=== PATIENT | male | born 1970 | race Caucasian/White ===

== ENCOUNTER 2016-06-22 20:38 | Emergency (ER) | payer MEDICAID ==
[2016-06-22] MEDS ORDERED: Ondansetron 4 MG/2 ML SDV IVPUSH ONE (22:04)
[2016-06-22] MEDS ORDERED: HYDROmorphone 2 MG/ML SDV IVPUSH ONE (22:04)
[2016-06-22] MEDS ORDERED: Sodium Chloride 0.9% 1,000 ML IV ONE (22:05)
[2016-06-23 00:28] VITALS: BP 160/99
[2016-06-23] MEDS ORDERED: Acetaminophen/HYDROcodone 325-5 MG Tab PO ONE (00:35)
--- NOTE | 2016-06-25 14:57 | ER ---
DATE SEEN: 06/22/2016 TIME SEEN: The patient was seen at 2110 hours on 06/22/2016. CHIEF COMPLAINT: Low back pain. HISTORY OF PRESENT ILLNESS: The patient complains of right flank pain. Past medical history is significant for renal stones. At 0900 hours, he had the onset of 8/10 right lower flank pain, low back discomfort, now it is greater than 10/10. No associated trauma. He has had a past medical history of renal stones. The patient denies unusual lifting, turning, twisting, or trauma. No nausea, vomiting, diarrhea, constipation, blood in the stool, black tarry stool, or change in bowels. No frequency, urgency, or dysuria. No hematuria. Negative for history of alcohol. He felt warmer than usual. He has had 2 episodes of kidney stones that passed 3 years ago. He had 96 ounces of water today (1-1/2 quarts). He drinks eight 12-ounce bottles of water a day. The patient denies fevers, but has had slight diaphoresis. Between 1300 hours and 1400 hours, the back pain relented, then it became recurrent at 1730 hours. PAST MEDICAL HISTORY: Significant for chronic intermittent low back pain; 5 midline abdominal hernia surgeries, 1 inferior, 4 upper hernia repairs with mesh placement, the last mesh that was replaced has worked well, he has not had any complications. Dr. Vega performed this very skillfully. ALLERGIES: Toradol and penicillins. OTHER DIAGNOSES: Obesity, low back pain, hernia repair as noted above, hypertension, chronic pain, arthritis, chronic right knee pain, anxiety. SOCIAL HISTORY: Alcohol negative. 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 PHYSICAL EXAMINATION: GENERAL: This overweight patient was examined. The patient has mild discomfort. He is reluctant to move and walk around because of right flank discomfort. Most of this is really from the posterior axillary line to the right anterior axillary line. VITAL SIGNS: Blood pressure 156/100, heart rate 97, respirations 18, oxygen saturation 98% on room air, and temperature 36.6 degrees centigrade. ABDOMEN: He has mild guarding. Mild CVA percussion tenderness. Further examination of the abdomen is nontender. No guarding or rebound. Bowel sounds normal. No voluntary guarding in the abdomen. EXTREMITIES: Deep tendon reflexes bilateral hypoactive in lower extremities. No decreased muscle strength in lower extremities. No asymmetry or muscle bulk. Extremities without abnormality. Straight leg raise is negative to 80 degrees on the right and 90 for the left. LUNGS: Clear to auscultation without rales, rhonchi, or wheezes. MUSCULOSKELETAL: No spinous process tenderness in cervical or thoracic spine. Mild lumbar discomfort, but most of his pain is isolated to the flank. HEENT: PERRLA intact. Pharynx without abnormality. NECK: No cervical adenopathy. No cervical or thoracic muscle tenderness or spinous process tenderness. Mild paraspinal muscle discomfort, more on the right with CVA percussion. LABORATORY FINDINGS: No evidence for abnormality demonstrated on CT. Complete metabolic panel was normal except for mild hyperglycemia of 179. Alkaline phosphatase low at 55. Sodium 137, potassium 3.8, bicarb 27, chloride 105. Urine: Protein 30, greater than 250 glucose, moderate occult blood, rare bacteria, positive tricyclics in the urine (possibility it could be secondary to use of ibuprofen). CURRENT MEDICATIONS: 1. Losartan. 2. Lisinopril. 3. Ibuprofen. 4. Amlodipine. 5. Metoprolol succinate. DIAGNOSTIC STUDIES: CAT scan as noted above. No evidence for renal stones. No evidence for bowel abnormality. Urinalysis suggests glycosuria, etiology indeterminate, may be reactive to hyperglycemia, which fits his glucose of 179, early diabetes. Moderate occult blood. Rare bacteria. It is possible he may have passed a renal stone, but at present it is not evident. No evidence for renal stone presently. The patient was advised for his back pain to use Flexeril for muscle spasm and given 8 tablets of Vicodin 1 q.4-6 hours p.r.n. pain, otherwise Tylenol 1000 mg and ibuprofen 600 mg q.6 hours together. Follow up with doctor in a week, earlier if worse. I have told the patient I felt his back pain is probably related to degenerative back pain, but I also noted that potentially he could have passed a renal stone with microhematuria evident, without a stone present. Other diagnosis: Obesity. /[id number] LS/MODL The patient, Mr. Pool Wyman, was seen at 2150 hours. /[id number] NASREEN/PADDY DORADO
--- NOTE | 2016-07-07 14:36 | ER ---
ADDENDUM TO EMERGENCY ROOM REPORT DIAGNOSES: Low back pain and hyperglycemia. MTDD
== END 2016-06-23 00:40 | disposition home or self-care (01) ==
LOC: FB.ED 20:38
DX: E66.9 Obesity, unspecified (principal); M54.5 Low back pain; Z87.442 Personal history of urinary calculi; Z87.19 Personal history of other diseases of the digestive system; I10 Essential (primary) hypertension; G89.29 Other chronic pain; M19.90 Unspecified osteoarthritis, unspecified site; M25.561 Pain in right knee; F41.9 Anxiety disorder, unspecified; Z79.899 Other long term (current) drug therapy; K76.0 Fatty (change of) liver, not elsewhere classified
CPT/HCPCS: 36415; 74176; 80053; 80305; 81001; 96361; 96374; 96375; 99284; A9270; J1170; J2405; J7040; 74177

== ENCOUNTER 2016-06-28 23:31 | Emergency (ER) | payer MEDICAID ==
[2016-06-29] MEDS ORDERED: Acetaminophen 500 MG Tab PO ONE (01:04)
[2016-06-29] MEDS ORDERED: Acetaminophen/HYDROcodone 325-5 MG Tab PO ONE (01:35)
[2016-06-29 06:41] VITALS: BP 175/110
--- NOTE | 2016-06-29 11:16 | CR ---
INDICATION: Chest pain. CHEST: PA and lateral views of the chest 06/28/2016 were compared with 2015 and 01/31/2013, revealing the heart to be normal in size and shape. The aorta is only very minimally tortuous. Overlying EKG leads are noted. A definite active infiltrate or effusion was not identified. The AP diameter is prominent and there is slight flattening of diaphragm leaves , raising question of obstructive airway disease, possibly COPD. Slightly heavy markings are again noted in the mid to lower lung lopez, especially at the lower lung lopez, most likely fibrotic in nature, appearing similar to previous examinations. IMPRESSION: No acute process. Fairly stable appearance of the chest, allowing for changes in technique. MTDD
--- NOTE | 2016-06-29 15:17 | ER ---
DATE SEEN: 06/28/2016 HISTORY OF PRESENT ILLNESS: Mr. Pool Wyman is a 46-year-old male who comes in at 2337 hours with complaints of chest pain that is sternal and radiates to his left upper chest and interscapular region of the left shoulder, left arm, and left jaw. Tried nitroglycerin at home, did not make any difference. He has associated diaphoresis. The patient is morbidly obese, a 375-pound male with a BMI of 45.5, hypertension, status post bone spur involvement with numbness, sacral degenerative spine changes. Had nonspecific chest pain noted 10/12/2015. Has obstructive sleep apnea secondary to extensive morbid obesity. Anaphylaxis to penicillin and Toradol. Status post herniorrhaphy repair x5, anterior abdomen. On 06/22/2016, had the right flank pain. He has renal stone history. Known anxiety and a mild headache this evening 10/10 because of his nitroglycerin use. Initially on arrival, his blood pressure was elevated at 215/150, dropped after lying on the gurney 164/100. Heart rate 112 to 118. MEDICATIONS: 1. Amlodipine 5 mg daily. 2. Metoprolol succinate long-acting 25 mg daily. 3. Losartan/hydrochlorothiazide 100/25. 4. Lisinopril 10 mg. 5. Ibuprofen 800 mg. 6. Cyclobenzaprine 10 mg. 7. Hydrocodone 5/325 p.r.n. Recently had a prescription of approximately 10 tablets. REVIEW OF SYSTEMS: Negative except as noted above. The patient denies lightheadedness, near syncope, palpitations, abdominal pain, nausea, vomiting, diarrhea, difficulty passing urine, frequency, urgency, or dysuria, muscle aches or joint aches, except he has arthritis in his knees. He has listed in his chart fibromyalgia, chronic neck pain, chronic back pain with previous back surgery, chronic knee pain. PHYSICAL EXAMINATION: VITAL SIGNS: Blood pressure 164/121 on arrival. This slowly went down. Blood pressure went down to 150/101. He actually refused to take his blood pressure before he left the ED. HEENT: PERRLA intact. Pharynx without abnormality. No thyromegaly or masses. NECK: No bruits in the neck. LUNGS: Clear to auscultation without rales, rhonchi, or wheezes. HEART: S1, S2. No murmur. ABDOMEN: Soft. No abdominal discomfort. Massive increased abdominal girth. The incisional hernia scars noted (he has had 6 midline hernia surgeries, 1 upper and 5 below the umbilicus). He has no tenderness. GENITALIA: Negative. EXTREMITIES: Lower extremities without edema. No dysesthesia or hypoesthesia. LABORATORY FINDINGS: White count 9300, PMNs normal at 64, lymphs 28, monos 6, platelets 185,000, hemoglobin 14.1. D-dimer normal at 144. Troponin normal, less than 0.01. Glucose elevation at 240 with remainder of automated chemistry is normal. Sodium 135, potassium 3.4, chloride 104, CO2 of 25, BUN 16, creatinine 0.1, and protein and albumin normal. Liver enzymes normal. Calcium normal. EMERGENCY DEPARTMENT COURSE: The patient's pain and discomfort did not relent. There was concern about potential possible narcotic-seeking, but after review of the record, it is apparent that he has not been seeking narcotics, although at last ED visit on 05/21/2016, he received Norflex and on 05/24/2016 had tramadol 12 tablets. On 11/27/2016, he had Jud 12 tablets. The latter does not constitute for drug-seeking behavior. Much of the medications prescribed was for low back discomfort. The patient needs to follow up with his doctor. He needs a stress test. No suggestion of myocardial ischemia or unstable angina, but there is a concern because he is high risk with massive obesity and marked blood pressure. He is high risk for myocardial ischemia or myocardial event with a BMI of 54. DIAGNOSES: 1. Chest pain, etiology indeterminate, rule out angina. 2. Rule out coronary artery disease. 3. Massive obesity. 4. Morbid obesity, with a BMI of 54.2. 5. Status post multiple midline hernias secondary to surgical incision hernia. 6. No history of incarceration of hernias, as previous documented residuals. Small ventricular hernia right and superior to the current herniorrhaphy. 7. Smoking history. 8. Depression. 9. Fibromyalgia. 10.Previous Hodgkin lymphoma resection. 11."A bad leg and shoulder." 12.Hypertension. 13.Previous back surgery. 14.Anxiety. /[id number] NASREEN/MODL
== END 2016-06-29 01:37 | disposition home or self-care (01) ==
LOC: FB.ED 23:31
DX: R07.9 Chest pain, unspecified (principal); E66.9 Obesity, unspecified; F32.9 Major depressive disorder, single episode, unspecified; M79.7 Fibromyalgia; I10 Essential (primary) hypertension; F41.9 Anxiety disorder, unspecified; Z87.891 Personal history of nicotine dependence
CPT/HCPCS: 36415; 71020; 80053; 84484; 85025; 85379; 93005; 99285; A9270

== ENCOUNTER 2016-09-10 19:52 | Emergency (ER) | payer MEDICAID ==
--- NOTE | 2016-09-10 20:06 | EDM.PDOC ---
ED HPI GENERAL MEDICAL PROBLEM - General Stated Complaint: ABDOMINAL PAIN Time Seen by Provider: 09/10/16 19:52 Source of Information: Reports: Patient, Family History Limitations: Reports: Physical Impairment - History of Present Illness INITIAL COMMENTS - FREE TEXT/NARRATIVE: 46 years old w m came to the ed with his SO due to epigastric pain for several weeks, especially after eating fruit, sugary and spicy food. Pt was seen in the clinic for same today. Pt denies other acute medical issues. Onset: Unknown/Unsure Onset Date: 07/24/16 Onset Time: 08:00 Duration: Chronic, Colic, Intermittent Location: Reports: Abdomen Quality: Reports: Burning, Dull Severity: Moderate Right Upper Abdomen Pain Score (Numeric/FACES): 10 - Related Data Allergies Allergy/AdvReac Type Severity Reaction Status Date / Time ketorolac tromethamine Allergy Unknown Anaphylactic Verified 09/10/16 20:06 [From Toradol] Shock Penicillins Allergy Hives Verified 09/10/16 20:06 Home Meds: Home Meds Lisinopril 10 mg PO DAILY 04/11/13 [History] Metoprolol Succinate [Toprol XL] 25 mg PO DAILY 04/11/13 [History] Ibuprofen 800 mg PO Q6HR PRN #60 tablet 05/13/14 [Rx] Losartan/Hydrochlorothiazide [Losartan-HCTZ 100-25 MG] 1 tab PO DAILY 06/11/15 [ History] amLODIPine [Norvasc] 5 mg PO DAILY 06/11/15 [History] Gabapentin [Neurontin] 300 mg PO TID 09/10/16 [History] Omeprazole 20 mg PO DAILY #20 cap.cr 09/10/16 [Rx] metFORMIN [Glucophage] 500 mg PO DAILY #10 tablet 09/10/16 [Rx] Past Medical History - Past Health History Medical/Surgical History: Denies Medical/Surgical History Cardiovascular History: Reports: Aneurysm, Hypertension Gastrointestinal History: Reports: None, Other (See Below) Other Gastrointestinal History: hernia surg x 5 Genitourinary History: Reports: Renal Calculus Musculoskeletal History: Reports: Arthritis, Back Pain, Chronic, Fibromyalgia, Neck Pain, Chronic, Osteoarthritis Other Musculoskeletal History: chronic R knee pain Psychiatric History: Reports: Anxiety, Depression, Panic Attack Endocrine/Metabolic History: Reports: Obesity/BMI 30+ - Infectious Disease History Infectious Disease History: Reports: Measles - Past Surgical History GI Surgical History: Reports: Hernia Repair/Other Neurological Surgical History: Reports: Other (See Below) Social & Family History - Family History Family Medical History: Noncontributory - Tobacco Use Smoking Status *Q: Former Smoker Years of Tobacco use: 25 Packs/Tins Daily: 0.5 Used Tobacco, but Quit: Yes Month Tobacco Last Used: unknown - Caffeine Use Caffeine Use: Reports: Soda - Alcohol Use Days Per Week of Alcohol Use: 0 Number of Drinks Per Day: 0 Total Drinks Per Week: 0 - Recreational Drug Use Recreational Drug Use: No - Living Situation & Occupation Living situation: Reports: Occupation: Employed ED ROS GENERAL - Review of Systems Review Of Systems: See Below Constitutional: Reports: No Symptoms, Weight Gain HEENT: Reports: No Symptoms Respiratory: Reports: No Symptoms Cardiovascular: Reports: No Symptoms Endocrine: Reports: No Symptoms GI/Abdominal: Reports: Abdominal Pain (epigastric) : Reports: No Symptoms Musculoskeletal: Reports: No Symptoms Skin: Reports: No Symptoms Neurological: Reports: No Symptoms Psychiatric: Reports: No Symptoms Hematologic/Lymphatic: Reports: No Symptoms Immunologic: Reports: No Symptoms ED EXAM, GI/ABD - Physical Exam Exam: See Below Exam Limited By: Physical Impairment General Appearance: Alert, WD/WN, Mild Distress, Obese (morbid) Eyes: Bilateral: Normal Appearance Ears: Normal External Exam Nose: Normal Inspection Throat/Mouth: Normal Inspection, Normal Lips Head: Atraumatic, Normocephalic Neck: Normal Inspection, Supple, Non-Tender, Full Range of Motion Respiratory/Chest: No Respiratory Distress, Lungs Clear, Normal Breath Sounds Cardiovascular: Normal Peripheral Pulses, Regular Rate, Rhythm, No Edema GI/Abdominal: Normal Bowel Sounds, Tenderness (epigastric ) (Male) Exam: Deferred Rectal (Males) Exam: Deferred Back Exam: Normal Inspection, Full Range of Motion Extremities: Normal Inspection, Normal Range of Motion Neurological: Alert, Oriented, CN II-XII Intact, Normal Cognition, Normal Gait Psychiatric: Normal Affect, Normal Mood Skin Exam: Warm, Dry, Intact, Normal Color Lymphatic: No Adenopathy Course - Vital Signs Text/Narrative:: 46 years old w m came to the ed with his SO due to epigastric pain for several weeks, especially after eating fruit, sugary and spicy food. Pt was seen in the clinic for same today. Pt denies other acute medical issues. Pt H/O Nonhodgkin disease PE: Morbid obese with epigastric pain Labs: Blood sugar was 487, Na 130 AST/ALT were elevated Imaging: US abd limited : Neg kar GBD Impression: Abdominal pain, epigastric, DM with hyperglycemia Tx: Gi cocktail, Zofran, Protronix, Insulin, Vicodin and dilaudid Reexam: Improved Plan: D/C with instruction Last Recorded V/S: Last Vital Signs Temp 36.8 C 09/10/16 20:09 Pulse 106 H 09/10/16 22:19 Resp 20 09/10/16 22:19 BP 167/114 H 09/10/16 22:19 Pulse Ox 97 09/10/16 22:19 - Orders/Labs/Meds Orders: Active Orders 24 hr Category Date Time Status Blood Glucose Check, Bedside [] ONETIME Care 09/10/16 22:13 Active Abdomen Ltd [US] Stat Exams 09/10/16 20:58 Ordered Labs: Laboratory Tests 09/10/16 09/10/16 09/10/16 Range/Units 20:30 20:30 20:30 WBC 8.6 (4.5-12.0) X10-3/uL RBC 5.34 (4.30-5.75) x10(6)uL Hgb 15.0 (11.5-15.5) g/dL Hct 45.4 (30.0-51.3) % MCV 85.0 (80-96) fL MCH 28.1 (27.7-33.6) pg MCHC 33.0 (32.2-35.4) g/dL RDW 12.8 (11.5-15.5) % Plt Count 169 (125-369) X10(3)uL MPV 9.1 (7.4-10.4) fL Neut % (Auto) 70.4 (46-82) % Lymph % (Auto) 23.4 (13-37) % [place] % (Auto) 4.4 (4-12) % Eos % (Auto) 2 (1.0-5.0) % Baso % (Auto) 0 (0-2) % Neut # (Auto) 6.1 (1.6-8.3) # Lymph # (Auto) 2.0 (0.6-5.0) # [place]iken # (Auto) 0.4 (0.0-1.3) # Eos # (Auto) 0.1 (0.0-0.8) # Baso # (Auto) 0.0 (0.0-0.2) # PT 9.3 (8.7-11.1) INR 0.92 (0.89-1.13) Sodium 130 L (135-145) mmol/L Potassium 3.9 (3.5-5.3) mmol/L Chloride 97 L D (100-110) mmol/L Carbon Dioxide 23 (23-29) mmol/L BUN 17 (5-20) mg/dL Creatinine 1.0 (0.6-1.3) mg/dL Est Cr Clr Drug Dosing 93.28 mL/min Estimated GFR (MDRD) > 60 (>60) BUN/Creatinine Ratio 17.0 (9-20) Glucose 485 H* D (80-116) mg/dL POC Glucose (80-116) mg/dL Hemoglobin A1c (4.0-6.0) % Calcium 8.7 (8.6-10.2) mg/dL Total Bilirubin 0.3 (0.1-1.3) mg/dL Direct Bilirubin < 0.1 L (0.1-0.2) mg/dL AST 30 H D (5-27) IU/L ALT 49 H D (14-26) IU/L Alkaline Phosphatase 83 (56-112) IU/L Total Protein 7.6 (6.0-8.0) g/dL Albumin 3.8 (3.5-5.2) g/dL Amylase 41 (28-100) U/L Urine Color (YELLOW) Urine Appearance (CLEAR) Urine pH (5.0-6.5) Ur Specific [place] (1.010-1.025) Urine Protein (NEGATIVE) mg/dL Urine Glucose (UA) (NEGATIVE) mg/dL Urine Ketones (NEGATIVE) mg/dL Urine Occult Blood (NEGATIVE) Urine Nitrite (NEGATIVE) Urine Bilirubin (NEGATIVE) Urine Urobilinogen (NEGATIVE) mg/dL Ur Leukocyte Esterase (NEGATIVE) Urine RBC (0) Urine WBC (0) Ur Squamous Epith Cells (NS,R,O) 09/10/16 09/10/16 09/10/16 Range/Units 20:34 20:45 22:09 WBC (4.5-12.0) X10-3/uL RBC (4.30-5.75) x10(6)uL Hgb (11.5-15.5) g/dL Hct (30.0-51.3) % MCV (80-96) fL MCH (27.7-33.6) pg MCHC (32.2-35.4) g/dL RDW (11.5-15.5) % Plt Count (125-369) X10(3)uL MPV (7.4-10.4) fL Neut % (Auto) (46-82) % Lymph % (Auto) (13-37) % [place] % (Auto) (4-12) % Eos % (Auto) (1.0-5.0) % Baso % (Auto) (0-2) % Neut # (Auto) (1.6-8.3) # Lymph # (Auto) (0.6-5.0) # Aiken # (Auto) (0.0-1.3) # Eos # (Auto) (0.0-0.8) # Baso # (Auto) (0.0-0.2) # PT (8.7-11.1) INR (0.89-1.13) Sodium (135-145) mmol/L Potassium (3.5-5.3) mmol/L Chloride (100-110) mmol/L Carbon Dioxide (23-29) mmol/L BUN (5-20) mg/dL Creatinine (0.6-1.3) mg/dL Est Cr Clr Drug Dosing mL/min Estimated GFR (MDRD) (>60) BUN/Creatinine Ratio (9-20) Glucose (80-116) mg/dL POC Glucose 337 H (80-116) mg/dL Hemoglobin A1c 10.6 H (4.0-6.0) % Calcium (8.6-10.2) mg/dL Total Bilirubin (0.1-1.3) mg/dL Direct Bilirubin (0.1-0.2) mg/dL AST (5-27) IU/L ALT (14-26) IU/L Alkaline Phosphatase (56-112) IU/L Total Protein (6.0-8.0) g/dL Albumin (3.5-5.2) g/dL Amylase (28-100) U/L Urine Color Yellow (YELLOW) Urine Appearance Clear (CLEAR) Urine pH 5.0 (5.0-6.5) Ur Specific [place] 1.015 (1.010-1.025) Urine Protein Negative (NEGATIVE) mg/dL Urine Glucose (UA) >1000 H (NEGATIVE) mg/dL Urine Ketones Negative (NEGATIVE) mg/dL Urine Occult Blood Negative (NEGATIVE) Urine Nitrite Negative (NEGATIVE) Urine Bilirubin Negative (NEGATIVE) Urine Urobilinogen Normal (NEGATIVE) mg/dL Ur Leukocyte Esterase Negative (NEGATIVE) Urine RBC 0-5 (0) Urine WBC 0-5 (0) Ur Squamous Epith Cells Rare (NS,R,O) Meds: Medications Discontinued Medications Generic Name Dose Route Start Last Admin Trade Name Freq PRN Reason Stop Dose Admin Hydrocodone Bitart/Acetaminophen 1 tab 09/10/16 21:44 09/10/16 21:52 [place] 325-5 Mg PO 09/10/16 21:45 1 tab ONETIME ONE Administration Al Hydroxide/Mg Hydroxide 15 0 ml 09/10/16 20:13 09/10/16 20:30 ml/ Lidocaine HCl 15 ml PO 09/10/16 20:14 30 ml ONETIME ONE Administration Hydromorphone HCl 1 mg 09/10/16 22:14 Dilaudid IVPUSH 09/10/16 22:15 ONETIME STA Insulin Human Regular 7 unit 09/10/16 20:56 09/10/16 21:10 Humulin R SUBCUT 09/10/16 20:57 7 units ONETIME STA Administration Protocol Ondansetron HCl 8 mg 09/10/16 20:13 09/10/16 20:30 Zofran Odt PO 09/10/16 20:14 8 mg ONETIME ONE Administration Pantoprazole Sodium 40 mg 09/10/16 20:38 09/10/16 20:49 Protonix Iv IVPUSH 09/10/16 20:39 40 mg ONETIME ONE Administration Departure - Departure Time of Disposition: 22:15 Disposition: Home, Self-Care 01 Condition: good Clinical Impression: Epigastric cramping, Morbid obesity, Hyponatremia, Elevated liver enzymes Diabetes mellitus Qualifiers: Diabetes mellitus type: type 2 Diabetes mellitus complication status: with hyperglycemia - Discharge Information Prescriptions: Omeprazole 20 mg PO DAILY #20 cap.cr metFORMIN [Glucophage] 500 mg PO DAILY #10 tablet Referrals: PCP,None [Primary Care Provider] - Additional Instructions: Please take omeprazole and Metformin as recommended, please f/u with your PMD for possible upper endoscopy, Please come back if symptoms get worse acutely, Please check your blood sugar daily. - My Orders Last 24 Hours: My Active Orders 09/10/16 20:58 CallVU [US] Stat 09/10/16 22:13 Blood Glucose Check, Bedside [RC] ONETIME - Assessment/Plan Last 24 Hours: My Active Orders 09/10/16 20:58 CallVU [US] Stat 09/10/16 22:13 Blood Glucose Check, Bedside [RC] ONETIME
[2016-09-10] MEDS ORDERED: Ondansetron 8 MG Tab.DIS PO ONE (20:13)
[2016-09-10] MEDS ORDERED: Alum Hydroxide/Mag Hydroxide 15 ML, Lidocaine 2% 15 ML PO ONE ×2 (20:13)
[2016-09-10] MEDS ORDERED: Pantoprazole 40 MG Vial IVPUSH ONE (20:38)
[2016-09-10] MEDS ORDERED: Insulin Regular, Human 100 Units/ML 3 ML Vial SUBCUT STA (20:56)
[2016-09-10] MEDS ORDERED: Acetaminophen/HYDROcodone 325-5 MG Tab PO ONE (21:44)
[2016-09-10] MEDS ORDERED: HYDROmorphone 2 MG/ML SDV IVPUSH STA (22:14)
[2016-09-10 22:20] VITALS: BP 167/114
--- NOTE | 2016-09-11 10:54 | US ---
INDICATION: Upper abdominal pain. RIGHT UPPER QUADRANT/GALLBLADDER ULTRASOUND: Multiple ultrasonic images were obtained of the abdomen 09/10/2016, and compared with CT of 06/22/2016. The IVC was not adequately visualized due to gas and patient body habitus. The liver is markedly echogenic, compatible with fatty infiltration. The gallbladder was relatively small in size, measuring 5.8 x 1.6 x 1.8 cm, with no definite calculi or wall thickening identified. There was a negative ultrasonic Mccall sign and no wall thickening or pericholecystic fluid identified. The common bile duct was normal in caliber at approximately 4 mm. The right kidney appeared grossly normal and was not ideally visualized, measuring 12.1 x 5.5 x 5.9 cm. The pancreas was not adequately visualized due to intestinal gas. IMPRESSION: 1. Somewhat limited visualization due to gas and body habitus. Aorta, IVC, and pancreas not adequately visualized. 2. Fatty infiltration of the liver. MTDD
== END 2016-09-10 22:50 | disposition home or self-care (01) ==
LOC: FB.ED 19:52
DX: R10.13 Epigastric pain (principal); E66.2 Morbid (severe) obesity with alveolar hypoventilation; E87.1 Hypo-osmolality and hyponatremia; E11.649 Type 2 diabetes mellitus with hypoglycemia without coma; I10 Essential (primary) hypertension; M19.90 Unspecified osteoarthritis, unspecified site; F41.9 Anxiety disorder, unspecified; F32.9 Major depressive disorder, single episode, unspecified; E66.9 Obesity, unspecified; Z87.891 Personal history of nicotine dependence; Z98.890 Other specified postprocedural states; Z88.5 Allergy status to narcotic agent; Z88.0 Allergy status to penicillin; Z79.899 Other long term (current) drug therapy; Z79.84 Long term (current) use of oral hypoglycemic drugs
CPT/HCPCS: 36415; 76705; 80048; 80076; 81001; 82150; 82962; 83036; 85025; 85610; 96372; 96374; 96375; 99284; A9270; C9113; J1170; J1815

== ENCOUNTER 2016-11-12 16:55 | Emergency (ER) | payer MEDICAID ==
[2016-11-12] MEDS ORDERED: Acetaminophen/HYDROcodone 325-5 MG Tab PO ONE (17:33)
--- NOTE | 2016-11-12 17:43 | EDM.PDOC ---
ED HPI GENERAL MEDICAL PROBLEM - General Chief Complaint: Back Pain or Injury Stated Complaint: BACK INJURY Time Seen by Provider: 11/12/16 17:30 Source of Information: Reports: Patient, Old Records, RN History Limitations: Reports: No Limitations - History of Present Illness INITIAL COMMENTS - FREE TEXT/NARRATIVE: Morbidly obese 46 yo male with a pHx of chronic low back pain presents with an increase of this pain since about 4 pm today when he was getting out of the shower. Did not fall. No bowel or bladder dysfunction. Has an appt with his primary in [place] and a pain specialist both on Wednesday. Will need a note for work. Here with his . Took nothing for pain before coming to the ER. 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: Reports: Other (see below) (none) - Related Data Allergies Allergy/AdvReac Type Severity Reaction Status Date / Time ketorolac tromethamine Allergy Unknown Anaphylactic Verified 09/10/16 20:06 [From Toradol] Shock Penicillins Allergy Hives Verified 09/10/16 20:06 Home Meds: Home Meds Lisinopril 10 mg PO DAILY 04/11/13 [History] Metoprolol Succinate [Toprol XL] 25 mg PO DAILY 04/11/13 [History] Ibuprofen 800 mg PO Q6HR PRN #60 tablet 05/13/14 [Rx] Losartan/Hydrochlorothiazide [Losartan-HCTZ 100-25 MG] 1 tab PO DAILY 06/11/15 [ History] amLODIPine [Norvasc] 5 mg PO DAILY 06/11/15 [History] Gabapentin [Neurontin] 300 mg PO TID 09/10/16 [History] Omeprazole 20 mg PO DAILY #20 cap.cr 09/10/16 [Rx] metFORMIN [Glucophage] 500 mg PO DAILY #10 tablet 09/10/16 [Rx] Acetaminophen/HYDROcodone [Bolt 325-5 MG] 1 - 2 tab PO Q6H PRN #24 tab [Rx] Past Medical History - Past Health History Medical/Surgical History: Denies Medical/Surgical History Cardiovascular History: Reports: Aneurysm, Hypertension Gastrointestinal History: Reports: None, Other (See Below) Other Gastrointestinal History: hernia surg x 5 Genitourinary History: Reports: Renal Calculus Musculoskeletal History: Reports: Arthritis, Back Pain, Chronic, Fibromyalgia, Neck Pain, Chronic, Osteoarthritis Other Musculoskeletal History: chronic R knee pain Psychiatric History: Reports: Anxiety, Depression, Panic Attack Endocrine/Metabolic History: Reports: Obesity/BMI 30+ - Infectious Disease History Infectious Disease History: Reports: Measles - Past Surgical History GI Surgical History: Reports: Hernia Repair/Other Neurological Surgical History: Reports: Other (See Below) Social & Family History - Family History Family Medical History: Noncontributory - Tobacco Use Smoking Status *Q: Former Smoker Years of Tobacco use: 25 Packs/Tins Daily: 0.5 Used Tobacco, but Quit: Yes Month Tobacco Last Used: unknown - Caffeine Use Caffeine Use: Reports: Soda - Alcohol Use Days Per Week of Alcohol Use: 0 Number of Drinks Per Day: 0 Total Drinks Per Week: 0 - Recreational Drug Use Recreational Drug Use: No - Living Situation & Occupation Living situation: Reports: Occupation: Employed ED ROS GENERAL - Review of Systems Review Of Systems: See Below Constitutional: Reports: No Symptoms HEENT: Reports: No Symptoms Respiratory: Reports: No Symptoms Cardiovascular: Reports: No Symptoms GI/Abdominal: Reports: No Symptoms : Reports: No Symptoms Musculoskeletal: Reports: Back Pain Skin: Reports: No Symptoms Neurological: Reports: No Symptoms ED EXAM,LOWER BACK PAIN/INJURY - Physical Exam Exam: See Below Exam Limited By: No Limitations General Appearance: Alert, WD/WN, No Apparent Distress, Obese Respiratory/Chest: No Respiratory Distress, No Accessory Muscle Use Cardiovascular: Regular Rate, Rhythm GI/Abdominal: Other (morbidly obese) Back Exam: Vertebral Tenderness (lumbar vertebra tender without spasm). No: CVA Tenderness (R), CVA Tenderness (L) Extremities: Normal Inspection, No Pedal Edema, Limited Range of Motion. No: Pedal Edema Neurological: Alert, Normal Mood/Affect, CN II-XII Intact, No Motor/Sensory Deficits, Oriented x 3 Psychiatric: Normal Affect, Normal Mood Skin Exam: Warm, Dry, Intact, Normal Color, No Rash Lymphatic: No Adenopathy Course - Vital Signs Text/Narrative:: Bolt 2 po - Orders/Labs/Meds Meds: Medications Discontinued Medications Generic Name Dose Route Start Last Admin Trade Name Vaibhavq PRN Reason Stop Dose Admin Hydrocodone Bitart/Acetaminophen 2 tab 11/12/16 17:33 Bolt 325-5 Mg PO 11/12/16 17:34 ONETIME ONE Departure - Departure Time of Disposition: 18:00 Disposition: Home, Self-Care 01 Condition: Good Clinical Impression: Acute exacerbation of chronic low back pain - Discharge Information Prescriptions: Acetaminophen/HYDROcodone [Bolt 325-5 MG] 1 - 2 tab PO Q6H PRN #24 tab PRN Reason: Pain Referrals: PCP,Not In Area [Primary Care Provider] - Forms: ED Return to Work/School Form Care Plan Goals: Avoid lifting, bending, or twisting. Take ibuprofen 600 mg every 6 hrs with food. Add Bolt or acetaminophen for added pain relief if needed. Keep your appt for Wednesday as scheduled.
[2016-11-12 19:15] VITALS: BP 153/97
== END 2016-11-12 18:00 | disposition home or self-care (01) ==
LOC: FB.ED 16:55
DX: G89.29 Other chronic pain (principal); M54.5 Low back pain; I10 Essential (primary) hypertension; F41.9 Anxiety disorder, unspecified; F32.9 Major depressive disorder, single episode, unspecified; E66.9 Obesity, unspecified; Z98.890 Other specified postprocedural states; Z87.891 Personal history of nicotine dependence; Z88.5 Allergy status to narcotic agent; Z88.0 Allergy status to penicillin; Z79.84 Long term (current) use of oral hypoglycemic drugs
CPT/HCPCS: 99282; A9270

== ENCOUNTER 2017-01-15 18:07 | Emergency (ER) | payer MEDICAID ==
[2017-01-15] MEDS ORDERED: Azithromycin 250 MG Tab PO ONE (19:18)
[2017-01-15] MEDS ORDERED: Acetaminophen/HYDROcodone 325-5 MG Tab PO ONE (19:18)
[2017-01-15 19:24] VITALS: BP 131/64
--- NOTE | 2017-01-19 16:32 | ER ---
DATE SEEN: 01/15/2017 TIME SEEN: The patient was seen at 1900 hours. HISTORY OF PRESENT ILLNESS: Mr. Wyman is a 46-year-old man who comes in. He feels terrible. Two weeks ago, he started coughing. He has a sore throat. Slight fever. Abdominal discomfort. He has abdominal discomfort when coughing so hard. "My whole body aches." He denies having influenza. He has mild headache. 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 Denies smoking. No alcohol. On review of the chart, it is very apparent that he has been here multiple times for back pain. He has had 7 visits this year and 11 visits last year for such things as abdominal pain, back pain, chest pain, or previous back injury. PAST MEDICAL HISTORY: Diabetes, hypertension, morbid obesity, hyponatremia, chronic low back pain, hernia repair. The patient notes he has been coughing for the last 2 weeks. He has had yellow productive sputum. He has total body aches. ALLERGIES: Toradol and penicillins. CURRENT MEDICATIONS: Amlodipine, omeprazole, metoprolol, ibuprofen, gabapentin, metformin, losartan. DIAGNOSES: Hypertension, gastroesophageal reflux disease, chronic pain, diabetes, hyperlipidemia, obesity. REVIEW OF SYSTEMS: The patient denies headache, but has head pressure from his sinuses. Mild sore throat. Chronic and persistent intermittent paroxysms of coughing. Chest wall discomfort negative, but the left lower anterior upper abdominal discomfort which he relates to coughing. Denies any arm pain, jaw pain, neck pain. He has chronic back pain but that is unchanged. : Denies frequency, urgency, dysuria, difficulty passing urine. MUSCULOSKELETAL: Negative except for the low back pain. NEUROLOGIC: Negative. No history of seizures or headaches or head trauma. PHYSICAL EXAMINATION: VITAL SIGNS: Blood pressure 138/95, heart rate 114, respirations 20, oxygen saturation 98% on room air, temperature is 37.4 degrees Centigrade. Later his blood pressure and heart rate came down to 81 and blood pressure is 131/64. No changes in other vital signs. GENERAL: Very morbidly obese man in mild distress. He is somewhat flushed, has a stocking cap on. TMs negative. Pharynx without erythema. NECK: No thyromegaly or masses in the neck. No cervical adenopathy. LUNGS: There are coarse breath sounds to the lungs. Occasional scattered rale posteriorly. No chest wall discomfort. Posteriorly, no spinous process tenderness. No anterior chest wall discomfort. HEART: S1, S2. No murmur. Left anterior proximal flank discomfort. ABDOMEN: Otherwise soft. Increased abdominal girth. No organomegaly. No splenomegaly. No hepatomegaly. No guarding or rebound. GENITALIA: Negative. LOWER EXTREMITIES: Without abnormality. No pedal edema. ASSESSMENT: 1. Bronchitis. 2. Possible mild pneumonitis, doubt the latter. 3. Pharyngitis. 4. Mild sinusitis. He has pressure in his sinuses which causes pain with palpation. He has also history of dental discomfort from the sinuses in the maxillary region. PLAN: Treat his sinusitis. He is allergic to penicillin. Use Z-Leno. He has also treatment for bronchitis, pneumonitis, and pharyngitis. He did not want to have any tests done as he wanted to decrease the expense of this for this visit. Follow up with doctor in a week and also he has something to suppress the cough, 8 tablets of Vicodin should he have breakthrough pain and discomfort for flank pain and also for coughing. This will slow down his coughing. He was pleased. /[id number] NASREEN/PADDY DORADO
== END 2017-01-15 19:21 | disposition home or self-care (01) ==
LOC: FB.ED 18:07
DX: J02.9 Acute pharyngitis, unspecified (principal); J40 Bronchitis, not specified as acute or chronic; J32.9 Chronic sinusitis, unspecified; I10 Essential (primary) hypertension; E11.9 Type 2 diabetes mellitus without complications; K21.9 Gastro-esophageal reflux disease without esophagitis; E78.5 Hyperlipidemia, unspecified; E66.9 Obesity, unspecified; Z79.84 Long term (current) use of oral hypoglycemic drugs; Z88.0 Allergy status to penicillin; Z88.6 Allergy status to analgesic agent
CPT/HCPCS: 87804; 99283; A9270

== ENCOUNTER 2017-04-16 15:19 | Emergency (ER) | payer SELFPAY ==
--- NOTE | 2017-04-16 15:55 | EDM.PDOC ---
ED HPI GENERAL MEDICAL PROBLEM - General Chief Complaint: General Stated Complaint: FELL-GROIN PAIN Time Seen by Provider: 04/16/17 15:30 Source of Information: Reports: Patient History Limitations: Reports: No Limitations - History of Present Illness INITIAL COMMENTS - FREE TEXT/NARRATIVE: Pool slipped on a step and did a split stretch of both legs, injuring the R groin earlier this week. There is residual pain and stiffness with climbing, walking, lifting and crawling. He has tried NSAIDs and Tylenol without benefit. He has an appt. to see PT on April 28. right groin Pain Score (Numeric/FACES): 10 - Related Data Allergies Allergy/AdvReac Type Severity Reaction Status Date / Time ketorolac tromethamine Allergy Unknown Anaphylactic Verified 04/16/17 15:43 [From Toradol] Shock Penicillins Allergy Hives Verified 04/16/17 15:43 Home Meds: Home Meds Lisinopril 10 mg PO DAILY 04/11/13 [History] Metoprolol Succinate [Toprol XL] 25 mg PO DAILY 04/11/13 [History] Ibuprofen 800 mg PO Q6HR PRN #60 tablet 05/13/14 [Rx] Losartan/Hydrochlorothiazide [Losartan-HCTZ 100-25 MG] 1 tab PO DAILY 06/11/15 [ History] amLODIPine [Norvasc] 5 mg PO DAILY 06/11/15 [History] Gabapentin [Neurontin] 300 mg PO TID 09/10/16 [History] Omeprazole 20 mg PO DAILY #20 cap.cr 09/10/16 [Rx] metFORMIN [Glucophage] 500 mg PO DAILY #10 tablet 09/10/16 [Rx] Cyclobenzaprine [Flexeril] 10 mg PO TID PRN #15 tab 04/16/17 [Rx] Past Medical History - Past Health History Medical/Surgical History: Denies Medical/Surgical History Cardiovascular History: Reports: Aneurysm, Hypertension Gastrointestinal History: Reports: Other (See Below) Other Gastrointestinal History: hernia surg x 5 Genitourinary History: Reports: Renal Calculus Musculoskeletal History: Reports: Arthritis, Back Pain, Chronic, Fibromyalgia, Neck Pain, Chronic, Osteoarthritis Other Musculoskeletal History: chronic R knee pain Psychiatric History: Reports: Anxiety, Depression, Panic Attack Endocrine/Metabolic History: Reports: Diabetes, Type II, Obesity/BMI 30+ - Infectious Disease History Infectious Disease History: Reports: Chicken Pox - Past Surgical History GI Surgical History: Reports: Hernia Repair/Other Neurological Surgical History: Reports: Other (See Below) Social & Family History - Family History Family Medical History: Noncontributory - Tobacco Use Smoking Status *Q: Former Smoker Years of Tobacco use: 25 Packs/Tins Daily: 0.5 Used Tobacco, but Quit: Yes Month Tobacco Last Used: january Second Hand Smoke Exposure: No - Caffeine Use Caffeine Use: Reports: Coffee - Alcohol Use Days Per Week of Alcohol Use: 0 Number of Drinks Per Day: 0 Total Drinks Per Week: 0 - Recreational Drug Use Recreational Drug Use: No - Living Situation & Occupation Living situation: Reports: Occupation: Employed ED ROS GENERAL - Review of Systems Review Of Systems: ROS reveals no pertinent complaints other than HPI. ED EXAM, GENERAL - Physical Exam Exam: See Below Exam Limited By: No Limitations General Appearance: Alert, WD/WN, Mild Distress Head: Atraumatic, Normocephalic Neck: Normal Inspection, Full Range of Motion Respiratory/Chest: Lungs Clear, Chest Non-Tender Cardiovascular: Regular Rate, Rhythm GI/Abdominal: Normal Bowel Sounds, Soft, Non-Tender, No Organomegaly, No Distention, No Mass (Male) Exam: No Hernia Rectal (Males) Exam: Deferred Back Exam: Normal Inspection Extremities: Normal Inspection, Leg Pain (R groin pain), Limited Range of Motion (R groin, with tenderness of adductor dominic mm, proximal quadriceps; ) Neurological: Alert, Oriented, CN II-XII Intact, Normal Reflexes Psychiatric: Normal Affect, Normal Mood Skin Exam: Warm, Dry Lymphatic: No Adenopathy Course - Vital Signs Text/Narrative:: Pool remained stable at the [facility] ED. No meds were administered. A request for Dilaudid was denied. Last Recorded V/S: Last Vital Signs Temp 37.1 C 04/16/17 15:20 Pulse 108 H 04/16/17 15:20 Resp 20 04/16/17 15:20 BP 143/104 H 04/16/17 15:20 Pulse Ox 98 04/16/17 15:20 Departure - Departure Time of Disposition: 15:55 Disposition: Home, Self-Care 01 Condition: Fair Clinical Impression: Groin injury Qualifiers: Encounter type: initial encounter Qualified Code(s): S39.91XA - Unspecified injury of abdomen, initial encounter - Discharge Information Prescriptions: Cyclobenzaprine [Flexeril] 10 mg PO TID PRN #15 tab PRN Reason: Breakthrough Pain Referrals: PCP,Not In Area [Primary Care Provider] - - Problem List & Annotations (1) Groin injury SNOMED Code(s): 09682866 Code(s): S39.91XA - UNSPECIFIED INJURY OF ABDOMEN, INITIAL ENCOUNTER Status : Acute Qualifiers: Encounter type: initial encounter Qualified Code(s): S39.91XA - Unspecified injury of abdomen, initial encounter - Problem List Review Problem List Initiated/Reviewed/Updated: Yes - Assessment/Plan Plan: I dispensed Flexeril 10 mg tabs tid prn for spasm, consider NSAIDs and Tylenol, and keep appt for PT.
[2017-04-16 16:15] VITALS: BP 157/100
== END 2017-04-16 16:09 | disposition home or self-care (01) ==
LOC: FB.ED 15:19
DX: S39.91XA Unspecified injury of abdomen, initial encounter (principal); I10 Essential (primary) hypertension; E11.9 Type 2 diabetes mellitus without complications; Z79.84 Long term (current) use of oral hypoglycemic drugs; Z88.0 Allergy status to penicillin; Z88.6 Allergy status to analgesic agent; Z79.899 Other long term (current) drug therapy; Z87.891 Personal history of nicotine dependence; W01.0XXA Fall on same level from slipping, tripping and stumbling without subsequent striking against object, initial encounter
CPT/HCPCS: 99283

== ENCOUNTER 2017-08-04 16:59 | Emergency (ER) | payer MEDICAID, OTHER ==
[2017-08-04] MEDS ORDERED: Sodium Chloride 0.9% 1,000 ML IV ONE (19:04)
[2017-08-04] MEDS ORDERED: HYDROmorphone 2 MG/ML SDV IVPUSH ONE (19:05)
[2017-08-04] MEDS ORDERED: Ondansetron 4 MG/2 ML SDV IVPUSH ONE (19:05)
[2017-08-04] MEDS ORDERED: Iopamidol 755 MG/ML 150 ML Bottle IV ONE (19:28)
[2017-08-04] MEDS ORDERED: Diatrizoate Meglumine/Diatrizoate Sodium 37% 30 ML Bottle PO SCH (19:30)
[2017-08-04 22:32] VITALS: BP 155/94
--- NOTE | 2017-08-05 16:26 | ER ---
DATE SEEN: 08/04/2017 TIME SEEN: The patient was seen at 1840 hours. HISTORY OF PRESENT ILLNESS: This 47-year-old man comes in with a history of having had 5 different mesh implants,four did not work, consequently it was removed, last one worked quite well, and he is very greatful for Dr. Silvia santos an persistence. One month ago, he awoke with onset of cramping abdominal discomfort. He has had pain on and off since then. Today, it is greater than 10/10 pain and onset at 0910 hours this morning. The patient was seen at 1840 hours in the ED. He has had "five hernia surgeries". No associated nausea, vomiting, diarrhea, constipation, fever, or change in bowel movements. He notes the pain is sharp and sometimes moderately sharp and sometimes dull. It is variable. No history of lifting heavy things or falling or straining or pushing excessive weight. He has not eaten all day. He cannot eat anything because of abdominal discomfort. He has an extensive problem list, 28 problems and this reflects the subjective nature of his character. With so many problem on his problem list, in addition to his obesity and diabetes, I surmise that he has a low pain threshold. ALLERGIES: Toradol and penicillins. MEDICATIONS: 1. Flexeril. 2. Metformin. 3. Amlodipine. 4. Omeprazole. 5. Metoprolol. 6. Losartan/hydrochlorothiazide. 7. Lisinopril. 8. Ibuprofen. 9. Gabapentin. REVIEW OF SYSTEMS: Otherwise negative except as noted above. The patient is obese. PHYSICAL EXAMINATION: VITAL SIGNS: Blood pressure 168/105, heart rate 88, respirations 18, oxygen saturation 98%. Temperature 36.8 degrees centigrade. GENERAL: Overweight, obese man in moderate distress. HEENT: PERRLA intact. Pharynx without abnormality. Pupils are round and equal. Do respond appropriately. Not pinpoint, nor dilated. Pharynx negative. LUNGS: Clear without rales or rhonchi. HEART: S1, S2. No murmur. ABDOMEN: Firm. He has a midline almost vertical with a curvilinear 6-shaped incisional scar (the shape of this is the number "6" ). Below this he has mild discomfort that is transverse approximately 6 cm below the umbilicus. There is mild induration noted, but no evidence for mass. Groin without abnormality. Genitalia negative. EXTREMITIES: Lower extremities without edema. Deep tendon reflexes not performed. CT scan performed did not reveal any abnormalities. No hernia demonstrated. LABORATORY STUDIES: Nonspecific with a slightly elevated hemoglobin of 15.9, otherwise white count is 9400, PMNs 59, lymphocytes 34, monos 5, and complete metabolic panel is negative. Glucose 281. Otherwise, albumin is low at 3.2. Urinalysis; few bacteria, many squames, moderate squames and greater than 1000 glucose, the latter reflects his diabetes also. Urine drug screen performed, which was negative for any street drugs. ASSESSMENT: The patient's abdominal wall pain is intermittently variable and of multifaceted etiology: perhaps secondary to the shearing stress of obesity "s tugging of the mesh on the abdominal wall nerves and perhaps the mesh has enveloped some of the nerve endings resulting in the pains. Whatever the case, because he has such a large problem list, I wonder if his symptoms are part of of global symptom complex of having a very low pain threshold. And he the tends to lean on using Dilaudid at the least sign of abdominal pain and uses Dilaudid more than he should. However, I am not certain about this and would defer to the surgeons viewpoint. For now, follow up with a doctor in a week if not improved otherwise earlier. I have discouraged him from coming in to the ED and depending on getting Dilaudid shots in the ED every time he has abdominal pain. Follow up with Dr. Vega. /[id number] NASREEN/PADDY DORADO
== END 2017-08-04 22:30 | disposition home or self-care (01) ==
LOC: FB.ED 16:59
DX: R10.9 Unspecified abdominal pain (principal); E11.9 Type 2 diabetes mellitus without complications; E66.9 Obesity, unspecified; Z88.5 Allergy status to narcotic agent; Z88.8 Allergy status to other drugs, medicaments and biological substances
CPT/HCPCS: 36415; 74177; 80053; 80305; 81001; 83605; 85025; 96361; 96374; 96375; 99284; J1170; J2405; J7040; Q9963; Q9967; 99283; J7030

== ENCOUNTER 2017-10-30 16:08 | Emergency (ER) | payer SELFPAY ==
--- NOTE | 2017-10-30 16:17 | EDM.PDOC ---
ED HPI GENERAL MEDICAL PROBLEM - General Stated Complaint: KIDNEY PAIN Time Seen by Provider: 10/30/17 16:08 Source of Information: Reports: Patient, Family History Limitations: Reports: Physical Impairment - History of Present Illness INITIAL COMMENTS - FREE TEXT/NARRATIVE: 47 y.o.w.m with h/o metabolic syndrome, morbid obese, non compliant with meds, came to the ed with gis SO due sudden onset of pain at his left flank radiating to his left groin. No trauma, no N/V/D. Pt has chronic low back pain, has NIDDM but can not afford the meds. Pt is a poor historian, well known in this ed due to his frequent visits. No N/V/D or any other constitutional symptoms. BP 160/ 100 Pulse 78 RR 16 Pulse ox 100% temp 36.8 Onset Date: 10/28/17 Onset Time: 05:00 Duration: Day(s):, Getting Worse, Intermittent Location: Reports: Back Quality: Reports: Ache, Burning, Dull, Pressure, Same as Previous Episode, Stabbing, Throbbing Severity: Moderate Improves with: Reports: Rest Worsens with: Reports: Movement Context: Reports: Other (morbid obese) Associated Symptoms: Reports: No Other Symptoms left flank to left lower abdomen Pain Score (Numeric/FACES): 10 - Related Data Allergies Allergy/AdvReac Type Severity Reaction Status Date / Time ketorolac tromethamine Allergy Unknown Anaphylactic Verified 10/30/17 17:53 [From Toradol] Shock Penicillins Allergy Hives Verified 10/30/17 17:53 Home Meds: Home Meds metFORMIN [Glucophage] 500 mg PO BIDMEALS #10 tab 10/30/17 [Rx] Past Medical History - Past Health History Medical/Surgical History: Denies Medical/Surgical History Cardiovascular History: Reports: Aneurysm, Hypertension Gastrointestinal History: Reports: Other (See Below) Other Gastrointestinal History: hernia surg x 5 Genitourinary History: Reports: Renal Calculus Musculoskeletal History: Reports: Arthritis, Back Pain, Chronic, Fibromyalgia, Neck Pain, Chronic, Osteoarthritis Other Musculoskeletal History: chronic R knee pain Psychiatric History: Reports: Anxiety, Depression, Panic Attack Endocrine/Metabolic History: Reports: Diabetes, Type II, Obesity/BMI 30+ - Infectious Disease History Infectious Disease History: Reports: Chicken Pox - Past Surgical History GI Surgical History: Reports: Hernia Repair/Other Neurological Surgical History: Reports: Other (See Below) Social & Family History - Family History Family Medical History: Noncontributory - Caffeine Use Caffeine Use: Reports: Soda - Living Situation & Occupation Living situation: Reports: Occupation: Employed ED ROS GENERAL - Review of Systems Review Of Systems: See Below Constitutional: Reports: No Symptoms HEENT: Reports: No Symptoms Respiratory: Reports: No Symptoms Cardiovascular: Reports: No Symptoms Endocrine: Reports: No Symptoms GI/Abdominal: Reports: No Symptoms : Reports: Flank Pain Musculoskeletal: Reports: No Symptoms Skin: Reports: No Symptoms Neurological: Reports: No Symptoms Psychiatric: Reports: No Symptoms Hematologic/Lymphatic: Reports: No Symptoms Immunologic: Reports: No Symptoms ED EXAM, RENAL/ - Physical Exam Exam: See Below Exam Limited By: Physical Impairment General Appearance: Alert, Obese (morbid obese) Eye Exam: Bilateral Eye: Normal Inspection Ears: Normal External Exam Nose: Normal Inspection Throat/Mouth: Normal Inspection, Normal Lips, Normal Voice, No Airway Compromise Head: Atraumatic, Normocephalic Neck: Normal Inspection, Supple, Non-Tender Respiratory/Chest: No Respiratory Distress, Lungs Clear, Normal Breath Sounds, No Accessory Muscle Use, Chest Non-Tender Cardiovascular: Normal Peripheral Pulses, Regular Rate, Rhythm, No Edema GI/Abdominal: Normal Bowel Sounds, Soft, Non-Tender, No Abnormal Bruit, No Mass (Male) Exam: Deferred Rectal (Males) Exam: Deferred Back Exam: Normal Inspection, Full Range of Motion, CVA Tenderness (L) Extremities: Normal Inspection, Normal Range of Motion, Non-Tender, No Pedal Edema Neurological: Alert, Oriented, CN II-XII Intact, Normal Cognition Psychiatric: Normal Affect, Normal Mood Skin Exam: Warm, Dry, Intact, Normal Color Lymphatic: No Adenopathy Course - Vital Signs Text/Narrative:: 47 y.o.w.m with h/o metabolic syndrome, morbid obese, non compliant with meds, came to the ed with gis SO due sudden onset of pain at his left flank radiating to his left groin. No trauma, no N/V/D. Pt has chronic low back pain, has NIDDM but can not afford the meds. Pt is a poor historian, well known in this ed due to his frequent visits. No N/V/D or any other constitutional symptoms. BP 160/ 100 Pulse 78 RR 16 Pulse ox 100% temp 36.8 PE: Morbid obese WM c/o left flank pain Labs: CBC nl HGB was 16.8 however. BMP was nl, Glc was 318 howeve. U GLC was > 1000 Imaging: Abd/pevis CT: NAD Impression: Metabolic syndrom. IDDM with Hyperglycemia, Morbid obesity, Chronic low back pain with exacerbation, noncompliant Tx: Dilaudid, initially, ice Reexam: Mild improvement. Plan: D/C with instructions. Last Recorded V/S: Last Vital Signs Temp 36.4 C 10/30/17 19:20 Pulse 99 10/30/17 19:20 Resp 17 10/30/17 19:20 BP 162/110 H 10/30/17 19:20 Pulse Ox 98 10/30/17 19:20 - Orders/Labs/Meds Orders: Active Orders 24 hr Category Date Time Status Abdomen Pelvis wo Cont [CT] Stat Exams 10/30/17 16:15 Taken UA W/MICROSCOPIC [URIN] Stat Lab 10/30/17 16:23 Ordered Labs: Laboratory Tests 10/30/17 10/30/17 10/30/17 Range/Units 16:23 16:25 16:25 WBC 9.4 (4.5-12.0) X10-3/uL RBC 5.53 (4.30-5.75) x10(6)uL Hgb 16.2 H (11.5-15.5) g/dL Hct 47.3 (30.0-51.3) % MCV 85.5 (80-96) fL MCH 29.3 (27.7-33.6) pg MCHC 34.3 (32.2-35.4) g/dL RDW 12.5 (11.5-15.5) % Plt Count 206 (125-369) X10(3)uL MPV 8.9 (7.4-10.4) fL Neut % (Auto) 68.0 (46-82) % Lymph % (Auto) 26.4 (13-37) % [place] % (Auto) 4.5 (4-12) % Eos % (Auto) 1 (1.0-5.0) % Baso % (Auto) 0 (0-2) % Neut # (Auto) 6.4 (1.6-8.3) # Lymph # (Auto) 2.5 (0.6-5.0) # [place] # (Auto) 0.4 (0.0-1.3) # Eos # (Auto) 0.1 (0.0-0.8) # Baso # (Auto) 0.0 (0.0-0.2) # Sodium 135 (135-145) mmol/L Potassium 3.9 (3.5-5.3) mmol/L Chloride 98 L (100-110) mmol/L Carbon Dioxide 26 (21-32) mmol/L BUN 12 (7-18) mg/dL Creatinine 1.2 (0.70-1.30) mg/dL Est Cr Clr Drug Dosing TNP Estimated GFR (MDRD) > 60 (>60) BUN/Creatinine Ratio 10.0 (9-20) Glucose 440 H* D (80-116) mg/dL POC Glucose (80-116) mg/dL Calcium 8.4 L (8.6-10.2) mg/dL Urine Color Yellow (YELLOW) Urine Appearance Clear (CLEAR) Urine pH 5.0 (5.0-6.5) Ur Specific [place] 1.015 (1.010-1.025) Urine Protein 30 H (NEGATIVE) mg/dL Urine Glucose (UA) >1000 H (NEGATIVE) mg/dL Urine Ketones Negative (NEGATIVE) mg/dL Urine Occult Blood Negative (NEGATIVE) Urine Nitrite Negative (NEGATIVE) Urine Bilirubin Negative (NEGATIVE) Urine Urobilinogen Normal (NEGATIVE) mg/dL Ur Leukocyte Esterase Negative (NEGATIVE) Urine RBC 0-5 (0) Urine WBC 0-5 (0) Ur Squamous Epith Cells Few H (NS,R,O) Urine Bacteria Few H (NS) 10/30/17 Range/Units 18:42 WBC (4.5-12.0) X10-3/uL RBC (4.30-5.75) x10(6)uL Hgb (11.5-15.5) g/dL Hct (30.0-51.3) % MCV (80-96) fL MCH (27.7-33.6) pg MCHC (32.2-35.4) g/dL RDW (11.5-15.5) % Plt Count (125-369) X10(3)uL MPV (7.4-10.4) fL Neut % (Auto) (46-82) % Lymph % (Auto) (13-37) % [place] % (Auto) (4-12) % Eos % (Auto) (1.0-5.0) % Baso % (Auto) (0-2) % Neut # (Auto) (1.6-8.3) # Lymph # (Auto) (0.6-5.0) # [place] # (Auto) (0.0-1.3) # Eos # (Auto) (0.0-0.8) # Baso # (Auto) (0.0-0.2) # Sodium (135-145) mmol/L Potassium (3.5-5.3) mmol/L Chloride (100-110) mmol/L Carbon Dioxide (21-32) mmol/L BUN (7-18) mg/dL Creatinine (0.70-1.30) mg/dL Est Cr Clr Drug Dosing Estimated GFR (MDRD) (>60) BUN/Creatinine Ratio (9-20) Glucose (80-116) mg/dL POC Glucose 318 H (80-116) mg/dL Calcium (8.6-10.2) mg/dL Urine Color (YELLOW) Urine Appearance (CLEAR) Urine pH (5.0-6.5) Ur Specific [place] (1.010-1.025) Urine Protein (NEGATIVE) mg/dL Urine Glucose (UA) (NEGATIVE) mg/dL Urine Ketones (NEGATIVE) mg/dL Urine Occult Blood (NEGATIVE) Urine Nitrite (NEGATIVE) Urine Bilirubin (NEGATIVE) Urine Urobilinogen (NEGATIVE) mg/dL Ur Leukocyte Esterase (NEGATIVE) Urine RBC (0) Urine WBC (0) Ur Squamous Epith Cells (NS,R,O) Urine Bacteria (NS) Meds: Medications Discontinued Medications Generic Name Dose Route Start Last Admin Trade Name Freq PRN Reason Stop Dose Admin Hydromorphone HCl 1 mg 10/30/17 17:04 10/30/17 17:38 Dilaudid IM 10/30/17 17:05 1 mg ONETIME ONE Administration Insulin Human Regular 10 unit 10/30/17 17:51 10/30/17 18:06 Humulin R SUBCUT 10/30/17 17:52 10 unit ONETIME STA Administration Departure - Departure Time of Disposition: 18:54 Disposition: Home, Self-Care 01 Condition: Good Clinical Impression: Low back pain, Hyperglycemia due to type 2 diabetes mellitus, Noncompliance - Discharge Information Prescriptions: metFORMIN [Glucophage] 500 mg PO BIDMEALS #10 tab Instructions: Hyperglycemia, [id number], Metformin tablets Referrals: PCP,None [Primary Care Provider] - Forms: ED Department Discharge Additional Instructions: Please f/u with your PMD/UC, take metformin as recommended. Please come back if your symptoms get worse acutely - My Orders Last 24 Hours: My Active Orders 10/30/17 16:15 Abdomen Pelvis wo Cont [CT] Stat 10/30/17 16:23 UA W/MICROSCOPIC [URIN] Stat - Assessment/Plan Last 24 Hours: My Active Orders 10/30/17 16:15 Abdomen Pelvis wo Cont [CT] Stat 10/30/17 16:23 UA W/MICROSCOPIC [URIN] Stat
[2017-10-30] MEDS ORDERED: HYDROmorphone 2 MG/ML SDV IM ONE (17:04)
[2017-10-30] MEDS ORDERED: Insulin Regular, Human 100 Units/ML 3 ML Vial SUBCUT STA (17:51)
[2017-10-30] MEDS ORDERED: Acetaminophen/HYDROcodone 325-5 MG Tab PO ONE (18:01)
[2017-10-30 19:33] VITALS: BP 162/110
== END 2017-10-30 19:23 | disposition home or self-care (01) ==
LOC: FB.ED 16:08
DX: M54.5 Low back pain (principal); G89.29 Other chronic pain; E66.01 Morbid (severe) obesity due to excess calories; E11.65 Type 2 diabetes mellitus with hyperglycemia; I10 Essential (primary) hypertension; E88.81 Metabolic syndrome and other insulin resistance; Z88.8 Allergy status to other drugs, medicaments and biological substances; Z88.0 Allergy status to penicillin; Z91.19 Patient's noncompliance with other medical treatment and regimen
CPT/HCPCS: 36415; 74176; 80048; 81001; 82962; 85025; 96372; 99284; J1170; J1815; A9270-GY

== ENCOUNTER 2017-12-04 23:31 | Emergency (ER) | payer SELFPAY ==
[2017-12-05] MEDS ORDERED: diphenhydrAMINE 50 MG/ML SDV IM STA (00:30)
[2017-12-05 00:32] VITALS: BP 169/88
[2017-12-05] MEDS ORDERED: traMADol 50 MG Tab PO ONE (00:33)
--- NOTE | 2017-12-05 00:36 | EDM.PDOC ---
ED HPI GENERAL MEDICAL PROBLEM - General Chief Complaint: Genitourinary Problem Stated Complaint: KIDNEY PAIN Time Seen by Provider: 12/05/17 00:01 Source of Information: Reports: Patient History Limitations: Reports: No Limitations - History of Present Illness INITIAL COMMENTS - FREE TEXT/NARRATIVE: 47 y.o.w.m with a h/o K stones. NIDDM, chronic low back pain, frequent visits to the ED, came to the ed stating he has "kidney stones on "both sides". No blood in the urine, his pain it at his lower back, bilat. He is sitting comfortable at the edge of the beds. I said as well, he can not sleep and a "strong" medication to make him sleepy. No N/V/D no dizziness. He has an appointment with his kidney specialist this Wednesday. His accu check was [phone] today here in the ed. His daughter is on the way to pick him up. BP 169/88 RR 22 Temp 36.8 Pulse ox 98 % on RA. Pulse 104 Onset Date: 12/04/17 Onset Time: 17:00 Duration: Hour(s):, Intermittent Location: Reports: Back Quality: Reports: Ache, Burning, Dull, Pressure Severity: Mild Improves with: Reports: Rest Worsens with: Reports: Movement Context: Reports: Other (H/O [place] stones) Associated Symptoms: Reports: No Other Symptoms - Related Data Allergies Allergy/AdvReac Type Severity Reaction Status Date / Time ketorolac tromethamine Allergy Severe Anaphylactic Verified 12/05/17 05:28 [From Toradol] Shock Penicillins Allergy Hives Verified 12/05/17 05:27 Home Meds: Home Meds metFORMIN [Glucophage] 500 mg PO BIDMEALS #10 tab 10/30/17 [Rx] .Bp Pills 1 tab PO DAILY 12/05/17 [History] Aspirin [Adult Aspirin] 81 mg PO DAILY 12/05/17 [History] Past Medical History - Past Health History Medical/Surgical History: Denies Medical/Surgical History Cardiovascular History: Reports: Aneurysm, Hypertension Gastrointestinal History: Reports: Other (See Below) Other Gastrointestinal History: hernia surg x 5 Genitourinary History: Reports: Renal Calculus Musculoskeletal History: Reports: Arthritis, Back Pain, Chronic, Fibromyalgia, Neck Pain, Chronic, Osteoarthritis Other Musculoskeletal History: chronic R knee pain Psychiatric History: Reports: Anxiety, Depression, Panic Attack Endocrine/Metabolic History: Reports: Diabetes, Type II, Obesity/BMI 30+ - Infectious Disease History Infectious Disease History: Reports: Chicken Pox - Past Surgical History GI Surgical History: Reports: Hernia Repair/Other Neurological Surgical History: Reports: Other (See Below) Social & Family History - Family History Family Medical History: Noncontributory - Caffeine Use Caffeine Use: Reports: Soda - Living Situation & Occupation Living situation: Reports: Occupation: Employed ED ROS GENERAL - Review of Systems Review Of Systems: See Below Constitutional: Reports: No Symptoms HEENT: Reports: No Symptoms Respiratory: Reports: No Symptoms Cardiovascular: Reports: No Symptoms Endocrine: Reports: No Symptoms GI/Abdominal: Reports: No Symptoms : Reports: No Symptoms Musculoskeletal: Reports: Back Pain Skin: Reports: No Symptoms Neurological: Reports: No Symptoms Psychiatric: Reports: No Symptoms Hematologic/Lymphatic: Reports: No Symptoms Immunologic: Reports: No Symptoms ED EXAM, RENAL/ - Physical Exam Exam: See Below Exam Limited By: No Limitations General Appearance: Alert, WD/WN, Mild Distress Eye Exam: Bilateral Eye: Normal Inspection Ears: Normal External Exam, Normal Canal Nose: Normal Inspection, Normal Mucosa, No Blood Throat/Mouth: Normal Inspection, Normal Lips, Normal Oropharynx, Normal Voice, No Airway Compromise Head: Atraumatic, Normocephalic Neck: Normal Inspection, Supple, Non-Tender, Full Range of Motion Respiratory/Chest: No Respiratory Distress, Lungs Clear, Normal Breath Sounds, No Accessory Muscle Use, Chest Non-Tender Cardiovascular: Normal Peripheral Pulses, Regular Rate, Rhythm, No Edema, No Gallop, No JVD, No Murmur, No Rub GI/Abdominal: Normal Bowel Sounds, Soft, Non-Tender, No Organomegaly, No Distention, No Abnormal Bruit, No Mass, Pelvis Stable (Male) Exam: Deferred Rectal (Males) Exam: Deferred Back Exam: Normal Inspection, Full Range of Motion Extremities: Normal Inspection, Normal Range of Motion, Non-Tender, No Pedal Edema Neurological: Alert, Oriented, CN II-XII Intact, Normal Cognition, Normal Gait, No Motor/Sensory Deficits Psychiatric: Normal Affect, Normal Mood Skin Exam: Warm, Dry, Intact, Normal Color, No Rash Lymphatic: No Adenopathy Course - Vital Signs Text/Narrative:: 47 y.o.w.m with a h/o K stones. NIDDM, chronic low back pain, frequent visits to the ED, came to the ed stating he has "kidney stones on "both sides". No blood in the urine, his pain it at his lower back, bilat. He is sitting comfortable at the edge of the beds. I said as well, he can not sleep and a "strong" medication to make him sleepy. No N/V/D no dizziness. He has an appointment with his kidney specialist this Wednesday. His accu check was [phone] today here in the ed. His daughter is on the way to pick him up. BP 169/88 RR 22 Temp 36.8 Pulse ox 98 % on RA. Pulse 104 PE: Morbid obese 47 y.o.w.m with back pain Imaging: Pt refused imaging studies UA: Glc > 100 Protein 30 Accu check: [phone] Impression: Low back pain, unable to sleep, NIDDM with hyperglycemia Tx: Ultram, Benadryl and Insulin Reexam: Improved Plan: D/C to home Last Recorded V/S: Last Vital Signs Temp 36.8 C 12/05/17 00:00 Pulse 104 H 12/05/17 00:00 Resp 22 H 12/05/17 00:00 BP 169/88 H 12/05/17 00:00 Pulse Ox 98 12/05/17 00:00 - Orders/Labs/Meds Orders: Active Orders 24 hr Category Date Time Status Blood Glucose Check, Bedside [RC] ONETIME Care 12/05/17 00:18 Active UA W/MICROSCOPIC [URIN] Stat Lab 12/04/17 23:45 Ordered Labs: Laboratory Tests 12/04/17 12/05/17 Range/Units 23:45 00:18 POC Glucose 359 H (80-116) mg/dL Urine Color Yellow (YELLOW) Urine Appearance Clear (CLEAR) Urine pH 6.0 (5.0-6.5) Ur Specific [place] 1.015 (1.010-1.025) Urine Protein 30 H (NEGATIVE) mg/dL Urine Glucose (UA) >1000 H (NEGATIVE) mg/dL Urine Ketones Negative (NEGATIVE) mg/dL Urine Occult Blood Negative (NEGATIVE) Urine Nitrite Negative (NEGATIVE) Urine Bilirubin Negative (NEGATIVE) Urine Urobilinogen Normal (NEGATIVE) mg/dL Ur Leukocyte Esterase Negative (NEGATIVE) Urine RBC 0-5 (0) Urine WBC 0-5 (0) Ur Squamous Epith Cells Occasional (NS,R,O) Urine Bacteria Few H (NS) Meds: Medications Discontinued Medications Generic Name Dose Route Start Last Admin Trade Name Leni PRN Reason Stop Dose Admin Diphenhydramine HCl 25 mg 12/05/17 00:30 12/05/17 00:40 Benadryl IM 12/05/17 00:31 25 mg ONETIME STA Administration Insulin Human Regular 5 unit 12/05/17 00:38 12/05/17 00:45 Humulin R SUBCUT 12/05/17 00:39 5 units BIDAC STA Administration Tramadol HCl 50 mg 12/05/17 00:33 12/05/17 00:41 Ultram PO 12/05/17 00:34 50 mg ONETIME ONE Administration Departure - Departure Time of Disposition: 00:37 Disposition: Home, Self-Care 01 Condition: Good Clinical Impression: Low back pain, NIDDY (non-insulin dependent diabetes mellitus in young), Hyperglycemia - Discharge Information *PRESCRIPTION DRUG MONITORING PROGRAM REVIEWED*: Yes *COPY OF PRESCRIPTION DRUG MONITORING REPORT IN PATIENT HERSON: Yes Referrals: PCP,None [Primary Care Provider] - Forms: ED Department Discharge Additional Instructions: Please f/u with your Doctor this Wednesday, please come back if your symptoms get worse acutely - My Orders Last 24 Hours: My Active Orders 12/04/17 23:45 UA W/MICROSCOPIC [URIN] Stat 12/05/17 00:18 Blood Glucose Check, Bedside [RC] ONETIME - Assessment/Plan Last 24 Hours: My Active Orders 12/04/17 23:45 UA W/MICROSCOPIC [URIN] Stat 12/05/17 00:18 Blood Glucose Check, Bedside [RC] ONETIME
[2017-12-05] MEDS ORDERED: Insulin Regular, Human 100 Units/ML 3 ML Vial SUBCUT STA (00:38)
== END 2017-12-05 00:50 | disposition home or self-care (01) ==
LOC: FB.ED 23:31
DX: M54.5 Low back pain (principal); E11.65 Type 2 diabetes mellitus with hyperglycemia; I10 Essential (primary) hypertension; Z88.0 Allergy status to penicillin; Z88.5 Allergy status to narcotic agent; Z79.82 Long term (current) use of aspirin
CPT/HCPCS: 81001; 82962; 96372; 99283; A9270; J1200; J1815

== ENCOUNTER 2017-12-20 19:23 | Emergency (ER) | payer SELFPAY ==
[2017-12-20] MEDS ORDERED: HYDROmorphone 2 MG/ML SDV IM ONE (19:50)
--- NOTE | 2017-12-20 19:54 | EDM.PDOC ---
ED HPI GENERAL MEDICAL PROBLEM - General Stated Complaint: BIG LUMP ON STOMACH Time Seen by Provider: 12/20/17 19:50 Source of Information: Reports: Patient History Limitations: Reports: No Limitations - History of Present Illness INITIAL COMMENTS - FREE TEXT/NARRATIVE: Pool is a 47-year-old male with pain in the abdomen area. 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 He has not taken anytiing his pain. Pool has a history of abdominal hernia with repar,at least 5 times. Also has morbid obesity and type 2 diabetes ,which is well- controlled. He has come to the ED multiple times, usually for pain medication. - Related Data Allergies Allergy/AdvReac Type Severity Reaction Status Date / Time Penicillins Allergy Hives Verified 12/20/17 19:41 Home Meds: Home Meds metFORMIN [Glucophage] 500 mg PO BIDMEALS #10 tab 10/30/17 [Rx] .Bp Pills 1 tab PO DAILY 12/05/17 [History] Aspirin [Adult Aspirin] 81 mg PO DAILY 12/05/17 [History] Past Medical History - Past Health History Medical/Surgical History: Denies Medical/Surgical History Cardiovascular History: Reports: Aneurysm, Hypertension Gastrointestinal History: Reports: Other (See Below) Other Gastrointestinal History: hernia surg x 5 Genitourinary History: Reports: Renal Calculus Musculoskeletal History: Reports: Arthritis, Back Pain, Chronic, Fibromyalgia, Neck Pain, Chronic, Osteoarthritis Other Musculoskeletal History: chronic R knee pain Psychiatric History: Reports: Anxiety, Depression, Panic Attack Endocrine/Metabolic History: Reports: Diabetes, Type II, Obesity/BMI 30+ - Infectious Disease History Infectious Disease History: Reports: Chicken Pox - Past Surgical History GI Surgical History: Reports: Hernia Repair/Other Neurological Surgical History: Reports: Other (See Below) Social & Family History - Family History Family Medical History: Noncontributory - Caffeine Use Caffeine Use: Reports: Soda - Living Situation & Occupation Living situation: Reports: Occupation: Employed ED ROS GENERAL - Review of Systems Review Of Systems: ROS reveals no pertinent complaints other than HPI. ED EXAM, GI/ABD - Physical Exam Exam: See Below Exam Limited By: No Limitations General Appearance: Alert Eyes: Bilateral: Normal Appearance, EOMI GI/Abdominal Exam: No Organomegaly, No Distention, Distended, Other (easily reducible epigastric hernia) Course - Vital Signs Last Recorded V/S: Last Vital Signs Temp 98.1 F 12/20/17 19:25 Pulse 104 H 12/20/17 19:25 Resp 17 12/20/17 19:25 BP 154/109 H 12/20/17 19:25 Pulse Ox 99 12/20/17 19:25 - Orders/Labs/Meds Orders: Active Orders 24 hr Category Date Time Status HYDROmorphone [Dilaudid] Med 12/20/17 19:50 Once 2 mg IM ONETIME ONE Medication Orders Hydromorphone HCl (Dilaudid) 2 mg IM ONETIME ONE Stop: 12/20/17 19:51 Meds: Medications Generic Name Dose Route Start Last Admin Trade Name Leni PRN Reason Stop Dose Admin Hydromorphone HCl 2 mg 12/20/17 19:50 Dilaudid IM 12/20/17 19:51 ONETIME ONE Departure - Departure Time of Disposition: 19:53 Disposition: Home, Self-Care 01 Clinical Impression: Morbid obesity - Discharge Information Referrals: PCP,Not In Area [Primary Care Provider] - - Problem List & Annotations (1) Abdominal wall pain SNOMED Code(s): 653867826 Code(s): R10.9 - UNSPECIFIED ABDOMINAL PAIN Status: Acute Annotation/ Comment:: Findings consistent with ventral abominal wall pain, possible ventral hernia developing. (2) Morbid obesity SNOMED Code(s): 559994969 Code(s): E66.01 - MORBID (SEVERE) OBESITY DUE TO EXCESS CALORIES Status: Acute - Problem List Review Problem List Initiated/Reviewed/Updated: Yes - My Orders Last 24 Hours: My Active Orders 12/20/17 19:50 HYDROmorphone [Dilaudid] 2 mg IM ONETIME ONE - Assessment/Plan Last 24 Hours: My Active Orders 12/20/17 19:50 HYDROmorphone [Dilaudid] 2 mg IM ONETIME ONE Plan: Dilaudid 2 mg IM,see Dr Vega this week
[2017-12-20] MEDS ORDERED: diphenhydrAMINE 50 MG/ML SDV IM ONE (20:09)
[2017-12-20 20:31] VITALS: BP 162/108
== END 2017-12-20 20:18 | disposition home or self-care (01) ==
LOC: FB.ED 19:23
DX: E66.01 Morbid (severe) obesity due to excess calories (principal); Z68.41 Body mass index [BMI] 40.0-44.9, adult; I10 Essential (primary) hypertension; E11.9 Type 2 diabetes mellitus without complications; Z79.82 Long term (current) use of aspirin; Z88.0 Allergy status to penicillin; Z79.84 Long term (current) use of oral hypoglycemic drugs
CPT/HCPCS: 96372; 99283; J1170; J1200

== ENCOUNTER 2017-12-22 07:27 | Emergency (ER) | payer BC, MEDICAID ==
[2017-12-22] MEDS: Insulin Regular, Human 100 Units/ML 3 ML Vial SUBCUT STA (08:49)
--- NOTE | 2017-12-22 08:58 | EDM.PDOC ---
ED HPI GENERAL MEDICAL PROBLEM - General Chief Complaint: Abdominal Pain Stated Complaint: HERNIA ISSUE Time Seen by Provider: 12/22/17 07:27 Source of Information: Reports: Patient, Family History Limitations: Reports: No Limitations - History of Present Illness INITIAL COMMENTS - FREE TEXT/NARRATIVE: 47 y.o.w.m with a h/o metabolic syndrome, came to the with abd. pain. Pt was seen in this ED yesterday for same, when he received 2 mg of Dilaudid wit Benadryl, which helped him to sleep. Pt had abd. wall hernia repair in the past. Pt noticed a "lump" coming out of his "abd. wall, no blood in stool. No trauma. No N/V/D or any other acute medical issues. Pt has an appointment with the surgeon tomorrow. BP 147/104 RR 18 Temp 36.7 pulse ox 99% on RA pulse 105 Onset Date: 12/21/17 Onset Time: 08:00 Duration: Day(s):, Getting Worse, Intermittent Location: Reports: Abdomen Quality: Reports: Ache, Pressure, Stabbing, Throbbing Severity: Moderate Improves with: Reports: Rest Worsens with: Reports: Movement Context: Reports: Other (H/O vetral abd. 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 (see below) (Pt received Dilaudid yesterday) - Related Data Allergies Allergy/AdvReac Type Severity Reaction Status Date / Time ketorolac [From Toradol] Allergy Hives Verified 12/22/17 08:34 Penicillins Allergy Hives Verified 12/20/17 19:41 Home Meds: Home Meds Furosemide [Lasix] 40 mg PO DAILY 12/22/17 [History] Lisinopril [Prinivil] 10 mg PO DAILY 12/22/17 [History] Metaxalone 800 mg PO DAILY 12/22/17 [History] Metoprolol Tartrate [Lopressor] 25 mg PO DAILY 12/22/17 [History] metFORMIN [Glucophage] 500 mg PO DAILY 12/22/17 [History] traMADol [Ultram] 50 mg PO BID PRN #4 tablet 12/22/17 [Rx] Past Medical History - Past Health History Medical/Surgical History: Denies Medical/Surgical History HEENT History: Reports: None Cardiovascular History: Reports: Aneurysm, Hypertension Respiratory History: Reports: None Gastrointestinal History: Reports: Other (See Below) Other Gastrointestinal History: hernia surg x 5 Genitourinary History: Reports: Renal Calculus Musculoskeletal History: Reports: Arthritis, Back Pain, Chronic, Fibromyalgia, Neck Pain, Chronic, Osteoarthritis Other Musculoskeletal History: chronic R knee pain Neurological History: Reports: None, Other (See Below) Other Neuro History: Insomnia Psychiatric History: Reports: Anxiety, Depression, Panic Attack Endocrine/Metabolic History: Reports: Diabetes, Type II, Obesity/BMI 30+ Hematologic History: Reports: Anticoagulation Therapy Immunologic History: Reports: None Oncologic (Cancer) History: Reports: None Dermatologic History: Reports: None - Infectious Disease History Infectious Disease History: Reports: Chicken Pox - Past Surgical History Head Surgeries/Procedures: Reports: None HEENT Surgical History: Reports: Other (See Below) Other HEENT Surgeries/Procedures: Lump removed from throat approx 2013 Cardiovascular Surgical History: Reports: None GI Surgical History: Reports: Hernia Repair/Other Social & Family History - Family History Family Medical History: Noncontributory - Tobacco Use Smoking Status *Q: Never Smoker - Caffeine Use Caffeine Use: Reports: Soda, Tea - Recreational Drug Use Recreational Drug Use: No - Living Situation & Occupation Living situation: Reports: Occupation: Employed ED ROS GENERAL - Review of Systems Review Of Systems: See Below Constitutional: Reports: No Symptoms HEENT: Reports: No Symptoms Respiratory: Reports: No Symptoms Cardiovascular: Reports: No Symptoms Endocrine: Reports: No Symptoms GI/Abdominal: Reports: Abdominal Pain : Reports: No Symptoms Musculoskeletal: Reports: No Symptoms Skin: Reports: No Symptoms Neurological: Reports: No Symptoms Psychiatric: Reports: No Symptoms Hematologic/Lymphatic: Reports: No Symptoms Immunologic: Reports: No Symptoms ED EXAM, GI/ABD - Physical Exam Exam: See Below Exam Limited By: No Limitations General Appearance: Alert, WD/WN, Mild Distress, Obese (morbid) Eyes: Bilateral: Normal Appearance Ears: Normal External Exam Nose: Normal Inspection, Normal Mucosa, No Blood Throat/Mouth: Normal Inspection, Normal Lips, Normal Gums, Normal Oropharynx, Normal Voice, No Airway Compromise Head: Atraumatic, Normocephalic Neck: Normal Inspection, Supple, Non-Tender, Full Range of Motion Respiratory/Chest: No Respiratory Distress, Lungs Clear, Normal Breath Sounds, No Accessory Muscle Use, Chest Non-Tender Cardiovascular: Normal Peripheral Pulses, Regular Rate, Rhythm, No Edema, No Gallop, No JVD, No Murmur, No Rub GI/Abdominal Exam: Normal Bowel Sounds, No Distention, No Abnormal Bruit, No Mass, Pelvis Stable, Tender (periumbilical) (Male) Exam: Hernia (ventral abd. wall hernia, minor) Rectal (Males) Exam: Deferred Back Exam: Normal Inspection, Full Range of Motion Extremities: Normal Inspection, Normal Range of Motion, Non-Tender, No Pedal Edema, Normal Capillary Refill Neurological: Alert, Oriented, CN II-XII Intact, Normal Cognition, Normal Gait, Normal Reflexes, No Motor/Sensory Deficits Psychiatric: Normal Affect, Normal Mood Skin Exam: Warm, Dry, Intact, Normal Color, No Rash Lymphatic: No Adenopathy Course - Vital Signs Text/Narrative:: 47 y.o.w.m with a h/o metabolic syndrome, came to the with abd. pain. Pt was seen in this ED yesterday for same, when he received 2 mg of Dilaudid wit Benadryl, which helped him to sleep. Pt had abd. wall hernia repair in the past. Pt noticed a "lump" coming out of his "abd. wall, no blood in stool. No trauma. No N/V/D or any other acute medical issues. Pt has an appointment with the surgeon tomorrow. BP 147/104 RR 18 Temp 36.7 pulse ox 99% on RA pulse 105 PE: Morbid obese WM with metabolic syndrome Labs: CBC BMp nl, however BS is 484 UA: glucosuria Impression: Abd. pain, poor compliance, H/O ventral hernia, NIDDM with hyperglycemia Tx: Reg Insulin, Mertformin, Dilaudid, Benadryl Reexam: improved, Accu check was 424 on D/C, pain subsided Plan: D/C with instructions: Please increase your Metformin dose to 500mg twice daily, please check your blood sugar two time a day. Please f/u with your PMD in next 3 days. Please come back if your symptoms get worse acutely. Last Recorded V/S: Last Vital Signs Temp 36.7 C 12/22/17 10:15 Pulse 102 H 12/22/17 10:15 Resp 18 12/22/17 10:15 BP 168/119 H 12/22/17 10:15 Pulse Ox 97 12/22/17 10:15 - Orders/Labs/Meds Orders: Active Orders 24 hr Category Date Time Status Blood Glucose Check, Bedside [RC] ONETIME Care 12/22/17 09:20 Active UA W/MICROSCOPIC [URIN] Stat Lab 12/22/17 09:00 Ordered Labs: Laboratory Tests 12/22/17 12/22/17 12/22/17 Range/Units 08:10 08:10 09:00 WBC 7.2 (4.5-12.0) X10-3/uL RBC 5.68 (4.30-5.75) x10(6)uL Hgb 16.8 H (11.5-15.5) g/dL Hct 49.9 (30.0-51.3) % MCV 87.7 (80-96) fL MCH 29.5 (27.7-33.6) pg MCHC 33.6 (32.2-35.4) g/dL RDW 12.7 (11.5-15.5) % Plt Count 180 (125-369) X10(3)uL MPV 9.2 (7.4-10.4) fL Neut % (Auto) 71.4 (46-82) % Lymph % (Auto) 22.8 (13-37) % [place] % (Auto) 4.3 (4-12) % Eos % (Auto) 1 (1.0-5.0) % Baso % (Auto) 0 (0-2) % Neut # (Auto) 5.1 (1.6-8.3) # Lymph # (Auto) 1.7 (0.6-5.0) # [place] # (Auto) 0.3 (0.0-1.3) # Eos # (Auto) 0.1 (0.0-0.8) # Baso # (Auto) 0.0 (0.0-0.2) # Sodium 133 L (135-145) mmol/L Potassium 4.2 (3.5-5.3) mmol/L Chloride 97 L (100-110) mmol/L Carbon Dioxide 28 (21-32) mmol/L BUN 13 (7-18) mg/dL Creatinine 1.1 (0.70-1.30) mg/dL Est Cr Clr Drug Dosing TNP Estimated GFR (MDRD) > 60 (>60) BUN/Creatinine Ratio 11.8 (9-20) Glucose 482 H* (80-116) mg/dL POC Glucose (80-116) mg/dL Calcium 9.0 (8.6-10.2) mg/dL Total Bilirubin 0.2 (0.1-1.3) mg/dL Direct Bilirubin 0.07 L (0.10-0.20) mg/dL AST 11 D (5-25) IU/L ALT 39 H D (12-36) U/L Alkaline Phosphatase 96 (56-112) IU/L Total Protein 8.0 (6.0-8.0) g/dL Albumin 3.2 L (3.5-5.2) g/dL Amylase 22 L (25-115) U/L Urine Color Yellow (YELLOW) Urine Appearance Clear (CLEAR) Urine pH 5.0 (5.0-6.5) Ur Specific [place] 1.015 (1.010-1.025) Urine Protein 30 H (NEGATIVE) mg/dL Urine Glucose (UA) >1000 H (NEGATIVE) mg/dL Urine Ketones Negative (NEGATIVE) mg/dL Urine Occult Blood Negative (NEGATIVE) Urine Nitrite Negative (NEGATIVE) Urine Bilirubin Negative (NEGATIVE) Urine Urobilinogen Normal (NEGATIVE) mg/dL Ur Leukocyte Esterase Negative (NEGATIVE) Urine RBC 0-5 (0) Urine WBC 0-5 (0) Ur Squamous Epith Cells Occasional (NS,R,O) Urine Bacteria Rare H (NS) 12/22/17 Range/Units 09:31 WBC (4.5-12.0) X10-3/uL RBC (4.30-5.75) x10(6)uL Hgb (11.5-15.5) g/dL Hct (30.0-51.3) % MCV (80-96) fL MCH (27.7-33.6) pg MCHC (32.2-35.4) g/dL RDW (11.5-15.5) % Plt Count (125-369) X10(3)uL MPV (7.4-10.4) fL Neut % (Auto) (46-82) % Lymph % (Auto) (13-37) % [place] % (Auto) (4-12) % Eos % (Auto) (1.0-5.0) % Baso % (Auto) (0-2) % Neut # (Auto) (1.6-8.3) # Lymph # (Auto) (0.6-5.0) # [place] # (Auto) (0.0-1.3) # Eos # (Auto) (0.0-0.8) # Baso # (Auto) (0.0-0.2) # Sodium (135-145) mmol/L Potassium (3.5-5.3) mmol/L Chloride (100-110) mmol/L Carbon Dioxide (21-32) mmol/L BUN (7-18) mg/dL Creatinine (0.70-1.30) mg/dL Est Cr Clr Drug Dosing Estimated GFR (MDRD) (>60) BUN/Creatinine Ratio (9-20) Glucose (80-116) mg/dL POC Glucose 415 H* (80-116) mg/dL Calcium (8.6-10.2) mg/dL Total Bilirubin (0.1-1.3) mg/dL Direct Bilirubin (0.10-0.20) mg/dL AST (5-25) IU/L ALT (12-36) U/L Alkaline Phosphatase (56-112) IU/L Total Protein (6.0-8.0) g/dL Albumin (3.5-5.2) g/dL Amylase (25-115) U/L Urine Color (YELLOW) Urine Appearance (CLEAR) Urine pH (5.0-6.5) Ur Specific [place] (1.010-1.025) Urine Protein (NEGATIVE) mg/dL Urine Glucose (UA) (NEGATIVE) mg/dL Urine Ketones (NEGATIVE) mg/dL Urine Occult Blood (NEGATIVE) Urine Nitrite (NEGATIVE) Urine Bilirubin (NEGATIVE) Urine Urobilinogen (NEGATIVE) mg/dL Ur Leukocyte Esterase (NEGATIVE) Urine RBC (0) Urine WBC (0) Ur Squamous Epith Cells (NS,R,O) Urine Bacteria (NS) Meds: Medications Discontinued Medications Generic Name Dose Route Start Last Admin Trade Name Freq PRN Reason Stop Dose Admin Diphenhydramine HCl 1 mg 12/22/17 09:26 12/22/17 10:34 Benadryl IM 12/22/17 09:27 Not Given BEDTIME STA Diphenhydramine HCl 25 mg 12/22/17 09:36 09/05/18 09:53 Benadryl IM 12/22/17 09:37 25 mg ONETIME STA Administration Hydromorphone HCl 1 mg 12/22/17 09:37 12/22/17 09:53 Dilaudid IM 12/22/17 09:38 1 mg ONETIME ONE Administration Insulin Human Regular 7 unit 12/22/17 08:36 12/22/17 08:49 Humulin R SUBCUT 12/22/17 08:37 7 units BIDAC STA Administration Metformin HCl 500 mg 12/22/17 08:59 12/22/17 09:18 Glucophage PO 12/22/17 09:00 500 mg ONETIME ONE Administration Departure - Departure Time of Disposition: 09:41 Disposition: Home, Self-Care 01 Condition: Good Clinical Impression: Abdominal wall hernia, NIDDY (non-insulin dependent diabetes mellitus in young) , Metabolic syndrome - Discharge Information Prescriptions: traMADol [Ultram] 50 mg PO BID PRN #4 tablet PRN Reason: severe pain only Instructions: Hernia, Adult, Tramadol tablets, Hyperglycemia, [id number] Referrals: PCP,None [Primary Care Provider] - Forms: ED Department Discharge Additional Instructions: Please increase your metformin to 500 mg twice daily, please check your blood sugar twice daily, please f/u with your PMD in next 2 days, come back if your symptoms get worse acutely - My Orders Last 24 Hours: My Active Orders 12/22/17 09:00 UA W/MICROSCOPIC [URIN] Stat 12/22/17 09:20 Blood Glucose Check, Bedside [RC] ONETIME - Assessment/Plan Last 24 Hours: My Active Orders 12/22/17 09:00 UA W/MICROSCOPIC [URIN] Stat 12/22/17 09:20 Blood Glucose Check, Bedside [RC] ONETIME
[2017-12-22] MEDS: metFORMIN 500 MG Tab PO ONE (09:18)
[2017-12-22] MEDS: diphenhydrAMINE 50 MG/ML SDV IM STA ×2 (09:53→10:34)
[2017-12-22] MEDS: HYDROmorphone 2 MG/ML SDV IM ONE (09:53)
[2017-12-22 10:30] VITALS: BP 168/119
== END 2017-12-22 10:25 | disposition home or self-care (01) ==
LOC: FB.ED 07:27
DX: K43.9 Ventral hernia without obstruction or gangrene (principal); E88.81 Metabolic syndrome and other insulin resistance; E66.9 Obesity, unspecified; E11.9 Type 2 diabetes mellitus without complications; Z88.0 Allergy status to penicillin; Z88.8 Allergy status to other drugs, medicaments and biological substances
CPT/HCPCS: 36415; 80048; 80076; 81001; 82150; 82962; 85025; 96372; 99284; A9270; J1170; J1200; J1815

== ENCOUNTER 2018-01-02 19:12 | Emergency (ER) | payer MEDICAID ==
[2018-01-02] MEDS ORDERED: Albuterol 0.083% 2.5 MG/3 ML Neb Soln NEB ONE (19:31)
[2018-01-02] MEDS ORDERED: Sodium Chloride 0.9% 10 ML Syringe FLUSH PRN (19:35)
--- NOTE | 2018-01-02 19:37 | EDM.PDOC ---
ED HPI GENERAL MEDICAL PROBLEM - General Chief Complaint: Fever Stated Complaint: fever Time Seen by Provider: 01/02/18 19:32 Source of Information: Reports: Patient History Limitations: Reports: No Limitations - History of Present Illness INITIAL COMMENTS - FREE TEXT/NARRATIVE: Fever since yesterday to 102, onset of chills today. Underwent laprascopic ventral hernia mesh replacement 12/31/17 ([facility]). Has had a cough and exertional dyspnea. Onset Date: 01/01/18 Associated Symptoms: Reports: Cough, Fever/Chills Abdomen Pain Score (Numeric/FACES): 8 - Related Data Allergies Allergy/AdvReac Type Severity Reaction Status Date / Time ketorolac [From Toradol] Allergy Hives Verified 01/02/18 19:16 Penicillins Allergy Hives Verified 01/02/18 19:16 Home Meds: Home Meds Furosemide [Lasix] 40 mg PO DAILY 12/22/17 [History] Lisinopril [Prinivil] 10 mg PO DAILY 12/22/17 [History] Metoprolol Tartrate [Lopressor] 25 mg PO BID 12/22/17 [History] metFORMIN [Glucophage] 500 mg PO BID 12/22/17 [History] Aspirin [Lo-Dose Aspirin EC] 81 mg PO DAILY 01/02/18 [History] Levofloxacin [Levaquin] 750 mg PO DAILY #6 tablet 01/02/18 [Rx] oxyCODONE HCl/Acetaminophen [Percocet 10-325 mg Tablet] 2 tab Q4H PRN 01/02/18 [ History] Past Medical History HEENT History: Reports: None Cardiovascular History: Reports: Aneurysm, Hypertension Respiratory History: Reports: None Gastrointestinal History: Reports: Other (See Below) Other Gastrointestinal History: hernia surg x 5 Genitourinary History: Reports: Renal Calculus Musculoskeletal History: Reports: Arthritis, Back Pain, Chronic, Fibromyalgia, Neck Pain, Chronic, Osteoarthritis Other Musculoskeletal History: chronic R knee pain Neurological History: Reports: None, Other (See Below) Other Neuro History: Insomnia Psychiatric History: Reports: Anxiety, Depression, Panic Attack Endocrine/Metabolic History: Reports: Diabetes, Type II, Obesity/BMI 30+ Hematologic History: Reports: Anticoagulation Therapy Immunologic History: Reports: None Oncologic (Cancer) History: Reports: None Dermatologic History: Reports: None - Infectious Disease History Infectious Disease History: Reports: Chicken Pox - Past Surgical History Head Surgeries/Procedures: Reports: None HEENT Surgical History: Reports: Other (See Below) Other HEENT Surgeries/Procedures: Lump removed from throat approx 2013 Cardiovascular Surgical History: Reports: None GI Surgical History: Reports: Hernia Repair/Other Social & Family History - Family History Family Medical History: Noncontributory - Tobacco Use Smoking Status *Q: Current Some Day Smoker Tobacco Use Within Last Twelve Months: Cigarettes - Caffeine Use Caffeine Use: Reports: Soda, Tea - Alcohol Use Alcohol Use History: Yes Alcohol Use Frequency: Rarely - Living Situation & Occupation Living situation: Reports: Occupation: Employed ED ROS GENERAL - Review of Systems Review Of Systems: See Below Constitutional: Reports: Fever, Chills HEENT: Reports: No Symptoms Respiratory: Reports: Shortness of Breath (with exertion) Cardiovascular: Reports: No Symptoms Endocrine: Reports: No Symptoms GI/Abdominal: Reports: No Symptoms : Reports: No Symptoms Musculoskeletal: Reports: No Symptoms Skin: Reports: No Symptoms Neurological: Reports: No Symptoms Psychiatric: Reports: No Symptoms Hematologic/Lymphatic: Reports: No Symptoms Immunologic: Reports: No Symptoms ED EXAM, GENERAL - Physical Exam Exam: See Below Exam Limited By: No Limitations General Appearance: Alert, WD/WN, No Apparent Distress Nose: Normal Inspection Throat/Mouth: No Airway Compromise Head: Atraumatic, Normocephalic Neck: Supple Respiratory/Chest: No Respiratory Distress, Wheezing Cardiovascular: Regular Rate, Rhythm, No Gallop, No Murmur GI/Abdominal: Normal Bowel Sounds, Soft, Tender (mild generalized tenderness), Other (incisions CDI, no evidence for wound infection) Extremities: Normal Range of Motion Neurological: Alert, Oriented, Normal Cognition, No Motor/Sensory Deficits Psychiatric: Normal Affect, Normal Mood Skin Exam: Warm, Dry EKG INTERPRETATION EKG Date: 01/02/18 Time: 20:43 Rhythm: NSR Rate (Beats/Min): 95 [place]: Normal P-Wave: Present QRS: Normal ST-T: Normal QT: Normal Course - Vital Signs Last Recorded V/S: Last Vital Signs Temp 35.8 C 01/02/18 21:56 Pulse 94 01/02/18 21:56 Resp 20 01/02/18 21:56 BP 154/100 H 01/02/18 21:56 Pulse Ox 97 01/02/18 21:56 - Orders/Labs/Meds Orders: Active Orders 24 hr Category Date Time Status EKG Documentation Completion [RC] ASDIRECTED Care 01/02/18 19:34 Active RT Aerosol Therapy [RC] ASDIRECTED Care 01/02/18 19:32 Active CXR [Chest 2V] [CR] Stat Exams 01/02/18 19:31 Taken Chest Abdomen Pelvis w Cont [CT] Stat Exams 01/02/18 20:55 Taken CULTURE BLOOD [BC] Urgent Lab 01/02/18 19:30 Received CULTURE BLOOD [BC] Urgent Lab 01/02/18 19:38 Received Sodium Chloride 0.9% [Normal Saline] 1,000 ml Med 01/02/18 19:45 Active IV ASDIRECTED Sodium Chloride 0.9% [Saline Flush] Med 01/02/18 19:35 Active 10 ml FLUSH ASDIRECTED PRN levoFLOXacin [Levaquin] Med 01/02/18 22:11 Once 750 mg PO ONETIME ONE Blood Culture x2 Reflex Set [OM.PC] Urgent Oth 01/02/18 19:21 Ordered Saline Lock Insert [OM.PC] Routine Oth 01/02/18 19:35 Ordered EKG 12 Lead [EK] Stat Ther 01/02/18 19:34 Ordered Medication Orders Sodium Chloride (Normal Saline) 1,000 mls @ 150 mls/hr IV ASDIRECTED EMILY Last Admin: 01/02/18 21:04 Dose: 150 mls/hr Sodium Chloride (Saline Flush) 10 ml FLUSH ASDIRECTED PRN PRN Reason: Keep Vein Open Last Admin: 01/02/18 21:00 Dose: 10 ml Labs: Laboratory Tests 01/02/18 01/02/18 01/02/18 Range/Units 19:22 19:30 19:30 WBC 9.8 (4.5-12.0) X10-3/uL RBC 5.34 (4.30-5.75) x10(6)uL Hgb 15.8 H (11.5-15.5) g/dL Hct 47.1 (30.0-51.3) % MCV 88.1 (80-96) fL MCH 29.6 (27.7-33.6) pg MCHC 33.6 (32.2-35.4) g/dL RDW 12.6 (11.5-15.5) % Plt Count 155 (125-369) X10(3)uL MPV 9.8 (7.4-10.4) fL Neut % (Auto) 71.1 (46-82) % Lymph % (Auto) 19.8 (13-37) % [place] % (Auto) 7.3 (4-12) % Eos % (Auto) 1 (1.0-5.0) % Baso % (Auto) 0 (0-2) % Neut # (Auto) 7.1 (1.6-8.3) # Lymph # (Auto) 1.9 (0.6-5.0) # [place] # (Auto) 0.7 (0.0-1.3) # Eos # (Auto) 0.1 (0.0-0.8) # Baso # (Auto) 0.0 (0.0-0.2) # Sodium 136 (135-145) mmol/L Potassium 3.3 L (3.5-5.3) mmol/L Chloride 99 L (100-110) mmol/L Carbon Dioxide 27 (21-32) mmol/L BUN 9 (7-18) mg/dL Creatinine 0.9 (0.70-1.30) mg/dL Est Cr Clr Drug Dosing 105.90 mL/min Estimated GFR (MDRD) > 60 (>60) BUN/Creatinine Ratio 10.0 (9-20) Glucose 282 H D (80-116) mg/dL Lactic Acid (0.4-2.2) mmol/L Calcium 9.4 (8.6-10.2) mg/dL Total Bilirubin 0.4 (0.1-1.3) mg/dL AST 11 (5-25) IU/L ALT 26 D (12-36) U/L Alkaline Phosphatase 81 (56-112) IU/L Total Protein 8.0 (6.0-8.0) g/dL Albumin 3.0 L (3.5-5.2) g/dL Globulin 5.0 g/dL Albumin/Globulin Ratio 0.6 Urine Color Yellow (YELLOW) Urine Appearance Clear (CLEAR) Urine pH 5.0 (5.0-6.5) Ur Specific [place] 1.020 (1.010-1.025) Urine Protein 500 H (NEGATIVE) mg/dL Urine Glucose (UA) >1000 H (NEGATIVE) mg/dL Urine Ketones 15 H (NEGATIVE) mg/dL Urine Occult Blood Moderate H (NEGATIVE) Urine Nitrite Negative (NEGATIVE) Urine Bilirubin Negative (NEGATIVE) Urine Urobilinogen Normal (NEGATIVE) mg/dL Ur Leukocyte Esterase Negative (NEGATIVE) Urine RBC 5-10 (0) Urine WBC 0-5 (0) Ur Squamous Epith Cells Few H (NS,R,O) Urine Bacteria Few H (NS) Urine Mucus Few H (NS) 01/02/18 Range/Units 19:30 WBC (4.5-12.0) X10-3/uL RBC (4.30-5.75) x10(6)uL Hgb (11.5-15.5) g/dL Hct (30.0-51.3) % MCV (80-96) fL MCH (27.7-33.6) pg MCHC (32.2-35.4) g/dL RDW (11.5-15.5) % Plt Count (125-369) X10(3)uL MPV (7.4-10.4) fL Neut % (Auto) (46-82) % Lymph % (Auto) (13-37) % [place] % (Auto) (4-12) % Eos % (Auto) (1.0-5.0) % Baso % (Auto) (0-2) % Neut # (Auto) (1.6-8.3) # Lymph # (Auto) (0.6-5.0) # [place] # (Auto) (0.0-1.3) # Eos # (Auto) (0.0-0.8) # Baso # (Auto) (0.0-0.2) # Sodium (135-145) mmol/L Potassium (3.5-5.3) mmol/L Chloride (100-110) mmol/L Carbon Dioxide (21-32) mmol/L BUN (7-18) mg/dL Creatinine (0.70-1.30) mg/dL Est Cr Clr Drug Dosing mL/min Estimated GFR (MDRD) (>60) BUN/Creatinine Ratio (9-20) Glucose (80-116) mg/dL Lactic Acid 0.7 (0.4-2.2) mmol/L Calcium (8.6-10.2) mg/dL Total Bilirubin (0.1-1.3) mg/dL AST (5-25) IU/L ALT (12-36) U/L Alkaline Phosphatase (56-112) IU/L Total Protein (6.0-8.0) g/dL Albumin (3.5-5.2) g/dL Globulin g/dL Albumin/Globulin Ratio Urine Color (YELLOW) Urine Appearance (CLEAR) Urine pH (5.0-6.5) Ur Specific [place] (1.010-1.025) Urine Protein (NEGATIVE) mg/dL Urine Glucose (UA) (NEGATIVE) mg/dL Urine Ketones (NEGATIVE) mg/dL Urine Occult Blood (NEGATIVE) Urine Nitrite (NEGATIVE) Urine Bilirubin (NEGATIVE) Urine Urobilinogen (NEGATIVE) mg/dL Ur Leukocyte Esterase (NEGATIVE) Urine RBC (0) Urine WBC (0) Ur Squamous Epith Cells (NS,R,O) Urine Bacteria (NS) Urine Mucus (NS) Meds: Medications Generic Name Dose Route Start Last Admin Trade Name Freq PRN Reason Stop Dose Admin Sodium Chloride 1,000 mls @ 150 mls/hr 01/02/18 19:45 01/02/18 21:04 Normal Saline IV 150 mls/hr ASDIRECTED EMILY Administration Sodium Chloride 10 ml 01/02/18 19:35 01/02/18 21:00 Saline Flush FLUSH 10 ml ASDIRECTED PRN Administration Keep Vein Open Discontinued Medications Generic Name Dose Route Start Last Admin Trade Name Freq PRN Reason Stop Dose Admin Albuterol 2.5 mg 01/02/18 19:31 01/02/18 20:58 Proventil Neb Soln NEB 01/02/18 19:32 2.5 mg ONETIME ONE Administration Iopamidol 100 ml 01/02/18 21:03 01/02/18 21:20 Isovue-370 (76%) IV 01/02/18 21:04 100 ml . DIRECTED ONE Administration Oxycodone/Acetaminophen 2 tab 01/02/18 21:42 01/02/18 21:49 Percocet 325-5 Mg PO 01/02/18 21:43 2 tab ONETIME ONE Administration - Radiology Interpretation Free Text/Narrative:: CXR: possible LLL infiltrate. CT Chest/Abd/Pelvis w/ IV contrast: Minimal ground glass opacities left lung. Post-op changes abdomen. Fatty liver Departure - Departure Time of Disposition: 22:13 Disposition: Home, Self-Care 01 Condition: Good Clinical Impression: Pneumonia Qualifiers: Pneumonia type: due to unspecified organism Laterality: left Lung location: unspecified part of lung Qualified Code(s): J18.9 - Pneumonia, unspecified organism Hematuria Qualifiers: Hematuria type: asymptomatic microscopic Qualified Code(s): R31.21 - Asymptomatic microscopic hematuria - Discharge Information *PRESCRIPTION DRUG MONITORING PROGRAM REVIEWED*: No *COPY OF PRESCRIPTION DRUG MONITORING REPORT IN PATIENT HERSON: Not Applicable Prescriptions: Levofloxacin [Levaquin] 750 mg PO DAILY #6 tablet Instructions: Healthcare-Associated Pneumonia, Hematuria, Adult Forms: ED Department Discharge Additional Instructions: Fill prescription for Levaquin and take as directed. Follow up with your primary physician in 2-3 days. Take Tylenol as needed to control fever. Return to the ER as needed. - My Orders Last 24 Hours: My Active Orders 01/02/18 19:21 Blood Culture x2 Reflex Set [OM.PC] Urgent 01/02/18 19:30 CULTURE BLOOD [BC] Urgent 01/02/18 19:31 CXR [Chest 2V] [CR] Stat 01/02/18 19:32 RT Aerosol Therapy [RC] ASDIRECTED 01/02/18 19:34 EKG Documentation Completion [RC] ASDIRECTED EKG 12 Lead [EK] Stat 01/02/18 19:35 Sodium Chloride 0.9% [Saline Flush] 10 ml FLUSH ASDIRECTED PRN Saline Lock Insert [OM.PC] Routine 01/02/18 19:38 CULTURE BLOOD [BC] Urgent 01/02/18 19:45 Sodium Chloride 0.9% [Normal Saline] 1,000 ml IV ASDIRECTED 01/02/18 20:55 Chest Abdomen Pelvis w Cont [CT] Stat 01/02/18 22:11 levoFLOXacin [Levaquin] 750 mg PO ONETIME ONE - Assessment/Plan Last 24 Hours: My Active Orders 01/02/18 19:21 Blood Culture x2 Reflex Set [OM.PC] Urgent 01/02/18 19:30 CULTURE BLOOD [BC] Urgent 01/02/18 19:31 CXR [Chest 2V] [CR] Stat 01/02/18 19:32 RT Aerosol Therapy [RC] ASDIRECTED 01/02/18 19:34 EKG Documentation Completion [RC] ASDIRECTED EKG 12 Lead [EK] Stat 01/02/18 19:35 Sodium Chloride 0.9% [Saline Flush] 10 ml FLUSH ASDIRECTED PRN Saline Lock Insert [OM.PC] Routine 01/02/18 19:38 CULTURE BLOOD [BC] Urgent 01/02/18 19:45 Sodium Chloride 0.9% [Normal Saline] 1,000 ml IV ASDIRECTED 01/02/18 20:55 Chest Abdomen Pelvis w Cont [CT] Stat 01/02/18 22:11 levoFLOXacin [Levaquin] 750 mg PO ONETIME ONE
[2018-01-02] MEDS ORDERED: Sodium Chloride 0.9% 1,000 ML IV SCH (19:45)
[2018-01-02] MEDS ORDERED: Iopamidol 755 Mg/ML 100 ML Bottle IV ONE (21:03)
[2018-01-02] MEDS ORDERED: Acetaminophen/oxyCODONE 325-5 MG Tab PO ONE (21:42)
[2018-01-02] MEDS ORDERED: Levofloxacin 750 MG Tab PO ONE (22:11)
[2018-01-02 23:08] VITALS: BP 155/102
--- NOTE | 2018-01-05 08:43 | CR ---
INDICATION: Cough. Fever. CHEST, PA AND LATERAL VIEWS: FINDINGS: The patient is of larger body habitus. The lungs are clear of acute infiltrate or effusion. There is no CHF. There is a mild scoliosis deformity of the thoracic spine, curved convex right. There are chronic appearing compression deformities throughout the thoracic spine. There is prominent degenerative end plate change and spurring throughout the thoracic spine. IMPRESSION: No acute abnormality is shown, specifically no CHF or pneumonia. MTDD
== END 2018-01-02 22:31 | disposition home or self-care (01) ==
LOC: FB.ED 19:12
DX: J18.9 Pneumonia, unspecified organism (principal); R31.21 Asymptomatic microscopic hematuria; I10 Essential (primary) hypertension; E11.9 Type 2 diabetes mellitus without complications; E66.9 Obesity, unspecified; F17.210 Nicotine dependence, cigarettes, uncomplicated; Z88.1 Allergy status to other antibiotic agents; Z88.0 Allergy status to penicillin
CPT/HCPCS: 36415; 71046; 71260; 74177; 80053; 81001; 83605; 85025; 87040; 93005; 94640; 96360; 99284; A9270; J7030; J7050; Q9967

== ENCOUNTER 2018-01-11 20:35 | Emergency (ER) | payer MEDICAID ==
--- NOTE | 2018-01-11 20:52 | EDM.PDOC ---
ED HPI GENERAL MEDICAL PROBLEM - General Stated Complaint: ABDOMINAL PAIN Time Seen by Provider: 01/11/18 21:05 Source of Information: Reports: Patient - History of Present Illness INITIAL COMMENTS - FREE TEXT/NARRATIVE: Patient is status post hernia repair surgery. He staking norco 10/325 2 tabs as needed for pain. He claimed he landed on the floor from his bed 2 days ago and is having severe right-sided abdominal pain 10 over 10. Pain is not radiating. No nausea vomiting. Opioids he is taking is not helping the symptoms. Patient is here to be seen abd Pain Score (Numeric/FACES): 10 - Related Data Allergies Allergy/AdvReac Type Severity Reaction Status Date / Time ketorolac [From Toradol] Allergy Hives Verified 01/02/18 19:16 Penicillins Allergy Hives Verified 01/02/18 19:16 Home Meds: Home Meds Furosemide [Lasix] 40 mg PO DAILY 12/22/17 [History] Lisinopril [Prinivil] 10 mg PO DAILY 12/22/17 [History] Metoprolol Tartrate [Lopressor] 25 mg PO BID 12/22/17 [History] metFORMIN [Glucophage] 500 mg PO BID 12/22/17 [History] Aspirin [Lo-Dose Aspirin EC] 81 mg PO DAILY 01/02/18 [History] Levofloxacin [Levaquin] 750 mg PO DAILY #6 tablet 01/02/18 [Rx] oxyCODONE HCl/Acetaminophen [Percocet 10-325 mg Tablet] 2 tab Q4H PRN 01/02/18 [ History] Past Medical History HEENT History: Reports: None Cardiovascular History: Reports: Aneurysm, Hypertension Respiratory History: Reports: None Gastrointestinal History: Reports: Other (See Below) Other Gastrointestinal History: hernia surg x 5 Genitourinary History: Reports: Renal Calculus Musculoskeletal History: Reports: Arthritis, Back Pain, Chronic, Fibromyalgia, Neck Pain, Chronic, Osteoarthritis Other Musculoskeletal History: chronic R knee pain Neurological History: Reports: None, Other (See Below) Other Neuro History: Insomnia Psychiatric History: Reports: Anxiety, Depression, Panic Attack Endocrine/Metabolic History: Reports: Diabetes, Type II, Obesity/BMI 30+ Hematologic History: Reports: Anticoagulation Therapy Immunologic History: Reports: None Oncologic (Cancer) History: Reports: None Dermatologic History: Reports: None - Infectious Disease History Infectious Disease History: Reports: Chicken Pox - Past Surgical History Head Surgeries/Procedures: Reports: None HEENT Surgical History: Reports: Other (See Below) Other HEENT Surgeries/Procedures: Lump removed from throat approx 2013 Cardiovascular Surgical History: Reports: None GI Surgical History: Reports: Hernia Repair/Other Social & Family History - Family History Family Medical History: Noncontributory - Caffeine Use Caffeine Use: Reports: Soda, Tea - Living Situation & Occupation Living situation: Reports: Occupation: Employed ED ROS GENERAL - Review of Systems Review Of Systems: See Below Respiratory: Reports: No Symptoms, Shortness of Breath Cardiovascular: Reports: No Symptoms, Chest Pain GI/Abdominal: Reports: Abdominal Pain ED EXAM, GENERAL - Physical Exam Exam: See Below Exam Limited By: No Limitations General Appearance: Alert, WD/WN, No Apparent Distress Respiratory/Chest: No Respiratory Distress, Lungs Clear Cardiovascular: Normal Peripheral Pulses, Regular Rate, Rhythm GI/Abdominal: Normal Bowel Sounds, Soft, Other (Obese abdomen, areas of surgical repair looking well healed with no redness no drainage or open wounds. Very minimal cough reflex.) Neurological: Alert, Oriented Course - Vital Signs Text/Narrative:: Preliminary pain abdominal x-ray shows no acute findings. 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 Patient was informed he will be having no new opiate medications. Patient got upset and walked out of the emergency room Patient was alert oriented speaking clearly coherently at the time of walking out other options for pain control offered but were rejected Last Recorded V/S: Last Vital Signs Temp 36.8 C 01/11/18 20:35 Pulse 116 H 01/11/18 20:35 Resp 18 01/11/18 20:35 BP 142/89 H 01/11/18 20:35 Pulse Ox 97 01/11/18 20:35 - Orders/Labs/Meds Orders: Active Orders 24 hr Category Date Time Status Abdomen 2V AP Flat Upright [CR] Stat Exams 01/11/18 20:59 Taken Meds: Medications Discontinued Medications Generic Name Dose Route Start Last Admin Trade Name Freq PRN Reason Stop Dose Admin Simethicone 80 mg 01/12/18 22:07 Simethicone PO 01/12/18 22:08 ONETIME ONE Simethicone 80 mg 01/11/18 22:07 01/11/18 22:18 Simethicone PO 01/11/18 22:08 Not Given ONETIME ONE Simethicone 80 mg 01/11/18 22:16 01/11/18 22:22 Simethicone PO 01/11/18 22:17 Not Given ONETIME ONE Departure - Departure Time of Disposition: 21:51 Disposition: Home, Self-Care 01 Condition: Good Clinical Impression: Abdominal pain Qualifiers: Abdominal location: right upper quadrant Qualified Code(s): R10.11 - Right upper quadrant pain - Discharge Information *PRESCRIPTION DRUG MONITORING PROGRAM REVIEWED*: Yes *COPY OF PRESCRIPTION DRUG MONITORING REPORT IN PATIENT HERSON: No Instructions: Abdominal Bloating, Abdominal Pain, Adult, [id number] Referrals: PCP,None [Primary Care Provider] - Forms: ED Department Discharge Additional Instructions: Please go see your surgeon in the morning. Use your home pain meds your already havePlease return with worsening symptoms - My Orders Last 24 Hours: My Active Orders 01/11/18 20:59 Abdomen 2V AP Flat Upright [CR] Stat - Assessment/Plan Last 24 Hours: My Active Orders 01/11/18 20:59 Abdomen 2V AP Flat Upright [CR] Stat
[2018-01-11 21:26] VITALS: BP 142/89
[2018-01-11] MEDS ORDERED: Simethicone 80 MG Tab.Chew PO ONE (22:07)
[2018-01-11] MEDS: Simethicone 80 MG Tab.Chew PO ONE ×2 (22:18→22:22)
[2018-01-12] MEDS ORDERED: Simethicone 80 MG Tab.Chew PO SCH (09:00)
--- NOTE | 2018-01-12 13:24 | CR ---
INDICATION: Abdominal pain, hernia surgery last week. ABDOMEN: Eight images of the abdomen and pelvis were obtained in upright and supine projections. Evidence of previous hernia surgery is noted in the mid abdomen. The pattern of gas and feces is fairly nonspecific without evidence of free air or obstruction. No definite organomegaly or mass lesions were identified, except for a density in the pelvis, which likely represents distended urinary bladder. No definite pathologic calcifications were seen. IMPRESSION: Nonacute abdomen. MTDD
[2018-01-12] MEDS ORDERED: Simethicone 80 MG Tab.Chew PO ONE (22:07)
== END 2018-01-11 22:22 | disposition home or self-care (01) ==
LOC: FB.ED 20:35
DX: R10.11 Right upper quadrant pain (principal); E11.9 Type 2 diabetes mellitus without complications; E66.9 Obesity, unspecified; I10 Essential (primary) hypertension; Z88.0 Allergy status to penicillin; Z88.1 Allergy status to other antibiotic agents; Z79.899 Other long term (current) drug therapy
CPT/HCPCS: 74019; 99284; A9270-GY

== ENCOUNTER 2018-06-15 11:29 | Emergency (ER) | payer MEDICAID ==
--- NOTE | 2018-06-15 12:31 | EDM.PDOC ---
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 When he got home he was going down 3 step and missed the bottom step and his right shoulder against the pointed part of the step has right shoulder and right scapular 10/10 pain and right neck pain with movement and 5/10 if he stabilizes his shoulder and does not move. No previous history of right shoulder discomfort or injury. No dysesthesia. No wrist drop. No palpable forearm hand or finger discomfort. Past medical history significant for his obesity. Insulin-dependent diabetes. Previous surgery inguinal herniography cholecystectomy appendectomy and hypertension. He is home blood pressure monitor usually registers 112/70. Right shoulder Pain Score (Numeric/FACES): 10 - Related Data Allergies Allergy/AdvReac Type Severity Reaction Status Date / Time ketorolac [From Toradol] Allergy Hives Verified 06/15/18 11:37 Penicillins Allergy Hives Verified 06/15/18 11:37 Home Meds: Home Meds Lisinopril [Prinivil] 10 mg PO DAILY 12/22/17 [History] Metoprolol Tartrate [Lopressor] 25 mg PO BID 12/22/17 [History] metFORMIN [Glucophage] 500 mg PO BID 12/22/17 [History] Aspirin [Lo-Dose Aspirin EC] 81 mg PO DAILY 01/02/18 [History] Hydrocodone/Acetaminophen [Hydrocodon-Acetaminophen 5-325] 1 each PO Q4HR PRN # 6 tablet 06/15/18 [Rx] Past Medical History HEENT History: Reports: None Cardiovascular History: Reports: Aneurysm, Hypertension Respiratory History: Reports: None Gastrointestinal History: Reports: Other (See Below) Other Gastrointestinal History: hernia surg x 7 Genitourinary History: Reports: Renal Calculus Musculoskeletal History: Reports: Arthritis, Back Pain, Chronic, Fibromyalgia, Neck Pain, Chronic, Osteoarthritis Other Musculoskeletal History: chronic R knee pain Neurological History: Reports: Other (See Below) Other Neuro History: Insomnia Psychiatric History: Reports: Anxiety, Depression, Panic Attack Endocrine/Metabolic History: Reports: Diabetes, Type II, Obesity/BMI 30+ Hematologic History: Reports: Anticoagulation Therapy Immunologic History: Reports: None Oncologic (Cancer) History: Reports: None Dermatologic History: Reports: None - Infectious Disease History Infectious Disease History: Reports: Chicken Pox - Past Surgical History Head Surgeries/Procedures: Reports: None HEENT Surgical History: Reports: Other (See Below) Other HEENT Surgeries/Procedures: Lump removed from throat approx 2013 Cardiovascular Surgical History: Reports: None GI Surgical History: Reports: Hernia Repair/Other Social & Family History - Family History Family Medical History: Noncontributory - Tobacco Use Smoking Status *Q: Light Tobacco Smoker Years of Tobacco use: 30 Packs/Tins Daily: 0.1 Tobacco Use Comment: Patient states he had a cigarette this AM which is the first cigarette he has had in 4 months. - Caffeine Use Caffeine Use: Reports: Tea - Recreational Drug Use Recreational Drug Use: No - Living Situation & Occupation Living situation: Reports: Occupation: Employed Review of Systems - Review of Systems Review Of Systems: ROS reveals no pertinent complaints other than HPI. ED EXAM, GENERAL - Physical Exam Exam: See Below Free Text/Narrative:: A muscular well-nourished overweight man with 10/10 right shoulder discomfort who is holding his right forearm close to his abdomen to minimize any shoulder motion. Exam Limited By: No Limitations General Appearance: Alert, WD/WN, Moderate Distress Eye Exam: Bilateral Eye: Normal Inspection Ears: Normal External Exam, Normal Canal, Normal TMs Ear Exam: Bilateral Ear: Auricle Normal, Canal Normal, TM normal Nose: Normal Inspection, Normal Mucosa Throat/Mouth: Normal Inspection, Normal Lips, Normal Teeth, Normal Gums, Normal Oropharynx, Normal Voice, No Airway Compromise Head: Atraumatic, Normocephalic Neck: Normal Inspection, Other (Moderate tenderness right trapezius or scapular muscle. No step-off of right clavicle acromial joint. Moderate brachial plexus areaR trapezius and supraspinatus muscle area> right shoulder) Respiratory/Chest: No Respiratory Distress, Lungs Clear, Normal Breath Sounds, No Accessory Muscle Use, Chest Non-Tender Cardiovascular: Normal Peripheral Pulses, Regular Rate, Rhythm, No Edema, No Gallop, No JVD, No Murmur, No Rub Peripheral Pulses: 1+: Radial (R), Femoral (L), Dorsalis Pedis (L), Dorsalis Pedis (R) GI/Abdominal: Normal Bowel Sounds, Soft, Non-Tender, No Organomegaly, No Distention, No Abnormal Bruit (Male) Exam: Deferred Rectal (Males) Exam: Deferred Extremities: Normal Inspection, Normal Range of Motion, Other (Outpatient lower extremities causes pain (diabetic peripheral neuropathy)) Neurological: Alert, Oriented, CN II-XII Intact, Normal Cognition, Normal Gait, Normal Reflexes Psychiatric: Normal Affect Skin Exam: Warm, Dry, Intact, Other (L flushing face) Course - Vital Signs Last Recorded V/S: Last Vital Signs Temp 36.5 C 06/15/18 11:30 Pulse 110 H 06/15/18 11:44 Resp 20 06/15/18 11:44 BP 161/99 H 06/15/18 11:44 Pulse Ox 100 06/15/18 11:44 - Orders/Labs/Meds Orders: Active Orders 24 hr Category Date Time Status Scapula Rt [CR] Stat Exams 06/15/18 12:05 Taken Shoulder Comp Rt [CR] Stat Exams 06/15/18 12:07 Taken Departure - Departure Time of Disposition: 11:45 (She requested a tablets hydrocodone I provided 60 tablets for him. Also has negative right shoulder and right scapular x-rays. Diagnosis Sprain strain and contusion with right shoulders sprain and strain. Without any Broecker brachial plexus neuropathy however his brachial plexus tenderness. [id number] diabetes, obesity, COPD, status post herniorrhaphy cholecystectomy appendectomy. Also history of gastritis.) Disposition: Admitted As Inpatient 67 Condition: Good Clinical Impression: Fall (on) (from) other stairs and steps, initial encounter, Obesity (BMI 30- 39.9) Contusion of right shoulder Qualifiers: Encounter type: initial encounter Qualified Code(s): S40.011A - Contusion of right shoulder, initial encounter Diabetes Qualifiers: Diabetes mellitus type: type 2 Diabetes mellitus complication status: with hyperglycemia Hypertension Qualifiers: Hypertension type: essential hypertension Qualified Code(s): I10 - Essential ( primary) hypertension - Discharge Information *PRESCRIPTION DRUG MONITORING PROGRAM REVIEWED*: Not Applicable *COPY OF PRESCRIPTION DRUG MONITORING REPORT IN PATIENT HERSON: Not Applicable Prescriptions: Hydrocodone/Acetaminophen [Hydrocodon-Acetaminophen 5-325] 1 each PO Q4HR PRN # 6 tablet PRN Reason: Pain Referrals: Patrick Doty PA [Primary Care Provider] - Forms: ED Department Discharge Additional Instructions: X-rays here shoulder and scapula are negative for fracture. You have shoulder contusion scapula contusion and shoulder strain. I could use a shoulder immobilizer. I think you would be better off, mobilize Your shoulder faster with a sling. And gradually increase your activity as tolerated with her right shoulder. Use Ice, Tylenol 1000 mg every 4 hours for pain. No more than 4000 per 24 hours. Hydrocodone for breakthrough pain. Follow-up to Dr. purvis. - My Orders Last 24 Hours: My Active Orders 06/15/18 12:05 Scapula Rt [CR] Stat 06/15/18 12:07 Shoulder Comp Rt [CR] Stat - Assessment/Plan Last 24 Hours: My Active Orders 06/15/18 12:05 Scapula Rt [CR] Stat 06/15/18 12:07 Shoulder Comp Rt [CR] Stat
[2018-06-15 13:14] VITALS: BP 147/106
== END 2018-06-15 13:11 | disposition home or self-care (01) ==
LOC: FB.ED 11:29
DX: S40.011A Contusion of right shoulder, initial encounter (principal); E11.65 Type 2 diabetes mellitus with hyperglycemia; I10 Essential (primary) hypertension; Z88.8 Allergy status to other drugs, medicaments and biological substances; Z88.0 Allergy status to penicillin; F17.210 Nicotine dependence, cigarettes, uncomplicated; W10.9XXA Fall (on) (from) unspecified stairs and steps, initial encounter; Z79.82 Long term (current) use of aspirin; Z79.84 Long term (current) use of oral hypoglycemic drugs
CPT/HCPCS: 73010-RT; 73030-RT; 99283-25

== ENCOUNTER 2018-06-23 19:13 | Emergency (ER) | payer MEDICAID ==
[2018-06-23] MEDS ORDERED: traMADol 50 MG Tab PO ONE (19:14)
[2018-06-23] MEDS ORDERED: Morphine 4 MG/ML Syringe IM ONE (19:31)
[2018-06-23] MEDS ORDERED: Morphine 2 MG/ML Syringe ONE (19:40)
[2018-06-23] MEDS ORDERED: Morphine 2 MG/ML Syringe IM ONE (19:45)
--- NOTE | 2018-06-23 20:04 | EDM.PDOC ---
ED HPI GENERAL MEDICAL PROBLEM - General Chief Complaint: Lower Extremity Injury/Pain Stated Complaint: R KNEE LACERATION Time Seen by Provider: 06/23/18 19:30 Source of Information: Reports: Patient History Limitations: Reports: No Limitations - History of Present Illness INITIAL COMMENTS - FREE TEXT/NARRATIVE: Injury to the right knee during shovelling cut his knee on the dumpster is moderate to severe pain and weightbearing. His last tetanus was about 5 years ago. - Related Data Allergies Allergy/AdvReac Type Severity Reaction Status Date / Time ketorolac [From Toradol] Allergy Hives Verified 06/15/18 11:37 Penicillins Allergy Hives Verified 06/15/18 11:37 Home Meds: Home Meds Lisinopril [Prinivil] 10 mg PO DAILY 12/22/17 [History] Metoprolol Tartrate [Lopressor] 25 mg PO BID 12/22/17 [History] metFORMIN [Glucophage] 500 mg PO BID 12/22/17 [History] Aspirin [Lo-Dose Aspirin EC] 81 mg PO DAILY 01/02/18 [History] Hydrocodone/Acetaminophen [Hydrocodon-Acetaminophen 5-325] 1 each PO Q4HR PRN # 6 tablet 06/15/18 [Rx] Past Medical History HEENT History: Reports: None Cardiovascular History: Reports: Aneurysm, Hypertension Respiratory History: Reports: None Gastrointestinal History: Reports: Other (See Below) Other Gastrointestinal History: hernia surg x 7 Genitourinary History: Reports: Renal Calculus Musculoskeletal History: Reports: Arthritis, Back Pain, Chronic, Fibromyalgia, Neck Pain, Chronic, Osteoarthritis Other Musculoskeletal History: chronic R knee pain Neurological History: Reports: Other (See Below) Other Neuro History: Insomnia Psychiatric History: Reports: Anxiety, Depression, Panic Attack Endocrine/Metabolic History: Reports: Diabetes, Type II, Obesity/BMI 30+ Hematologic History: Reports: Anticoagulation Therapy Immunologic History: Reports: None Oncologic (Cancer) History: Reports: None Dermatologic History: Reports: None - Infectious Disease History Infectious Disease History: Reports: Chicken Pox - Past Surgical History Head Surgeries/Procedures: Reports: None HEENT Surgical History: Reports: Other (See Below) Other HEENT Surgeries/Procedures: Lump removed from throat approx 2013 Cardiovascular Surgical History: Reports: None GI Surgical History: Reports: Hernia Repair/Other Social & Family History - Family History Family Medical History: Noncontributory - Caffeine Use Caffeine Use: Reports: Tea - Living Situation & Occupation Living situation: Reports: Occupation: Employed Review of Systems - Review of Systems Review Of Systems: ROS reveals no pertinent complaints other than HPI. ED EXAM, GENERAL - Physical Exam Exam: See Below Free Text/Narrative:: A V-shaped superficial laceration to the anterior aspect of the right knee. Is extremely tender but no obvious effusion noted Exam Limited By: No Limitations Course - Orders/Labs/Meds Orders: Active Orders 24 hr Category Date Time Status Knee 3V Rt [CR] Stat Exams 06/23/18 20:01 Taken Meds: Medications Discontinued Medications Generic Name Dose Route Start Last Admin Trade Name Freq PRN Reason Stop Dose Admin Morphine Sulfate 4 mg 06/23/18 19:31 06/23/18 20:00 Morphine IM 06/23/18 19:32 Not Given ONETIME ONE Morphine Sulfate Confirm 06/23/18 19:40 06/23/18 20:00 Morphine Administered 06/23/18 19:41 Not Given Dose 4 mg .ROUTE .STK-MED ONE Morphine Sulfate 4 mg 06/23/18 19:45 06/23/18 19:45 Morphine IM 06/23/18 19:46 4 mg ONETIME ONE Administration Departure - Departure Time of Disposition: 20:03 Disposition: Home, Self-Care 01 Condition: Good Clinical Impression: Contusion of knee - Discharge Information Instructions: Laceration Care, Adult Referrals: Patrick Doty PA [Primary Care Provider] - Forms: ED Department Discharge - Problem List & Annotations (1) Contusion of knee SNOMED Code(s): 09780242 Code(s): S80.00XA - CONTUSION OF UNSPECIFIED KNEE, INITIAL ENCOUNTER Status : Acute - Problem List Review Problem List Initiated/Reviewed/Updated: Yes - My Orders Last 24 Hours: My Active Orders 06/23/18 20:01 Knee 3V Rt [CR] Stat - Assessment/Plan Last 24 Hours: My Active Orders 06/23/18 20:01 Knee 3V Rt [CR] Stat Plan: Local wound care. Morphine 4 mg IM.Tramadol 50 mg tid prn
[2018-06-23 23:28] VITALS: BP 189/95
--- NOTE | 2018-06-24 12:00 | CR ---
INDICATION: Cut over kneecap, pain. RIGHT KNEE: Four images of the right knee were obtained in AP, lateral, and patellar sunrise projections and revealed very minimal degenerative changes at the intercondylar spines. Femorotibial and patellofemoral joint spaces appear to be fairly well maintained. A definite fracture, dislocation, or other significant bone or joint abnormality was not identified. IMPRESSION: No acute fracture or dislocation. No joint effusion. MTDD
== END 2018-06-23 20:45 | disposition home or self-care (01) ==
LOC: FB.ED 19:13
DX: S81.011A Laceration without foreign body, right knee, initial encounter (principal); I10 Essential (primary) hypertension; Z88.0 Allergy status to penicillin; Z88.5 Allergy status to narcotic agent; Z79.899 Other long term (current) drug therapy; Z79.84 Long term (current) use of oral hypoglycemic drugs; Z79.82 Long term (current) use of aspirin; W26.8XXA Contact with other sharp object(s), not elsewhere classified, initial encounter; Y93.H1 Activity, digging, shoveling and raking
CPT/HCPCS: 73562; 96372; 99283; A9270; J2270

== ENCOUNTER 2018-08-31 19:48 | Emergency (ER) | payer MEDICAID ==
[2018-08-31] MEDS ORDERED: traMADol 50 MG Tab PO ONE (19:49)
[2018-08-31] MEDS ORDERED: Sodium Chloride 0.9% 10 ML Syringe FLUSH PRN (20:21)
--- NOTE | 2018-08-31 20:25 | EDM.PDOC ---
ED HPI GENERAL MEDICAL PROBLEM - General Chief Complaint: Genitourinary Problem Stated Complaint: L SIDE PAIN Time Seen by Provider: 08/31/18 20:10 Source of Information: Reports: Patient History Limitations: Reports: No Limitations - History of Present Illness INITIAL COMMENTS - FREE TEXT/NARRATIVE: [facility] with a 48 hr hx of progressive colicky L flank pain with appearance of pink tinged urine. There is some nausea, but no vomiting. Pain radiates into the L hemiscrotum. There is no urinary frequency, dysuria, or incontinence. There is no PMH of stone disease. He has tried no meds. - Related Data Allergies Allergy/AdvReac Type Severity Reaction Status Date / Time ketorolac [From Toradol] Allergy Hives Verified 06/23/18 23:22 Penicillins Allergy Hives Verified 06/23/18 23:22 Home Meds: Home Meds Lisinopril [Prinivil] 10 mg PO DAILY 12/22/17 [History] Metoprolol Tartrate [Lopressor] 25 mg PO BID 12/22/17 [History] metFORMIN [Glucophage] 500 mg PO BID 12/22/17 [History] Aspirin [Lo-Dose Aspirin EC] 81 mg PO DAILY 01/02/18 [History] Past Medical History HEENT History: Reports: None Cardiovascular History: Reports: Aneurysm, Hypertension Respiratory History: Reports: None Gastrointestinal History: Reports: Other (See Below) Other Gastrointestinal History: hernia surg x 7 Genitourinary History: Reports: Renal Calculus Musculoskeletal History: Reports: Arthritis, Back Pain, Chronic, Fibromyalgia, Neck Pain, Chronic, Osteoarthritis Other Musculoskeletal History: chronic R knee pain Neurological History: Reports: Other (See Below) Other Neuro History: Insomnia Psychiatric History: Reports: Anxiety, Depression, Panic Attack Endocrine/Metabolic History: Reports: Diabetes, Type II, Obesity/BMI 30+ Hematologic History: Reports: Anticoagulation Therapy Immunologic History: Reports: None Oncologic (Cancer) History: Reports: None Dermatologic History: Reports: None - Infectious Disease History Infectious Disease History: Reports: Chicken Pox - Past Surgical History Head Surgeries/Procedures: Reports: None HEENT Surgical History: Reports: Other (See Below) Other HEENT Surgeries/Procedures: Lump removed from throat approx 2013 Cardiovascular Surgical History: Reports: None GI Surgical History: Reports: Hernia Repair/Other Social & Family History - Family History Family Medical History: Noncontributory - Caffeine Use Caffeine Use: Reports: Tea - Living Situation & Occupation Living situation: Reports: Occupation: Employed ED ROS GENERAL - Review of Systems Review Of Systems: See Below Constitutional: Reports: Decreased Appetite HEENT: Reports: No Symptoms Respiratory: Reports: No Symptoms Cardiovascular: Reports: No Symptoms Endocrine: Reports: No Symptoms GI/Abdominal: Reports: Abdominal Pain, Decreased Appetite, Nausea : Reports: Flank Pain Musculoskeletal: Reports: No Symptoms Skin: Reports: No Symptoms Neurological: Reports: No Symptoms Psychiatric: Reports: No Symptoms Hematologic/Lymphatic: Reports: No Symptoms Immunologic: Reports: No Symptoms ED EXAM, RENAL/ - Physical Exam Exam: See Below Exam Limited By: No Limitations General Appearance: Alert, WD/WN, Anxious, Moderate Distress, Obese Eye Exam: Bilateral Eye: EOMI, Normal Inspection, PERRL Ears: Normal External Exam Nose: Normal Inspection Throat/Mouth: Normal Inspection, Normal Oropharynx Head: Normocephalic Neck: Normal Inspection, Supple Respiratory/Chest: Lungs Clear, Normal Breath Sounds Cardiovascular: Regular Rate, Rhythm, No Murmur GI/Abdominal: Normal Bowel Sounds, Soft, No Organomegaly, No Distention, No Abnormal Bruit, No Mass, Tender (L lower abdomen with some guarding) (Male) Exam: No Hernia, Normal Inspection, Circumcised Rectal (Males) Exam: Deferred Back Exam: Normal Inspection Extremities: Normal Inspection Neurological: Alert, Oriented, CN II-XII Intact, Normal Cognition, No Motor/ Sensory Deficits Psychiatric: Normal Affect, Anxious Skin Exam: Warm, Dry, Intact, Normal Color Lymphatic: No Adenopathy Course - Vital Signs Text/Narrative:: Wm was assessed for possible ureterolithiasis, and the screening labwork including CBC and BMP were baseline. The UA did detect RBCs with glucosuria consistent with Type II DM. The Abd-Pelvic CT wo contrast did not identify a stone. He received MS 8 mg IV x 2 with modest improvement in sxs. There was no reported residual nausea. - Orders/Labs/Meds Orders: Active Orders 24 hr Category Date Time Status Abdomen Pelvis wo Cont [CT] Stat Exams 08/31/18 20:47 Taken Sodium Chloride 0.9% [Normal Saline] 1,000 ml Med 08/31/18 20:30 Active IV ASDIRECTED Sodium Chloride 0.9% [Saline Flush] Med 08/31/18 20:21 Active 10 ml FLUSH ASDIRECTED PRN Peripheral IV Insertion Adult [OM.PC] Routine Oth 08/31/18 20:21 Ordered Medication Orders Sodium Chloride (Normal Saline) 1,000 mls @ 999 mls/hr IV ASDIRECTED EMILY Last Admin: 08/31/18 20:45 Dose: 999 mls/hr Sodium Chloride (Saline Flush) 10 ml FLUSH ASDIRECTED PRN PRN Reason: Keep Vein Open Labs: Laboratory Tests 08/31/18 08/31/18 08/31/18 Range/Units 20:02 20:30 20:30 WBC 10.2 (4.5-12.0) X10-3/uL RBC 4.98 (4.30-5.75) x10(6)uL Hgb 14.7 (13.5-17.8) g/dL Hct 42.3 (30.0-51.3) % MCV 85.0 (80-96) fL MCH 29.4 (27.7-33.6) pg MCHC 34.6 (32.2-35.4) g/dL RDW 12.8 (11.5-15.5) % Plt Count 212 (125-369) X10(3)uL MPV 8.5 (7.4-10.4) fL Neut % (Auto) 66.4 (46-82) % Lymph % (Auto) 26.4 (13-37) % Robertson % (Auto) 5.0 (4-12) % Eos % (Auto) 1 (1.0-5.0) % Baso % (Auto) 1 (0-2) % Neut # (Auto) 6.8 (1.6-8.3) # Lymph # (Auto) 2.7 (0.6-5.0) # Robertson # (Auto) 0.5 (0.0-1.3) # Eos # (Auto) 0.1 (0.0-0.8) # Baso # (Auto) 0.1 (0.0-0.2) # Sodium 138 (135-145) mmol/L Potassium 4.0 (3.5-5.3) mmol/L Chloride 102 (100-110) mmol/L Carbon Dioxide 26 (21-32) mmol/L BUN 17 (7-18) mg/dL Creatinine 1.0 (0.70-1.30) mg/dL Est Cr Clr Drug Dosing TNP Estimated GFR (MDRD) > 60 (>60) BUN/Creatinine Ratio 17.0 (9-20) Glucose 352 H (80-116) mg/dL Calcium 8.9 (8.6-10.2) mg/dL Urine Color Yellow (YELLOW) Urine Appearance Slightly cloudy (CLEAR) Urine pH 5.0 (5.0-6.5) Ur Specific [place] 1.015 (1.010-1.025) Urine Protein 30 H (NEGATIVE) mg/dL Urine Glucose (UA) >1000 H (NORMAL) mg/dL Urine Ketones Negative (NEGATIVE) mg/dL Urine Occult Blood Large H (NEGATIVE) Urine Nitrite Negative (NEGATIVE) Urine Bilirubin Negative (NEGATIVE) Urine Urobilinogen Normal (NEGATIVE) mg/dL Ur Leukocyte Esterase Negative (NEGATIVE) Urine RBC 50-75 H (0-5) Urine WBC 0-5 (0-5) Ur Squamous Epith Cells Few H (NS,R,O) Urine Bacteria Few H (NS) Urine Mucus Occasional H (NS) Meds: Medications Generic Name Dose Route Start Last Admin Trade Name Freq PRN Reason Stop Dose Admin Sodium Chloride 1,000 mls @ 999 mls/hr 08/31/18 20:30 08/31/18 20:45 Normal Saline IV 999 mls/hr ASDIRECTED EMILY Administration Sodium Chloride 10 ml 08/31/18 20:21 Saline Flush FLUSH ASDIRECTED PRN Keep Vein Open Discontinued Medications Generic Name Dose Route Start Last Admin Trade Name Freq PRN Reason Stop Dose Admin Morphine Sulfate 8 mg 08/31/18 20:22 08/31/18 20:50 Morphine IVPUSH 08/31/18 20:23 8 mg ONETIME ONE Administration Morphine Sulfate Confirm 08/31/18 20:46 08/31/18 21:16 Morphine Administered 08/31/18 20:47 Not Given Dose 10 mg .ROUTE .STK-MED ONE Morphine Sulfate 8 mg 08/31/18 21:41 08/31/18 21:45 Morphine IVPUSH 08/31/18 21:42 8 mg ONETIME ONE Administration Morphine Sulfate Confirm 08/31/18 21:43 Morphine Administered 08/31/18 21:44 Dose 10 mg .ROUTE .STK-MED ONE Ondansetron HCl 8 mg 08/31/18 20:23 08/31/18 20:55 Zofran IVPUSH 08/31/18 20:24 8 mg ONETIME ONE Administration Departure - Departure Time of Disposition: 22:14 Disposition: Home, Self-Care 01 Condition: Fair Clinical Impression: Abdominal pain Qualifiers: Abdominal location: left lower quadrant Qualified Code(s): R10.32 - Left lower quadrant pain - Discharge Information *PRESCRIPTION DRUG MONITORING PROGRAM REVIEWED*: Not Applicable *COPY OF PRESCRIPTION DRUG MONITORING REPORT IN PATIENT HERSON: Not Applicable Forms: ED Department Discharge - Problem List & Annotations (1) Abdominal pain SNOMED Code(s): 22909219 Code(s): R10.9 - UNSPECIFIED ABDOMINAL PAIN Status: Acute Current Visit: Yes Annotation/Comment:: Abdominal pain with features for ureterolithiasis. Hematuria was present. He was sent home on Tramadol 50 mg q 4-6 hrs prn for pain , advised to strain urine, and follow up with PCP tomorrow. Qualifiers: Abdominal location: left lower quadrant Qualified Code(s): R10.32 - Left lower quadrant pain - Problem List Review Problem List Initiated/Reviewed/Updated: Yes - My Orders Last 24 Hours: My Active Orders 08/31/18 20:21 Sodium Chloride 0.9% [Saline Flush] 10 ml FLUSH ASDIRECTED PRN Peripheral IV Insertion Adult [OM.PC] Routine 08/31/18 20:30 Sodium Chloride 0.9% [Normal Saline] 1,000 ml IV ASDIRECTED 08/31/18 20:47 Abdomen Pelvis wo Cont [CT] Stat - Assessment/Plan Last 24 Hours: My Active Orders 08/31/18 20:21 Sodium Chloride 0.9% [Saline Flush] 10 ml FLUSH ASDIRECTED PRN Peripheral IV Insertion Adult [OM.PC] Routine 08/31/18 20:30 Sodium Chloride 0.9% [Normal Saline] 1,000 ml IV ASDIRECTED 08/31/18 20:47 Abdomen Pelvis wo Cont [CT] Stat Plan: Follow up with PCP.
[2018-08-31] MEDS: Sodium Chloride 0.9% 1,000 ML IV SCH (20:45)
[2018-08-31] MEDS: Morphine 10 MG/ML Syringe IVPUSH ONE ×2 (20:50→21:45)
[2018-08-31] MEDS: Ondansetron 4 MG/2 ML SDV IVPUSH ONE (20:55)
[2018-08-31] MEDS: Morphine 10 MG/ML SDV ONE (21:16)
[2018-09-01] MEDS: Morphine 10 MG/ML SDV ONE (01:33)
[2018-09-01 01:55] VITALS: BP 140/95
== END 2018-08-31 22:45 | disposition home or self-care (01) ==
LOC: FB.ED 19:48
DX: R10.32 Left lower quadrant pain (principal); I10 Essential (primary) hypertension; R11.0 Nausea; Z88.0 Allergy status to penicillin; Z88.8 Allergy status to other drugs, medicaments and biological substances; Z79.899 Other long term (current) drug therapy; Z79.84 Long term (current) use of oral hypoglycemic drugs; Z79.82 Long term (current) use of aspirin
CPT/HCPCS: 36415; 74176; 80048; 81001; 85025; 96361; 96374; 96375; 96376; 99284; A9270; J2270; J2405; J7030

== ENCOUNTER 2018-09-02 18:46 | Emergency (ER) | payer MEDICAID ==
[2018-09-02] MEDS ORDERED: Promethazine 25 MG/ML SDV IM ONE (19:45)
[2018-09-02] MEDS ORDERED: Morphine 10 MG/ML Syringe IM ONE ×2 (19:45→20:13)
--- NOTE | 2018-09-02 19:51 | EDM.PDOC ---
ED HPI GENERAL MEDICAL PROBLEM - General Chief Complaint: Flank Pain Stated Complaint: POSS KIDNEY STONES Time Seen by Provider: 09/02/18 19:25 Source of Information: Reports: Patient History Limitations: Reports: No Limitations - History of Present Illness INITIAL COMMENTS - FREE TEXT/NARRATIVE: 48-year-old male who reports that he noted blood in his urine on Wednesday, 2018 and it seemed to be worse on Wednesday. On Wednesday he also begin to develop left mid back, flank and lower abdominal pain which progressively worsen and caused him to present to the emergency department on 08/31/2018 or he was seen by Dr. Bach. His urine did show evidence of blood but no evidence of infection. He was sent for CT scan of his abdomen and pelvis and this showed no evidence of kidney stone or ureteral stone or any thing that would've explained his pain or his hematuria. He had been given pain medication in the emergency department and was told to follow-up with his primary doctor. He was given no prescription for pain medicines at that time. Today he reports that the pain has been persisting and was more severe today. He rates the pain as a 10/10. It is a sharp pain and seems to come and go. It did seem to be getting better until today. He was seen initially in the walk-in clinic and sent over here because of his level of pain. He has had no fevers or chills. He's had no nausea or vomiting. He's been able to drink liquids well. He has been able to urinate. There is no dysuria. There are no other associated signs or symptoms. There are no other modifying factors. Onset: Other (As above) Duration: Colic, Getting Worse (Today), Waxing/Waning Location: Reports: Abdomen, Back, Other (Left flank) Quality: Reports: Sharp, Stabbing Severity: Severe Improves with: Reports: None Worsens with: Reports: Other (Palpation) Context: Reports: Other (Not applicable) Associated Symptoms: Reports: No Other Symptoms Treatments FINGERPRINT EXPERT: Reports: Other (see below) (Nothing) Left flank/groin Pain Score (Numeric/FACES): 10 - Related Data Allergies Allergy/AdvReac Type Severity Reaction Status Date / Time ketorolac [From Toradol] Allergy Hives Verified 09/02/18 19:13 latex Allergy Hives Verified 09/02/18 19:13 Penicillins Allergy Hives Verified 09/02/18 19:13 Home Meds: Home Meds Lisinopril [Prinivil] 10 mg PO DAILY 12/22/17 [History] Metoprolol Tartrate [Lopressor] 25 mg PO BID 12/22/17 [History] metFORMIN [Glucophage] 500 mg PO BID 12/22/17 [History] Aspirin [Lo-Dose Aspirin EC] 81 mg PO DAILY 01/02/18 [History] .Insulin 1 dose SQ BID 09/01/18 [History] amLODIPine Besylate [Amlodipine Besylate] 10 mg PO DAILY 09/01/18 [History] Past Medical History Cardiovascular History: Reports: Aneurysm, Hypertension Gastrointestinal History: Reports: Other (See Below) Other Gastrointestinal History: hernia surg x 7 Genitourinary History: Reports: Renal Calculus (Possible. No known history) Musculoskeletal History: Reports: Arthritis, Back Pain, Chronic, Fibromyalgia, Neck Pain, Chronic, Osteoarthritis Other Musculoskeletal History: chronic R knee pain Neurological History: Reports: Other (See Below) Other Neuro History: Insomnia Psychiatric History: Reports: Anxiety, Depression, Panic Attack Endocrine/Metabolic History: Reports: Diabetes, Type II, Obesity/BMI 30+ - Infectious Disease History Infectious Disease History: Reports: Chicken Pox - Past Surgical History HEENT Surgical History: Reports: Other (See Below) Other HEENT Surgeries/Procedures: Lump removed from throat approx 2013 GI Surgical History: Reports: Hernia Repair/Other (Multiple repairs with multiple replacement of mesh (6)) Musculoskeletal Surgical History: Reports: Other (See Below) (Right shoulder surgery) Social & Family History - Tobacco Use Smoking Status *Q: Current Some Day Smoker Years of Tobacco use: 25 Packs/Tins Daily: 0.1 - Caffeine Use Caffeine Use: Reports: Tea - Alcohol Use Alcohol Use History: No - Recreational Drug Use Recreational Drug Use: No - Living Situation & Occupation Living situation: Reports: Occupation: Employed ED ROS GENERAL - Review of Systems Review Of Systems: See Below Constitutional: Reports: No Symptoms HEENT: Reports: No Symptoms Respiratory: Reports: No Symptoms Cardiovascular: Reports: No Symptoms GI/Abdominal: Reports: Abdominal Pain, Other (Left flank pain) : Reports: Hematuria Musculoskeletal: Reports: Back Pain (Left mid back) Skin: Reports: No Symptoms Neurological: Reports: No Symptoms Hematologic/Lymphatic: Reports: No Symptoms Immunologic: Reports: No Symptoms ED EXAM, GI/ABD - Physical Exam Exam: See Below Exam Limited By: No Limitations General Appearance: Alert, Moderate Distress, Obese Eyes: Bilateral: Normal Appearance, EOMI Ears: Normal External Exam, Hearing Grossly Normal Nose: Normal Inspection, Normal Mucosa, No Blood Throat/Mouth: Normal Inspection, Normal Oropharynx, Normal Voice, No Airway Compromise Head: Atraumatic, Normocephalic Neck: Normal Inspection, Supple, Non-Tender, Full Range of Motion Respiratory/Chest: No Respiratory Distress, Lungs Clear, Normal Breath Sounds, No Accessory Muscle Use, Chest Non-Tender Cardiovascular: Normal Peripheral Pulses, Regular Rate, Rhythm, No JVD GI/Abdominal Exam: Normal Bowel Sounds, Soft, No Mass, Tender (Over left flank and left mid and lower abdomen), Other (Rebound.) Back Exam: CVA Tenderness (L) Extremities: Normal Inspection, Normal Range of Motion, No Pedal Edema, Normal Capillary Refill Neurological: Alert, Oriented, CN II-XII Intact, Normal Cognition, No Motor/ Sensory Deficits Skin Exam: Warm, Dry, Intact, Normal Color, No Rash Course - Vital Signs Last Recorded V/S: Last Vital Signs Temp 36.7 C 09/02/18 20:25 Pulse 110 H 09/02/18 20:25 Resp 18 09/02/18 20:25 BP 163/94 H 09/02/18 20:25 Pulse Ox 97 09/02/18 20:25 - Orders/Labs/Meds Meds: Medications Discontinued Medications Generic Name Dose Route Start Last Admin Trade Name Vaibhavq PRN Reason Stop Dose Admin Morphine Sulfate 10 mg 09/02/18 19:45 09/02/18 20:22 Morphine IM 09/02/18 19:46 Not Given ONETIME ONE Morphine Sulfate 10 mg 09/02/18 20:13 09/02/18 20:16 Morphine IM 09/02/18 20:14 Not Given ONETIME ONE Morphine Sulfate Confirm 09/02/18 20:13 Morphine Administered 09/02/18 20:14 Dose 10 mg .ROUTE .STK-MED ONE Morphine Sulfate 10 mg 09/02/18 20:17 09/02/18 20:17 Morphine IM 09/02/18 20:18 10 mg ONETIME ONE Administration Promethazine HCl 25 mg 09/02/18 19:45 05/17/19 20:18 Phenergan IM 09/02/18 19:46 25 mg ONETIME ONE Administration - Re-Assessments/Exams Free Text/Narrative Re-Assessment/Exam: 09/02/18 19:45: Patient was originally seen in the walk-in clinic and was provided with a prescription of hydrocodone for pain. Review of the patient's visit on 08/31/2018 and also supporting data shows no evidence of kidney stone and nothing really to explain why he is having the left back, flank and abdominal pain associated with the hematuria. He is scheduled to see a urologist on Wednesday of next week, the patient tells me. I don't see any need for any further workup at this time. I did consent to give him an injection of morphine and Phenergan for his pain. However, I have told the patient that for any further pain-related issues he would need to go through his primary doctor or through the urologist. Standard precautions for return to the emergency Department were given. Departure - Departure Time of Disposition: 19:48 Disposition: Home, Self-Care 01 Condition: Good Clinical Impression: Left flank pain Hematuria Qualifiers: Hematuria type: asymptomatic microscopic Qualified Code(s): R31.21 - Asymptomatic microscopic hematuria - Discharge Information Instructions: Flank Pain, Adult, [id number] Referrals: PCP,Not In Area [Primary Care Provider] - Forms: ED Department Discharge Additional Instructions: I'm unsure why you are having the left flank and abdominal pain. Your blood tests from 08/31/2018 were unchanged from previous and showed good kidney function. Your urine test did show blood in the urine but no evidence of infection. The CT scan of your abdomen and pelvis showed no evidence of kidney stone and, in fact did not show anything to explain your pain. You should deftly keep the appointment with the urologist that you have for next week. You may use the pain medication that Anna Sylvester NP give you a prescription for as needed for your pain. You were given an injection of morphine for your pain in the emergency department today. For any further pain-related issues, you would need to go through either your primary doctor or the urologist that he will see next week as the emergency department would not be able to give any further occasions. Back to the emergency department for fever, unrelenting vomiting, inability urinate or any other concerning sign or symptom.
[2018-09-02] MEDS ORDERED: Morphine 10 MG/ML SDV ONE (20:13)
[2018-09-02] MEDS ORDERED: Morphine 10 MG/ML SDV IM ONE (20:17)
[2018-09-02 20:29] VITALS: BP 163/94
== END 2018-09-02 20:28 | disposition home or self-care (01) ==
LOC: FB.ED 18:46
DX: R31.21 Asymptomatic microscopic hematuria (principal); R10.30 Lower abdominal pain, unspecified; F17.210 Nicotine dependence, cigarettes, uncomplicated; F41.9 Anxiety disorder, unspecified; F32.9 Major depressive disorder, single episode, unspecified; E11.9 Type 2 diabetes mellitus without complications; Z79.4 Long term (current) use of insulin; Z79.82 Long term (current) use of aspirin; Z79.899 Other long term (current) drug therapy; Z88.0 Allergy status to penicillin; Z88.6 Allergy status to analgesic agent
CPT/HCPCS: 96372; 99283; J2270; J2550

== ENCOUNTER 2018-09-06 17:36 | Emergency (ER) | payer MEDICAID ==
[2018-09-06 17:59] VITALS: BP 138/98
--- NOTE | 2018-09-06 18:16 | EDM.PDOC ---
ED HPI GENERAL MEDICAL PROBLEM - General Chief Complaint: Gastrointestinal Problem Stated Complaint: LT SIDE PAIN Time Seen by Provider: 09/06/18 18:00 Source of Information: Reports: Patient History Limitations: Reports: No Limitations - History of Present Illness INITIAL COMMENTS - FREE TEXT/NARRATIVE: 48-year-old male who was seen by myself on 09/02/2018 secondary to left flank pain, hematuria and report of a kidney stone. The patient had been seen on [address] Bach and he had had a workup which included a CT scan of his abdomen and pelvis which showed no evidence of kidney stone at that time. When I saw him on 08/23/2018, he had been sent over from walk-in clinic to get a "shot of pain medication". He had been given a prescription of hydrocodone 5/325 by the walk-in clinic provider for his pain. He was given an injection of morphine on 09/02/2018 but I told the patient that for any further pain-related issues he would need to go through either his primary doctor or the urologist. He was set up to see a urologist on 09/07/2018. He reports that the pain has improved until today and then today the pain seems to be worse than it was on 09/02/2018. He also reports that he still feels that there is blood in his urine. He's had no fevers. He's had no nausea or vomiting. He has been able to eat and drink normally. He has had normal bowel movements. He is currently rating the pain as a 7-8/10. It seems to radiate from his left mid back to his left flank and then to his left lower quadrant. It is worse with palpation. Nothing really seems to make it better. There are no other associated signs or symptoms. There are no other modifying factors. 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 (see below) (Hydrocodone 5/325--he reports no relief from this.) - Related Data Allergies Allergy/AdvReac Type Severity Reaction Status Date / Time ketorolac [From Toradol] Allergy Hives Verified 09/02/18 19:13 latex Allergy Hives Verified 09/02/18 19:13 Penicillins Allergy Hives Verified 09/02/18 19:13 Home Meds: Home Meds Lisinopril [Prinivil] 10 mg PO DAILY 12/22/17 [History] Metoprolol Tartrate [Lopressor] 25 mg PO BID 12/22/17 [History] metFORMIN [Glucophage] 500 mg PO BID 12/22/17 [History] Aspirin [Lo-Dose Aspirin EC] 81 mg PO DAILY 01/02/18 [History] .Insulin 1 dose SQ BID 09/01/18 [History] amLODIPine Besylate [Amlodipine Besylate] 10 mg PO DAILY 09/01/18 [History] Past Medical History Cardiovascular History: Reports: Aneurysm, Hypertension Gastrointestinal History: Reports: Other (See Below) Other Gastrointestinal History: hernia surg x 7 Genitourinary History: Reports: Renal Calculus Musculoskeletal History: Reports: Arthritis, Back Pain, Chronic, Fibromyalgia, Neck Pain, Chronic, Osteoarthritis Other Musculoskeletal History: chronic R knee pain Neurological History: Reports: Other (See Below) Other Neuro History: Insomnia Psychiatric History: Reports: Anxiety, Depression, Panic Attack Endocrine/Metabolic History: Reports: Diabetes, Type II, Obesity/BMI 30+ - Infectious Disease History Infectious Disease History: Reports: Chicken Pox - Past Surgical History Head Surgeries/Procedures: Reports: None HEENT Surgical History: Reports: Other (See Below) Other HEENT Surgeries/Procedures: Lump removed from throat approx 2013 GI Surgical History: Reports: Hernia Repair/Other Social & Family History - Tobacco Use Smoking Status *Q: Current Some Day Smoker Years of Tobacco use: 30 Packs/Tins Daily: 0.5 Second Hand Smoke Exposure: Yes - Caffeine Use Caffeine Use: Reports: Coffee - Living Situation & Occupation Living situation: Reports: Occupation: Employed ED ROS GENERAL - Review of Systems Review Of Systems: See Below Constitutional: Reports: No Symptoms HEENT: Reports: No Symptoms Respiratory: Reports: No Symptoms Cardiovascular: Reports: No Symptoms Endocrine: Reports: No Symptoms GI/Abdominal: Reports: Abdominal Pain (Left flank and lower abdomen) : Reports: Flank Pain, Hematuria Musculoskeletal: Reports: Back Pain (Left mid back) Skin: Reports: No Symptoms Neurological: Reports: No Symptoms Hematologic/Lymphatic: Reports: No Symptoms Immunologic: Reports: No Symptoms ED EXAM, RENAL/ - Physical Exam Exam: See Below Exam Limited By: No Limitations General Appearance: Alert, WD/WN, Mild Distress Eye Exam: Bilateral Eye: EOMI, Normal Inspection, PERRL Ears: Normal External Exam, Hearing Grossly Normal Nose: Normal Inspection, Normal Mucosa, No Blood Throat/Mouth: Normal Inspection, Normal Oropharynx, Normal Voice, No Airway Compromise Head: Atraumatic, Normocephalic Neck: Normal Inspection, Supple, Non-Tender, Full Range of Motion Respiratory/Chest: No Respiratory Distress, Lungs Clear, Normal Breath Sounds, No Accessory Muscle Use, Chest Non-Tender Cardiovascular: Normal Peripheral Pulses, Regular Rate, Rhythm, No JVD GI/Abdominal: Normal Bowel Sounds, Soft, Tender (Left flank and left sided abdomen) Back Exam: Normal Inspection, CVA Tenderness (L) Extremities: Normal Inspection, Normal Range of Motion, Non-Tender, No Pedal Edema, Normal Capillary Refill Neurological: Alert, Oriented, CN II-XII Intact, Normal Cognition, No Motor/ Sensory Deficits Skin Exam: Warm, Dry, Intact, Normal Color, No Rash Course - Vital Signs Last Recorded V/S: Last Vital Signs Temp 36.9 C 09/06/18 17:40 Pulse 114 H 09/06/18 17:40 Resp 18 09/06/18 17:40 BP 138/98 H 09/06/18 17:40 Pulse Ox 99 09/06/18 17:40 - Re-Assessments/Exams Free Text/Narrative Re-Assessment/Exam: 09/06/18 18:10: I recommended to the patient that we recheck his urine and do blood tests to check his kidney function. If there were some abnormalities seen with his kidney function or blood count or any infection in his urine, then a CT scan of his abdomen and pelvis may be necessary at this point. However, without any abnormality, I feel that a CT scan of his abdomen and pelvis would not be indicated. As I had told him previously, I would not be able to provide him with any additional medication for his pain. He tells me that he still has some of hydrocodone at home but it just was not helping for his pain. I had offered him a single dose of the hydrocodone now but he refused that and he refused any blood testing or urine testing, stating that he would "wait until he sees his doctor to get these tests done". He was given verbal discharge instructions but left prior to written discharge instructions. Departure - Departure Time of Disposition: 18:15 Disposition: Home, Self-Care 01 Condition: Good Clinical Impression: Left flank pain, History of hematuria - Discharge Information Referrals: PCP,None [Primary Care Provider] - Forms: ED Department Discharge Additional Instructions: I'm unsure why you are having the left flank pain and blood in your urine. As we discussed, I would recommend doing a urine check and some blood tests to check your kidney function and blood counts but you would prefer to wait to see the urologist tomorrow. Keep your scheduled appointment with the urologist tomorrow. Use the hydrocodone that you have for pain at home. Increase your fluid intake. Back to the emergency department for fever, unrelenting vomiting, inability to urinate or any other concerning sign or symptom.
== END 2018-09-06 18:10 | disposition home or self-care (01) ==
LOC: FB.ED 17:36
DX: R31.9 Hematuria, unspecified (principal); R10.9 Unspecified abdominal pain; F17.210 Nicotine dependence, cigarettes, uncomplicated; I10 Essential (primary) hypertension; E11.9 Type 2 diabetes mellitus without complications; F41.9 Anxiety disorder, unspecified; F32.9 Major depressive disorder, single episode, unspecified; Z88.8 Allergy status to other drugs, medicaments and biological substances; Z91.040 Latex allergy status; Z88.0 Allergy status to penicillin; Z79.82 Long term (current) use of aspirin; Z79.84 Long term (current) use of oral hypoglycemic drugs; Z79.4 Long term (current) use of insulin
CPT/HCPCS: 99283

== ENCOUNTER 2018-09-09 19:55 | Emergency (ER) | payer MEDICAID ==
[2018-09-09] MEDS ORDERED: Acetaminophen/oxyCODONE 325-5 MG Tab PO ONE (19:56)
--- NOTE | 2018-09-09 20:41 | EDM.PDOC ---
ED HPI GENERAL MEDICAL PROBLEM - General Stated Complaint: KIDNEY PAIN Time Seen by Provider: 09/09/18 19:55 Source of Information: Reports: Patient History Limitations: Reports: No Limitations - History of Present Illness INITIAL COMMENTS - FREE TEXT/NARRATIVE: 48 y.o.w m was seen at the clinic and transferred to the ed because of left flank pain and bloody urine. UA was pos for hematuria, no UTI, Pt has IDDM, Pt has no pain when urinating. Pt denies trauma. He will see a urologist this Wednesday. No N/V/D, no CP. No SOB or any other acute med issues. BP 182/104 RR 18 Pulse ox 98% on RA Pulse 115 Temp 36.4 Onset Date: 09/08/18 Onset Time: 08:00 Duration: Hour(s):, Intermittent Location: Reports: Pelvis Quality: Reports: Ache, Dull, Same as Previous Episode Severity: Moderate Improves with: Reports: Medication Worsens with: Reports: Other Context: Reports: Other Associated Symptoms: Reports: Other (blood in urine) L flank radiating into L groin Pain Score (Numeric/FACES): 10 - Related Data Allergies Allergy/AdvReac Type Severity Reaction Status Date / Time ketorolac [From Toradol] Allergy Hives Verified 09/09/18 20:21 latex Allergy Hives Verified 09/09/18 20:21 Penicillins Allergy Hives Verified 09/09/18 20:21 Home Meds: Home Meds Lisinopril [Prinivil] 10 mg PO DAILY 12/22/17 [History] Metoprolol Tartrate [Lopressor] 25 mg PO BID 12/22/17 [History] metFORMIN [Glucophage] 500 mg PO BID 12/22/17 [History] Aspirin [Lo-Dose Aspirin EC] 81 mg PO DAILY 01/02/18 [History] amLODIPine Besylate [Amlodipine Besylate] 10 mg PO DAILY 09/01/18 [History] Gabapentin [Neurontin] 400 mg PO TID PRN 09/09/18 [History] Insulin Glargine,Hum.Rec.Anlog [Basaglar Kwikpen U-100] 10 units SQ DAILY [History] Liraglutide [Victoza 3-Leno] 2 units SQ BEDTIME 09/09/18 [History] Tamsulosin HCl [Flomax] 0.4 mg PO DAILY 09/09/18 [History] Past Medical History HEENT History: Reports: None Cardiovascular History: Reports: Aneurysm, Hypertension Respiratory History: Reports: None Gastrointestinal History: Reports: Other (See Below) Other Gastrointestinal History: hernia surg x 7 Genitourinary History: Reports: Renal Calculus Musculoskeletal History: Reports: Arthritis, Back Pain, Chronic, Fibromyalgia, Neck Pain, Chronic, Osteoarthritis Other Musculoskeletal History: chronic R knee pain Neurological History: Reports: Other (See Below) Other Neuro History: Insomnia Psychiatric History: Reports: Anxiety, Depression, Panic Attack Endocrine/Metabolic History: Reports: Diabetes, Type II, Obesity/BMI 30+ Hematologic History: Reports: Anticoagulation Therapy Immunologic History: Reports: None Oncologic (Cancer) History: Reports: None Dermatologic History: Reports: None - Infectious Disease History Infectious Disease History: Reports: Chicken Pox - Past Surgical History Head Surgeries/Procedures: Reports: None HEENT Surgical History: Reports: Other (See Below) Other HEENT Surgeries/Procedures: Lump removed from throat approx 2013 GI Surgical History: Reports: Hernia Repair/Other Social & Family History - Family History Family Medical History: Noncontributory - Caffeine Use Caffeine Use: Reports: Coffee - Living Situation & Occupation Living situation: Reports: Occupation: Employed ED ROS GENERAL - Review of Systems Review Of Systems: See Below Constitutional: Reports: No Symptoms HEENT: Reports: No Symptoms Respiratory: Reports: No Symptoms Cardiovascular: Reports: No Symptoms Endocrine: Reports: No Symptoms GI/Abdominal: Reports: No Symptoms : Reports: Flank Pain, Hematuria Musculoskeletal: Reports: No Symptoms Skin: Reports: No Symptoms Neurological: Reports: No Symptoms Psychiatric: Reports: No Symptoms Hematologic/Lymphatic: Reports: No Symptoms Immunologic: Reports: No Symptoms ED EXAM, GI/ABD - Physical Exam Exam: See Below Exam Limited By: No Limitations General Appearance: Alert, WD/WN, Moderate Distress Eyes: Bilateral: Normal Appearance Ears: Normal External Exam Nose: Normal Inspection Throat/Mouth: Normal Inspection, Normal Lips, Normal Voice, No Airway Compromise Head: Atraumatic, Normocephalic Neck: Normal Inspection, Supple, Non-Tender, Full Range of Motion Respiratory/Chest: No Respiratory Distress, Lungs Clear, Normal Breath Sounds, Chest Non-Tender Cardiovascular: Normal Peripheral Pulses, Regular Rate, Rhythm, No Edema GI/Abdominal Exam: Normal Bowel Sounds, No Organomegaly, No Mass, Pelvis Stable , Tender (left flank/back) (Male) Exam: No Hernia, Normal Inspection Rectal (Males) Exam: Deferred Back Exam: Normal Inspection, CVA Tenderness (L) Extremities: Normal Inspection Neurological: Alert, Oriented, CN II-XII Intact, Normal Cognition Psychiatric: Normal Affect, Normal Mood Skin Exam: Warm, Dry, Intact, Normal Color Lymphatic: No Adenopathy Course - Vital Signs Text/Narrative:: 48 y.o.w m was seen at the clinic and transferred to the ed because of left flank pain and bloody urine. UA was pos for hematuria, no UTI, Pt has IDDM, Pt has no pain when urinating. Pt denies trauma. He will see a urologist this Wednesday. No N/V/D, no CP. No SOB or any other acute med issues. BP 182/104 RR 18 Pulse ox 98% on RA Pulse 115 Temp 36.4 PE: WNWD W M with left flank pain and blood in his urine Imaging: CT Abd/pelvis: NAD, official report is pending. Labs: CBC/BMP were neg UA: Hematuria, no WBC in urine Impression: Left flank pain with hematuria. Neg non contrast Cat scan of abd. and pelvis TX: Dilaudid. Reexam: Improved Plan: D/C with instructions Last Recorded V/S: Last Vital Signs Temp 36.5 C 09/09/18 20:15 Pulse 96 09/09/18 22:30 Resp 18 09/09/18 22:30 BP 151/102 H 09/09/18 22:30 Pulse Ox 98 09/09/18 22:30 - Orders/Labs/Meds Orders: Active Orders 24 hr Category Date Time Status Abdomen Pelvis wo Cont [CT] Stat Exams 09/09/18 20:33 Taken Labs: Laboratory Tests 09/09/18 09/09/18 09/09/18 Range/Units 20:58 20:58 20:58 WBC 11.3 (4.5-12.0) X10-3/uL RBC 5.07 (4.30-5.75) x10(6)uL Hgb 15.3 (13.5-17.8) g/dL Hct 43.1 (30.0-51.3) % MCV 85.1 (80-96) fL MCH 30.2 (27.7-33.6) pg MCHC 35.5 H (32.2-35.4) g/dL RDW 13.1 (11.5-15.5) % Plt Count 232 (125-369) X10(3)uL MPV 8.3 (7.4-10.4) fL Neut % (Auto) 69.1 (46-82) % Lymph % (Auto) 21.0 (13-37) % Bucks % (Auto) 8.2 (4-12) % Eos % (Auto) 1 (1.0-5.0) % Baso % (Auto) 0 (0-2) % Neut # (Auto) 7.9 (1.6-8.3) # Lymph # (Auto) 2.4 (0.6-5.0) # Bucks # (Auto) 0.9 (0.0-1.3) # Eos # (Auto) 0.1 (0.0-0.8) # Baso # (Auto) 0.0 (0.0-0.2) # PT 9.0 (8.7-11.1) INR 0.93 (0.89-1.13) Sodium 139 (135-145) mmol/L Potassium 3.9 (3.5-5.3) mmol/L Chloride 102 (100-110) mmol/L Carbon Dioxide 25 (21-32) mmol/L BUN 17 (7-18) mg/dL Creatinine 1.0 (0.70-1.30) mg/dL Est Cr Clr Drug Dosing 94.29 mL/min Estimated GFR (MDRD) > 60 (>60) BUN/Creatinine Ratio 17.0 (9-20) Glucose 276 H (80-116) mg/dL Calcium 8.8 (8.6-10.2) mg/dL Meds: Medications Discontinued Medications Generic Name Dose Route Start Last Admin Trade Name Freq PRN Reason Stop Dose Admin Hydromorphone HCl 1 mg 09/09/18 20:55 09/09/18 21:01 Dilaudid IM 09/09/18 20:56 1 mg ONETIME ONE Administration Departure - Departure Time of Disposition: 22:17 Disposition: Home, Self-Care 01 Condition: Good Clinical Impression: Flank pain, acute - Discharge Information Instructions: Acetaminophen; Oxycodone capsules, Hydromorphone injection, Flank Pain, Adult, [id number], Hematuria, Adult Referrals: Anna Sylvester [employer]IE[employer]PUT[employer] CLERK [Primary Care Provider] - Forms: ED Department Discharge Additional Instructions: Please follow up with your urologist this Wednesday as scheduled, Please follow up with your regular MD as needed, come back if your symptoms get worse acutely. Percoset (Oxycodone) 5/325 1 tablet every 12 hours as needed for severe pain. - My Orders Last 24 Hours: My Active Orders 09/09/18 20:33 Abdomen Pelvis wo Cont [CT] Stat - Assessment/Plan Last 24 Hours: My Active Orders 09/09/18 20:33 Abdomen Pelvis wo Cont [CT] Stat
[2018-09-09] MEDS ORDERED: HYDROmorphone 2 MG/ML SDV IM ONE (20:55)
[2018-09-09 22:45] VITALS: BP 151/102
== END 2018-09-09 22:47 | disposition home or self-care (01) ==
LOC: FB.ED 19:55
DX: R31.9 Hematuria, unspecified (principal); R10.9 Unspecified abdominal pain; Z79.899 Other long term (current) drug therapy; Z79.84 Long term (current) use of oral hypoglycemic drugs; I10 Essential (primary) hypertension; F41.9 Anxiety disorder, unspecified; F32.9 Major depressive disorder, single episode, unspecified; E11.9 Type 2 diabetes mellitus without complications; E66.9 Obesity, unspecified; Z68.41 Body mass index [BMI] 40.0-44.9, adult
CPT/HCPCS: 36415; 74176; 80048; 81001; 85025; 85610; 96372; 99284; A9270; J1170

== ENCOUNTER 2018-10-24 22:08 | Emergency (ER) | payer MEDICAID ==
[2018-10-24] MEDS ORDERED: Cyclobenzaprine 10 MG Tab PO ONE ×2 (22:09→23:40)
[2018-10-24] MEDS ORDERED: Acetaminophen/HYDROcodone 325-10 MG Tab PO ONE (23:40)
--- NOTE | 2018-10-24 23:42 | EDM.PDOC ---
ED HPI GENERAL MEDICAL PROBLEM - General Chief Complaint: Back Pain or Injury Stated Complaint: NECK AND BACK PAIN Time Seen by Provider: 10/24/18 23:00 Source of Information: Reports: Patient, Old Records History Limitations: Reports: No Limitations - History of Present Illness INITIAL COMMENTS - FREE TEXT/NARRATIVE: 48yo male presents today with concern for sharp muscle spasm in his back and neck so severe it is making it difficult to move. he states this started earlier this evening while he was using the restroom he felt like there was a sharp spasm in his back, almost like a knife, and he went to the floor and took a while to get up. Low impact and did not hit his head at all. He has had an episode like this before approximately a year ago, and he was referred to physical therapy and ultimately able to get better. He feels like this episode is worse than the previous one was. He tried taking ibuprofen 2 tabs along with Aleve 2 tabs at about 3 PM this afternoon, but that didn't seem to help. He has had no recent injuries to his head, neck or back which would've exacerbated him that he is aware of. Since that spasm earlier this afternoon, feels like he is a little bit weak in his right arm and like it's falling asleep and his leg is also little bit numb. Occasionally she also has some sharp and dull pains. He has difficulty moving or turning his neck, but his gait has been relatively normal. He has had no change in bowel or bladder, he has not felt unwell recently, had any night sweats, fevers or chills or night pain. 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 He reviewed the chart shows that he has actually been seen in the emergency room several different times over the years for chronic back and neck pain. neck and back Pain Score (Numeric/FACES): 10 - Related Data Allergies Allergy/AdvReac Type Severity Reaction Status Date / Time ketorolac [From Toradol] Allergy Hives Verified 10/24/18 22:22 latex Allergy Hives Verified 10/24/18 22:22 Penicillins Allergy Hives Verified 10/24/18 22:22 Home Meds: Home Meds Lisinopril [Prinivil] 10 mg PO DAILY 12/22/17 [History] Metoprolol Tartrate [Lopressor] 25 mg PO BID 12/22/17 [History] metFORMIN [Glucophage] 500 mg PO BID 12/22/17 [History] Aspirin [Lo-Dose Aspirin EC] 81 mg PO DAILY 01/02/18 [History] amLODIPine Besylate [Amlodipine Besylate] 10 mg PO DAILY 09/01/18 [History] Gabapentin [Neurontin] 400 mg PO TID PRN 09/09/18 [History] Insulin Glargine,Hum.Rec.Anlog [Basaglar Kwikpen U-100] 10 units SQ DAILY [History] Liraglutide [Victoza 3-Leno] 2 units SQ BEDTIME 09/09/18 [History] Tamsulosin HCl [Flomax] 0.4 mg PO DAILY 09/09/18 [History] Past Medical History HEENT History: Reports: None Cardiovascular History: Reports: Aneurysm, Hypertension Respiratory History: Reports: None Gastrointestinal History: Reports: Other (See Below) Other Gastrointestinal History: hernia surg x 7 Genitourinary History: Reports: Renal Calculus Musculoskeletal History: Reports: Arthritis, Back Pain, Chronic, Fibromyalgia, Neck Pain, Chronic, Osteoarthritis Other Musculoskeletal History: chronic R knee pain Neurological History: Reports: Other (See Below) Other Neuro History: Insomnia Psychiatric History: Reports: Anxiety, Depression, Panic Attack Endocrine/Metabolic History: Reports: Diabetes, Type II, Obesity/BMI 30+ Hematologic History: Reports: Anticoagulation Therapy Immunologic History: Reports: None Oncologic (Cancer) History: Reports: None Dermatologic History: Reports: None - Infectious Disease History Infectious Disease History: Reports: Chicken Pox - Past Surgical History Head Surgeries/Procedures: Reports: None HEENT Surgical History: Reports: Other (See Below) Other HEENT Surgeries/Procedures: Lump removed from throat approx 2013 GI Surgical History: Reports: Hernia Repair/Other Social & Family History - Family History Family Medical History: Noncontributory - Tobacco Use Smoking Status *Q: Current Every Day Smoker Years of Tobacco use: 20 Packs/Tins Daily: 0.5 - Caffeine Use Caffeine Use: Reports: Coffee - Alcohol Use Alcohol Use History: Yes Date/Time of Last Drink Comment: rare social drink - Recreational Drug Use Recreational Drug Use: No - Living Situation & Occupation Living situation: Reports: Occupation: Employed ED ROS GENERAL - Review of Systems Review Of Systems: ROS reveals no pertinent complaints other than HPI. ED EXAM, GENERAL - Physical Exam Exam: See Below Free Text/Narrative:: Gen.: Alert, pleasant and cooperative and no acute distress. Limited range of motion of his neck due to muscle spasm and guarding, does not complain of any pain referred into either of his arms with neck mobility. He has no midline spinous tenderness in his neck, thoracic or lumbar spine. He has decreased strength on the right versus left of both arm and leg with muscle testing, however the discrepancy significantly improves with distraction and I would say his strength is 5 out of 5. He complains of some paresthesias on his right lower leg which are not consistent with any neurological pattern. Reflexes are + 2 out of 4 in both the upper and lower extremities bilaterally. His gait is relatively normal, accommodates bulky frame. Course - Vital Signs Text/Narrative:: initial impression - acute on chronic neck and back pain, exacerbated by mechanical fall today. Review of chart shows he has been seen in ER several times. Patient requesting medications for pain relief, states the best regimen was given by dr Gastelum several years ago. He is also interested in restarted physical therapy once this acute episode is calmed a bit. Already significant NSAID dosing today, will try oral muscle relaxer and oral opioid combination. I discussed up front with the patients that I do not give Rx opioids in this situation as a take-home and he acknowledged agreement. Last Recorded V/S: Last Vital Signs Temp 36.7 C 10/25/18 01:15 Pulse 92 10/25/18 01:15 Resp 17 10/25/18 01:15 BP 166/92 H 10/25/18 01:15 Pulse Ox 95 10/25/18 01:15 - Orders/Labs/Meds Meds: Medications Discontinued Medications Generic Name Dose Route Start Last Admin Trade Name Leni PRN Reason Stop Dose Admin Hydrocodone Bitart/Acetaminophen 1 tab 10/24/18 23:40 10/24/18 23:48 [place] 325-10 Mg PO 10/24/18 23:41 1 tab ONETIME ONE Administration Cyclobenzaprine HCl 10 mg 10/24/18 23:40 10/24/18 23:48 Flexeril PO 10/24/18 23:41 10 mg ONETIME ONE Administration Hydromorphone HCl 2 mg 10/25/18 00:51 10/25/18 00:55 Dilaudid IM 10/25/18 00:52 2 mg ONETIME ONE Administration - Re-Assessments/Exams Free Text/Narrative Re-Assessment/Exam: minimal improvement with flexeril/norco. However he do not that the patient turn towards me when I walked into the room much easier and appears to be sitting very comfortably on the bed Patient wondering if could get something IM so could go home and sleep. Chart reviewed, patient previously has been given IV steroids and hydromorphone. Due to diabetes will not give prednisone now. Will try 1 dose IM dilaudid, then patient to discharge home, he is in agreement with this plan. F/u with PCP for physical therapy referral. He is in the process of changing clinics due to insurance requirements and so is transitioning from the [facility] to the [facility]. Flexeril prescription given for take home Departure - Departure Time of Disposition: 01:30 Disposition: Home, Self-Care 01 Condition: Fair Clinical Impression: Neck muscle spasm, Neck pain, Low back pain, Spasm of back muscles, Neck sprain - Discharge Information *PRESCRIPTION DRUG MONITORING PROGRAM REVIEWED*: Yes *COPY OF PRESCRIPTION DRUG MONITORING REPORT IN PATIENT HERSON: No Instructions: Muscle Cramps and Spasms Referrals: PCP,None [Primary Care Provider] - Forms: ED Department Discharge Additional Instructions: followup with Dr. Abdul as scheduled. Strongly recommend returning to physical therapy, as it sounds like this worked well before. flexeril prescription given to help with spasms note provided for work also for acute spasm - warm shower sometimes is helpful, with or without stretching. Making sure to get good rest also usually helps. Can take Aleve 2 tabs + muscle relaxer prior to getting in shower. Topical treatments such as icy hot are often also helpful. Be sure to drink a lot of water. gentle activity such as walking (strolling) often also works Other generally helpful things for ongoing musculoskeletal pain: smoking can contribute heavily to nerve-type pain and constrict the small blood vessels, such as those that supply muscles. Diabetes is also hard on these blood vessels.
[2018-10-25] MEDS ORDERED: HYDROmorphone 2 MG/ML SDV IM ONE (00:51)
[2018-10-25 03:07] VITALS: BP 166/92; PULSE 92
== END 2018-10-25 01:17 | disposition home or self-care (01) ==
LOC: FB.ED 22:08
DX: S13.4XXA Sprain of ligaments of cervical spine, initial encounter (principal); M62.830 Muscle spasm of back; M54.5 Low back pain; I10 Essential (primary) hypertension; E11.9 Type 2 diabetes mellitus without complications; E66.9 Obesity, unspecified; M19.90 Unspecified osteoarthritis, unspecified site; F17.210 Nicotine dependence, cigarettes, uncomplicated; Z79.899 Other long term (current) drug therapy; Z88.0 Allergy status to penicillin; Z88.6 Allergy status to analgesic agent; Z91.040 Latex allergy status; Z79.4 Long term (current) use of insulin; X50.9XXA Other and unspecified overexertion or strenuous movements or postures, initial encounter
CPT/HCPCS: 96372; 99283; A9270; J1170

== ENCOUNTER 2018-11-21 18:18 | Emergency (ER) | payer MEDICAID ==
--- NOTE | 2018-11-21 19:15 | EDM.PDOC ---
ED HPI GENERAL MEDICAL PROBLEM - General Chief Complaint: General Stated Complaint: SOB, VOMITTING, FEVER Time Seen by Provider: 11/21/18 19:10 Source of Information: Reports: Patient History Limitations: Reports: No Limitations - History of Present Illness INITIAL COMMENTS - FREE TEXT/NARRATIVE: pt c/o gen weakness and gen body aches, recurrent emesis , fever and watery diarrhea X 2 days, about 4 days ago he had cold sx and ST and was started on zpak , pt denies any other associated sx any known sick contact or any recent travel,,etc. 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 Generalized Pain Score (Numeric/FACES): 10 - Related Data Allergies Allergy/AdvReac Type Severity Reaction Status Date / Time ketorolac [From Toradol] Allergy Hives Verified 11/21/18 18:34 latex Allergy Hives Verified 11/21/18 18:34 Penicillins Allergy Hives Verified 11/21/18 18:34 Home Meds: Home Meds Lisinopril [Prinivil] 10 mg PO DAILY 12/22/17 [History] Metoprolol Tartrate [Lopressor] 25 mg PO BID 12/22/17 [History] metFORMIN [Glucophage] 500 mg PO BID 12/22/17 [History] Aspirin [Lo-Dose Aspirin EC] 81 mg PO DAILY 01/02/18 [History] amLODIPine Besylate [Amlodipine Besylate] 10 mg PO DAILY 09/01/18 [History] Gabapentin [Neurontin] 400 mg PO TID PRN 09/09/18 [History] Insulin Glargine,Hum.Rec.Anlog [Basaglar Kwikpen U-100] 10 units SQ DAILY [History] Liraglutide [Victoza 3-Leno] 2 units SQ BID 09/09/18 [History] Past Medical History HEENT History: Reports: None Cardiovascular History: Reports: Aneurysm, Hypertension Respiratory History: Reports: None Gastrointestinal History: Reports: Other (See Below) Other Gastrointestinal History: hernia surg x 7 Genitourinary History: Reports: Renal Calculus Musculoskeletal History: Reports: Arthritis, Back Pain, Chronic, Fibromyalgia, Neck Pain, Chronic, Osteoarthritis Other Musculoskeletal History: chronic R knee pain Neurological History: Reports: Other (See Below) Other Neuro History: Insomnia Psychiatric History: Reports: Anxiety, Depression, Panic Attack Endocrine/Metabolic History: Reports: Diabetes, Type II, Obesity/BMI 30+ Hematologic History: Reports: Anticoagulation Therapy Immunologic History: Reports: None Oncologic (Cancer) History: Reports: None Dermatologic History: Reports: None - Infectious Disease History Infectious Disease History: Reports: Chicken Pox - Past Surgical History Head Surgeries/Procedures: Reports: None HEENT Surgical History: Reports: Other (See Below) Other HEENT Surgeries/Procedures: Lump removed from throat approx 2013 GI Surgical History: Reports: Hernia Repair/Other Male Surgical History: Reports: None Social & Family History - Family History Family Medical History: Noncontributory - Tobacco Use Smoking Status *Q: Current Every Day Smoker Years of Tobacco use: 20 Packs/Tins Daily: 0.2 - Caffeine Use Caffeine Use: Reports: Soda - Recreational Drug Use Recreational Drug Use: No - Living Situation & Occupation Living situation: Reports: Occupation: Employed ED ROS GENERAL - Review of Systems Review Of Systems: See Below Constitutional: Reports: Fever, Weakness, Fatigue HEENT: Reports: Throat Pain Respiratory: Reports: No Symptoms Cardiovascular: Reports: No Symptoms GI/Abdominal: Reports: Anorexia, Diarrhea, Nausea, Vomiting. Denies: Abdominal Pain, Bloody Stool, Melena Musculoskeletal: Reports: Muscle Pain Skin: Reports: No Symptoms Neurological: Reports: No Symptoms ED EXAM, GENERAL - Physical Exam Exam: See Below Exam Limited By: No Limitations General Appearance: Alert, Mild Distress Ears: Normal TMs Nose: Normal Inspection Throat/Mouth: Normal Inspection, Normal Oropharynx, Other (dry MMM noted. ) Head: Atraumatic, Normocephalic Neck: Normal Inspection, Supple, Non-Tender Respiratory/Chest: No Respiratory Distress, Lungs Clear, Normal Breath Sounds Cardiovascular: Normal Peripheral Pulses, Regular Rate, Rhythm, No Edema, No Murmur GI/Abdominal: Normal Bowel Sounds, Soft, Non-Tender Back Exam: Normal Inspection, Full Range of Motion Extremities: Normal Inspection, Normal Range of Motion, Non-Tender Neurological: Alert, Oriented, CN II-XII Intact Psychiatric: Other Skin Exam: Warm Course - Vital Signs Text/Narrative:: labs results were explained to pt. pt feels better after fluids and zofran, was given hydrocodone for gen aches. pt has viral syndrome and supportive mng was recommended. a letter to be off work for tomorrow was provided Last Recorded V/S: Last Vital Signs Temp 36.9 C 08/05/19 19:59 Pulse 93 11/21/18 19:59 Resp 17 11/21/18 19:59 BP 157/91 H 11/21/18 19:59 Pulse Ox 97 11/21/18 19:59 - Orders/Labs/Meds Orders: Active Orders 24 hr Category Date Time Status Ondansetron [Zofran] Med 11/21/18 19:16 Active 4 mg IVPUSH Q4H PRN Sodium Chloride 0.9% [Normal Saline] 1,000 ml Med 11/21/18 19:21 Active IV ONETIME Medication Orders Sodium Chloride (Normal Saline) 1,000 mls @ 999 mls/hr IV ONETIME ONE Stop: 11/21/18 20:21 Last Admin: 11/21/18 19:44 Dose: 999 mls/hr Ondansetron HCl (Zofran) 4 mg IVPUSH Q4H PRN PRN Reason: Nausea/Vomiting Last Admin: 11/21/18 19:36 Dose: 4 mg Labs: Laboratory Tests 11/21/18 11/21/18 Range/Units 19:30 19:30 WBC 11.3 (4.5-12.0) X10-3/uL RBC 5.41 (4.30-5.75) x10(6)uL Hgb 16.2 (13.5-17.8) g/dL Hct 46.7 (30.0-51.3) % MCV 86.4 (80-96) fL MCH 30.0 (27.7-33.6) pg MCHC 34.8 (32.2-35.4) g/dL RDW 12.5 (11.5-15.5) % Plt Count 226 (125-369) X10(3)uL Sodium 135 (135-145) mmol/L Potassium 3.7 (3.5-5.3) mmol/L Chloride 97 L (100-110) mmol/L Carbon Dioxide 25 (21-32) mmol/L BUN 12 (7-18) mg/dL Creatinine 1.0 (0.70-1.30) mg/dL Est Cr Clr Drug Dosing 94.29 mL/min Estimated GFR (MDRD) > 60 (>60) BUN/Creatinine Ratio 12.0 (9-20) Glucose 278 H (80-116) mg/dL Calcium 9.3 (8.6-10.2) mg/dL Total Bilirubin 0.2 (0.1-1.3) mg/dL AST 7 D (5-25) IU/L ALT 19 D (12-36) U/L Alkaline Phosphatase 92 (56-112) IU/L Total Protein 7.7 (6.0-8.0) g/dL Albumin 3.1 L (3.5-5.2) g/dL Globulin 4.6 g/dL Albumin/Globulin Ratio 0.7 Meds: Medications Generic Name Dose Route Start Last Admin Trade Name Freq PRN Reason Stop Dose Admin Sodium Chloride 1,000 mls @ 999 mls/hr 11/21/18 19:21 11/21/18 19:44 Normal Saline IV 11/21/18 20:21 999 mls/hr ONETIME ONE Administration Ondansetron HCl 4 mg 11/21/18 19:16 11/21/18 19:36 Zofran IVPUSH 4 mg Q4H PRN Administration Nausea/Vomiting Discontinued Medications Generic Name Dose Route Start Last Admin Trade Name Freq PRN Reason Stop Dose Admin Hydrocodone Bitart/Acetaminophen 2 tab 11/21/18 19:18 11/21/18 19:[address] 325-5 Mg PO 11/21/18 19:19 2 tab ONETIME ONE Administration Sodium Chloride 1,000 mls @ 999 drops/hr 11/21/18 19:16 11/21/18 19:22 Normal Saline IV 11/22/18 10:16 Not Given .BOLUS ONE Departure - Departure Time of Disposition: 20:05 Disposition: Home, Self-Care 01 Clinical Impression: Viral illness - Discharge Information Referrals: Omar Gao MD [Primary Care Provider] - Forms: ED Department Discharge - My Orders Last 24 Hours: My Active Orders 11/21/18 19:16 Ondansetron [Zofran] 4 mg IVPUSH Q4H PRN 11/21/18 19:21 Sodium Chloride 0.9% [Normal Saline] 1,000 ml IV ONETIME - Assessment/Plan Last 24 Hours: My Active Orders 11/21/18 19:16 Ondansetron [Zofran] 4 mg IVPUSH Q4H PRN 11/21/18 19:21 Sodium Chloride 0.9% [Normal Saline] 1,000 ml IV ONETIME
[2018-11-21] MEDS ORDERED: Sodium Chloride 0.9% 1,000 ML IV ONE ×2 (19:16→19:21)
[2018-11-21] MEDS ORDERED: Ondansetron 4 MG/2 ML SDV IVPUSH PRN (19:16)
[2018-11-21] MEDS ORDERED: Acetaminophen/HYDROcodone 325-5 MG Tab PO ONE (19:18)
[2018-11-21 20:00] VITALS: PULSE 93
[2018-11-21 20:55] VITALS: BP 156/84
== END 2018-11-21 20:45 | disposition home or self-care (01) ==
LOC: FB.ED 18:18
DX: B34.9 Viral infection, unspecified (principal); I10 Essential (primary) hypertension; M19.90 Unspecified osteoarthritis, unspecified site; E11.9 Type 2 diabetes mellitus without complications; E66.9 Obesity, unspecified; F17.210 Nicotine dependence, cigarettes, uncomplicated; Z79.82 Long term (current) use of aspirin; Z79.84 Long term (current) use of oral hypoglycemic drugs; Z79.899 Other long term (current) drug therapy; Z88.0 Allergy status to penicillin; Z91.040 Latex allergy status; Z88.6 Allergy status to analgesic agent
CPT/HCPCS: 36415; 80053; 85027; 87804; 96361; 96374; 99283; A9270; J2405; J7030

== ENCOUNTER 2018-12-01 19:02 | Emergency (ER) | payer MEDICAID ==
[2018-12-01] MEDS ORDERED: Lisinopril 20 MG Tab ONE (19:51)
[2018-12-01 19:57] VITALS: BP 190/135
[2018-12-01 20:03] VITALS: PULSE 119
--- NOTE | 2018-12-01 20:08 | EDM.PDOC ---
ED HPI GENERAL MEDICAL PROBLEM - General Chief Complaint: Abdominal Pain Stated Complaint: ABDOMINAL PAIN Time Seen by Provider: 12/01/18 19:15 Source of Information: Reports: Patient History Limitations: Reports: No Limitations - History of Present Illness INITIAL COMMENTS - FREE TEXT/NARRATIVE: Pool appears at [facility] ED with escalation of umbilical pain from known hernia, last seen by PCP on November 23. Pain is sharp this evening, unimproved with Aleve, and he is requesting pain medication. abdomen Pain Score (Numeric/FACES): 10 - Related Data Allergies Allergy/AdvReac Type Severity Reaction Status Date / Time ketorolac [From Toradol] Allergy Hives Verified 12/01/18 19:17 latex Allergy Hives Verified 12/01/18 19:17 Penicillins Allergy Hives Verified 12/01/18 19:17 Home Meds: Home Meds Lisinopril [Prinivil] 10 mg PO DAILY 12/22/17 [History] Metoprolol Tartrate [Lopressor] 25 mg PO BID 12/22/17 [History] metFORMIN [Glucophage] 500 mg PO BID 12/22/17 [History] Aspirin [Lo-Dose Aspirin EC] 81 mg PO DAILY 01/02/18 [History] amLODIPine Besylate [Amlodipine Besylate] 10 mg PO DAILY 09/01/18 [History] Gabapentin [Neurontin] 400 mg PO TID PRN 09/09/18 [History] Insulin Glargine,Hum.Rec.Anlog [Basaglar Kwikpen U-100] 10 units SQ DAILY [History] Liraglutide [Victoza 3-Leno] 2 units SQ BID 09/09/18 [History] Past Medical History HEENT History: Reports: None Cardiovascular History: Reports: Aneurysm, Hypertension Respiratory History: Reports: None Gastrointestinal History: Reports: Other (See Below) Other Gastrointestinal History: hernia surg x 7 Genitourinary History: Reports: Renal Calculus Musculoskeletal History: Reports: Arthritis, Back Pain, Chronic, Fibromyalgia, Neck Pain, Chronic, Osteoarthritis Other Musculoskeletal History: chronic R knee pain Neurological History: Reports: Other (See Below) Other Neuro History: Insomnia Psychiatric History: Reports: Anxiety, Depression, Panic Attack Endocrine/Metabolic History: Reports: Diabetes, Type II, Obesity/BMI 30+ Hematologic History: Reports: Anticoagulation Therapy Immunologic History: Reports: None Oncologic (Cancer) History: Reports: None Dermatologic History: Reports: None - Infectious Disease History Infectious Disease History: Reports: Chicken Pox - Past Surgical History Head Surgeries/Procedures: Reports: None HEENT Surgical History: Reports: Other (See Below) Other HEENT Surgeries/Procedures: Lump removed from throat approx 2013 GI Surgical History: Reports: Hernia Repair/Other Male Surgical History: Reports: None Social & Family History - Family History Family Medical History: Noncontributory - Tobacco Use Smoking Status *Q: Current Every Day Smoker Years of Tobacco use: 30 Packs/Tins Daily: 0.5 - Caffeine Use Caffeine Use: Reports: Coffee, Soda - Recreational Drug Use Recreational Drug Use: No - Living Situation & Occupation Living situation: Reports: Occupation: Employed ED ROS GENERAL - Review of Systems Review Of Systems: ROS reveals no pertinent complaints other than HPI. ED EXAM, GI/ABD - Physical Exam Exam: See Below Exam Limited By: No Limitations General Appearance: Alert, WD/WN, Anxious, Mild Distress, Obese Head: Normocephalic Neck: Normal Inspection, Supple Respiratory/Chest: Lungs Clear Cardiovascular: Regular Rate, Rhythm, No Murmur GI/Abdominal Exam: Normal Bowel Sounds, Soft, No Organomegaly, No Distention, No Mass, Tender (small umbilical defect that is tender, no impulse to maneuver or straining;) (Male) Exam: Deferred Rectal (Males) Exam: Deferred Extremities: Normal Inspection Neurological: Alert, Oriented, CN II-XII Intact, Normal Cognition, No Motor/ Sensory Deficits Psychiatric: Normal Affect, Anxious Skin Exam: Warm, Dry, Intact, Normal Color, No Rash Lymphatic: No Adenopathy Course - Vital Signs Text/Narrative:: Findings consistent with probable relapse of umbilical hernia, no clinical findings for incarcerated viscous. His BP was elevated, and suggested medication was refused by patient, reporting awareness of pain as contributory. Last Recorded V/S: Last Vital Signs Temp 36.9 C 12/01/18 19:15 Pulse 111 H 12/01/18 19:15 Resp 20 12/01/18 19:15 BP 190/135 H 12/01/18 19:57 Pulse Ox 98 12/01/18 19:15 - Orders/Labs/Meds Orders: Active Orders 24 hr Category Date Time Status Lisinopril [Prinivil] Med 12/02/18 19:48 Once 20 mg PO ONETIME ONE Medication Orders Lisinopril (Prinivil) 20 mg PO ONETIME ONE Stop: 12/02/18 19:49 Meds: Medications Generic Name Dose Route Start Last Admin Trade Name Freq PRN Reason Stop Dose Admin Lisinopril 20 mg 12/02/18 19:48 Prinivil PO 12/02/18 19:49 ONETIME ONE Discontinued Medications Generic Name Dose Route Start Last Admin Trade Name Freq PRN Reason Stop Dose Admin Lisinopril Confirm 12/01/18 19:51 12/01/18 19:57 Prinivil Administered 12/01/18 19:52 Not Given Dose 20 mg .ROUTE .STK-MED ONE Departure - Departure Time of Disposition: 19:45 Disposition: Home, Self-Care 01 Condition: Fair Clinical Impression: Labile essential hypertension Umbilical hernia Qualifiers: Obstruction and gangrene presence: without obstruction or gangrene Qualified Code(s): K42.9 - Umbilical hernia without obstruction or gangrene - Discharge Information *PRESCRIPTION DRUG MONITORING PROGRAM REVIEWED*: Not Applicable *COPY OF PRESCRIPTION DRUG MONITORING REPORT IN PATIENT HERSON: Not Applicable Instructions: Umbilical Hernia, Adult Referrals: Omar Gao MD [Primary Care Provider] - Forms: ED Department Discharge Additional Instructions: Follow up with your Primary Care Provider and See your Surgeon as scheduled. Take Ibuprofen 600mg and Tylenol 1000mg for pain. - Problem List & Annotations (1) Labile essential hypertension SNOMED Code(s): 266368779 Code(s): I10 - ESSENTIAL (PRIMARY) HYPERTENSION Status: Acute Annotation/ Comment:: Pool will take additional BP med at home, and monitor pressures. (2) Umbilical hernia SNOMED Code(s): 909868253 Code(s): K42.9 - UMBILICAL HERNIA WITHOUT OBSTRUCTION OR GANGRENE Status: Acute Annotation/Comment:: I suggested heating pad, Tylenol and follow up with surgeon if no improvement. Qualifiers: Obstruction and gangrene presence: without obstruction or gangrene Qualified Code(s): K42.9 - Umbilical hernia without obstruction or gangrene - Problem List Review Problem List Initiated/Reviewed/Updated: Yes - My Orders Last 24 Hours: My Active Orders 12/02/18 19:48 Lisinopril [Prinivil] 20 mg PO ONETIME ONE - Assessment/Plan Last 24 Hours: My Active Orders 12/02/18 19:48 Lisinopril [Prinivil] 20 mg PO ONETIME ONE Plan: Follow up with PCP and surgeon.
[2018-12-02] MEDS ORDERED: Lisinopril 20 MG Tab PO ONE (19:48)
== END 2018-12-01 19:55 | disposition home or self-care (01) ==
LOC: FB.ED 19:02
DX: K42.9 Umbilical hernia without obstruction or gangrene (principal); I10 Essential (primary) hypertension; F41.9 Anxiety disorder, unspecified; F32.9 Major depressive disorder, single episode, unspecified; E11.9 Type 2 diabetes mellitus without complications; F17.210 Nicotine dependence, cigarettes, uncomplicated; Z88.6 Allergy status to analgesic agent; Z88.0 Allergy status to penicillin; Z91.040 Latex allergy status; Z79.899 Other long term (current) drug therapy; Z79.82 Long term (current) use of aspirin; Z79.4 Long term (current) use of insulin; Z87.442 Personal history of urinary calculi; Z79.01 Long term (current) use of anticoagulants
CPT/HCPCS: 99283; A9270-GY

== ENCOUNTER 2018-12-12 21:32 | Emergency (ER) | payer MEDICAID ==
[2018-12-12] MEDS ORDERED: Metoprolol Tartrate 5 MG in Sodium Chloride 0.9% 50 ML IV ONE ×2 (22:12→22:19)
[2018-12-12] MEDS ORDERED: Morphine 4 MG/ML Syringe IVPUSH ONE (22:12)
[2018-12-12] MEDS ORDERED: Sodium Chloride 0.9% 500 ML IV ONE (22:13)
[2018-12-12] MEDS ORDERED: Metoprolol Tartrate 5 MG/5 ML SDV IVPUSH ONE ×2 (22:20→22:49)
[2018-12-12] MEDS ORDERED: Sodium Chloride 0.9% 1,000 ML IV ONE (22:27)
[2018-12-12] MEDS ORDERED: Insulin Regular, Human 100 Units/ML 3 ML Vial SUBCUT ONE (22:50)
[2018-12-12] MEDS ORDERED: Iopamidol 755 MG/ML 150 ML Bottle IV ONE (23:40)
--- NOTE | 2018-12-13 01:08 | EDM.PDOC ---
ED HPI GENERAL MEDICAL PROBLEM - General Chief Complaint: Chest Pain Stated Complaint: CHEST PAIN Time Seen by Provider: 12/12/18 21:35 Source of Information: Reports: Patient - History of Present Illness INITIAL COMMENTS - FREE TEXT/NARRATIVE: Patient is a 48 yo WM who presented to the ED because of epigastric and chest pain over the sternal area radiating towards the left arm. He denies any N/V, diaphoresis. He also complains of dyspnea although his oxygen saturation is 98% on RA. He had an angiogram done 6 months ago which was negative. Middle Chest Pain Score (Numeric/FACES): 10 - Related Data Allergies Allergy/AdvReac Type Severity Reaction Status Date / Time ketorolac [From Toradol] Allergy Hives Verified 12/01/18 19:17 latex Allergy Hives Verified 12/01/18 19:17 Penicillins Allergy Hives Verified 12/01/18 19:17 Home Meds: Home Meds Lisinopril [Prinivil] 10 mg PO DAILY 12/22/17 [History] Metoprolol Tartrate [Lopressor] 25 mg PO BID 12/22/17 [History] metFORMIN [Glucophage] 500 mg PO BID 12/22/17 [History] Aspirin [Lo-Dose Aspirin EC] 81 mg PO DAILY 01/02/18 [History] amLODIPine Besylate [Amlodipine Besylate] 10 mg PO DAILY 09/01/18 [History] Gabapentin [Neurontin] 400 mg PO TID PRN 09/09/18 [History] Insulin Glargine,Hum.Rec.Anlog [Basaglar Kwikpen U-100] 10 units SQ DAILY [History] Liraglutide [Victoza 3-Leno] 2 units SQ BID 09/09/18 [History] Past Medical History HEENT History: Reports: None Cardiovascular History: Reports: Aneurysm, Hypertension Respiratory History: Reports: None Gastrointestinal History: Reports: Other (See Below) Other Gastrointestinal History: hernia surg x 7 Genitourinary History: Reports: Renal Calculus Musculoskeletal History: Reports: Arthritis, Back Pain, Chronic, Fibromyalgia, Neck Pain, Chronic, Osteoarthritis Other Musculoskeletal History: chronic R knee pain Neurological History: Reports: Other (See Below) Other Neuro History: Insomnia Psychiatric History: Reports: Anxiety, Depression, Panic Attack Endocrine/Metabolic History: Reports: Diabetes, Type II, Obesity/BMI 30+ Hematologic History: Reports: Anticoagulation Therapy Immunologic History: Reports: None Oncologic (Cancer) History: Reports: None Dermatologic History: Reports: None - Infectious Disease History Infectious Disease History: Reports: Chicken Pox - Past Surgical History Head Surgeries/Procedures: Reports: None HEENT Surgical History: Reports: Other (See Below) Other HEENT Surgeries/Procedures: Lump removed from throat approx 2013 GI Surgical History: Reports: Hernia Repair/Other Male Surgical History: Reports: None Social & Family History - Family History Family Medical History: Noncontributory - Tobacco Use Smoking Status *Q: Current Every Day Smoker Years of Tobacco use: 20 Packs/Tins Daily: 0.5 - Caffeine Use Caffeine Use: Reports: Coffee, Soda - Living Situation & Occupation Living situation: Reports: Occupation: Employed ED ROS GENERAL - Review of Systems Review Of Systems: See Below Constitutional: Reports: No Symptoms HEENT: Reports: No Symptoms Respiratory: Reports: No Symptoms Cardiovascular: Reports: Chest Pain Endocrine: Reports: No Symptoms GI/Abdominal: Reports: Abdominal Pain : Reports: No Symptoms ED EXAM, GENERAL - Physical Exam Exam: See Below Exam Limited By: No Limitations General Appearance: Alert, No Apparent Distress Eye Exam: Bilateral Eye: PERRL Ears: Normal External Exam, Normal Canal Nose: Normal Inspection, Normal Mucosa Throat/Mouth: Normal Inspection Head: Atraumatic, Normocephalic Neck: Normal Inspection Respiratory/Chest: No Respiratory Distress, Lungs Clear, Normal Breath Sounds Cardiovascular: Normal Peripheral Pulses GI/Abdominal: Normal Bowel Sounds, Other (epigastric tenderness) (Male) Exam: Deferred Rectal (Males) Exam: Normal Exam Back Exam: Normal Inspection Course - Vital Signs Last Recorded V/S: Last Vital Signs Temp 36.4 C 12/12/18 21:32 Pulse 95 12/12/18 23:05 Resp 14 12/12/18 21:32 BP 148/101 H 12/12/18 23:05 Pulse Ox 98 12/12/18 21:32 - Orders/Labs/Meds Orders: Active Orders 24 hr Category Date Time Status Ang Chest [CT] Stat Exams 12/12/18 23:45 Taken CTA Abd Pelv w Cont [CT] Stat Exams 12/12/18 23:45 Taken Labs: Laboratory Tests 12/12/18 12/12/18 12/12/18 Range/Units 22:20 22:20 22:20 WBC 8.8 (4.5-12.0) X10-3/uL RBC 5.42 (4.30-5.75) x10(6)uL Hgb 16.1 (13.5-17.8) g/dL Hct 47.2 (30.0-51.3) % MCV 87.1 (80-96) fL MCH 29.6 (27.7-33.6) pg MCHC 34.0 (32.2-35.4) g/dL RDW 12.7 (11.5-15.5) % Plt Count 189 (125-369) X10(3)uL MPV 9.1 (7.4-10.4) fL Neut % (Auto) 62.8 (46-82) % Lymph % (Auto) 29.8 (13-37) % [place] % (Auto) 5.4 (4-12) % Eos % (Auto) 2 (1.0-5.0) % Baso % (Auto) 1 (0-2) % Neut # (Auto) 5.6 (1.6-8.3) # Lymph # (Auto) 2.6 (0.6-5.0) # [place] # (Auto) 0.5 (0.0-1.3) # Eos # (Auto) 0.1 (0.0-0.8) # Baso # (Auto) 0.0 (0.0-0.2) # PT 9.2 (8.7-11.1) INR 0.95 (0.89-1.13) APTT 23.6 L (24.4-33.2) SECONDS Sodium 136 (135-145) mmol/L Potassium 4.2 (3.5-5.3) mmol/L Chloride 100 (100-110) mmol/L Carbon Dioxide 25 (21-32) mmol/L BUN 15 (7-18) mg/dL Creatinine 1.2 (0.70-1.30) mg/dL Est Cr Clr Drug Dosing TNP Estimated GFR (MDRD) > 60 (>60) BUN/Creatinine Ratio 12.5 (9-20) Glucose 501 H* D (80-116) mg/dL Lactic Acid (0.4-2.2) mmol/L Calcium 8.9 (8.6-10.2) mg/dL Total Bilirubin 0.2 (0.1-1.3) mg/dL AST 9 D (5-25) IU/L ALT 26 D (12-36) U/L Alkaline Phosphatase 86 (56-112) IU/L Troponin I (<0.017-0.056) ng/mL Total Protein 7.2 (6.0-8.0) g/dL Albumin 3.1 L (3.5-5.2) g/dL Globulin 4.1 g/dL Albumin/Globulin Ratio 0.8 12/12/18 12/12/18 Range/Units 22:20 23:01 WBC (4.5-12.0) X10-3/uL RBC (4.30-5.75) x10(6)uL Hgb (13.5-17.8) g/dL Hct (30.0-51.3) % MCV (80-96) fL MCH (27.7-33.6) pg MCHC (32.2-35.4) g/dL RDW (11.5-15.5) % Plt Count (125-369) X10(3)uL MPV (7.4-10.4) fL Neut % (Auto) (46-82) % Lymph % (Auto) (13-37) % [place] % (Auto) (4-12) % Eos % (Auto) (1.0-5.0) % Baso % (Auto) (0-2) % Neut # (Auto) (1.6-8.3) # Lymph # (Auto) (0.6-5.0) # [place] # (Auto) (0.0-1.3) # Eos # (Auto) (0.0-0.8) # Baso # (Auto) (0.0-0.2) # PT (8.7-11.1) INR (0.89-1.13) APTT (24.4-33.2) SECONDS Sodium (135-145) mmol/L Potassium (3.5-5.3) mmol/L Chloride (100-110) mmol/L Carbon Dioxide (21-32) mmol/L BUN (7-18) mg/dL Creatinine (0.70-1.30) mg/dL Est Cr Clr Drug Dosing Estimated GFR (MDRD) (>60) BUN/Creatinine Ratio (9-20) Glucose (80-116) mg/dL Lactic Acid 1.5 (0.4-2.2) mmol/L Calcium (8.6-10.2) mg/dL Total Bilirubin (0.1-1.3) mg/dL AST (5-25) IU/L ALT (12-36) U/L Alkaline Phosphatase (56-112) IU/L Troponin I < 0.017 L (<0.017-0.056) ng/mL Total Protein (6.0-8.0) g/dL Albumin (3.5-5.2) g/dL Globulin g/dL Albumin/Globulin Ratio Meds: Medications Discontinued Medications Generic Name Dose Route Start Last Admin Trade Name Freq PRN Reason Stop Dose Admin Metoprolol Tartrate 5 mg/ 55 mls @ 100 mls/hr 12/12/18 22:12 12/12/18 22:48 Sodium Chloride IV 12/12/18 22:44 Not Given ONETIME ONE Sodium Chloride 500 mls @ 999 mls/hr 12/12/18 22:13 12/12/18 22:48 Normal Saline IV 12/12/18 22:43 Not Given .BOLUS ONE Metoprolol Tartrate 5 mg/ 55 mls @ 100 mls/hr 12/12/18 22:19 Sodium Chloride IV 12/12/18 22:51 ONETIME ONE Sodium Chloride 1,000 mls @ 999 mls/hr 12/12/18 22:27 12/12/18 22:47 Normal Saline IV 12/12/18 23:27 999 mls/hr .BOLUS ONE Administration Insulin Human Regular 30 unit 12/13/18 22:50 Humulin R SUBCUT 12/13/18 22:51 ONETIME ONE Insulin Human Regular 30 unit 12/12/18 22:50 12/12/18 22:57 Humulin R SUBCUT 12/12/18 22:51 30 units ONETIME ONE Administration Iopamidol 150 ml 12/12/18 23:40 12/12/18 23:43 Isovue-370 (76%) IV 12/12/18 23:41 140 ml ONETIME ONE Administration Metoprolol Tartrate 5 mg 12/12/18 22:20 12/12/18 22:23 Lopressor IVPUSH 12/12/18 22:21 5 mg ONETIME ONE Administration Metoprolol Tartrate 5 mg 12/12/18 22:49 12/12/18 22:56 Lopressor IVPUSH 12/12/18 22:50 5 mg ONETIME ONE Administration Morphine Sulfate 4 mg 12/12/18 22:12 12/12/18 22:26 Morphine IVPUSH 12/12/18 22:13 4 mg ONETIME ONE Administration Departure - Departure Time of Disposition: 01:05 Disposition: Home, Self-Care 01 Condition: Good Clinical Impression: Atypical chest pain Instructions: Nonspecific Chest Pain, [id number] Referrals: Omar Gao MD [Primary Care Provider] - Forms: ED Department Discharge Additional Instructions: your chest pain is musculoskeletal pain,pain coming from your chest or it could be GERD/acid reflux continue your present medications Follow up with your doctor with regards to your poorly controlled diabetes,and high blood pressure - Problem List & Annotations (1) Atypical chest pain SNOMED Code(s): 558182792 Code(s): R07.89 - OTHER CHEST PAIN Status: Acute Current Visit: Yes - Problem List Review Problem List Initiated/Reviewed/Updated: Yes - My Orders Last 24 Hours: My Active Orders 12/12/18 23:45 Ang Chest [CT] Stat CTA Abd Pelv w Cont [CT] Stat - Assessment/Plan Last 24 Hours: My Active Orders 12/12/18 23:45 Ang Chest [CT] Stat CTA Abd Pelv w Cont [CT] Stat
[2018-12-13 04:10] VITALS: BP 130/84
[2018-12-13] MEDS ORDERED: Insulin Regular, Human 100 Units/ML 3 ML Vial SUBCUT ONE (22:50)
== END 2018-12-13 01:12 | disposition home or self-care (01) ==
LOC: FB.ED 21:32
DX: R07.89 Other chest pain (principal); I10 Essential (primary) hypertension; E11.9 Type 2 diabetes mellitus without complications; M19.90 Unspecified osteoarthritis, unspecified site; E66.9 Obesity, unspecified; Z68.41 Body mass index [BMI] 40.0-44.9, adult; F17.210 Nicotine dependence, cigarettes, uncomplicated; Z91.040 Latex allergy status; Z88.0 Allergy status to penicillin; Z88.8 Allergy status to other drugs, medicaments and biological substances; Z79.899 Other long term (current) drug therapy; Z79.82 Long term (current) use of aspirin; Z79.4 Long term (current) use of insulin; Z79.01 Long term (current) use of anticoagulants
CPT/HCPCS: 36415; 71275; 74174; 80053; 82962; 83605; 84484; 85025; 85610; 85730; 96361; 96372; 96374; 96375; 96376; 99285; J1815; J2270; J3490; J7030; Q9967

== ENCOUNTER 2019-01-15 22:06 | Emergency (ER) | payer OTHER, MEDICAID ==
[2019-01-15] MEDS ORDERED: Acetaminophen/oxyCODONE 325-5 MG Tab PO ONE (22:07)
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
[2019-01-15 23:38] VITALS: BP 162/99; PULSE 96
== END 2019-01-15 22:53 | disposition home or self-care (01) ==
LOC: FB.ED 22:06
DX: S29.9XXA Unspecified injury of thorax, initial encounter (principal); I10 Essential (primary) hypertension; E11.9 Type 2 diabetes mellitus without complications; E66.9 Obesity, unspecified; Z88.0 Allergy status to penicillin; Z88.6 Allergy status to analgesic agent; Z91.040 Latex allergy status; Z79.4 Long term (current) use of insulin; Z79.899 Other long term (current) drug therapy; V89.2XXA Person injured in unspecified motor-vehicle accident, traffic, initial encounter; Y92.410 Unspecified street and highway as the place of occurrence of the external cause
CPT/HCPCS: 99282; A9270

== ENCOUNTER 2019-01-30 17:00 | Emergency (ER) | payer MEDICAID ==
[2019-01-30] MEDS ORDERED: traMADol 50 MG Tab PO ONE (17:01)
--- NOTE | 2019-01-30 17:31 | EDM.PDOC ---
ED HPI GENERAL MEDICAL PROBLEM - General Chief Complaint: General Stated Complaint: PAIN IN RIGHT RIBS Time Seen by Provider: 01/30/19 17:28 Source of Information: Reports: Patient History Limitations: Reports: No Limitations - History of Present Illness INITIAL COMMENTS - FREE TEXT/NARRATIVE: 48-year-old male with onset of right lower chest and right upper quadrant abdominal pain approximately 1 PM yesterday. He reports the pain came on suddenly as he was getting up from chair area and he doesn't remember injuring himself in any way. Nothing really incited the event. The pain is made worse with movement, breathing and palpation. His had no nausea or vomiting. He has had no fevers or chills. He's had no cough or sore throat. He has had some nasal congestion but he states this is common for him. He rates the pain as a 10 /10 at present. The pain does not radiate. He does not have any shortness of breath he has had no diarrhea. He has been eating and drinking normally without any effect on his pain. There are no other associated signs or symptoms. There are no other modifying factors. 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: Reports: Other (see below) (Nothing) right side rib area Pain Score (Numeric/FACES): 10 - Related Data Allergies Allergy/AdvReac Type Severity Reaction Status Date / Time ketorolac [From Toradol] Allergy Hives Verified 01/15/19 23:32 latex Allergy Hives Verified 01/15/19 23:32 Penicillins Allergy Hives Verified 01/15/19 23:32 Home Meds: Home Meds Lisinopril [Prinivil] 10 mg PO DAILY 12/22/17 [History] Metoprolol Tartrate [Lopressor] 25 mg PO BID 12/22/17 [History] metFORMIN [Glucophage] 500 mg PO BID 12/22/17 [History] Aspirin [Lo-Dose Aspirin EC] 81 mg PO DAILY 01/02/18 [History] amLODIPine Besylate [Amlodipine Besylate] 10 mg PO DAILY 09/01/18 [History] Gabapentin [Neurontin] 400 mg PO TID PRN 09/09/18 [History] Insulin Glargine,Hum.Rec.Anlog [Basaglar Kwikpen U-100] 10 units SQ DAILY [History] Liraglutide [Victoza 3-Leno] 2 units SQ BID 09/09/18 [History] Past Medical History Cardiovascular History: Reports: Hypertension Genitourinary History: Reports: Renal Calculus Musculoskeletal History: Reports: Arthritis, Back Pain, Chronic, Fibromyalgia, Neck Pain, Chronic, Osteoarthritis Other Musculoskeletal History: chronic R knee pain Psychiatric History: Reports: Anxiety, Depression, Panic Attack Endocrine/Metabolic History: Reports: Diabetes, Type II, Obesity/BMI 30+ Hematologic History: Reports: Anticoagulation Therapy - Infectious Disease History Infectious Disease History: Reports: Chicken Pox - Past Surgical History Head Surgeries/Procedures: Reports: None HEENT Surgical History: Reports: Other (See Below) Other HEENT Surgeries/Procedures: Lump removed from throat approx 2013 GI Surgical History: Reports: Hernia Repair/Other (Ventral hernia repairs 7, 4 of them with mesh replacement) Social & Family History - Tobacco Use Smoking Status *Q: Current Every Day Smoker Years of Tobacco use: 20 Packs/Tins Daily: 1 - Caffeine Use Caffeine Use: Reports: Coffee, Soda - Alcohol Use Alcohol Use Frequency: Rarely (States that he drinks maybe once every few months but sometimes this can be heavy drinking. He has had no recent EtOH.) - Living Situation & Occupation Living situation: Reports: Occupation: Unemployed ED ROS GENERAL - Review of Systems Review Of Systems: See Below Constitutional: Reports: No Symptoms HEENT: Reports: Other (Nasal congestion) Respiratory: Reports: Pleuritic Chest Pain (Right-sided as above) Cardiovascular: Denies: Dyspnea on Exertion, Edema GI/Abdominal: Reports: Abdominal Pain (Right upper quadrant) : Reports: No Symptoms Musculoskeletal: Reports: No Symptoms Skin: Reports: No Symptoms Neurological: Reports: No Symptoms Hematologic/Lymphatic: Reports: No Symptoms Immunologic: Reports: No Symptoms ED EXAM, GENERAL - Physical Exam Exam: See Below Exam Limited By: No Limitations General Appearance: Alert, Moderate Distress, Obese Eye Exam: Bilateral Eye: EOMI, Normal Inspection, PERRL Ears: Normal External Exam, Hearing Grossly Normal Ear Exam: Bilateral Ear: Auricle Normal Nose: Normal Inspection, Normal Mucosa, No Blood Throat/Mouth: Normal Inspection, Normal Oropharynx, Normal Voice, No Airway Compromise Head: Atraumatic, Normocephalic Neck: Normal Inspection, Supple, Non-Tender, Full Range of Motion Respiratory/Chest: No Respiratory Distress, Lungs Clear, Normal Breath Sounds, No Accessory Muscle Use, Chest Non-Tender Cardiovascular: Normal Peripheral Pulses, No Murmur, Tachycardia Peripheral Pulses: 2+: Radial (L), Radial (R) GI/Abdominal: Normal Bowel Sounds, Soft, No Mass, Tender (Right upper quadrant. No hernia palpated in this area.) Back Exam: Normal Inspection Extremities: Normal Inspection, Normal Range of Motion, Non-Tender, No Pedal Edema, Normal Capillary Refill Neurological: Alert, Oriented, CN II-XII Intact, Normal Cognition, No Motor/ Sensory Deficits Skin Exam: Warm, Dry, Intact, Normal Color, No Rash Course - Vital Signs Last Recorded V/S: Last Vital Signs Temp 36.7 C 01/30/19 17:00 Pulse 113 H 01/30/19 17:00 Resp 17 01/30/19 17:00 BP 176/113 H 01/30/19 17:00 Pulse Ox 99 01/30/19 17:00 - Orders/Labs/Meds Labs: Laboratory Tests 01/30/19 01/30/19 01/30/19 Range/Units 17:58 17:58 17:58 WBC 9.9 (4.5-12.0) X10-3/uL RBC 5.87 H (4.30-5.75) x10(6)uL Hgb 17.0 (13.5-17.8) g/dL Hct 51.2 (30.0-51.3) % MCV 87.3 (80-96) fL MCH 29.0 (27.7-33.6) pg MCHC 33.2 (32.2-35.4) g/dL RDW 12.9 (11.5-15.5) % Plt Count 228 (125-369) X10(3)uL MPV 8.3 (7.4-10.4) fL Neut % (Auto) 72.6 (46-82) % Lymph % (Auto) 20.3 (13-37) % [place] % (Auto) 5.1 (4-12) % Eos % (Auto) 1 (1.0-5.0) % Baso % (Auto) 1 (0-2) % Neut # (Auto) 7.2 (1.6-8.3) # Lymph # (Auto) 2.0 (0.6-5.0) # [place] # (Auto) 0.5 (0.0-1.3) # Eos # (Auto) 0.1 (0.0-0.8) # Baso # (Auto) 0.1 (0.0-0.2) # D-Dimer, Quantitative 0.48 (0.0-0.59) mg/LFEU Sodium 139 (135-145) mmol/L Potassium 3.9 (3.5-5.3) mmol/L Chloride 101 (100-110) mmol/L Carbon Dioxide 27 (21-32) mmol/L BUN 8 (7-18) mg/dL Creatinine 0.9 (0.70-1.30) mg/dL Est Cr Clr Drug Dosing 104.77 mL/min Estimated GFR (MDRD) > 60 (>60) BUN/Creatinine Ratio 8.9 L (9-20) Glucose 280 H D (80-116) mg/dL Calcium 9.1 (8.6-10.2) mg/dL Total Bilirubin 0.3 (0.1-1.3) mg/dL AST 12 D (5-25) IU/L ALT 29 D (12-36) U/L Alkaline Phosphatase 82 (56-112) IU/L C-Reactive Protein (0.5-0.9) mg/dL Total Protein 7.8 (6.0-8.0) g/dL Albumin 3.4 L (3.5-5.2) g/dL Globulin 4.4 g/dL Albumin/Globulin Ratio 0.8 Lipase (73-393) U/L 01/30/ Range/Units 17:58 WBC (4.5-12.0) X10-3/uL RBC (4.30-5.75) x10(6)uL Hgb (13.5-17.8) g/dL Hct (30.0-51.3) % MCV (80-96) fL MCH (27.7-33.6) pg MCHC (32.2-35.4) g/dL RDW (11.5-15.5) % Plt Count (125-369) X10(3)uL MPV (7.4-10.4) fL Neut % (Auto) (46-82) % Lymph % (Auto) (13-37) % [place] % (Auto) (4-12) % Eos % (Auto) (1.0-5.0) % Baso % (Auto) (0-2) % Neut # (Auto) (1.6-8.3) # Lymph # (Auto) (0.6-5.0) # [place] # (Auto) (0.0-1.3) # Eos # (Auto) (0.0-0.8) # Baso # (Auto) (0.0-0.2) # D-Dimer, Quantitative (0.0-0.59) mg/LFEU Sodium (135-145) mmol/L Potassium (3.5-5.3) mmol/L Chloride (100-110) mmol/L Carbon Dioxide (21-32) mmol/L BUN (7-18) mg/dL Creatinine (0.70-1.30) mg/dL Est Cr Clr Drug Dosing mL/min Estimated GFR (MDRD) (>60) BUN/Creatinine Ratio (9-20) Glucose (80-116) mg/dL Calcium (8.6-10.2) mg/dL Total Bilirubin (0.1-1.3) mg/dL AST (5-25) IU/L ALT (12-36) U/L Alkaline Phosphatase (56-112) IU/L C-Reactive Protein 0.7 (0.5-0.9) mg/dL Total Protein (6.0-8.0) g/dL Albumin (3.5-5.2) g/dL Globulin g/dL Albumin/Globulin Ratio Lipase 87 (73-393) U/L Meds: Medications Discontinued Medications Generic Name Dose Route Start Last Admin Trade Name Freq PRN Reason Stop Dose Admin Morphine Sulfate 10 mg 01/30/19 17:39 01/30/19 18:04 Morphine IM 01/30/19 17:40 Not Given ONETIME ONE Morphine Sulfate Confirm 01/30/19 17:44 01/30/19 17:56 Morphine Administered 01/30/19 17:45 10 mg Dose Administration 10 mg .ROUTE .STK-MED ONE Promethazine HCl 25 mg 01/30/19 17:39 01/30/19 17:56 Phenergan IM 01/30/19 17:40 25 mg ONETIME ONE Administration - Re-Assessments/Exams Free Text/Narrative Re-Assessment/Exam: 01/30/19 18:40: The patient felt some improvement from the morphine injection for pain. His blood pressure was 160/113 and his pulse was 107. The patient's blood tests were reassuringly normal except for blood glucose of 280 mg/dL. Specifically, he had no LFT abnormalities, a normal d-dimer and a normal lipase. There was also no inflammatory marker elevation. I am unsure why he is having the upper quadrant abdominal pain. However, he does not appear to have any evidence of obstruction or other serious type problem at this time. I have recommended that he follow-up with his primary doctor (he has plans to do this on of this week) for further outpatient testing as needed and for reevaluation. I have given the patient a take home pack of tramadol that he may use for pain now. I have also discussed that his elevated blood pressure (blood glucose should be discussed with Dr. Gao at his follow-up on of this week. He is comfortable with this plan for discharge. Departure - Departure Time of Disposition: 18:50 Disposition: Home, Self-Care 01 Condition: Good (Stable) Clinical Impression: Right upper quadrant abdominal pain of unknown etiology, Uncontrolled hypertension Diabetes mellitus type 2, uncontrolled Qualifiers: Glycemic state: with hyperglycemia Qualified Code(s): E11.65 - Type 2 diabetes mellitus with hyperglycemia - Discharge Information Instructions: Type 2 Diabetes Mellitus, Self Care, Adult, [id number], Abdominal Pain, Adult, [id number] Referrals: Omar Gao MD [Primary Care Provider] - Forms: ED Department Discharge Additional Instructions: Your blood tests were reassuringly normal except for an elevated blood sugar. Your blood pressure was elevated. I am unsure why you are having the right upper quadrant abdominal pain. You should keep your follow-up appointment with Dr. Gao on of this week as you may need further outpatient. You will also need to discuss your elevated blood pressure and elevated blood sugars with Dr. Gao when you see him this week as well. Medication as prescribed for pain (tramadol 50 mg take-home pack). Back to the emergency department for high fever, coughing of blood, unrelenting vomiting or any other concerning sign or symptom.
[2019-01-30] MEDS ORDERED: Promethazine 25 MG/ML SDV IM ONE (17:39)
[2019-01-30] MEDS ORDERED: Morphine 10 MG/ML Syringe IM ONE (17:39)
[2019-01-30] MEDS ORDERED: Morphine 10 MG/ML SDV ONE (17:44)
[2019-01-30 19:16] VITALS: BP 164/113; PULSE 107
== END 2019-01-30 19:08 | disposition home or self-care (01) ==
LOC: FB.ED 17:00
DX: R10.11 Right upper quadrant pain (principal); E11.65 Type 2 diabetes mellitus with hyperglycemia; I10 Essential (primary) hypertension; E66.9 Obesity, unspecified; F17.210 Nicotine dependence, cigarettes, uncomplicated; Z68.41 Body mass index [BMI] 40.0-44.9, adult; Z79.899 Other long term (current) drug therapy; Z79.82 Long term (current) use of aspirin; Z79.4 Long term (current) use of insulin
CPT/HCPCS: 36415; 80053; 83690; 85025; 85379; 86140; 96372; 99283; A9270; J2270; J2550

== ENCOUNTER 2019-02-03 07:51 | Emergency (ER) | payer MEDICAID ==
--- NOTE | 2019-02-03 08:46 | EDM.PDOC ---
ED HPI GENERAL MEDICAL PROBLEM - General Stated Complaint: SOB,FEVER Time Seen by Provider: 02/03/19 08:45 Source of Information: Reports: Patient History Limitations: Reports: No Limitations - History of Present Illness INITIAL COMMENTS - FREE TEXT/NARRATIVE: 48-year-old male with onset 2 days ago of malaise, fever, body aches, nasal congestion and cough. The symptoms seem to have worsened over time with a MAXIMUM TEMPERATURE of 103.4F yesterday. He did have vomiting 2 yesterday and 1 episode of vomiting today. He has been eating and drinking however and he has been able to keep liquids down well. No diarrhea. He has diffuse body aches that he rates as an 8/10. Nothing really seems to make them better or worse. He also feels quite fatigued and he has had production of some phlegm but it has been clear. He does feel that he is wheezing at times and has some shortness of breath. There are no other associated signs or symptoms. There are no other modifying factors. 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: Reports: Acetaminophen Generalized Pain Score (Numeric/FACES): 8 - Related Data Allergies Allergy/AdvReac Type Severity Reaction Status Date / Time ketorolac [From Toradol] Allergy Hives Verified 02/03/19 09:07 latex Allergy Hives Verified 02/03/19 09:07 Penicillins Allergy Hives Verified 02/03/19 09:07 Home Meds: Home Meds Lisinopril [Prinivil] 10 mg PO DAILY 12/22/17 [History] Metoprolol Tartrate [Lopressor] 25 mg PO BID 12/22/17 [History] metFORMIN [Glucophage] 500 mg PO BID 12/22/17 [History] Aspirin [Lo-Dose Aspirin EC] 81 mg PO DAILY 01/02/18 [History] amLODIPine Besylate [Amlodipine Besylate] 10 mg PO DAILY 09/01/18 [History] Gabapentin [Neurontin] 400 mg PO TID PRN 09/09/18 [History] Insulin Glargine,Hum.Rec.Anlog [Basaglar Kwikpen U-100] 10 units SQ DAILY [History] Liraglutide [Victoza 3-Leno] 2 units SQ BID 09/09/18 [History] Past Medical History Cardiovascular History: Reports: Hypertension Gastrointestinal History: Reports: Other (See Below) Other Gastrointestinal History: hernia surg x 7 Genitourinary History: Reports: Renal Calculus Musculoskeletal History: Reports: Arthritis, Back Pain, Chronic, Fibromyalgia, Neck Pain, Chronic, Osteoarthritis Other Musculoskeletal History: chronic R knee pain Neurological History: Reports: Other (See Below) Other Neuro History: Insomnia Psychiatric History: Reports: Anxiety, Depression, Panic Attack Endocrine/Metabolic History: Reports: Diabetes, Type II, Obesity/BMI 30+ - Infectious Disease History Infectious Disease History: Reports: Chicken Pox - Past Surgical History HEENT Surgical History: Reports: Other (See Below) Other HEENT Surgeries/Procedures: Lump removed from throat approx 2013 GI Surgical History: Reports: Hernia Repair/Other (Ventral hernia repairs 7, 4 of them with mesh replacement) Social & Family History - Tobacco Use Smoking Status *Q: Current Every Day Smoker - Caffeine Use Caffeine Use: Reports: Coffee, Soda - Alcohol Use Alcohol Use History: Yes Alcohol Use Frequency: Socially - Living Situation & Occupation Living situation: Reports: Occupation: Employed (Works at [employer]) ED ROS GENERAL - Review of Systems Review Of Systems: See Below Constitutional: Reports: Fever, Chills, Malaise, Fatigue HEENT: Reports: Other (Nasal congestion) Respiratory: Reports: Shortness of Breath, Wheezing (?), Cough Cardiovascular: Reports: No Symptoms GI/Abdominal: Reports: Nausea, Vomiting (Times one today) : Reports: No Symptoms Musculoskeletal: Reports: Other (Diffuse body aches) Skin: Reports: No Symptoms Neurological: Reports: No Symptoms Hematologic/Lymphatic: Reports: No Symptoms Immunologic: Reports: No Symptoms ED EXAM, GENERAL - Physical Exam Exam: See Below Exam Limited By: No Limitations General Appearance: Alert, WD/WN, Mild Distress, Other (No respiratory distress. ) Eye Exam: Bilateral Eye: EOMI, Normal Inspection, PERRL Ears: Normal External Exam, Hearing Grossly Normal Ear Exam: Bilateral Ear: Auricle Normal Nose: No Blood, Nasal Drainage, Clear Rhinorrhea Throat/Mouth: Normal Inspection, Normal Lips, Normal Oropharynx, Normal Voice, No Airway Compromise Head: Atraumatic, Normocephalic Neck: Normal Inspection, Supple, Non-Tender, Full Range of Motion Respiratory/Chest: No Respiratory Distress, Lungs Clear, Normal Breath Sounds, No Accessory Muscle Use, Chest Non-Tender. No: Rales, Wheezing Cardiovascular: Normal Peripheral Pulses, Regular Rate, Rhythm, No Edema, No JVD Peripheral Pulses: 2+: Radial (L), Radial (R) GI/Abdominal: Normal Bowel Sounds, Soft, Non-Tender, No Mass, Other (Protuberant ) Extremities: Normal Inspection, Normal Range of Motion, Non-Tender, No Pedal Edema, Normal Capillary Refill Neurological: Alert, Oriented, CN II-XII Intact, Normal Cognition, No Motor/ Sensory Deficits Skin Exam: Warm, Dry, Intact, Normal Color, No Rash Course - Vital Signs Last Recorded V/S: Last Vital Signs Temp 36.6 C 02/03/19 08:45 Pulse 102 H 02/03/19 09:48 Resp 20 02/03/19 08:45 BP 173/115 H 02/03/19 09:48 Pulse Ox 98 02/03/19 08:45 - Orders/Labs/Meds Orders: Active Orders 24 hr Category Date Time Status Chest 2V [CR] Stat Exams 02/03/19 08:57 Taken - Radiology Interpretation Free Text/Narrative:: Chest x-ray shows no acute disease. - Re-Assessments/Exams Free Text/Narrative Re-Assessment/Exam: 02/03/19 10:02: Influenza screen was negative. His chest x-ray showed no acute disease. He appears to have a viral upper respiratory infection. His blood pressure has been consistently elevated and on looking at his previous records he has had consistent blood pressure elevations in the past with ED visits. I have strongly recommended that he follow-up with his primary doctor this coming week in regard to his elevated blood pressure. He will be discharged home to rest, drink plenty of fluids and no work until 02/06/2019. Departure - Departure Time of Disposition: 10:05 Disposition: Home, Self-Care 01 Condition: Good Clinical Impression: Viral syndrome, URI (upper respiratory infection), Hypertension, uncontrolled - Discharge Information Instructions: Viral Respiratory Infection, [id number], Cough, Adult, Easy-to- Read Referrals: Omar Gao MD [Primary Care Provider] - Forms: ED Return to Work/School Form Additional Instructions: Your influenza screen was negative. Your chest x-ray showed no definite pneumonia. You appear to have a viral upper respiratory infection. You should drink plenty of fluids. You should rest. Take Tylenol as needed for fever or pain. Your blood pressure was elevated in the emergency department and has been on previous visits. You should follow-up with your primary doctor this next week. Back to the emergency department for unrelenting vomiting, worse breathing or any other concerning sign or symptom. - My Orders Last 24 Hours: My Active Orders 02/03/19 08:57 Chest 2V [CR] Stat - Assessment/Plan Last 24 Hours: My Active Orders 02/03/19 08:57 Chest 2V [CR] Stat
[2019-02-03 09:49] VITALS: PULSE 102
[2019-02-03 10:20] VITALS: BP 148/119
== END 2019-02-03 10:11 | disposition home or self-care (01) ==
LOC: FB.ED 07:51
DX: B34.9 Viral infection, unspecified (principal); J06.9 Acute upper respiratory infection, unspecified; I10 Essential (primary) hypertension; E11.9 Type 2 diabetes mellitus without complications; E66.9 Obesity, unspecified; Z79.899 Other long term (current) drug therapy; Z79.4 Long term (current) use of insulin; Z79.82 Long term (current) use of aspirin
CPT/HCPCS: 71046; 87804; 87804-59; 99283-25

== ENCOUNTER 2019-02-04 19:48 | Emergency (ER) | payer MEDICAID ==
[2019-02-04] MEDS ORDERED: Acetaminophen/HYDROcodone 325-5 MG Tab PO ONE ×3 (19:49→21:12)
--- NOTE | 2019-02-04 20:17 | EDM.PDOC ---
ED HPI GENERAL MEDICAL PROBLEM - General Chief Complaint: Genitourinary Problem Stated Complaint: TESTICLES Time Seen by Provider: 02/04/19 20:15 Source of Information: Reports: Patient History Limitations: Reports: No Limitations - History of Present Illness INITIAL COMMENTS - FREE TEXT/NARRATIVE: 48-year-old male with history of cough, nasal congestion and some emesis over the past 2 days. I saw the patient yesterday for cough and fever. He had a negative chest x-ray and appeared to have a viral upper respiratory infection. Since then he has had a persisting cough that has been hacking and quite severe. He has developed pain in his groin area and going down into his testicles on both sides but the right being worse than the left since approximately 2 PM today. The pain has gotten quite severe and he reports the pain as a 10/10 at present. He has been able to urinate and there has been no hematuria or dysuria. He has had no further fevers. He has been taking over-the- counter cough suppressant with relief but the pain is what brought him to the emergency department. It is a sharp and aching pain that shoots up into his own area on both sides. He has had persisting nausea and has had vomiting 2 today. He is, however, able to take liquids well. There are no other associated signs or symptoms. There are no other modifying factors. Onset: Other (URI symptoms for 2 days testicular pain and groin pain since 2 PM today) Duration: Getting Worse Location: Reports: Other (Groin and testicles) Quality: Reports: Ache, Sharp, Other (Shooting) Severity: Severe Improves with: Reports: Rest Worsens with: Reports: Other (Cough. 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 (And fell) Perineal Area Pain Score (Numeric/FACES): 10 - Related Data Allergies Allergy/AdvReac Type Severity Reaction Status Date / Time ketorolac [From Toradol] Allergy Hives Verified 02/04/19 20:08 latex Allergy Hives Verified 02/04/19 20:08 Penicillins Allergy Hives Verified 02/04/19 20:08 Home Meds: Home Meds Lisinopril [Prinivil] 10 mg PO DAILY 12/22/17 [History] Metoprolol Tartrate [Lopressor] 25 mg PO BID 12/22/17 [History] metFORMIN [Glucophage] 500 mg PO BID 12/22/17 [History] Aspirin [Lo-Dose Aspirin EC] 81 mg PO DAILY 01/02/18 [History] amLODIPine Besylate [Amlodipine Besylate] 10 mg PO DAILY 09/01/18 [History] Gabapentin [Neurontin] 400 mg PO TID PRN 09/09/18 [History] Insulin Glargine,Hum.Rec.Anlog [Basaglar Kwikpen U-100] 10 units SQ DAILY [History] Liraglutide [Victoza 3-Leno] 2 units SQ BID 09/09/18 [History] Hydrocodone/Acetaminophen [[place] 5-325 Tablet] 1 - 2 tab PO Q6H PRN #10 tablet 02/04/19 [Rx] Past Medical History Cardiovascular History: Reports: High Cholesterol, Hypertension Respiratory History: Reports: Asthma, COPD Gastrointestinal History: Reports: Other (See Below) Other Gastrointestinal History: hernia surg x 7 Genitourinary History: Reports: Renal Calculus Musculoskeletal History: Reports: Arthritis, Back Pain, Chronic, Fibromyalgia, Neck Pain, Chronic, Osteoarthritis Other Musculoskeletal History: chronic R knee pain Neurological History: Reports: Other (See Below) Other Neuro History: Insomnia Psychiatric History: Reports: Anxiety, Depression, Panic Attack Endocrine/Metabolic History: Reports: Diabetes, Type II, Obesity/BMI 30+ - Infectious Disease History Infectious Disease History: Reports: Chicken Pox - Past Surgical History HEENT Surgical History: Reports: Other (See Below) Other HEENT Surgeries/Procedures: Lump removed from throat approx 2013 GI Surgical History: Reports: Hernia Repair/Other (Ventral hernia repairs 7, 4 of them with mesh replacement) Social & Family History - Tobacco Use Smoking Status *Q: Current Every Day Smoker - Caffeine Use Caffeine Use: Reports: Coffee, Soda - Alcohol Use Alcohol Use History: Yes Alcohol Use Frequency: Rarely - Living Situation & Occupation Living situation: Reports: Occupation: Employed (Works at [employer]) [facility] - Review of Systems Review Of Systems: See Below Constitutional: Reports: Fever, Chills HEENT: Reports: Other (Physical congestion) Respiratory: Reports: Wheezing, Cough Cardiovascular: Reports: No Symptoms GI/Abdominal: Reports: Nausea, Vomiting : Reports: Hematuria, Other (Bilateral groin and testicular pain). Denies: Dysuria Musculoskeletal: Reports: No Symptoms Skin: Reports: No Symptoms Neurological: Reports: No Symptoms Hematologic/Lymphatic: Reports: No Symptoms Immunologic: Reports: No Symptoms ED EXAM, GENERAL - Physical Exam Exam: See Below Exam Limited By: No Limitations General Appearance: Alert, Moderate Distress (Appears in some pain), Obese Eye Exam: Bilateral Eye: EOMI, Normal Inspection, PERRL Ears: Normal External Exam, Hearing Grossly Normal Ear Exam: Bilateral Ear: Auricle Normal Nose: No Blood, Nasal Drainage, Clear Rhinorrhea Throat/Mouth: Normal Inspection, Normal Oropharynx, Normal Voice, No Airway Compromise Head: Atraumatic, Normocephalic Neck: Normal Inspection, Supple, Non-Tender, Full Range of Motion Respiratory/Chest: No Respiratory Distress, No Accessory Muscle Use, Chest Non- Tender, Wheezing (Scattered wheezes that clear with cough) Cardiovascular: Normal Peripheral Pulses, Regular Rate, Rhythm, No JVD Peripheral Pulses: 2+: Radial (L), Radial (R) GI/Abdominal: Normal Bowel Sounds, Soft, Non-Tender, No Mass (Male) Exam: No Hernia, Cremasteric Reflex (Present bilaterally), Scrotum Tenderness (L), Scrotum Tenderness (R), Testicular Tenderness (L), Testicular Tenderness (R), Other (No masses) Back Exam: Normal Inspection Extremities: Normal Inspection, Normal Range of Motion, Non-Tender, No Pedal Edema, Normal Capillary Refill Neurological: Alert, Oriented, CN II-XII Intact, Normal Cognition, No Motor/ Sensory Deficits Skin Exam: Warm, Dry, Intact, Normal Color, No Rash Course - Vital Signs Last Recorded V/S: Last Vital Signs Temp 36.2 C 02/04/19 19:48 Pulse 98 02/04/19 20:20 Resp 18 02/04/19 20:20 BP 186/124 H 02/04/19 20:20 Pulse Ox 97 02/04/19 20:20 - Orders/Labs/Meds Labs: Laboratory Tests 02/04/19 Range/Units 20:08 Urine Color Yellow (YELLOW) Urine Appearance Clear (CLEAR) Urine pH 6.0 (5.0-6.5) Ur Specific [place] 1.010 (1.010-1.025) Urine Protein 30 H (NEGATIVE) mg/dL Urine Glucose (UA) >1000 H (NORMAL) mg/dL Urine Ketones Negative (NEGATIVE) mg/dL Urine Occult Blood Negative (NEGATIVE) Urine Nitrite Negative (NEGATIVE) Urine Bilirubin Negative (NEGATIVE) Urine Urobilinogen Normal (NEGATIVE) mg/dL Ur Leukocyte Esterase Negative (NEGATIVE) Urine RBC 0-5 (0-5) Urine WBC 0-5 (0-5) Ur Squamous Epith Cells Few H (NS,R,O) Urine Bacteria Few H (NS) Meds: Medications Discontinued Medications Generic Name Dose Route Start Last Admin Trade Name Leni PRN Reason Stop Dose Admin Hydrocodone Bitart/Acetaminophen 2 tab 02/04/19 20:34 02/04/19 20:41 [place] 325-5 Mg PO 02/04/19 20:35 2 tab ONETIME ONE Administration Hydrocodone Bitart/Acetaminophen 2 tab 02/04/19 21:12 02/04/19 21:24 [place] 325-5 Mg PO 02/04/19 21:13 Not Given ONETIME ONE - Re-Assessments/Exams Free Text/Narrative Re-Assessment/Exam: 02/04/19 20:51: Patient's urinalysis was essentially clear. He does have glucose spilling in his urine but this is consistent with his uncontrolled diabetes that he usually has had when evaluated recently. I feel that this is likely an acute strain of his spermatic cord and inguinal canal area. It is possible this could be a testicular torsion and I discussed that at length with the patient. I have recommended to the patient that he get testicular ultrasound to rule this out. That procedure is not available at [facility] at this time and I would need to send him to [place]. I discussed this possibility with the patient and he would not want to go to [place] at this time. He understands the risk associated with not having this done at this point. I will give the patient a prescription of hydrocodone 5/325 and I have strongly advised him to go to the emergency department at [facility] in [place] (he is followed through the [facility] system) if he has persisting pain and his groin and testicle. Departure - Departure Time of Disposition: 20:55 Disposition: Home, Self-Care 01 Condition: Fair (Stable) Clinical Impression: Cough, Testicular pain, unspecified, Bilateral groin pain, Uncontrolled hypertension URI (upper respiratory infection) Qualifiers: URI type: unspecified URI Qualified Code(s): J06.9 - Acute upper respiratory infection, unspecified Diabetes mellitus type 2, uncontrolled Qualifiers: Glycemic state: with hyperglycemia Qualified Code(s): E11.65 - Type 2 diabetes mellitus with hyperglycemia - Discharge Information Prescriptions: Hydrocodone/Acetaminophen [[place] 5-325 Tablet] 1 - 2 tab PO Q6H PRN #10 tablet PRN Reason: Moderate to severe pain Instructions: Acetaminophen; Hydrocodone tablets or capsules, Hypertension, [id number], Testicular Torsion, Adult Referrals: Omar Gao MD [Primary Care Provider] - Forms: ED Department Discharge Additional Instructions: Your urine test was normal except for glucose being present. This supports your diabetes being out of control. Your blood pressure was also elevated again. As we discussed, I think that groin and testicular pain is most likely due to an acute strain of your groin and spermatic cord. However, it is possible that you have a twisted testicle or some other problem with your testicle and as I recommended you would need a testicular ultrasound to further evaluate this. I recommended that you allow me to send you to [place] to have this performed but you did not want to do that at this time. Drink plenty of fluids. Take cough suppressant as needed. Use ibuprofen as needed for pain. Medication as prescribed for severe pain (hydrocodone 5/325). I strongly advise you to go to [place] for further evaluation and probable ultrasound evaluation of your scrotum and testicles if you have persisting or worsening pain in your groin and testicles.
[2019-02-05 00:30] VITALS: BP 186/112; PULSE 96
== END 2019-02-04 21:35 | disposition home or self-care (01) ==
LOC: FB.ED 19:48
DX: J06.9 Acute upper respiratory infection, unspecified (principal); N50.819 Testicular pain, unspecified; E11.65 Type 2 diabetes mellitus with hyperglycemia; R10.31 Right lower quadrant pain; R10.32 Left lower quadrant pain; J44.9 Chronic obstructive pulmonary disease, unspecified; E66.9 Obesity, unspecified; I10 Essential (primary) hypertension; F17.200 Nicotine dependence, unspecified, uncomplicated; Z88.0 Allergy status to penicillin; Z88.6 Allergy status to analgesic agent; Z91.040 Latex allergy status; Z79.4 Long term (current) use of insulin; Z79.82 Long term (current) use of aspirin; Z68.41 Body mass index [BMI] 40.0-44.9, adult
CPT/HCPCS: 81001; 99284; A9270

== ENCOUNTER 2019-03-02 17:50 | Emergency (ER) | payer MEDICAID ==
[2019-03-02] MEDS ORDERED: Cyclobenzaprine 10 MG Tab PO ONE (19:07)
--- NOTE | 2019-03-02 19:17 | EDM.PDOC ---
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 on films in past yr MPMP indicates 15 providers have rx'ed 32 scripts, Rx 5 in past month including gabapentin (90 tabs), guaiafensin AC 120 ml, HC/APAP 5/325 mg (12 tabs total, Rx x 2), tramadol 50 mg (4 tabs) has not used chiropractor "my entire life" which can be a consideration not used a massage therapist, which could help as well some pain down both legs but no findings on PE for radiculothy Treatments BUSINESS SUPPORT COORDINATOR: Reports: Acetaminophen, NSAIDS Back Pain Score (Numeric/FACES): 10 - Related Data Allergies Allergy/AdvReac Type Severity Reaction Status Date / Time ketorolac [From Toradol] Allergy Hives Verified 03/02/19 18:19 latex Allergy Hives Verified 03/02/19 18:19 Penicillins Allergy Hives Verified 03/02/19 18:19 Home Meds: Home Meds Lisinopril [Prinivil] 10 mg PO DAILY 12/22/17 [History] Metoprolol Tartrate [Lopressor] 25 mg PO BID 12/22/17 [History] metFORMIN [Glucophage] 500 mg PO BID 12/22/17 [History] Aspirin [Lo-Dose Aspirin EC] 81 mg PO DAILY 01/02/18 [History] amLODIPine Besylate [Amlodipine Besylate] 10 mg PO DAILY 09/01/18 [History] Gabapentin [Neurontin] 400 mg PO TID PRN 09/09/18 [History] Insulin Glargine,Hum.Rec.Anlog [Basaglar Kwikpen U-100] 10 units SQ BEDTIME [History] Liraglutide [Victoza 3-Leno] 2 units SQ BID 09/09/18 [History] Cyclobenzaprine HCl 10 mg PO TID PRN #21 tablet 03/02/19 [Rx] QUEtiapine Fumarate [Quetiapine Fumarate] 50 mg BID 03/02/19 [History] traZODone 50 mg BEDTIME PRN 03/02/19 [History] Past Medical History HEENT History: Reports: None Cardiovascular History: Reports: High Cholesterol, Hypertension Respiratory History: Reports: Asthma, COPD Gastrointestinal History: Reports: Other (See Below) Other Gastrointestinal History: hernia surg x 7 Genitourinary History: Reports: Renal Calculus Musculoskeletal History: Reports: Arthritis, Back Pain, Chronic, Fibromyalgia, Neck Pain, Chronic, Osteoarthritis Other Musculoskeletal History: chronic R knee pain Neurological History: Reports: Other (See Below) Other Neuro History: Insomnia Psychiatric History: Reports: Anxiety, Depression, Panic Attack Endocrine/Metabolic History: Reports: Diabetes, Type II, Obesity/BMI 30+ Hematologic History: Reports: Anticoagulation Therapy Immunologic History: Reports: None Oncologic (Cancer) History: Reports: None Dermatologic History: Reports: None - Infectious Disease History Infectious Disease History: Reports: Chicken Pox - Past Surgical History Head Surgeries/Procedures: Reports: None HEENT Surgical History: Reports: Other (See Below) Other HEENT Surgeries/Procedures: Lump removed from throat approx 2013 GI Surgical History: Reports: Hernia Repair/Other Male Surgical History: Reports: None Musculoskeletal Surgical History: Reports: None Social & Family History - Family History Family Medical History: Noncontributory - Tobacco Use Smoking Status *Q: Current Every Day Smoker Years of Tobacco use: 30 Packs/Tins Daily: 0.2 - Caffeine Use Caffeine Use: Reports: Soda, Tea - Recreational Drug Use Recreational Drug Use: No - Living Situation & Occupation Living situation: Reports: Occupation: Employed (Works at [employer]) ED ROS GENERAL - Review of Systems Review Of Systems: See Below Constitutional: Reports: No Symptoms HEENT: Reports: No Symptoms Respiratory: Reports: No Symptoms Cardiovascular: Reports: No Symptoms Endocrine: Reports: No Symptoms GI/Abdominal: Reports: No Symptoms : Reports: No Symptoms Musculoskeletal: Reports: Back Pain Skin: Reports: No Symptoms Neurological: Reports: No Symptoms Psychiatric: Reports: No Symptoms Hematologic/Lymphatic: Reports: No Symptoms Immunologic: Reports: No Symptoms ED EXAM, GENERAL - Physical Exam Exam: See Below Exam Limited By: No Limitations General Appearance: Alert, WD/WN, No Apparent Distress Nose: Normal Inspection Throat/Mouth: Normal Inspection Head: Atraumatic, Normocephalic Neck: Normal Inspection, Supple, Non-Tender, Full Range of Motion Respiratory/Chest: No Respiratory Distress Cardiovascular: Regular Rate, Rhythm GI/Abdominal: Soft Back Exam: Normal Inspection, Full Range of Motion, Other (nonspecific mild tender at various areas of T and L spine in midline (not cervical), no true spasm, no SI tender, no iliac crest tender, SLR 75 degress b/l without radiculopathy) Extremities: Normal Inspection, Normal Range of Motion, Non-Tender, No Pedal Edema Neurological: Alert, Oriented, CN II-XII Intact, Normal Cognition, No Motor/ Sensory Deficits Psychiatric: Normal Affect, Normal Mood Skin Exam: Warm, Dry, Intact, Normal Color, No Rash Lymphatic: No Adenopathy Course - Vital Signs Last Recorded V/S: Last Vital Signs Temp 36.8 C 03/02/19 18:15 Pulse 115 H 03/02/19 18:15 Resp 18 03/02/19 18:15 BP 142/119 H 03/02/19 18:15 Pulse Ox 98 03/02/19 18:15 - Orders/Labs/Meds Meds: Medications Discontinued Medications Generic Name Dose Route Start Last Admin Trade Name Freq PRN Reason Stop Dose Admin Cyclobenzaprine HCl 10 mg 03/02/19 19:07 03/02/19 19:13 Flexeril PO 03/02/19 19:08 10 mg ONETIME ONE Administration Departure - Departure Time of Disposition: 19:07 Disposition: Home, Self-Care 01 Condition: Good Clinical Impression: Back pain, Osteoarthritis of back, Back muscle spasm, Spasm of back muscles - Discharge Information *PRESCRIPTION DRUG MONITORING PROGRAM REVIEWED*: Yes *COPY OF PRESCRIPTION DRUG MONITORING REPORT IN PATIENT HERSON: Not Applicable Prescriptions: Cyclobenzaprine HCl 10 mg PO TID PRN #21 tablet PRN Reason: Spasms Instructions: Cyclobenzaprine tablets, Osteoarthritis Referrals: PCP,None [Primary Care Provider] - Forms: ED Department Discharge Additional Instructions: Use a multi-modality approach to treat the pain. May continue the TENS, as needed. Use heat for 10 minutes several times a day. Once a day, follow up heat with 5 minutes of gentle massage. Sleep on a firm mattress. May see chiropractor if it should help. See a massage therapist weekly for 5 weeks. Continue Aleve 2 tabs in AM, one in mid-day, and 2 tabs in PM. At the same time as the Aleve, take acetaminophen 325 mg 2 tabs 3 times a day. For spasm, take cyclobenzaprine 10 mg 1 tab 3 times a day for spasm. May continue Icy-Hot to the extent that it helps. No work for the next 3 days. See your doctor in 4-5 days.
[2019-03-02 19:46] VITALS: BP 167/108; PULSE 107
== END 2019-03-02 19:37 | disposition home or self-care (01) ==
LOC: FB.ED 17:50
DX: M47.9 Spondylosis, unspecified (principal); M62.830 Muscle spasm of back; I10 Essential (primary) hypertension; J44.9 Chronic obstructive pulmonary disease, unspecified; F32.9 Major depressive disorder, single episode, unspecified; E11.9 Type 2 diabetes mellitus without complications; E66.9 Obesity, unspecified; F17.210 Nicotine dependence, cigarettes, uncomplicated; Z88.6 Allergy status to analgesic agent; Z91.040 Latex allergy status; Z88.0 Allergy status to penicillin; Z79.82 Long term (current) use of aspirin; Z79.899 Other long term (current) drug therapy; Z79.4 Long term (current) use of insulin; Z68.41 Body mass index [BMI] 40.0-44.9, adult
CPT/HCPCS: 99283; A9270

== ENCOUNTER 2019-03-04 15:16 | Emergency (ER) | payer OTHER, MEDICAID ==
[2019-03-04] MEDS ORDERED: Acetaminophen/HYDROcodone 325-5 MG Tab PO ONE ×2 (15:17)
[2019-03-04] MEDS ORDERED: HYDROmorphone 2 MG/ML SDV IM ONE (16:01)
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
[2019-03-04] MEDS ORDERED: cloNIDine 0.1 MG Tab PO ONE (19:22)
[2019-03-04 19:43] VITALS: BP 177/108; PULSE 102
== END 2019-03-04 19:37 | disposition home or self-care (01) ==
LOC: FB.ED 15:16
DX: S22.010A Wedge compression fracture of first thoracic vertebra, initial encounter for closed fracture (principal); I10 Essential (primary) hypertension; J44.9 Chronic obstructive pulmonary disease, unspecified; F32.9 Major depressive disorder, single episode, unspecified; E11.9 Type 2 diabetes mellitus without complications; E66.9 Obesity, unspecified; F17.210 Nicotine dependence, cigarettes, uncomplicated; Z68.41 Body mass index [BMI] 40.0-44.9, adult; Z88.6 Allergy status to analgesic agent; Z91.040 Latex allergy status; Z88.0 Allergy status to penicillin; Z79.4 Long term (current) use of insulin; Z79.82 Long term (current) use of aspirin; Z79.899 Other long term (current) drug therapy; Z79.01 Long term (current) use of anticoagulants; V49.50XA Passenger injured in collision with unspecified motor vehicles in traffic accident, initial encounter; Y92.410 Unspecified street and highway as the place of occurrence of the external cause
CPT/HCPCS: 72125; 72128; 96372; 99284; A9270; J1170

== ENCOUNTER → 2019-03-08 | Outpatient (CLI) | payer MEDICAID | LOC: FB.MRI 12:53 | PROVIDERS: ATTEND Family Medicine | DX: M51.17 Intervertebral disc disorders with radiculopathy, lumbosacral region (principal); S22.010D Wedge compression fracture of first thoracic vertebra, subsequent encounter for fracture with routine healing; M48.061 Spinal stenosis, lumbar region without neurogenic claudication; X58.XXXD Exposure to other specified factors, subsequent encounter | CPT/HCPCS: 72146; 72148 ==

== ENCOUNTER 2019-03-14 17:38 | Emergency (ER) | payer MEDICAID ==
[2019-03-14] MEDS ORDERED: HYDROmorphone 2 MG/ML SDV IM ONE (18:10)
--- NOTE | 2019-03-14 18:17 | EDM.PDOC ---
ED HPI GENERAL MEDICAL PROBLEM - General Chief Complaint: Back Pain or Injury Stated Complaint: BACK PAIN Time Seen by Provider: 03/14/19 17:55 Source of Information: Reports: Patient, Family, Old Records History Limitations: Reports: No Limitations - History of Present Illness INITIAL COMMENTS - FREE TEXT/NARRATIVE: Pool returns to [facility] ED with an exacerbation of LBP, radiating into the R>L legs. There is no mikey weakness or loss of sensation. He does report minor tingling in the toes. There is no injury hx. He has not worked for a week. His supply of opioids is depleted. Efforts to reach PCP were unsuccessful today. He has a known PMH of chronic LBP, and has been studied here and in [place], [place]. He has an appt. to see a neurosurgeon next week. back Pain Score (Numeric/FACES): 8 - Related Data Allergies Allergy/AdvReac Type Severity Reaction Status Date / Time ketorolac [From Toradol] Allergy Hives Verified 03/04/19 15:39 latex Allergy Hives Verified 03/04/19 15:39 Penicillins Allergy Hives Verified 03/04/19 15:39 Home Meds: Home Meds Lisinopril [Prinivil] 10 mg PO DAILY 12/22/17 [History] Metoprolol Tartrate [Lopressor] 25 mg PO BID 12/22/17 [History] metFORMIN [Glucophage] 500 mg PO BID 12/22/17 [History] Aspirin [Lo-Dose Aspirin EC] 81 mg PO DAILY 01/02/18 [History] amLODIPine Besylate [Amlodipine Besylate] 10 mg PO DAILY 09/01/18 [History] Gabapentin [Neurontin] 400 mg PO TID PRN 09/09/18 [History] Insulin Glargine,Hum.Rec.Anlog [Basaglar Kwikpen U-100] 10 units SQ BEDTIME [History] Liraglutide [Victoza 3-Leon] 2 units SQ BID 09/09/18 [History] Cyclobenzaprine HCl 10 mg PO TID PRN #21 tablet 03/02/19 [Rx] QUEtiapine Fumarate [Quetiapine Fumarate] 50 mg BID 03/02/19 [History] traZODone 50 mg BEDTIME PRN 03/02/19 [History] Past Medical History HEENT History: Reports: None Cardiovascular History: Reports: High Cholesterol, Hypertension Respiratory History: Reports: Asthma, COPD Gastrointestinal History: Reports: Other (See Below) Other Gastrointestinal History: hernia surg x 7 Genitourinary History: Reports: Renal Calculus Musculoskeletal History: Reports: Arthritis, Back Pain, Chronic, Fibromyalgia, Neck Pain, Chronic, Osteoarthritis Other Musculoskeletal History: chronic R knee pain Neurological History: Reports: Other (See Below) Other Neuro History: Insomnia Psychiatric History: Reports: Anxiety, Depression, Panic Attack Endocrine/Metabolic History: Reports: Diabetes, Type II, Obesity/BMI 30+ Hematologic History: Reports: Anticoagulation Therapy Immunologic History: Reports: None Oncologic (Cancer) History: Reports: None Dermatologic History: Reports: None - Infectious Disease History Infectious Disease History: Reports: Chicken Pox - Past Surgical History Head Surgeries/Procedures: Reports: None HEENT Surgical History: Reports: Other (See Below) Other HEENT Surgeries/Procedures: Lump removed from throat approx 2013 GI Surgical History: Reports: Hernia Repair/Other Male Surgical History: Reports: None Musculoskeletal Surgical History: Reports: None Social & Family History - Family History Family Medical History: Noncontributory - Tobacco Use Smoking Status *Q: Current Every Day Smoker Years of Tobacco use: 30 Packs/Tins Daily: 0.5 - Caffeine Use Caffeine Use: Reports: Tea - Living Situation & Occupation Living situation: Reports: Occupation: Employed (Works at [employer]) ED ROS GENERAL - Review of Systems Review Of Systems: Comprehensive ROS is negative, except as noted in HPI. ED EXAM,LOWER BACK PAIN/INJURY - Physical Exam Exam: See Below Exam Limited By: No Limitations General Appearance: Alert, WD/WN, Moderate Distress, Obese Head: Normocephalic Neck: Normal Inspection, Supple, Non-Tender, Full Range of Motion Respiratory/Chest: Lungs Clear, Chest Non-Tender Cardiovascular: Regular Rate, Rhythm, No Murmur Back Exam: Decreased Range of Motion, Muscle Spasm, Vertebral Tenderness (L5-S1) Extremities: Normal Inspection, Non-Tender Neurological: Alert, Normal Mood/Affect, Normal Dorsiflexion, CN II-XII Intact, Normal Plantar Flexion, No Motor/Sensory Deficits, Oriented x 3 Psychiatric: Normal Affect, Normal Mood Skin Exam: Warm, Dry, Intact Lymphatic: No Adenopathy Course - Vital Signs Text/Narrative:: I administered Dilaudid 2 mg IM for comfort, and advised rest, ice or heat packs for comfort, NSAIDs and MS relaxants already at home. He will contact PCP for managment tomorrow. Last Recorded V/S: Last Vital Signs Temp 36.7 C 03/14/19 17:38 Pulse 112 H 03/14/19 18:24 Resp 16 03/14/19 18:24 BP 167/101 H 03/14/19 18:24 Pulse Ox 100 03/14/19 18:24 - Orders/Labs/Meds Meds: Medications Discontinued Medications Generic Name Dose Route Start Last Admin Trade Name Leni PRN Reason Stop Dose Admin Hydromorphone HCl 2 mg 03/14/19 18:10 03/14/19 18:13 Dilaudid IM 03/14/19 18:11 2 mg ONETIME ONE Administration Departure - Departure Time of Disposition: 18:25 Disposition: Home, Self-Care 01 Condition: Fair Clinical Impression: Low back pain Qualifiers: Chronicity: unspecified Back pain laterality: bilateral Sciatica presence: with sciatica Sciatica laterality: bilateral sciatica Qualified Code(s): M54.42 - Lumbago with sciatica, left side - Discharge Information *PRESCRIPTION DRUG MONITORING PROGRAM REVIEWED*: Not Applicable *COPY OF PRESCRIPTION DRUG MONITORING REPORT IN PATIENT HERSON: Not Applicable Instructions: Chronic Back Pain, [id number] Referrals: Omar Gao MD [Primary Care Provider] - Forms: ED Department Discharge Additional Instructions: please follow up with your primary care doctor as needed please keep the appointment at spinal clinic on Wednesday. - Problem List & Annotations (1) Low back pain SNOMED Code(s): 600834279 Code(s): M54.5 - LOW BACK PAIN Status: Acute Annotation/Comment:: See or discuss interval managment issues with PCP tomorrow. Qualifiers: Chronicity: unspecified Back pain laterality: bilateral Sciatica presence : with sciatica Sciatica laterality: bilateral sciatica Qualified Code(s): M54.42 - Lumbago with sciatica, left side; M54.41 - Lumbago with sciatica, right side - Problem List Review Problem List Initiated/Reviewed/Updated: Yes - Assessment/Plan Plan: Follow up with PCP.
[2019-03-14 18:38] VITALS: BP 167/101; PULSE 112
== END 2019-03-14 18:25 | disposition home or self-care (01) ==
LOC: FB.ED 17:38
DX: M54.42 Lumbago with sciatica, left side (principal); M54.41 Lumbago with sciatica, right side; E78.5 Hyperlipidemia, unspecified; I10 Essential (primary) hypertension; J44.9 Chronic obstructive pulmonary disease, unspecified; E11.9 Type 2 diabetes mellitus without complications; E66.9 Obesity, unspecified; Z68.37 Body mass index [BMI] 37.0-37.9, adult; Z88.0 Allergy status to penicillin; Z88.6 Allergy status to analgesic agent; Z91.040 Latex allergy status; F17.210 Nicotine dependence, cigarettes, uncomplicated; Z79.82 Long term (current) use of aspirin; Z79.4 Long term (current) use of insulin; Z79.899 Other long term (current) drug therapy
CPT/HCPCS: 96372; 99284; J1170

== ENCOUNTER 2019-04-09 14:15 | Emergency (ER) | payer MEDICAID ==
[2019-04-09] MEDS ORDERED: Acetaminophen/HYDROcodone 325-5 MG Tab PO ONE (14:16)
--- NOTE | 2019-04-09 14:43 | EDM.PDOC ---
ED HPI GENERAL MEDICAL PROBLEM - General Chief Complaint: Genitourinary Problem Stated Complaint: PEEING BLOOD Time Seen by Provider: 04/09/19 14:40 Source of Information: Reports: Patient History Limitations: Reports: No Limitations - History of Present Illness INITIAL COMMENTS - FREE TEXT/NARRATIVE: 49-year-old male who reports that Wednesday night, 04/07/2019, he developed pain in his perineal area under his scrotum which radiated through the end of his penis and was much worse when urinating. It seems to be associated with what he felt was blood in his urine. There is a constant dull and aching pain but there are spikes in his pain which are sharp when he urinates. He has had no nausea or vomiting. He does have some lower abdominal associated with this but that does not radiate. He has no back pain associated with this. He rates the pain as a 10/10. He has been eating and drinking normally. Nothing really seems to make the pain better. He feels that pain is an "inside kind of pain" and does not seem to be made worse with palpation or movement. He reports that the pain is somewhat similar to pain that he has had in the past associated with what he thought was a kidney stone. He states that he has taken acetaminophen and Aleve without any relief. There are no other associated signs or symptoms. There are no other modifying factors. 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, NSAIDS (Aleve) Penile pain Pain Score (Numeric/FACES): 10 - Related Data Allergies Allergy/AdvReac Type Severity Reaction Status Date / Time ketorolac [From Toradol] Allergy Hives Verified 03/04/19 15:39 latex Allergy Hives Verified 03/04/19 15:39 Penicillins Allergy Hives Verified 03/04/19 15:39 Home Meds: Home Meds Metoprolol Tartrate [Lopressor] 25 mg PO BID 12/22/17 [History] lisinopriL [Prinivil] 10 mg PO DAILY 12/22/17 [History] metFORMIN [Glucophage] 500 mg PO BID 12/22/17 [History] Aspirin [Lo-Dose Aspirin EC] 81 mg PO DAILY 01/02/18 [History] amLODIPine Besylate [Amlodipine Besylate] 10 mg PO DAILY 09/01/18 [History] Gabapentin [Neurontin] 400 mg PO TID PRN 09/09/18 [History] Insulin Glargine,Hum.Rec.Anlog [Basaglar Kwikpen U-100] 10 units SQ BEDTIME [History] Liraglutide [Victoza 3-Leno] 2 units SQ BID 09/09/18 [History] Cyclobenzaprine HCl 10 mg PO TID PRN #21 tablet 03/02/19 [Rx] QUEtiapine Fumarate [Quetiapine Fumarate] 50 mg BID 03/02/19 [History] traZODone 50 mg BEDTIME PRN 03/02/19 [History] Hydrocodone/Acetaminophen [[place] 5-325 Tablet] 1 - 2 tab PO Q6H PRN #6 tablet [Rx] cephALEXin [Keflex] 750 mg PO TID 10 Days #90 cap 04/09/19 [Rx] Past Medical History Cardiovascular History: Reports: High Cholesterol, Hypertension Respiratory History: Reports: Asthma, COPD Gastrointestinal History: Reports: Other (See Below) Other Gastrointestinal History: hernia surg x 7 Genitourinary History: Reports: Renal Calculus Musculoskeletal History: Reports: Arthritis, Back Pain, Chronic, Fibromyalgia, Neck Pain, Chronic, Osteoarthritis Other Musculoskeletal History: chronic R knee pain Neurological History: Reports: Other (See Below) Other Neuro History: Insomnia Psychiatric History: Reports: Anxiety, Depression, Panic Attack Endocrine/Metabolic History: Reports: Diabetes, Type II, Obesity/BMI 30+ - Infectious Disease History Infectious Disease History: Reports: Chicken Pox - Past Surgical History HEENT Surgical History: Reports: Other (See Below) Other HEENT Surgeries/Procedures: Lump removed from throat approx 2013 GI Surgical History: Reports: Hernia Repair/Other Male Surgical History: Reports: Other (See Below) (Cystoscopy) Social & Family History - Tobacco Use Smoking Status *Q: Current Every Day Smoker - Caffeine Use Caffeine Use: Reports: Tea - Alcohol Use Alcohol Use History: No - Living Situation & Occupation Living situation: Reports: Occupation: Employed (Works at [employer], part-time. Works at [employer] part-time.) ED ROS GENERAL - Review of Systems Review Of Systems: See Below Constitutional: Reports: No Symptoms HEENT: Reports: No Symptoms Respiratory: Reports: No Symptoms Cardiovascular: Reports: No Symptoms Endocrine: Reports: No Symptoms GI/Abdominal: Reports: Abdominal Pain (Some lower abdominal discomfort bilaterally) : Reports: Dysuria, Hematuria Musculoskeletal: Reports: No Symptoms Skin: Reports: No Symptoms Neurological: Reports: No Symptoms Hematologic/Lymphatic: Reports: No Symptoms Immunologic: Reports: No Symptoms ED EXAM, RENAL/ - Physical Exam Exam: See Below Exam Limited By: No Limitations General Appearance: Alert, WD/WN, Moderate Distress, Other (Nontoxic appearing) Eye Exam: Bilateral Eye: EOMI, Normal Inspection Ears: Normal External Exam, Hearing Grossly Normal Nose: Normal Inspection, Normal Mucosa, No Blood Throat/Mouth: Normal Inspection, Normal Lips, Normal Oropharynx, Normal Voice, No Airway Compromise Head: Atraumatic, Normocephalic Neck: Normal Inspection, Supple, Non-Tender, Full Range of Motion Respiratory/Chest: No Respiratory Distress, Lungs Clear, Normal Breath Sounds, No Accessory Muscle Use, Chest Non-Tender Cardiovascular: Normal Peripheral Pulses, Regular Rate, Rhythm, No JVD, No Murmur GI/Abdominal: Normal Bowel Sounds, Soft, Non-Tender, No Mass (Male) Exam: No Hernia, Normal Inspection, Circumcised. No: Scrotal Swelling , Scrotum Tenderness (L), Scrotum Tenderness (R), Suprapubic Fullness, Testicular Mass, Urethral Discharge Back Exam: Normal Inspection Extremities: Normal Inspection, Normal Range of Motion, Non-Tender, No Pedal Edema, Normal Capillary Refill Neurological: Alert, Oriented, CN II-XII Intact, Normal Cognition, No Motor/ Sensory Deficits Skin Exam: Warm, Dry, Intact, Normal Color, No Rash Course - Vital Signs Last Recorded V/S: Last Vital Signs Temp 36.7 C 04/09/19 14:25 Pulse 110 H 04/09/19 16:38 Resp 17 04/09/19 16:38 BP 159/120 H 04/09/19 16:38 Pulse Ox 98 04/09/19 16:38 - Orders/Labs/Meds Orders: Active Orders 24 hr Category Date Time Status Bladder Scan [RC] ASDIRECTED Care 04/09/19 14:56 Active Abdomen Pelvis wo Cont [CT] Stat Exams 04/09/19 15:29 Taken CULTURE URINE [RM] Stat Lab 04/09/19 15:00 Received Labs: Laboratory Tests 04/09/19 04/09/19 04/09/19 Range/Units 15:00 15:36 15:36 WBC 10.0 (4.5-12.0) X10-3/uL RBC 5.89 H (4.30-5.75) x10(6)uL Hgb 17.3 (13.5-17.8) g/dL Hct 51.7 H (30.0-51.3) % MCV 87.9 (80-96) fL MCH 29.3 (27.7-33.6) pg MCHC 33.4 (32.2-35.4) g/dL RDW 12.6 (11.5-15.5) % Plt Count 220 (125-369) X10(3)uL MPV 7.8 (7.4-10.4) fL Neut % (Auto) 71.9 (46-82) % Lymph % (Auto) 22.2 (13-37) % [place] % (Auto) 4.5 (4-12) % Eos % (Auto) 1 (1.0-5.0) % Baso % (Auto) 0 (0-2) % Neut # (Auto) 7.2 (1.6-8.3) # Lymph # (Auto) 2.2 (0.6-5.0) # [place] # (Auto) 0.5 (0.0-1.3) # Eos # (Auto) 0.1 (0.0-0.8) # Baso # (Auto) 0.0 (0.0-0.2) # Sodium 138 (135-145) mmol/L Potassium 3.7 (3.5-5.3) mmol/L Chloride 101 (100-110) mmol/L Carbon Dioxide 25 (21-32) mmol/L BUN 11 (7-18) mg/dL Creatinine 0.9 (0.70-1.30) mg/dL Est Cr Clr Drug Dosing 103.64 mL/min Estimated GFR (MDRD) > 60 (>60) BUN/Creatinine Ratio 12.2 (9-20) Glucose 303 H (80-116) mg/dL Calcium 9.5 (8.6-10.2) mg/dL Urine Color Yellow (YELLOW) Urine Appearance Clear (CLEAR) Urine pH 5.0 (5.0-6.5) Ur Specific [place] 1.025 (1.010-1.025) Urine Protein 500 H (NEGATIVE) mg/dL Urine Glucose (UA) >1000 H (NORMAL) mg/dL Urine Ketones 15 H (NEGATIVE) mg/dL Urine Occult Blood Large H (NEGATIVE) Urine Nitrite Negative (NEGATIVE) Urine Bilirubin Negative (NEGATIVE) Urine Urobilinogen Normal (NEGATIVE) mg/dL Ur Leukocyte Esterase Negative (NEGATIVE) Urine RBC 50-75 H (0-5) Urine WBC 0-5 (0-5) Ur Squamous Epith Cells Few H (NS,R,O) Urine Bacteria Few H (NS) Hyaline Casts Few H (NS) Urine Mucus Few H (NS) Meds: Medications Discontinued Medications Generic Name Dose Route Start Last Admin Trade Name Freq PRN Reason Stop Dose Admin Cephalexin 1,000 mg 04/09/19 17:11 Keflex PO 04/09/19 17:12 ONETIME ONE Morphine Sulfate 10 mg 04/09/19 14:55 04/09/19 15:00 Morphine IM 04/09/19 14:56 10 mg ONETIME ONE Administration Promethazine HCl 25 mg 04/09/19 14:56 04/09/19 15:00 Phenergan IM 04/09/19 14:57 25 mg ONETIME ONE Administration - Radiology Interpretation Free Text/Narrative:: CT scan of abdomen and pelvis without IV contrast showed no acute abnormality per the radiologist. - Re-Assessments/Exams Free Text/Narrative Re-Assessment/Exam: 04/09/19 15:25: Patient's bladder scan showed no urine remaining after voiding. Urinalysis showed many red blood cells, 05 white blood cells and bacteria on a clean-catch specimen. I will send this for culture. I will also check a CBC and a basic metabolic profile and some the patient for CT scan of his abdomen and pelvis IV contrast here to his hematuria and lower abdominal pain. 04/09/19 17:00: Patient with essentially negative CT scan. He does have hematuria and some possible evidence of infection. I did send the urine for culture. I will be placing the patient on Keflex for possible infection. In addition he could have had a kidney stone that has passed and that is the source of his bleeding. I will give him a small prescription of hydrocodone 5/ 325 (I did send him home with a take home pack as well). In reviewing the patient's past records, it seems that on almost every presentation his blood pressure is elevated and he has tachycardia. I have strongly encouraged him to follow-up with his primary doctor this coming week in regard to his uncontrolled blood pressure and his frequent tachycardia. Departure - Departure Time of Disposition: 17:10 Disposition: Home, Self-Care 01 Condition: Good Clinical Impression: Hypertension, uncontrolled, Diabetes mellitus type 2 in obese, Perineal pain in male Hematuria Qualifiers: Hematuria type: asymptomatic microscopic Qualified Code(s): R31.21 - Asymptomatic microscopic hematuria - Discharge Information Prescriptions: cephALEXin [Keflex] 750 mg PO TID 10 Days #90 cap Hydrocodone/Acetaminophen [[place] 5-325 Tablet] 1 - 2 tab PO Q6H PRN #6 tablet PRN Reason: Moderate to severe pain Instructions: Hypertension, [id number], Hematuria, Adult Referrals: Omar Gao MD [Primary Care Provider] - Forms: ED Department Discharge Additional Instructions: I'm unsure why you are having the blood in your urine and the pain. The CT scan of your abdomen and pelvis showed no kidney stones. You could have passed a kidney stone and that would result in pain. This could also represent and infection in your prostate. Your blood pressure is again elevated as is your heart rate. You need to follow-up with your primary doctor is week in regard to this. Drink plenty of fluids. Medication as prescribed (Keflex 250 mg, hydrocodone 5/325). You may also take Aleve for her pain as well. Back to the emergency department for vomiting, or any other concerning sign or symptom. Sepsis Event Note - Evaluation Sepsis Screening Result: No Definite Risk - Focused Exam Vital Signs: Vital Signs Temp Pulse Resp BP Pulse Ox 04/09/19 16:38 110 H 17 159/120 H 98 04/09/19 14:25 36.7 C 114 H 17 172/102 H 98 Date Exam was Performed: 04/09/19 Time Exam was Performed: 17:22 - My Orders Last 24 Hours: My Active Orders 04/09/19 14:56 Bladder Scan [RC] ASDIRECTED 04/09/19 15:00 CULTURE URINE [RM] Stat 04/09/19 15:29 Abdomen Pelvis wo Cont [CT] Stat - Assessment/Plan Last 24 Hours: My Active Orders 04/09/19 14:56 Bladder Scan [RC] ASDIRECTED 04/09/19 15:00 CULTURE URINE [RM] Stat 04/09/19 15:29 Abdomen Pelvis wo Cont [CT] Stat
[2019-04-09] MEDS ORDERED: Morphine 10 MG/ML SDV IM ONE (14:55)
[2019-04-09] MEDS ORDERED: Promethazine 25 MG/ML SDV IM ONE (14:56)
[2019-04-09] MEDS ORDERED: Cephalexin 500 MG Cap PO ONE (17:11)
[2019-04-09 18:08] VITALS: BP 147/98; PULSE 108
== END 2019-04-09 17:48 | disposition home or self-care (01) ==
LOC: FB.ED 14:15
DX: R31.21 Asymptomatic microscopic hematuria (principal); R10.2 Pelvic and perineal pain; I10 Essential (primary) hypertension; E11.9 Type 2 diabetes mellitus without complications; E66.9 Obesity, unspecified; J44.9 Chronic obstructive pulmonary disease, unspecified; F32.9 Major depressive disorder, single episode, unspecified; F17.200 Nicotine dependence, unspecified, uncomplicated; Z88.0 Allergy status to penicillin; Z88.6 Allergy status to analgesic agent; Z91.040 Latex allergy status; Z68.39 Body mass index [BMI] 39.0-39.9, adult; Z79.4 Long term (current) use of insulin; Z79.899 Other long term (current) drug therapy
CPT/HCPCS: 36415; 51798; 74176; 80048; 81001; 85025; 87086; 96372; 99284-25; A9270-GY; J2270; J2550

== ENCOUNTER 2019-04-24 18:54 | Emergency (ER) | payer MEDICAID ==
[2019-04-24] MEDS ORDERED: Sodium Chloride 0.9% 10 ML Syringe FLUSH PRN (19:37)
[2019-04-24] MEDS ORDERED: Ondansetron 4 MG/2 ML SDV IVPUSH ONE (19:40)
[2019-04-24] MEDS ORDERED: Morphine 2 MG/ML SYRINGE IVPUSH ONE (19:40)
[2019-04-24] MEDS ORDERED: Sodium Chloride 0.9% 1,000 ML IV SCH (19:45)
--- NOTE | 2019-04-24 21:08 | EDM.PDOC ---
ED HPI GENERAL MEDICAL PROBLEM - General Chief Complaint: Abdominal Pain Stated Complaint: ABD PAIN Time Seen by Provider: 04/24/19 18:55 Source of Information: Reports: Patient History Limitations: Reports: No Limitations - History of Present Illness INITIAL COMMENTS - FREE TEXT/NARRATIVE: Patient presented to the Ed from the clinic because of abdominal pain-rt flank and RUQ. The pain is 10/10 with nausea but no vomiting. His ua from the clinic did show hematuria. There is no fever or chills or changes in bowel movements. abd Pain Score (Numeric/FACES): 10 - Related Data Allergies Allergy/AdvReac Type Severity Reaction Status Date / Time ketorolac [From Toradol] Allergy Hives Verified 03/04/19 15:39 latex Allergy Hives Verified 03/04/19 15:39 Penicillins Allergy Hives Verified 03/04/19 15:39 Home Meds: Home Meds Metoprolol Tartrate [Lopressor] 25 mg PO BID 12/22/17 [History] lisinopriL [Prinivil] 10 mg PO DAILY 12/22/17 [History] metFORMIN [Glucophage] 500 mg PO BID 12/22/17 [History] Aspirin [Lo-Dose Aspirin EC] 81 mg PO DAILY 01/02/18 [History] amLODIPine Besylate [Amlodipine Besylate] 10 mg PO DAILY 09/01/18 [History] Gabapentin [Neurontin] 400 mg PO TID PRN 09/09/18 [History] Insulin Glargine,Hum.Rec.Anlog [Basaglar Kwikpen U-100] 10 units SQ BEDTIME [History] Liraglutide [Victoza 3-Leno] 2 units SQ BID 09/09/18 [History] Cyclobenzaprine HCl 10 mg PO TID PRN #21 tablet 03/02/19 [Rx] QUEtiapine Fumarate [Quetiapine Fumarate] 50 mg BID 03/02/19 [History] traZODone 50 mg BEDTIME PRN 03/02/19 [History] Hydrocodone/Acetaminophen [Carter 5-325 Tablet] 1 - 2 tab PO Q6H PRN #6 tablet [Rx] cephALEXin [Keflex] 750 mg PO TID 10 Days #90 cap 04/09/19 [Rx] Past Medical History HEENT History: Reports: None Cardiovascular History: Reports: High Cholesterol, Hypertension Respiratory History: Reports: Asthma, COPD Gastrointestinal History: Reports: Other (See Below) Other Gastrointestinal History: hernia surg x 7 Genitourinary History: Reports: Renal Calculus Musculoskeletal History: Reports: Arthritis, Back Pain, Chronic, Fibromyalgia, Neck Pain, Chronic, Osteoarthritis Other Musculoskeletal History: chronic R knee pain Neurological History: Reports: Other (See Below) Other Neuro History: Insomnia Psychiatric History: Reports: Anxiety, Depression, Panic Attack Endocrine/Metabolic History: Reports: Diabetes, Type II, Obesity/BMI 30+ Hematologic History: Reports: Anticoagulation Therapy Immunologic History: Reports: None Oncologic (Cancer) History: Reports: None Dermatologic History: Reports: None - Infectious Disease History Infectious Disease History: Reports: Chicken Pox - Past Surgical History Head Surgeries/Procedures: Reports: None HEENT Surgical History: Reports: Other (See Below) Other HEENT Surgeries/Procedures: Lump removed from throat approx 2013 GI Surgical History: Reports: Hernia Repair/Other Male Surgical History: Reports: Other (See Below) Social & Family History - Family History Family Medical History: Noncontributory - Tobacco Use Smoking Status *Q: Current Every Day Smoker Years of Tobacco use: 30 Packs/Tins Daily: 0.5 - Caffeine Use Caffeine Use: Reports: Tea - Living Situation & Occupation Living situation: Reports: Occupation: Employed (Works at [employer], part-time. Works at [employer] part-time.) ED ROS GENERAL - Review of Systems Review Of Systems: See Below Constitutional: Reports: No Symptoms HEENT: Reports: No Symptoms Respiratory: Reports: No Symptoms Cardiovascular: Reports: No Symptoms, Palpitations GI/Abdominal: Reports: Abdominal Pain, Nausea. Denies: Vomiting : Reports: Flank Pain, Hematuria. Denies: Dysuria Musculoskeletal: Reports: No Symptoms Skin: Reports: No Symptoms Neurological: Reports: No Symptoms Psychiatric: Reports: No Symptoms ED EXAM, GI/ABD - Physical Exam Exam: See Below Exam Limited By: No Limitations General Appearance: Alert, No Apparent Distress Ears: Normal External Exam, Hearing Grossly Normal Nose: Normal Inspection, Normal Mucosa Throat/Mouth: Normal Inspection, Normal Lips, No Airway Compromise Head: Atraumatic, Normocephalic Neck: Normal Inspection, Supple, Non-Tender, Full Range of Motion Cardiovascular: Normal Peripheral Pulses, Regular Rate, Rhythm, No Edema, No Gallop, No Murmur, No Rub GI/Abdominal Exam: Normal Bowel Sounds, Soft, Other (tenderness rt flank area) Neurological: Alert, Oriented, CN II-XII Intact, Normal Cognition Psychiatric: Normal Affect Skin Exam: Warm Course - Vital Signs Text/Narrative:: Labs/CT abd/pelvis was discussed with the patient and verbalized full understanding NS 1 L bolus zofran 4 mg IV x1 morphine 4 mg IV x1 Last Recorded V/S: Last Vital Signs Temp 36.8 C 04/24/19 18:54 Pulse 105 H 04/24/19 18:54 Resp 18 04/24/19 18:54 BP 163/110 H 04/24/19 18:54 Pulse Ox 97 04/24/19 18:54 - Orders/Labs/Meds Orders: Active Orders 24 hr Category Date Time Status Abdomen Pelvis wo Cont [CT] Stat Exams 04/24/19 19:37 Taken Sodium Chloride 0.9% [Normal Saline] 1,000 ml Med 04/24/19 19:45 Active IV ASDIRECTED Sodium Chloride 0.9% [Saline Flush] Med 04/24/19 19:37 Active 10 ml FLUSH ASDIRECTED PRN Saline Lock Insert [OM.PC] Routine Oth 04/24/19 19:37 Ordered Medication Orders Sodium Chloride (Normal Saline) 1,000 mls @ 999 mls/hr IV ASDIRECTED PENDING SALE TO [facility] Last Admin: 04/24/19 20:36 Dose: 999 mls/hr Sodium Chloride (Saline Flush) 10 ml FLUSH ASDIRECTED PRN PRN Reason: Keep Vein Open Labs: Laboratory Tests 04/24/19 04/24/19 04/24/19 Range/Units 19:49 19:49 19:49 WBC 10.8 (4.5-12.0) X10-3/uL RBC 5.43 (4.30-5.75) x10(6)uL Hgb 15.7 (13.5-17.8) g/dL Hct 46.9 (30.0-51.3) % MCV 86.4 (80-96) fL MCH 28.9 (27.7-33.6) pg MCHC 33.5 (32.2-35.4) g/dL RDW 12.4 (11.5-15.5) % Plt Count 214 (125-369) X10(3)uL MPV 8.0 (7.4-10.4) fL Neut % (Auto) 69.5 (46-82) % Lymph % (Auto) 25.1 (13-37) % Freestone % (Auto) 4.0 (4-12) % Eos % (Auto) 1 (1.0-5.0) % Baso % (Auto) 0 (0-2) % Neut # (Auto) 7.6 (1.6-8.3) # Lymph # (Auto) 2.7 (0.6-5.0) # Freestone # (Auto) 0.4 (0.0-1.3) # Eos # (Auto) 0.1 (0.0-0.8) # Baso # (Auto) 0.0 (0.0-0.2) # Sodium 140 (135-145) mmol/L Potassium 3.7 (3.5-5.3) mmol/L Chloride 102 (100-110) mmol/L Carbon Dioxide 26 (21-32) mmol/L BUN 11 (7-18) mg/dL Creatinine 0.9 (0.70-1.30) mg/dL Est Cr Clr Drug Dosing 113.44 mL/min Estimated GFR (MDRD) > 60 (>60) BUN/Creatinine Ratio 12.2 (9-20) Glucose 244 H (80-116) mg/dL Calcium 8.8 (8.6-10.2) mg/dL Total Bilirubin 0.2 (0.1-1.3) mg/dL AST 11 (5-25) IU/L ALT 16 D (12-36) U/L Alkaline Phosphatase 81 (56-112) IU/L Total Protein 7.3 (6.0-8.0) g/dL Albumin 3.3 L (3.5-5.2) g/dL Globulin 4.0 g/dL Albumin/Globulin Ratio 0.8 Amylase 21 L (25-115) U/L Lipase 88 (73-393) U/L Meds: Medications Generic Name Dose Route Start Last Admin Trade Name Freq PRN Reason Stop Dose Admin Sodium Chloride 1,000 mls @ 999 mls/hr 04/24/19 19:45 04/24/19 20:36 Normal Saline IV 999 mls/hr ASDIRECTED EMILY Administration Sodium Chloride 10 ml 04/24/19 19:37 Saline Flush FLUSH ASDIRECTED PRN Keep Vein Open Discontinued Medications Generic Name Dose Route Start Last Admin Trade Name Leni PRN Reason Stop Dose Admin Morphine Sulfate 1 mg 04/24/19 19:40 04/24/19 20:42 Morphine IVPUSH 04/24/19 19:41 1 mg ONETIME ONE Administration Ondansetron HCl 4 mg 04/24/19 19:40 04/24/19 20:37 Zofran IVPUSH 04/24/19 19:41 4 mg ONETIME ONE Administration Departure - Departure Time of Disposition: 21:05 Disposition: Home, Self-Care 01 Condition: Good Clinical Impression: Abdominal pain, Hematuria - Discharge Information Instructions: Abdominal Pain, Adult, Hematuria, Adult Referrals: PCP,None [Primary Care Provider] - Forms: ED Department Discharge Additional Instructions: please read dischare instructions on abdominal pain and hematuria you can take tylenol 1000 mg every 8 hours as needed for pain follow up as needed Sepsis Event Note - Evaluation Sepsis Screening Result: No Definite Risk - Focused Exam Vital Signs: Vital Signs Temp Pulse Resp BP Pulse Ox 04/24/19 18:54 36.8 C 105 H 18 163/110 H 97 Date Exam was Performed: 04/24/19 Time Exam was Performed: 21:38 - My Orders Last 24 Hours: My Active Orders 04/24/19 19:37 Abdomen Pelvis wo Cont [CT] Stat Sodium Chloride 0.9% [Saline Flush] 10 ml FLUSH ASDIRECTED PRN Saline Lock Insert [OM.PC] Routine 04/24/19 19:45 Sodium Chloride 0.9% [Normal Saline] 1,000 ml IV ASDIRECTED - Assessment/Plan Last 24 Hours: My Active Orders 04/24/19 19:37 Abdomen Pelvis wo Cont [CT] Stat Sodium Chloride 0.9% [Saline Flush] 10 ml FLUSH ASDIRECTED PRN Saline Lock Insert [OM.PC] Routine 04/24/19 19:45 Sodium Chloride 0.9% [Normal Saline] 1,000 ml IV ASDIRECTED
[2019-04-25 03:43] VITALS: BP 147/93; PULSE 102
== END 2019-04-24 21:20 | disposition home or self-care (01) ==
LOC: FB.ED 18:54
DX: R10.11 Right upper quadrant pain (principal); R31.9 Hematuria, unspecified; I10 Essential (primary) hypertension; E78.00 Pure hypercholesterolemia, unspecified; J44.9 Chronic obstructive pulmonary disease, unspecified; M19.90 Unspecified osteoarthritis, unspecified site; F41.0 Panic disorder [episodic paroxysmal anxiety]; F32.9 Major depressive disorder, single episode, unspecified; E11.9 Type 2 diabetes mellitus without complications; E66.9 Obesity, unspecified; Z68.24 Body mass index [BMI] 24.0-24.9, adult; F17.210 Nicotine dependence, cigarettes, uncomplicated; Z88.0 Allergy status to penicillin; Z88.8 Allergy status to other drugs, medicaments and biological substances; Z91.040 Latex allergy status; Z79.82 Long term (current) use of aspirin; Z79.01 Long term (current) use of anticoagulants; Z79.4 Long term (current) use of insulin; Z79.899 Other long term (current) drug therapy
CPT/HCPCS: 36415; 74176; 80053; 82150; 83690; 85025; 96360; 99284; J2270; J2405; J7030

== ENCOUNTER 2019-05-14 16:46 | Emergency (ER) | payer MEDICAID ==
[2019-05-14] MEDS ORDERED: Acetaminophen/HYDROcodone 325-5 MG Tab PO ONE (16:47)
[2019-05-14 17:07] VITALS: PULSE 88
--- NOTE | 2019-05-14 17:16 | EDM.PDOC ---
ED HPI GENERAL MEDICAL PROBLEM - General Chief Complaint: Abdominal Pain Stated Complaint: ABD PAINS Time Seen by Provider: 05/14/19 17:14 Source of Information: Reports: Patient History Limitations: Reports: No Limitations - History of Present Illness INITIAL COMMENTS - FREE TEXT/NARRATIVE: 49-year-old male with history of recurrent hematuria and recurrent left lower quadrant abdominal and groin pain presents with onset 2 days ago of sharp left lower quadrant and groin pain. He has noticed no hematuria. He has fairly steady and constant and he would rate his pain as an 8/10 at present. The pain does not radiate. No nausea or vomiting. He's had no fever. No lumps or masses in the groin or inguinal area. He has been eating and drinking normally. He has had no trauma and no known injury. He has had normal bowel movements. There are no other associated signs or symptoms. There are no other modifying factors. 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 (see below) (Nothing) Left groin Pain Score (Numeric/FACES): 8 - Related Data Allergies Allergy/AdvReac Type Severity Reaction Status Date / Time ketorolac [From Toradol] Allergy Hives Verified 05/14/19 16:59 latex Allergy Hives Verified 05/14/19 16:59 Penicillins Allergy Hives Verified 05/14/19 16:59 Home Meds: Home Meds Metoprolol Tartrate [Lopressor] 25 mg PO BID 12/22/17 [History] lisinopriL [Prinivil] 10 mg PO DAILY 12/22/17 [History] metFORMIN [Glucophage] 500 mg PO BID 12/22/17 [History] Aspirin [Lo-Dose Aspirin EC] 81 mg PO DAILY 01/02/18 [History] amLODIPine Besylate [Amlodipine Besylate] 10 mg PO DAILY 09/01/18 [History] Gabapentin [Neurontin] 400 mg PO TID PRN 09/09/18 [History] Insulin Glargine,Hum.Rec.Anlog [Basaglar Kwikpen U-100] 10 units SQ BEDTIME [History] Liraglutide [Victoza 3-Leno] 2 units SQ BID 09/09/18 [History] QUEtiapine Fumarate [Quetiapine Fumarate] 50 mg PO BID PRN 03/02/19 [History] traZODone 50 mg PO BEDTIME PRN 03/02/19 [History] Sulfamethoxazole/Trimethoprim [Bactrim Ds Tablet] 1 each PO BID 10 Days #20 tablet 05/14/19 [Rx] methocarbamoL [Robaxin] 750 mg PO TID 05/14/19 [History] Past Medical History Cardiovascular History: Reports: High Cholesterol, Hypertension Respiratory History: Reports: Asthma, COPD Gastrointestinal History: Reports: Other (See Below) Other Gastrointestinal History: hernia surg x 7 Genitourinary History: Reports: Renal Calculus Musculoskeletal History: Reports: Arthritis, Back Pain, Chronic, Fibromyalgia, Neck Pain, Chronic, Osteoarthritis Other Musculoskeletal History: chronic R knee pain Neurological History: Reports: Other (See Below) Other Neuro History: Insomnia Psychiatric History: Reports: Anxiety, Depression, Panic Attack Endocrine/Metabolic History: Reports: Diabetes, Type II, Obesity/BMI 30+ - Infectious Disease History Infectious Disease History: Reports: Chicken Pox - Past Surgical History HEENT Surgical History: Reports: Other (See Below) Other HEENT Surgeries/Procedures: Lump removed from throat approx 2013 GI Surgical History: Reports: Hernia Repair/Other Male Surgical History: Reports: Other (See Below) Social & Family History - Family History Family Medical History: Noncontributory - Tobacco Use Smoking Status *Q: Current Every Day Smoker Years of Tobacco use: 30 Packs/Tins Daily: 0.2 - Caffeine Use Caffeine Use: Reports: Soda, Tea - Alcohol Use Alcohol Use History: No - Recreational Drug Use Recreational Drug Use: No - Living Situation & Occupation Living situation: Reports: Occupation: Employed (Works at [employer], part-time. Works at [employer] part-time.) ED [facility] GENER[facility] - Review of Systems Review Of Systems: See Below Constitutional: Reports: No Symptoms HEENT: Reports: No Symptoms Respiratory: Reports: No Symptoms Cardiovascular: Reports: No Symptoms Endocrine: Reports: No Symptoms GI/Abdominal: Reports: Abdominal Pain (Left lower quadrant abdominal pain and groin pain) : Reports: No Symptoms Musculoskeletal: Reports: No Symptoms Skin: Reports: No Symptoms Neurological: Reports: No Symptoms Hematologic/Lymphatic: Reports: No Symptoms Immunologic: Reports: No Symptoms ED EXAM, RENAL/ - Physical Exam Exam: See Below General Appearance: Alert, WD/WN, No Apparent Distress Eye Exam: Bilateral Eye: EOMI, Normal Inspection, PERRL Ears: Normal External Exam, Hearing Grossly Normal Nose: Normal Inspection, Normal Mucosa, No Blood Throat/Mouth: Normal Inspection, Normal Lips, Normal Oropharynx, Normal Voice, No Airway Compromise Head: Atraumatic, Normocephalic Neck: Normal Inspection, Supple, Non-Tender, Full Range of Motion Respiratory/Chest: No Respiratory Distress, Lungs Clear, Normal Breath Sounds, No Accessory Muscle Use, Chest Non-Tender Cardiovascular: Normal Peripheral Pulses, Regular Rate, Rhythm, No Murmur GI/Abdominal: Normal Bowel Sounds, Soft, No Organomegaly, Tender (Mild tenderness in the extreme left lower quadrant and inguinal area. Alejo is palpated. No masses. Or guarding.) Back Exam: Normal Inspection, Full Range of Motion Extremities: Normal Inspection, Normal Range of Motion, Non-Tender, No Pedal Edema, Normal Capillary Refill Neurological: Alert, Oriented, CN II-XII Intact, Normal Cognition, No Motor/ Sensory Deficits Skin Exam: Warm, Dry, Intact, Normal Color, No Rash Course - Vital Signs Last Recorded V/S: Last Vital Signs Temp 36.4 C 05/14/19 16:50 Pulse 88 05/14/19 16:50 Resp 20 05/14/19 16:50 BP 168/97 H 05/14/19 16:50 Pulse Ox 99 05/14/19 16:50 - Orders/Labs/Meds Orders: Active Orders 24 hr Category Date Time Status CULTURE URINE [RM] Stat Lab 05/14/19 17:37 Received Labs: Laboratory Tests 05/14/19 Range/Units 17:37 Urine Color Yellow (YELLOW) Urine Appearance Slightly cloudy (CLEAR) Urine pH 5.0 (5.0-6.5) Ur Specific Dexter 1.025 (1.010-1.025) Urine Protein 500 H (NEGATIVE) mg/dL Urine Glucose (UA) 100 H (NORMAL) mg/dL Urine Ketones 15 H (NEGATIVE) mg/dL Urine Occult Blood Large H (NEGATIVE) Urine Nitrite Negative (NEGATIVE) Urine Bilirubin Small H (NEGATIVE) Urine Urobilinogen Normal (NEGATIVE) mg/dL Ur Leukocyte Esterase Small H (NEGATIVE) Urine RBC 50-75 H (0-5) Urine WBC 0-5 (0-5) Ur Squamous Epith Cells Few H (NS,R,O) Urine Bacteria Few H (NS) Urine Mucus Moderate H (NS) - Re-Assessments/Exams Free Text/Narrative Re-Assessment/Exam: 05/14/19 18:00: The urinalysis again shows blood and some white cells with bacteria. Urinalysis today is essentially the same as every other urinalysis that we have the past 7 months. His cultures and it only looks like to cultures were done and 1 showed a mixed tresa and 1 showed negative. I will send the urine for culture today and I will also place the patient on Bactrim DS. The patient has also had and 2 in the past 2 months and each time they were negative. He does not appear toxic at this time and I do not see any indication to do any further testing and I do not think another CT scan would be beneficial. He needs to follow-up with his primary provider and get a referral back to a urologist. I have discussed this with the patient. I did the patient a take home pack of hydrocodone 5/325 #4 told the patient that he would need to get any further pain medication through his primary provider. Departure - Departure Time of Disposition: 18:10 Disposition: Home, Self-Care 01 Condition: Good Clinical Impression: Left groin pain, Left lower quadrant abdominal pain Hematuria Qualifiers: Hematuria type: unspecified type Qualified Code(s): R31.9 - Hematuria, unspecified UTI (urinary tract infection) Qualifiers: Urinary tract infection type: site unspecified Hematuria presence: with hematuria Qualified Code(s): N39.0 - Urinary tract infection, site not specified ; R31.9 - Hematuria, unspecified - Discharge Information Prescriptions: Sulfamethoxazole/Trimethoprim [Bactrim Ds Tablet] 1 each PO BID 10 Days #20 tablet Instructions: Abdominal Pain, Adult, [id number], Urinary Tract Infection, Adult, [id number] Referrals: Omar Gao MD [Primary Care Provider] - Forms: ED Department Discharge Additional Instructions: I am unsure why you are having the recurring pain in your left lower abdomen and groin and the recurring blood in your urine. This could be due to an infection and I sent your urine for a culture and I am going to place her on antibiotics to treat a possible infection. You need to increase your fluid intake. Follow-up with Dr. Gao this next week as you will most probably need referral back to the urologist. New a take home pack of 5/325. You will need to go through your primary provider for any further pain medication. Back to the emergency department for high fever, unrelenting vomiting inserting sign or symptom. Sepsis Event Note - Evaluation Sepsis Screening Result: No Definite Risk - Focused Exam Vital Signs: Vital Signs Temp Pulse Resp BP Pulse Ox 05/14/19 16:50 36.4 C 88 20 168/97 H 99 Date Exam was Performed: 05/14/19 Time Exam was Performed: 18:04 - My Orders Last 24 Hours: My Active Orders 05/14/19 17:37 CULTURE URINE [RM] Stat - Assessment/Plan Last 24 Hours: My Active Orders 05/14/19 17:37 CULTURE URINE [RM] Stat
[2019-05-14] MEDS ORDERED: Sulfamethoxazole/Trimethoprim 800-160 MG Tab PO ONE (18:04)
[2019-05-14 18:37] VITALS: BP 174/103
== END 2019-05-14 18:30 | disposition home or self-care (01) ==
LOC: FB.ED 16:46
DX: N39.0 Urinary tract infection, site not specified (principal); R31.9 Hematuria, unspecified; J44.9 Chronic obstructive pulmonary disease, unspecified; F17.210 Nicotine dependence, cigarettes, uncomplicated; E66.9 Obesity, unspecified; Z68.39 Body mass index [BMI] 39.0-39.9, adult; E11.9 Type 2 diabetes mellitus without complications; Z79.4 Long term (current) use of insulin; Z79.82 Long term (current) use of aspirin; Z79.899 Other long term (current) drug therapy; Z88.0 Allergy status to penicillin; Z88.8 Allergy status to other drugs, medicaments and biological substances; Z91.040 Latex allergy status
CPT/HCPCS: 81001; 87086; 99284; A9270

== ENCOUNTER 2019-06-22 06:59 | Emergency (ER) | payer MEDICAID ==
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
[2019-06-22 08:27] VITALS: BP 200/99; PULSE 100
== END 2019-06-22 07:55 | disposition home or self-care (01) ==
LOC: FB.ED 06:59
DX: S16.1XXA Strain of muscle, fascia and tendon at neck level, initial encounter (principal); S13.4XXA Sprain of ligaments of cervical spine, initial encounter; I10 Essential (primary) hypertension; J44.9 Chronic obstructive pulmonary disease, unspecified; E11.9 Type 2 diabetes mellitus without complications; E66.9 Obesity, unspecified; M19.90 Unspecified osteoarthritis, unspecified site; Z79.4 Long term (current) use of insulin; Z79.82 Long term (current) use of aspirin; Z79.899 Other long term (current) drug therapy; Z88.0 Allergy status to penicillin; Z91.040 Latex allergy status; Z88.6 Allergy status to analgesic agent; V49.9XXA Car occupant (driver) (passenger) injured in unspecified traffic accident, initial encounter
CPT/HCPCS: 99283

== ENCOUNTER 2020-04-14 03:41 | Emergency (ER) | payer MEDICAID ==
[2020-04-14] MEDS ORDERED: Clindamycin HCl 150 MG Cap PO STA (03:45)
[2020-04-14] MEDS ORDERED: Lidocaine 2% Viscous Solution 15 ML Cup PO ONE (03:46)
[2020-04-14 04:00] VITALS: BP 152/101; PULSE 125
--- NOTE | 2020-04-14 04:02 | EDM.PDOC ---
ED HPI GENERAL MEDICAL PROBLEM - General Stated Complaint: BROKEN TOOTH Time Seen by Provider: 04/14/20 03:50 Source of Information: Reports: Patient History Limitations: Reports: No Limitations - History of Present Illness INITIAL COMMENTS - FREE TEXT/NARRATIVE: Patient presented to the ED because of a broken left lower wisdom tooth. He noticed swelling on his left lower jaw this morning. He is taking OTC topical analgesic without any relief. - Related Data Allergies Allergy/AdvReac Type Severity Reaction Status Date / Time ketorolac [From Toradol] Allergy Hives Verified 05/14/19 16:59 latex Allergy Hives Verified 05/14/19 16:59 Penicillins Allergy Hives Verified 05/14/19 16:59 Home Meds: Home Meds Metoprolol Tartrate [Lopressor] 25 mg PO BID 12/22/17 [History] lisinopriL [Prinivil] 10 mg PO DAILY 12/22/17 [History] metFORMIN [Glucophage] 500 mg PO BID 12/22/17 [History] Aspirin [Lo-Dose Aspirin EC] 81 mg PO DAILY 01/02/18 [History] amLODIPine Besylate [Amlodipine Besylate] 10 mg PO DAILY 09/01/18 [History] Gabapentin [Neurontin] 400 mg PO TID PRN 09/09/18 [History] Insulin Glargine,Hum.Rec.Anlog [Basaglar Kwikpen U-100] 10 units SQ BEDTIME 09/09/18 [History] Liraglutide [Victoza 3-Leno] 2 units SQ BID 09/09/18 [History] QUEtiapine Fumarate [Quetiapine Fumarate] 50 mg PO DAILY 03/02/19 [History] traZODone 50 mg PO BEDTIME PRN 03/02/19 [History] methocarbamoL [Robaxin] 750 mg PO TID 05/14/19 [History] Nitroglycerin 0.4 mg SL PRN 06/22/19 [History] Tamsulosin HCl 0.4 mg PO DAILY 06/22/19 [History] traMADol [Ultram] 50 mg PO Q6H PRN #10 tab 06/22/19 [Rx] Clindamycin HCl 450 mg PO TID #90 capsule 04/14/20 [Rx] Ibuprofen 800 mg PO TID PRN #30 tablet 04/14/20 [Rx] Lidocaine 2% [Xylocaine 2% Jelly] 1 ml PO Q2H PRN #30 ml 04/14/20 [Rx] Past Medical History HEENT History: Reports: None Cardiovascular History: Reports: High Cholesterol, Hypertension Respiratory History: Reports: Asthma, COPD Gastrointestinal History: Reports: Other (See Below) Other Gastrointestinal History: hernia surg x 7 Genitourinary History: Reports: Renal Calculus Musculoskeletal History: Reports: Arthritis, Back Pain, Chronic, Fibromyalgia, Neck Pain, Chronic, Osteoarthritis Other Musculoskeletal History: chronic R knee pain Neurological History: Reports: Other (See Below) Other Neuro History: Insomnia Psychiatric History: Reports: Anxiety, Depression, Panic Attack Endocrine/Metabolic History: Reports: Diabetes, Type II, Obesity/BMI 30+ Hematologic History: Reports: Anticoagulation Therapy Immunologic History: Reports: None Oncologic (Cancer) History: Reports: None Dermatologic History: Reports: None - Infectious Disease History Infectious Disease History: Reports: Chicken Pox - Past Surgical History HEENT Surgical History: Reports: Other (See Below) Other HEENT Surgeries/Procedures: Lump removed from throat approx 2013 GI Surgical History: Reports: Hernia Repair/Other Male Surgical History: Reports: Other (See Below) Social & Family History - Family History Family Medical History: No Pertinent Family History - Caffeine Use Caffeine Use: Reports: Soda, Tea - Living Situation & Occupation Living situation: Reports: Occupation: Employed (Works at [employer], part-time. Works at [employer] part-time.) ED ROS ENT - Review of Systems Review Of Systems: See Below Constitutional: Reports: No Symptoms HEENT: Reports: Dental Pain Respiratory: Reports: No Symptoms Cardiovascular: Reports: No Symptoms Endocrine: Reports: No Symptoms GI/Abdominal: Reports: No Symptoms : Reports: No Symptoms Musculoskeletal: Reports: No Symptoms Skin: Reports: No Symptoms Neurological: Reports: No Symptoms Psychiatric: Reports: No Symptoms Hematologic/Lymphatic: Reports: No Symptoms ED EXAM, ENT - Physical Exam Exam: See Below Exam Limited By: No Limitations General Appearance: Alert, No Apparent Distress Ears: Normal External Exam Nose: Normal Inspection, Normal Mucousa, No Blood Mouth/Throat: Normal Inspection, Dental Pain, Other (multiple dental caries) Head: Atraumatic, Normocephalic Neck: Normal Inspection, Supple, Non-Tender, Full Range of Motion Respiratory/Chest: No Respiratory Distress, Lungs Clear, Normal Breath Sounds Cardiovascular: Normal Peripheral Pulses, Regular Rate, Rhythm, No Edema, No Gallop GI/Abdominal: Normal Bowel Sounds, Soft, Non-Tender Course - Vital Signs Text/Narrative:: Clindamycin 600 mg PO x1 Viscous lidocaine Last Recorded V/S: Last Vital Signs Temp 37.0 C 04/14/20 03:59 Pulse 125 H 04/14/20 03:59 Resp 20 04/14/20 03:59 BP 152/101 H 04/14/20 03:59 Pulse Ox 95 04/14/20 03:59 - Orders/Labs/Meds Meds: Medications Discontinued Medications Generic Name Dose Route Start Last Admin Trade Name Freq PRN Reason Stop Dose Admin Clindamycin HCl 600 mg 04/14/20 03:45 04/14/20 04:01 Cleocin PO 04/14/20 03:46 600 mg NOW STA Administration Lidocaine HCl 15 ml 04/14/20 03:46 04/14/20 04:01 Xylocaine 2% Viscous PO 04/14/20 03:47 15 ml ONETIME ONE Administration Departure - Departure Time of Disposition: 04:05 Disposition: Home, Self-Care 01 Condition: Good Clinical Impression: Pain due to dental caries, Tooth fracture - Discharge Information Prescriptions: Clindamycin HCl 450 mg PO TID #90 capsule Ibuprofen 800 mg PO TID PRN #30 tablet PRN Reason: Pain Lidocaine 2% [Xylocaine 2% Jelly] 1 ml PO Q2H PRN #30 ml PRN Reason: Pain Instructions: Dental Abscess, [id number], Tooth Injuries, [id number], Benzocaine mouth gel, ointment, solution, or dental paste Referrals: Omar Gao MD [Primary Care Provider] - Forms: ED Department Discharge Additional Instructions: Please read discharge instructions on dental pain and dental infection Gurgle denise salt and water Take ibuprofen 800 mg with tylenol [id number] mg every 8 hours as needed for pain Viscous lidocain, apply 1 ml every 2 hours as needed for severe pain Clindamycin 450 mg 3 times daily for 10 days Follow up with your dentist as soon as you can. We don't do follow up in the ED more so with dental issues. Sepsis Event Note (ED) - Focused Exam Vital Signs: Vital Signs Temp Pulse Resp BP Pulse Ox 04/14/20 03:59 37.0 C 125 H 20 152/101 H 95
== END 2020-04-14 04:24 | disposition home or self-care (01) ==
LOC: FB.ED 03:41
DX: K03.81 Cracked tooth (principal); K02.9 Dental caries, unspecified; I10 Essential (primary) hypertension; M19.90 Unspecified osteoarthritis, unspecified site; F41.9 Anxiety disorder, unspecified; F32.9 Major depressive disorder, single episode, unspecified; J44.9 Chronic obstructive pulmonary disease, unspecified; E11.9 Type 2 diabetes mellitus without complications; E66.9 Obesity, unspecified; Z88.6 Allergy status to analgesic agent; Z91.040 Latex allergy status; Z88.0 Allergy status to penicillin; Z79.82 Long term (current) use of aspirin; Z79.4 Long term (current) use of insulin; Z79.899 Other long term (current) drug therapy
CPT/HCPCS: 99282; A9270

== ENCOUNTER 2020-09-04 19:42 | Inpatient (IN) | payer MEDICAID ==
[2020-09-04] MEDS ORDERED: Sodium Chloride 0.9% 10 ML Syringe FLUSH PRN (19:49)
[2020-09-04] MEDS ORDERED: Sodium Chloride 0.9% 1,000 ML IV ONE (19:50)
[2020-09-04] MEDS ORDERED: Iopamidol 755 Mg/ML 100 ML Bottle IV ONE (19:56)
--- NOTE | 2020-09-04 19:58 | EDM.PDOC ---
ED HPI GENERAL MEDICAL PROBLEM - General Stated Complaint: SOB Time Seen by Provider: 09/04/20 19:52 Source of Information: Reports: Patient, Family History Limitations: Reports: Altered Mental Status - History of Present Illness INITIAL COMMENTS - FREE TEXT/NARRATIVE: Pool present to ED with his .She reports that he is somewhat confused and disoriented. He has shortness of breath,fatigue and vomiting blood.He has a cough,and intermittent fever that has lasted more than 2 weeks.I did see him about 2 weeks ago,and had a negative CXR and COVID-19 antigen test. Pool has a h/o chronic abdominal pain,chronic bronchitis, uncontrolled HTN and DM 2. - Related Data Allergies Allergy/AdvReac Type Severity Reaction Status Date / Time ketorolac [From Toradol] Allergy Hives Verified 05/14/19 16:59 latex Allergy Hives Verified 05/14/19 16:59 Penicillins Allergy Hives Verified 05/14/19 16:59 Home Meds: Home Meds Metoprolol Tartrate [Lopressor] 25 mg PO BID 12/22/17 [History] lisinopriL [Prinivil] 10 mg PO DAILY 12/22/17 [History] metFORMIN [Glucophage] 500 mg PO BID 12/22/17 [History] Aspirin [Lo-Dose Aspirin EC] 81 mg PO DAILY 01/02/18 [History] amLODIPine Besylate [Amlodipine Besylate] 10 mg PO DAILY 09/01/18 [History] Gabapentin [Neurontin] 400 mg PO TID PRN 09/09/18 [History] Insulin Glargine,Hum.Rec.Anlog [Basaglar Kwikpen U-100] 10 units SQ BEDTIME 09/09/18 [History] Liraglutide [Victoza 3-Leno] 2 units SQ BID 09/09/18 [History] QUEtiapine Fumarate [Quetiapine Fumarate] 50 mg PO DAILY 03/02/19 [History] traZODone 50 mg PO BEDTIME PRN 03/02/19 [History] methocarbamoL [Robaxin] 750 mg PO TID 05/14/19 [History] Nitroglycerin 0.4 mg SL PRN 06/22/19 [History] Tamsulosin HCl 0.4 mg PO DAILY 06/22/19 [History] traMADol [Ultram] 50 mg PO Q6H PRN #10 tab 06/22/19 [Rx] Clindamycin HCl 450 mg PO TID #90 capsule 04/14/20 [Rx] Ibuprofen 800 mg PO TID PRN #30 tablet 04/14/20 [Rx] Lidocaine 2% [Xylocaine 2% Jelly] 1 ml PO Q2H PRN #30 ml 04/14/20 [Rx] Past Medical History HEENT History: Reports: None Cardiovascular History: Reports: High Cholesterol, Hypertension Respiratory History: Reports: Asthma, COPD Gastrointestinal History: Reports: Other (See Below) Other Gastrointestinal History: hernia surg x 7 Genitourinary History: Reports: Renal Calculus Musculoskeletal History: Reports: Arthritis, Back Pain, Chronic, Fibromyalgia, Neck Pain, Chronic, Osteoarthritis Other Musculoskeletal History: chronic R knee pain Neurological History: Reports: Other (See Below) Other Neuro History: Insomnia Psychiatric History: Reports: Anxiety, Depression, Panic Attack Endocrine/Metabolic History: Reports: Diabetes, Type II, Obesity/BMI 30+ Hematologic History: Reports: Anticoagulation Therapy Immunologic History: Reports: None Oncologic (Cancer) History: Reports: None Dermatologic History: Reports: None - Infectious Disease History Infectious Disease History: Reports: Chicken Pox - Past Surgical History HEENT Surgical History: Reports: Other (See Below) Other HEENT Surgeries/Procedures: Lump removed from throat approx 2013 GI Surgical History: Reports: Hernia Repair/Other Male Surgical History: Reports: Other (See Below) Social & Family History - Family History Family Medical History: No Pertinent Family History - Caffeine Use Caffeine Use: Reports: Coffee, Soda - Living Situation & Occupation Living situation: Reports: Occupation: Employed (Works at [employer], part-time. Works at [employer] part-time.) ED ROS GENERAL - Review of Systems Review Of Systems: Comprehensive ROS is negative, except as noted in HPI. ED EXAM, GENERAL - Physical Exam Exam: See Below Exam Limited By: Altered Mental Status General Appearance: Anxious, Mild Distress Ears: Normal External Exam Ear Exam: Bilateral Ear: Auricle Normal, Canal Normal, TM normal Nose: Normal Inspection Throat/Mouth: Normal Inspection Head: Atraumatic Neck: Normal Inspection Respiratory/Chest: Rhonchi Cardiovascular: Normal Peripheral Pulses GI/Abdominal: Normal Bowel Sounds, Soft Extremities: Normal Inspection Neurological: Alert, CN II-XII Intact. No: Oriented Psychiatric: Anxious Skin Exam: Warm, Dry, Pallor #1 Interpretation EKG Date: 09/04/20 Time: 19:50 Rhythm: Other (Sinus Tachycardia) Rate (Beats/Min): 133 [place]: Normal P-Wave: Present QRS: Normal Comparison: NA - No Prior EKG Course - Vital Signs Last Recorded V/S: Last Vital Signs Temp 100.9 F H 09/04/20 19:45 Pulse 135 H 09/04/20 19:45 Resp 28 H 09/04/20 19:45 BP 140/115 H 09/04/20 19:45 Pulse Ox 94 L 09/04/20 19:45 - Orders/Labs/Meds Orders: Active Orders 24 hr Category Date Time Status EKG Documentation Completion [RC] ASDIRECTED Care 09/04/20 19:50 Active Abdomen Pelvis w Cont [CT] Stat Exams 09/04/20 19:49 Taken Ang Chest [CT] Stat Exams 09/04/20 19:49 Taken NS + KCl 20mEq/L [Normal Saline with 20 mEq KCl] 1,000 Med 09/04/20 21:30 Active ml IV ASDIRECTED Sodium Chloride 0.9% [Saline Flush] Med 09/04/20 19:49 Active 10 ml FLUSH ASDIRECTED PRN Isolation [COMM] Routine Oth 09/04/20 19:52 Ordered Peripheral IV Insertion Adult [OM.PC] Routine Oth 09/04/20 19:49 Ordered EKG 12 Lead [EK] Routine Ther 09/04/20 19:49 Ordered Medication Orders Potassium Chloride/Sodium Chloride (Normal Saline With 20 Meq Kcl) 1,000 mls @ 150 mls/hr IV ASDIRECTED EMILY Sodium Chloride (Sodium Chloride 0.9% 10 Ml Syringe) 10 ml FLUSH ASDIRECTED PRN PRN Reason: Keep Vein Open Last Admin: 09/04/20 20:15 Dose: 10 ml Documented by: SARKIS Labs: Laboratory Tests 09/04/20 09/04/20 09/04/20 Range/Units 20:00 20:00 20:00 WBC 23.9 H (3.2-10.1) x10-3/uL RBC 4.47 (3.90-5.90) x10(6)uL Hgb 12.4 L (12.9-17.7) g/dL Hct 37.8 L (38.3-50.1) % MCV 84.6 (80.8-98.7) fL MCH 27.8 (27.0-33.3) pg MCHC 32.9 (28.7-35.3) g/dL RDW 14.4 (12.4-15.0) % Plt Count 148 (117-477) x10(3)uL MPV 8.4 (6.7-11.0) fL Neut % (Auto) 91.7 H (40.3-71.8) % Lymph % (Auto) 4.7 L (15.8-45.3) % [place] % (Auto) 3.5 L (5.5-15.2) % Eos % (Auto) 0.0 L (0.1-6.8) % Baso % (Auto) 0.1 L (0.3-3.8) % Neut # (Auto) 21.8 H (1.7-6.9) x10-3/uL Lymph # (Auto) 1.1 (0.5-4.5) x10-3/uL [place] # (Auto) 0.8 (0.0-1.2) x10-3/uL Eos # (Auto) 0.0 (0.0-0.6) x10-3/uL Baso # (Auto) 0.0 (0.0-0.3) x10-3/uL Sodium 129 L D (135-145) mmol/L Potassium 3.2 L (3.5-5.3) mmol/L Chloride 90 L D (100-110) mmol/L Carbon Dioxide 25 (21-32) mmol/L BUN 20 H (7-18) mg/dL Creatinine 1.3 (0.70-1.30) mg/dL Est Cr Clr Drug Dosing TNP Estimated GFR (MDRD) 59 L (>60) BUN/Creatinine Ratio 15.4 (9-20) Glucose 381 H D (80-116) mg/dL Calcium 7.7 L (8.6-10.2) mg/dL Total Bilirubin 0.5 (0.1-1.3) mg/dL AST 22 D (5-25) IU/L ALT 11 L D (12-36) U/L Alkaline Phosphatase 77 (56-112) IU/L Troponin I 11.3 (4.0-60.3) pg/mL C-Reactive Protein (0.5-0.9) mg/dL Total Protein 7.5 (6.0-8.0) g/dL Albumin 2.5 L (3.5-5.2) g/dL Globulin 5.0 g/dL Albumin/Globulin Ratio 0.5 Lipase (73-393) U/L SARS-CoV-2 RNA (JASWANT) (NEGATIVE) 09/04/20 09/04/20 09/04/20 Range/Units 20:00 20:00 20:05 WBC (3.2-10.1) x10-3/uL RBC (3.90-5.90) x10(6)uL Hgb (12.9-17.7) g/dL Hct (38.3-50.1) % MCV (80.8-98.7) fL MCH (27.0-33.3) pg MCHC (28.7-35.3) g/dL RDW (12.4-15.0) % Plt Count (117-477) x10(3)uL MPV (6.7-11.0) fL Neut % (Auto) (40.3-71.8) % Lymph % (Auto) (15.8-45.3) % [place] % (Auto) (5.5-15.2) % Eos % (Auto) (0.1-6.8) % Baso % (Auto) (0.3-3.8) % Neut # (Auto) (1.7-6.9) x10-3/uL Lymph # (Auto) (0.5-4.5) x10-3/uL [place] # (Auto) (0.0-1.2) x10-3/uL Eos # (Auto) (0.0-0.6) x10-3/uL Baso # (Auto) (0.0-0.3) x10-3/uL Sodium (135-145) mmol/L Potassium (3.5-5.3) mmol/L Chloride (100-110) mmol/L Carbon Dioxide (21-32) mmol/L BUN (7-18) mg/dL Creatinine (0.70-1.30) mg/dL Est Cr Clr Drug Dosing Estimated GFR (MDRD) (>60) BUN/Creatinine Ratio (9-20) Glucose (80-116) mg/dL Calcium (8.6-10.2) mg/dL Total Bilirubin (0.1-1.3) mg/dL AST (5-25) IU/L ALT (12-36) U/L Alkaline Phosphatase (56-112) IU/L Troponin I (4.0-60.3) pg/mL C-Reactive Protein 44.7 H* (0.5-0.9) mg/dL Total Protein (6.0-8.0) g/dL Albumin (3.5-5.2) g/dL Globulin g/dL Albumin/Globulin Ratio Lipase 62 L (73-393) U/L SARS-CoV-2 RNA (JASWANT) Negative (NEGATIVE) Meds: Medications Generic Name Dose Route Start Last Admin Trade Name Freq PRN Reason Stop Dose Admin Potassium Chloride/Sodium Chloride 1,000 mls @ 150 mls/hr 09/04/20 21:30 Normal Saline With 20 Meq Kcl IV ASDIRECTED EMILY Sodium Chloride 10 ml 09/04/20 19:49 09/04/20 20:15 Sodium Chloride 0.9% 10 Ml Syringe FLUSH 10 ml ASDIRECTED PRN Administration Keep Vein Open Discontinued Medications Generic Name Dose Route Start Last Admin Trade Name Freq PRN Reason Stop Dose Admin Acetaminophen 650 mg 09/04/20 20:03 09/04/20 20:05 Acetaminophen 325 Mg Tab PO 09/04/20 20:04 650 mg NOW ONE Administration Sodium Chloride 1,000 mls @ 999 mls/hr 09/04/20 19:50 09/04/20 20:35 Normal Saline IV 09/04/20 20:50 999 mls/hr .BOLUS ONE Administration Iopamidol 100 ml 09/04/20 19:56 09/04/20 20:30 Iopamidol 755 Mg/Ml 100 Ml Bottle IV 09/04/20 19:57 100 ml . DIRECTED ONE Administration Departure - Departure Time of Disposition: 21:42 Disposition: Admitted As Inpatient 67 Clinical Impression: Diabetes mellitus Qualifiers: Diabetes mellitus type: type 2 Diabetes mellitus complication status: with hyperglycemia Referrals: PCP,None [Primary Care Provider] - Sepsis Event Note (ED) - Focused Exam Vital Signs: Vital Signs Temp Pulse Resp BP Pulse Ox 09/04/20 19:45 100.9 F H 135 H 28 H 140/115 H 94 L - Problem List & Annotations (1) SOB (shortness of breath) SNOMED Code(s): 520112529 Code(s): R06.02 - SHORTNESS OF BREATH Status: Acute Current Visit: Yes (2) HTN (hypertension) SNOMED Code(s): 28260130 Code(s): I10 - ESSENTIAL (PRIMARY) HYPERTENSION Status: Acute Current Visit: Yes Qualifiers: Hypertension type: essential hypertension Qualified Code(s): I10 - Essential (primary) hypertension (3) Hematemesis SNOMED Code(s): 2885657 Code(s): K92.0 - HEMATEMESIS Status: Acute Current Visit: Yes Qualifiers: Nausea presence: with nausea Qualified Code(s): K92.0 - Hematemesis (4) Chronic abdominal pain SNOMED Code(s): 893335250 Code(s): R10.9 - UNSPECIFIED ABDOMINAL PAIN; G89.29 - OTHER CHRONIC PAIN Status: Chronic Current Visit: Yes (5) Diabetes type 2, uncontrolled SNOMED Code(s): 602667269, 702809680 Code(s): E11.65 - TYPE 2 DIABETES MELLITUS WITH HYPERGLYCEMIA Status: Acute Current Visit: Yes Qualifiers: Glycemic state: with hyperglycemia Qualified Code(s): E11.65 - Type 2 diabetes mellitus with hyperglycemia (6) Tobacco abuse SNOMED Code(s): 749781110 Code(s): Z72.0 - TOBACCO USE Status: Acute Current Visit: Yes (7) Altered mental state SNOMED Code(s): 538860258 Code(s): R41.82 - ALTERED MENTAL STATUS, UNSPECIFIED Status: Acute Current Visit: Yes Qualifiers: Altered mental status type: disorientation Qualified Code(s): R41.0 - Disorientation, unspecified (8) Renal mass SNOMED Code(s): 189549228 Code(s): N28.89 - OTHER SPECIFIED DISORDERS OF KIDNEY AND URETER Status: Acute Current Visit: Yes (9) Hyponatremia SNOMED Code(s): 62186904 Code(s): E87.1 - HYPO-OSMOLALITY AND HYPONATREMIA Status: Acute Current Visit: Yes - Problem List Review Problem List Initiated/Reviewed/Updated: Yes - My Orders Last 24 Hours: My Active Orders 09/04/20 19:49 Abdomen Pelvis w Cont [CT] Stat Ang Chest [CT] Stat Sodium Chloride 0.9% [Saline Flush] 10 ml FLUSH ASDIRECTED PRN Peripheral IV Insertion Adult [OM.PC] Routine EKG 12 Lead [EK] Routine 09/04/20 19:50 EKG Documentation Completion [RC] ASDIRECTED 09/04/20 19:52 Isolation [COMM] Routine 09/04/20 21:30 NS + KCl 20mEq/L [Normal Saline with 20 mEq KCl] 1,000 ml IV ASDIRECTED - Assessment/Plan Last 24 Hours: My Active Orders 09/04/20 19:49 Abdomen Pelvis w Cont [CT] Stat Ang Chest [CT] Stat Sodium Chloride 0.9% [Saline Flush] 10 ml FLUSH ASDIRECTED PRN Peripheral IV Insertion Adult [OM.PC] Routine EKG 12 Lead [EK] Routine 09/04/20 19:50 EKG Documentation Completion [RC] ASDIRECTED 09/04/20 19:52 Isolation [COMM] Routine 09/04/20 21:30 NS + KCl 20mEq/L [Normal Saline with 20 mEq KCl] 1,000 ml IV ASDIRECTED Plan: CT showed bacterial pneumonia. Will admit for IV antibiotics
[2020-09-04] MEDS ORDERED: Acetaminophen 325 MG Tab PO ONE (20:03)
[2020-09-04] MEDS ORDERED: NS + KCl 20mEq/L 1,000 ML IV SCH ×2 (21:30→21:45)
[2020-09-04] MEDS ORDERED: Glucagon,Human Recombinant 1 MG Vial IM PRN (21:44)
[2020-09-04] MEDS ORDERED: Acetaminophen/oxyCODONE 325-5 MG Tab PO PRN (21:44)
[2020-09-04] MEDS ORDERED: Ondansetron 4 MG/2 ML SDV IV PRN (21:44)
[2020-09-04] MEDS ORDERED: 50% Dextrose in Water 50 ML Syringe IVPUSH PRN (21:44)
[2020-09-04] MEDS ORDERED: Enoxaparin 30 MG/0.3 ML Syringe SUBCUT SCH (21:45)
[2020-09-04] MEDS ORDERED: Levofloxacin/Dextrose 5%-Water 750 MG in Premix Bag 1 BAG IV SCH (21:45)
[2020-09-05 01:16] VITALS: BP 137/93; PULSE 112
[2020-09-05] MEDS ORDERED: Albuterol/Ipratropium 3.0-0.5 MG/3 ML Neb Soln NEB SCH (07:00)
[2020-09-05] MEDS ORDERED: Insulin Lispro 100 Unit/ML 3 ML KwikPen SUBCUT SCH (08:00)
[2020-09-05] MEDS ORDERED: Nicotine 14 MG/24 Hr Patch TRDERM SCH (09:00)
== END 2020-09-05 02:40 | disposition left against medical advice (07) | DRG 194 ==
LOC: FB.ED 19:42 → FB.MS 21:54
PROVIDERS: ADMIT Family Medicine; ATTEND Family Medicine
DX: J15.9 Unspecified bacterial pneumonia (principal); E87.1 Hypo-osmolality and hyponatremia; K92.0 Hematemesis; J44.0 Chronic obstructive pulmonary disease with (acute) lower respiratory infection; R10.9 Unspecified abdominal pain; E11.65 Type 2 diabetes mellitus with hyperglycemia; R41.0 Disorientation, unspecified; N28.89 Other specified disorders of kidney and ureter; E78.00 Pure hypercholesterolemia, unspecified; Z20.822 Contact with and (suspected) exposure to COVID-19; I10 Essential (primary) hypertension; M19.90 Unspecified osteoarthritis, unspecified site; M54.9 Dorsalgia, unspecified; G89.29 Other chronic pain; M54.2 Cervicalgia; M25.561 Pain in right knee; M79.7 Fibromyalgia; F41.0 Panic disorder [episodic paroxysmal anxiety]; F32.9 Major depressive disorder, single episode, unspecified; E66.9 Obesity, unspecified; Z87.442 Personal history of urinary calculi; Z98.890 Other specified postprocedural states; Z79.01 Long term (current) use of anticoagulants; Z79.82 Long term (current) use of aspirin; Z79.4 Long term (current) use of insulin; Z79.899 Other long term (current) drug therapy; Z68.38 Body mass index [BMI] 38.0-38.9, adult
CPT/HCPCS: 36415; 71275; 74177; 80053; 83605; 83690; 84484; 85025; 86140; 87040; 87804; 87804-59; 93005; 99285-25; A9270-GY; J3480; J7030; Q9967; U0002

== ENCOUNTER 2020-09-07 09:57 | Observation (INO) | payer MEDICAID ==
--- NOTE | 2020-09-07 10:20 | EDM.PDOC ---
ED HPI GENERAL MEDICAL PROBLEM - General Chief Complaint: Abdominal Pain Time Seen by Provider: 09/07/20 10:15 Source of Information: Reports: Patient History Limitations: Reports: No Limitations - History of Present Illness INITIAL COMMENTS - FREE TEXT/NARRATIVE: 50-year-old male who was seen in the emergency department on 09/04/[address] Gao and was found to have right middle and lower lobe pneumonia and appear to be ill. He was to be admitted to the hospital and all that had been arranged but the patient apparently decided that he was not given stay and left AGAINST MEDICAL ADVICE pulling his IV out before leaving. There was some concern because he was quite confused initially when he arrived. He resented via his . And since discharge one of the blood cultures (1 bottle out of 4 bottles from 2 sets that had been drawn) that were drawn has grown Gram-positive cocci which turned out to be Streptococcus and multiple people from [facility] have been calling him and trying to get him to come back in to the emergency department for reevaluation for probable transfer for admission. Apparently this morning, Dr. Fletcher was able to get in touch with the patient and told him to come to the emergency department now and he showed up this morning. He reports he still has a cough and he still has diffuse body aches but he feels better than he did earlier. He still has some nausea but no more vomiting. He has had a fever up to 102.1F but that was 2 days ago. He reports that he was having diarrhea but that ended yesterday as well. He does report that he still has some right sided chest pain and pain under his right rib cage in addition to the diffuse body aches that he is having. He rates that pain is 7-8/10. He initially was coughing of phlegm that was green but he states no longer having any phlegm production but still has the cough. He also currently denies any shortness of breath. There are no other associated signs or symptoms. There are no other modifying factors. Onset: Other (Apparently he has had intermittent fever cough and malaise for the past 2 weeks with symptoms of confusion, vomiting and cough with right-sided chest pain times the past 4 days.) Duration: Constant (Medical he feels like things are improving over the past day.) Location: Reports: Chest, Generalized Quality: Reports: Ache Severity: Moderate Improves with: Reports: None Worsens with: Reports: Breathing, Movement Context: Reports: Other (As above) Associated Symptoms: Reports: Chest Pain, Cough, Fever/Chills, Malaise, Nausea/Vomiting, Shortness of Breath, Weakness Treatments CONTRACT ATTORNEY: Reports: Other (see below) (Nothing) Right Upper Abdomen Pain Score (Numeric/FACES): 8 - Related Data Allergies Allergy/AdvReac Type Severity Reaction Status Date / Time ketorolac [From Toradol] Allergy Hives Verified 09/04/20 21:49 latex Allergy Hives Verified 09/04/20 21:49 Penicillins Allergy Hives Verified 09/04/20 21:49 Home Meds: Home Meds metFORMIN [Glucophage] 500 mg PO BID 12/22/17 [History] Aspirin [Lo-Dose Aspirin EC] 81 mg PO DAILY 01/02/18 [History] amLODIPine Besylate [Amlodipine Besylate] 10 mg PO DAILY 09/01/18 [History] Gabapentin [Neurontin] 800 mg PO TID PRN 09/09/18 [History] Liraglutide [Victoza 3-Leno] 1.2 mg SQ BID 09/09/18 [History] QUEtiapine Fumarate [Quetiapine Fumarate] 50 mg PO BEDTIME 03/02/19 [History] traZODone 50 mg PO BEDTIME PRN 03/02/19 [History] methocarbamoL [Robaxin] 750 mg PO TID 05/14/19 [History] Nitroglycerin 0.4 mg SL ASDIRECTED PRN 06/22/19 [History] Tamsulosin HCl 0.4 mg PO BEDTIME 06/22/19 [History] Ibuprofen 800 mg PO TID PRN #30 tablet 04/14/20 [Rx] Losartan [Cozaar] 100 mg PO DAILY 09/04/20 [History] Metoprolol Succinate [Toprol XL 100mg] 200 mg PO DAILY 09/04/20 [History] Past Medical History Cardiovascular History: Reports: Aneurysm, High Cholesterol, Hypertension Respiratory History: Reports: Asthma, COPD, Sleep Apnea Gastrointestinal History: Reports: Other (See Below) Other Gastrointestinal History: hernia surg x 7 Genitourinary History: Reports: Renal Calculus Musculoskeletal History: Reports: Arthritis, Back Pain, Chronic, Fibromyalgia, Neck Pain, Chronic, Osteoarthritis Other Musculoskeletal History: chronic R knee pain Neurological History: Reports: Other (See Below) Other Neuro History: Insomnia Psychiatric History: Reports: Anxiety, Depression, Panic Attack Endocrine/Metabolic History: Reports: Diabetes, Type II, Obesity/BMI 30+ Oncologic (Cancer) History: Reports: Non-Hodgkin's Lymphoma - Infectious Disease History Infectious Disease History: Reports: Chicken Pox - Past Surgical History HEENT Surgical History: Reports: Other (See Below) Other HEENT Surgeries/Procedures: Lump removed from throat approx 2013 GI Surgical History: Reports: Hernia Repair/Other Other GI Surgeries/Procedures: hernia repair x 7, mesh repair Male Surgical History: Reports: Ureteral Stent Neurological Surgical History: Reports: Other (See Below) Other Neurological Surgeries/Procedures: BACK SURGERY Other Oncologic Surgeries/Procedures: skin CA Social & Family History - Tobacco Use Tobacco Use Status *Q: Current Some Day Tobacco User Years of Tobacco use: 15 Packs/Tins Daily: 0 - Caffeine Use Caffeine Use: Reports: Tea - Alcohol Use Alcohol Use History: No - Recreational Drug Use Recreational Drug Use: No - Living Situation & Occupation Living situation: Reports: Occupation: Employed (Tells me that he works at the [employer]) ED ROS GENERAL - Review of Systems Review Of Systems: See Below Constitutional: Reports: Fever, Chills, Malaise, Weakness HEENT: Reports: No Symptoms Respiratory: Reports: Shortness of Breath, Pleuritic Chest Pain, Cough Cardiovascular: Reports: Chest Pain Endocrine: Reports: No Symptoms GI/Abdominal: Reports: Diarrhea, Nausea, Vomiting : Reports: No Symptoms Musculoskeletal: Reports: Other (Diffuse joint pains and body aches.) Skin: Reports: No Symptoms Neurological: Reports: No Symptoms Psychiatric: Reports: No Symptoms Hematologic/Lymphatic: Reports: No Symptoms Immunologic: Reports: No Symptoms ED EXAM, GENERAL - Physical Exam Exam: See Below Exam Limited By: No Limitations General Appearance: Alert, Mild Distress, Obese Eye Exam: Bilateral Eye: EOMI, Normal Inspection (Sclerae are anicteric), PERRL Ears: Normal External Exam, Hearing Grossly Normal Ear Exam: Bilateral Ear: Auricle Normal Nose: Normal Inspection, Normal Mucosa Throat/Mouth: Normal Voice, No Airway Compromise, Other (Dry mucous membranes) Head: Atraumatic, Normocephalic Neck: Normal Inspection, Supple, Non-Tender, Full Range of Motion Respiratory/Chest: No Respiratory Distress, No Accessory Muscle Use, Rales (And decreased breath sounds over right), Other (Some tenderness to palpation along his right anterior lateral chest jha at the costal margin.) Cardiovascular: Normal Peripheral Pulses, Regular Rate, Rhythm, No Murmur Peripheral Pulses: 2+: Radial (L), Radial (R) GI/Abdominal: Normal Bowel Sounds, Soft, No Mass, Other (Protuberant) Back Exam: Normal Inspection, Full Range of Motion Extremities: Normal Inspection, Normal Range of Motion, Non-Tender, No Pedal Edema, Normal Capillary Refill Neurological: Alert, Oriented, CN II-XII Intact, Normal Cognition, No Motor/Sensory Deficits, Other (Seems somewhat confabulatory today at times but does not appear to be confused as previous.) Psychiatric: Normal Affect Skin Exam: Warm, Dry, Intact, Normal Color, No Rash #1 Interpretation EKG Date: 09/07/20 Time: 11:11 Rhythm: NSR Rate (Beats/Min): 89 [place]: Normal P-Wave: Enlarged (Left atrial enlargement) QRS: Normal ST-T: Other (Anterior T-wave flattening) QT: Prolonged (Prolonged QTc) Comparison: No Change (From EKG performed on 09/04/2020.) Course - Vital Signs Last Recorded V/S: Last Vital Signs Temp 36.5 C 09/07/20 09:57 Pulse 99 09/07/20 09:57 Resp 20 09/07/20 09:57 BP 125/104 H 09/07/20 09:57 Pulse Ox 97 09/07/20 09:57 - Orders/Labs/Meds Orders: Active Orders 24 hr Category Date Time Status Admission Status [Patient Status] [ADT] Routine ADT 09/07/20 12:05 Active Cardiac Monitoring [RC] .As Directed Care 09/07/20 12:05 Active EKG Documentation Completion [RC] ASDIRECTED Care 09/07/20 10:58 Active Chest 2V [CR] Stat Exams 09/07/20 10:35 Taken CULTURE BLOOD [BC] Urgent Lab 09/07/20 10:55 Received CULTURE BLOOD [BC] Urgent Lab 09/07/20 11:02 Received Potassium Chloride [Klor-Con] Med 09/07/20 12:15 Active 40 meq PO ASDIRECTED Sodium Chloride 0.9% [Normal Saline] 1,000 ml Med 09/07/20 11:00 Active IV ASDIRECTED Sodium Chloride 0.9% [Saline Flush] Med 09/07/20 10:35 Active 10 ml FLUSH ASDIRECTED PRN Blood Culture x2 Reflex Set [OM.PC] Urgent Oth 09/07/20 10:35 Ordered Peripheral IV Insertion Adult [OM.PC] Routine Oth 09/07/20 10:35 Ordered EKG 12 Lead [EK] Routine Ther 09/07/20 10:57 Ordered Medication Orders Sodium Chloride (Normal Saline) 1,000 mls @ 150 mls/hr IV ASDIRECTED EMILY Potassium Chloride (Potassium Chloride 20 Meq Packet) 40 meq PO ASDIRECTED EMILY Sodium Chloride (Sodium Chloride 0.9% 10 Ml Syringe) 10 ml FLUSH ASDIRECTED PRN PRN Reason: Keep Vein Open Labs: Laboratory Tests 09/07/20 09/07/20 09/07/20 Range/Units 10:30 10:30 10:55 WBC 7.7 (3.2-10.1) x10-3/uL RBC 3.92 (3.90-5.90) x10(6)uL Hgb 11.2 L (12.9-17.7) g/dL Hct 33.2 L (38.3-50.1) % MCV 84.6 (80.8-98.7) fL MCH 28.5 (27.0-33.3) pg MCHC 33.7 (28.7-35.3) g/dL RDW 14.6 (12.4-15.0) % Plt Count 157 (117-477) x10(3)uL MPV 9.8 (6.7-11.0) fL Neut % (Auto) 78.1 H (40.3-71.8) % Lymph % (Auto) 11.8 L (15.8-45.3) % [place] % (Auto) 7.9 (5.5-15.2) % Eos % (Auto) 1.6 (0.1-6.8) % Baso % (Auto) 0.6 (0.3-3.8) % Neut # (Auto) 6.0 (1.7-6.9) x10-3/uL Lymph # (Auto) 0.9 (0.5-4.5) x10-3/uL [place] # (Auto) 0.6 (0.0-1.2) x10-3/uL Eos # (Auto) 0.1 (0.0-0.6) x10-3/uL Baso # (Auto) 0.0 (0.0-0.3) x10-3/uL Sodium (135-145) mmol/L Potassium (3.5-5.3) mmol/L Chloride (100-110) mmol/L Carbon Dioxide (21-32) mmol/L BUN (7-18) mg/dL Creatinine (0.70-1.30) mg/dL Est Cr Clr Drug Dosing mL/min Estimated GFR (MDRD) (>60) BUN/Creatinine Ratio (9-20) Glucose (80-116) mg/dL Lactic Acid (0.4-2.0) mmol/L Calcium (8.6-10.2) mg/dL Total Bilirubin (0.1-1.3) mg/dL AST (5-25) IU/L ALT (12-36) U/L Alkaline Phosphatase (56-112) IU/L Troponin I (4.0-60.3) pg/mL C-Reactive Protein (0.5-0.9) mg/dL Total Protein (6.0-8.0) g/dL Albumin (3.5-5.2) g/dL Globulin g/dL Albumin/Globulin Ratio Urine Color Yellow (YELLOW) Urine Appearance Clear (CLEAR) Urine pH 5.0 (5.0-6.5) Ur Specific [place] 1.015 (1.010-1.025) Urine Protein Trace (NEGATIVE) mg/dL Urine Glucose (UA) >1000 H (NORMAL) mg/dL Urine Ketones 15 H (NEGATIVE) mg/dL Urine Occult Blood Large H (NEGATIVE) Urine Nitrite Negative (NEGATIVE) Urine Bilirubin Negative (NEGATIVE) Urine Urobilinogen Normal (NEGATIVE) mg/dL Ur Leukocyte Esterase Negative (NEGATIVE) Urine RBC 5-10 H (0-5) Urine WBC 0-5 (0-5) Ur Squamous Epith Cells Rare (NS,R,O) Urine Bacteria Rare H (NS) Urine Opiates Screen Positive H (NEGATIVE) Ur Oxycodone Screen Negative (NEGATIVE) Ur Propoxyphene Screen Negative (NEGATIVE) Ur Barbituates Screen Negative (NEGATIVE) Ur Tricyclics Screen Positive H (NEGATIVE) Ur Phencyclidine Scrn Negative (NEGATIVE) Ur Amphetamine Screen Negative (NEGATIVE) Urine MDMA Screen Negative (NEGATIVE) U Benzodiazepines Scrn Negative (NEGATIVE) U Cocaine Metab Screen Negative (NEGATIVE) U Marijuana (THC) Screen Negative (NEGATIVE) 09/07/20 09/07/20 09/07/20 Range/Units 10:55 10:55 10:55 WBC (3.2-10.1) x10-3/uL RBC (3.90-5.90) x10(6)uL Hgb (12.9-17.7) g/dL Hct (38.3-50.1) % MCV (80.8-98.7) fL MCH (27.0-33.3) pg MCHC (28.7-35.3) g/dL RDW (12.4-15.0) % Plt Count (117-477) x10(3)uL MPV (6.7-11.0) fL Neut % (Auto) (40.3-71.8) % Lymph % (Auto) (15.8-45.3) % [place] % (Auto) (5.5-15.2) % Eos % (Auto) (0.1-6.8) % Baso % (Auto) (0.3-3.8) % Neut # (Auto) (1.7-6.9) x10-3/uL Lymph # (Auto) (0.5-4.5) x10-3/uL [place] # (Auto) (0.0-1.2) x10-3/uL Eos # (Auto) (0.0-0.6) x10-3/uL Baso # (Auto) (0.0-0.3) x10-3/uL Sodium 133 L (135-145) mmol/L Potassium 2.9 L (3.5-5.3) mmol/L Chloride 94 L (100-110) mmol/L Carbon Dioxide 27 (21-32) mmol/L BUN 22 H (7-18) mg/dL Creatinine 1.2 (0.70-1.30) mg/dL Est Cr Clr Drug Dosing 76.89 mL/min Estimated GFR (MDRD) > 60 (>60) BUN/Creatinine Ratio 18.3 (9-20) Glucose 276 H D (80-116) mg/dL Lactic Acid 0.4 (0.4-2.0) mmol/L Calcium 7.7 L (8.6-10.2) mg/dL Total Bilirubin 0.4 (0.1-1.3) mg/dL AST 73 H D (5-25) IU/L ALT 54 H D (12-36) U/L Alkaline Phosphatase 92 (56-112) IU/L Troponin I (4.0-60.3) pg/mL C-Reactive Protein 38.4 H* (0.5-0.9) mg/dL Total Protein 7.5 (6.0-8.0) g/dL Albumin 2.1 L (3.5-5.2) g/dL Globulin 5.4 g/dL Albumin/Globulin Ratio 0.4 Urine Color (YELLOW) Urine Appearance (CLEAR) Urine pH (5.0-6.5) Ur Specific [place] (1.010-1.025) Urine Protein (NEGATIVE) mg/dL Urine Glucose (UA) (NORMAL) mg/dL Urine Ketones (NEGATIVE) mg/dL Urine Occult Blood (NEGATIVE) Urine Nitrite (NEGATIVE) Urine Bilirubin (NEGATIVE) Urine Urobilinogen (NEGATIVE) mg/dL Ur Leukocyte Esterase (NEGATIVE) Urine RBC (0-5) Urine WBC (0-5) Ur Squamous Epith Cells (NS,R,O) Urine Bacteria (NS) Urine Opiates Screen (NEGATIVE) Ur Oxycodone Screen (NEGATIVE) Ur Propoxyphene Screen (NEGATIVE) Ur Barbituates Screen (NEGATIVE) Ur Tricyclics Screen (NEGATIVE) Ur Phencyclidine Scrn (NEGATIVE) Ur Amphetamine Screen (NEGATIVE) Urine MDMA Screen (NEGATIVE) U Benzodiazepines Scrn (NEGATIVE) U Cocaine Metab Screen (NEGATIVE) U Marijuana (THC) Screen (NEGATIVE) 09/07/20 Range/Units 10:55 WBC (3.2-10.1) x10-3/uL RBC (3.90-5.90) x10(6)uL Hgb (12.9-17.7) g/dL Hct (38.3-50.1) % MCV (80.8-98.7) fL MCH (27.0-33.3) pg MCHC (28.7-35.3) g/dL RDW (12.4-15.0) % Plt Count (117-477) x10(3)uL MPV (6.7-11.0) fL Neut % (Auto) (40.3-71.8) % Lymph % (Auto) (15.8-45.3) % [place] % (Auto) (5.5-15.2) % Eos % (Auto) (0.1-6.8) % Baso % (Auto) (0.3-3.8) % Neut # (Auto) (1.7-6.9) x10-3/uL Lymph # (Auto) (0.5-4.5) x10-3/uL [place] # (Auto) (0.0-1.2) x10-3/uL Eos # (Auto) (0.0-0.6) x10-3/uL Baso # (Auto) (0.0-0.3) x10-3/uL Sodium (135-145) mmol/L Potassium (3.5-5.3) mmol/L Chloride (100-110) mmol/L Carbon Dioxide (21-32) mmol/L BUN (7-18) mg/dL Creatinine (0.70-1.30) mg/dL Est Cr Clr Drug Dosing mL/min Estimated GFR (MDRD) (>60) BUN/Creatinine Ratio (9-20) Glucose (80-116) mg/dL Lactic Acid (0.4-2.0) mmol/L Calcium (8.6-10.2) mg/dL Total Bilirubin (0.1-1.3) mg/dL AST (5-25) IU/L ALT (12-36) U/L Alkaline Phosphatase (56-112) IU/L Troponin I 5.8 (4.0-60.3) pg/mL C-Reactive Protein (0.5-0.9) mg/dL Total Protein (6.0-8.0) g/dL Albumin (3.5-5.2) g/dL Globulin g/dL Albumin/Globulin Ratio Urine Color (YELLOW) Urine Appearance (CLEAR) Urine pH (5.0-6.5) Ur Specific [place] (1.010-1.025) Urine Protein (NEGATIVE) mg/dL Urine Glucose (UA) (NORMAL) mg/dL Urine Ketones (NEGATIVE) mg/dL Urine Occult Blood (NEGATIVE) Urine Nitrite (NEGATIVE) Urine Bilirubin (NEGATIVE) Urine Urobilinogen (NEGATIVE) mg/dL Ur Leukocyte Esterase (NEGATIVE) Urine RBC (0-5) Urine WBC (0-5) Ur Squamous Epith Cells (NS,R,O) Urine Bacteria (NS) Urine Opiates Screen (NEGATIVE) Ur Oxycodone Screen (NEGATIVE) Ur Propoxyphene Screen (NEGATIVE) Ur Barbituates Screen (NEGATIVE) Ur Tricyclics Screen (NEGATIVE) Ur Phencyclidine Scrn (NEGATIVE) Ur Amphetamine Screen (NEGATIVE) Urine MDMA Screen (NEGATIVE) U Benzodiazepines Scrn (NEGATIVE) U Cocaine Metab Screen (NEGATIVE) U Marijuana (THC) Screen (NEGATIVE) Meds: Medications Generic Name Dose Route Start Last Admin Trade Name Freq PRN Reason Stop Dose Admin Sodium Chloride 1,000 mls @ 150 mls/hr 09/07/20 11:00 Normal Saline IV ASDIRECTED EMILY Potassium Chloride 40 meq 09/07/20 12:15 Potassium Chloride 20 Meq Packet PO ASDIRECTED EMILY Sodium Chloride 10 ml 09/07/20 10:35 Sodium Chloride 0.9% 10 Ml Syringe FLUSH ASDIRECTED PRN Keep Vein Open Discontinued Medications Generic Name Dose Route Start Last Admin Trade Name Freq PRN Reason Stop Dose Admin Ceftriaxone Sodium 2 gm 09/07/20 10:48 09/07/20 11:57 Ceftriaxone 2 Gm Vial IVPUSH 09/07/20 10:49 2 gm ONETIME ONE Administration Sodium Chloride 1,000 mls @ 999 mls/hr 09/07/20 10:47 09/07/20 11:57 Normal Saline IV 09/07/20 11:47 999 mls/hr .BOLUS ONE Administration Azithromycin 500 mg/ Sodium 250 mls @ 250 mls/hr 09/07/20 10:48 09/07/20 12:04 Chloride IV 09/07/20 11:47 250 mls/hr ONETIME ONE Administration - Radiology Interpretation Free Text/Narrative:: Chest x-ray PA and lateral shows a densely consolidated right middle lobe infiltrate. - Re-Assessments/Exams Free Text/Narrative Re-Assessment/Exam: 09/07/20 11:50: The patient's white blood cell count is improved over previous. His potassium is still low and it is 2.9 today. His CRP remains elevated and is 38 today. A repeat chest x-ray PA and lateral shows a densely consolidated right middle lobe pneumonia. He does appear to be somewhat dehydrated and is receiving IV fluids now. With the patient having a blood culture positive for pneumococcus, and the densely consolidated pneumonia on the right and the associated risk factors, the patient would be best served admitted with IV antibiotics. I have discussed this with the patient and he would be agreeable to this today. I discussed the patient's case with Dr. Rogers, hospitalist at [facility], and he has agreed to admit the patient. The patient will be placed on observation status initially as it is unclear if he will need a greater then 2 midnight hospital stay. The patient is receiving Rocephin 2 g IV and Zithromax 500 mg IV as well as normal saline 1 L as a bolus now. I will also give him potassium 40 mEq by mouth. Departure - Departure Time of Disposition: 12:03 Disposition: Refer to Observation Condition: Fair (Stable) Clinical Impression: Pneumonia of right middle lobe due to Streptococcus pneumoniae, Bacteremia due to Streptococcus pneumoniae, Hypokalemia - Discharge Information Referrals: Omar Gao MD [Primary Care Provider] - Forms: ED Department Discharge Sepsis Event Note (ED) - Evaluation Sepsis Screening Result: No Definite Risk - Focused Exam Vital Signs: Vital Signs Temp Pulse Resp BP Pulse Ox 09/07/20 09:57 36.5 C 99 20 125/104 H 97 - My Orders Last 24 Hours: My Active Orders 09/07/20 10:35 Chest 2V [CR] Stat Sodium Chloride 0.9% [Saline Flush] 10 ml FLUSH ASDIRECTED PRN Blood Culture x2 Reflex Set [OM.PC] Urgent Peripheral IV Insertion Adult [OM.PC] Routine 09/07/20 10:55 CULTURE BLOOD [BC] Urgent 09/07/20 10:57 EKG 12 Lead [EK] Routine 09/07/20 10:58 EKG Documentation Completion [RC] ASDIRECTED 09/07/20 11:00 Sodium Chloride 0.9% [Normal Saline] 1,000 ml IV ASDIRECTED 09/07/20 11:02 CULTURE BLOOD [BC] Urgent 09/07/20 12:05 Admission Status [Patient Status] [ADT] Routine Cardiac Monitoring [RC] .As Directed 09/07/20 12:15 Potassium Chloride [Klor-Con] 40 meq PO ASDIRECTED - Assessment/Plan Last 24 Hours: My Active Orders 09/07/20 10:35 Chest 2V [CR] Stat Sodium Chloride 0.9% [Saline Flush] 10 ml FLUSH ASDIRECTED PRN Blood Culture x2 Reflex Set [OM.PC] Urgent Peripheral IV Insertion Adult [OM.PC] Routine 09/07/20 10:55 CULTURE BLOOD [BC] Urgent 09/07/20 10:57 EKG 12 Lead [EK] Routine 09/07/20 10:58 EKG Documentation Completion [RC] ASDIRECTED 09/07/20 11:00 Sodium Chloride 0.9% [Normal Saline] 1,000 ml IV ASDIRECTED 09/07/20 11:02 CULTURE BLOOD [BC] Urgent 09/07/20 12:05 Admission Status [Patient Status] [ADT] Routine Cardiac Monitoring [RC] .As Directed 09/07/20 12:15 Potassium Chloride [Klor-Con] 40 meq PO ASDIRECTED
[2020-09-07] MEDS ORDERED: Sodium Chloride 0.9% 10 ML Syringe FLUSH PRN (10:35)
[2020-09-07] MEDS ORDERED: Sodium Chloride 0.9% 1,000 ML IV ONE (10:47)
[2020-09-07] MEDS ORDERED: Azithromycin 500 MG in Sodium Chloride 0.9% 250 ML IV ONE (10:48)
[2020-09-07] MEDS ORDERED: cefTRIAXone 2 GM Vial IVPUSH ONE (10:48)
[2020-09-07] MEDS ORDERED: Potassium Chloride 20 MEQ Packet PO SCH (12:15)
[2020-09-07] MEDS ORDERED: Thiamine 100 MG Tab PO ONE (12:34)
[2020-09-07] MEDS ORDERED: Albuterol/Ipratropium 3.0-0.5 MG/3 ML Neb Soln NEB PRN (12:38)
[2020-09-07] MEDS ORDERED: Albuterol/Ipratropium 3.0-0.5 MG/3 ML Neb Soln NEB STA (12:39)
[2020-09-07] MEDS ORDERED: Enoxaparin 40 MG/0.4 ML Syringe SUBCUT ONE (12:40)
[2020-09-07] MEDS ORDERED: Nicotine 21 MG/24 Hr Patch TRDERM SCH (12:45)
[2020-09-07] MEDS ORDERED: Folic Acid/Vitamin B Complex With C Cap PO SCH (12:45)
[2020-09-07] MEDS ORDERED: 50% Dextrose in Water 50 ML Syringe IVPUSH PRN (12:51)
[2020-09-07] MEDS ORDERED: Glucagon,Human Recombinant 1 MG Vial IM PRN (12:51)
--- NOTE | 2020-09-07 12:59 | PCM.HP.2 ---
H&P History of Present Illness - General Date of Service: 09/07/20 Admit Problem/Dx: Admission Diagnosis/Problem Admission Diagnosis/Problem Right middle lobe pneumonia Source of Information: Patient, Old Records, Provider History Limitations: Reports: No Limitations - History of Present Illness Initial Comments - Free Text/Narative: 50-year-old gentleman was seen in the emergency department earlier in the week and diagnosed with pneumonia. Blood cultures grew Streptococcus pneumoniae and culture showed resistance to erythromycin. The patient left the hospital AMA. He was contacted today and informed that he had a resistant organism causing his pneumonia and he returned to the emergency department for further evaluation and treatment. Evaluation in the emergency department today showed that his leukocytosis has resolved and that he feels much better. Physical exam shows that he still has reduced breath sounds and wheezing bilaterally. Sensitivities show that the organism is sensitive to ceftriaxone. The patient was given an initial dose of 2 g ceftriaxone IV and 500 mg azithromycin. Note that the Streptococcus is also resistant to azithromycin. Patient will be placed in observation for further IV antibiotics. He will receive 1 g ceftriaxone tomorrow morning. He will be given duo nebs and azithromycin for COPD exacerbation secondary to wheezing. Review of medical records shows that he was prescribed azithromycin on 08/27/2020 due to shortness of breath with exertion. He was also prescribed codeineguaifenesin cough syrup. Onset of Symptoms: Reports: Gradual Right Upper Abdomen Pain Score (Numeric/FACES): 8 - Related Data Allergies/Adverse Reactions: Allergies Allergy/AdvReac Type Severity Reaction Status Date / Time ketorolac [From Toradol] Allergy Hives Verified 09/04/20 21:49 latex Allergy Hives Verified 09/04/20 21:49 Penicillins Allergy Hives Verified 09/04/20 21:49 Home Medications: Home Meds Aspirin [Lo-Dose Aspirin EC] 81 mg PO DAILY 01/02/18 [History] amLODIPine Besylate [Amlodipine Besylate] 10 mg PO DAILY 09/01/18 [History] Gabapentin [Neurontin] 800 mg PO TID PRN 09/09/18 [History] Liraglutide [Victoza 3-Leno] 1.2 mg SQ BID 09/09/18 [History] QUEtiapine Fumarate [Quetiapine Fumarate] 50 mg PO BEDTIME 03/02/19 [History] traZODone 50 mg PO BEDTIME PRN 03/02/19 [History] methocarbamoL [Robaxin] 750 mg PO TID 05/14/19 [History] Nitroglycerin 0.4 mg SL ASDIRECTED PRN 06/22/19 [History] Tamsulosin HCl 0.4 mg PO BEDTIME 06/22/19 [History] Ibuprofen 800 mg PO TID PRN #30 tablet 04/14/20 [Rx] Losartan [Cozaar] 100 mg PO DAILY 09/04/20 [History] Metoprolol Succinate [Toprol XL 100mg] 200 mg PO DAILY 09/04/20 [History] Past Medical History HEENT History: Reports: None Cardiovascular History: Reports: Aneurysm, High Cholesterol, Hypertension Respiratory History: Reports: Asthma, COPD, Sleep Apnea Gastrointestinal History: Reports: Other (See Below) Other Gastrointestinal History: hernia surg x 7 Genitourinary History: Reports: Renal Calculus Musculoskeletal History: Reports: Arthritis, Back Pain, Chronic, Fibromyalgia, Neck Pain, Chronic, Osteoarthritis Other Musculoskeletal History: chronic R knee pain Neurological History: Reports: Other (See Below) Other Neuro History: Insomnia Psychiatric History: Reports: Anxiety, Depression, Panic Attack Endocrine/Metabolic History: Reports: Diabetes, Type II, Obesity/BMI 30+ Hematologic History: Reports: Anticoagulation Therapy Immunologic History: Reports: None Oncologic (Cancer) History: Reports: Non-Hodgkin's Lymphoma Dermatologic History: Reports: None - Infectious Disease History Infectious Disease History: Reports: Chicken Pox - Past Surgical History Other GI Surgeries/Procedures: hernia repair x 7, mesh repair Social & Family History - Family History Family Medical History: No Pertinent Family History - Tobacco Use Tobacco Use Status *Q: Current Some Day Tobacco User Years of Tobacco use: 15 Packs/Tins Daily: 0 - Caffeine Use Caffeine Use: Reports: Tea - Recreational Drug Use Recreational Drug Use: No - Living Situation & Occupation Living situation: Reports: Occupation: Employed (Tells me that he works at the [employer]) H&P Review of Systems - Review of Systems: Review Of Systems: See Below General: Reports: No Symptoms HEENT: Reports: No Symptoms Pulmonary: Reports: Shortness of Breath, Wheezing Cardiovascular: Reports: No Symptoms Gastrointestinal: Reports: No Symptoms Genitourinary: Reports: No Symptoms Musculoskeletal: Reports: Muscle Pain, Other (Right-sided rib pain, right hip/groin pain) Skin: Reports: No Symptoms Psychiatric: Reports: No Symptoms Hematologic/Lymphatic: Reports: No Symptoms Immunologic: Reports: No Symptoms Exam - Exam Exam: See Below - Vital Signs Vital Signs: Last Vital Signs Temp 36.5 C 09/07/20 09:57 Pulse 97 09/07/20 12:16 Resp 20 09/07/20 12:16 BP 139/87 09/07/20 12:16 Pulse Ox 100 09/07/20 12:16 Weight: 118.841 kg - Exam Quality Assessment: Supplemental Oxygen, DVT Prophylaxis, Skin Breakdown, Other (Patient was able to stand up next to the bed for the exam without any difficulties) General: Alert, Oriented, Cooperative HEENT: EOMI Lungs: Decreased Breath Sounds, Crackles, Wheezing Cardiovascular: Regular Rate, Regular Rhythm, Other (Heart sounds are distant and difficult to auscultate) GI/Abdominal Exam: Normal Bowel Sounds, Non-Tender Back Exam: Normal Inspection Extremities: Normal Inspection Peripheral Pulses: 2+: Radial (L), Radial (R), Dorsalis Pedis (L), Dorsalis Pedis (R) Skin: Warm, Dry, Intact Neurological: Cranial Nerves Intact Neuro Extensive - Mental Status: Alert, Oriented x3, Normal Mood/Affect Psychiatric: Alert, Normal Affect, Normal Mood - Patient Data Lab Results Last 24 hrs: Laboratory Results - last 24 hr 09/07/20 09/07/20 09/07/20 Range/Units 10:30 10:30 10:55 WBC 7.7 (3.2-10.1) x10-3/uL RBC 3.92 (3.90-5.90) x10(6)uL Hgb 11.2 L (12.9-17.7) g/dL Hct 33.2 L (38.3-50.1) % MCV 84.6 (80.8-98.7) fL MCH 28.5 (27.0-33.3) pg MCHC 33.7 (28.7-35.3) g/dL RDW 14.6 (12.4-15.0) % Plt Count 157 (117-477) x10(3)uL MPV 9.8 (6.7-11.0) fL Neut % (Auto) 78.1 H (40.3-71.8) % Lymph % (Auto) 11.8 L (15.8-45.3) % Wise % (Auto) 7.9 (5.5-15.2) % Eos % (Auto) 1.6 (0.1-6.8) % Baso % (Auto) 0.6 (0.3-3.8) % Neut # (Auto) 6.0 (1.7-6.9) x10-3/uL Lymph # (Auto) 0.9 (0.5-4.5) x10-3/uL Wise # (Auto) 0.6 (0.0-1.2) x10-3/uL Eos # (Auto) 0.1 (0.0-0.6) x10-3/uL Baso # (Auto) 0.0 (0.0-0.3) x10-3/uL Sodium (135-145) mmol/L Potassium (3.5-5.3) mmol/L Chloride (100-110) mmol/L Carbon Dioxide (21-32) mmol/L BUN (7-18) mg/dL Creatinine (0.70-1.30) mg/dL Est Cr Clr Drug Dosing mL/min Estimated GFR (MDRD) (>60) BUN/Creatinine Ratio (9-20) Glucose (80-116) mg/dL Lactic Acid (0.4-2.0) mmol/L Calcium (8.6-10.2) mg/dL Total Bilirubin (0.1-1.3) mg/dL AST (5-25) IU/L ALT (12-36) U/L Alkaline Phosphatase (56-112) IU/L Troponin I (4.0-60.3) pg/mL C-Reactive Protein (0.5-0.9) mg/dL Total Protein (6.0-8.0) g/dL Albumin (3.5-5.2) g/dL Globulin g/dL Albumin/Globulin Ratio Urine Color Yellow (YELLOW) Urine Appearance Clear (CLEAR) Urine pH 5.0 (5.0-6.5) Ur Specific [place] 1.015 (1.010-1.025) Urine Protein Trace (NEGATIVE) mg/dL Urine Glucose (UA) >1000 H (NORMAL) mg/dL Urine Ketones 15 H (NEGATIVE) mg/dL Urine Occult Blood Large H (NEGATIVE) Urine Nitrite Negative (NEGATIVE) Urine Bilirubin Negative (NEGATIVE) Urine Urobilinogen Normal (NEGATIVE) mg/dL Ur Leukocyte Esterase Negative (NEGATIVE) Urine RBC 5-10 H (0-5) Urine WBC 0-5 (0-5) Ur Squamous Epith Cells Rare (NS,R,O) Urine Bacteria Rare H (NS) Urine Opiates Screen Positive H (NEGATIVE) Ur Oxycodone Screen Negative (NEGATIVE) Ur Propoxyphene Screen Negative (NEGATIVE) Ur Barbituates Screen Negative (NEGATIVE) Ur Tricyclics Screen Positive H (NEGATIVE) Ur Phencyclidine Scrn Negative (NEGATIVE) Ur Amphetamine Screen Negative (NEGATIVE) Urine MDMA Screen Negative (NEGATIVE) U Benzodiazepines Scrn Negative (NEGATIVE) U Cocaine Metab Screen Negative (NEGATIVE) U Marijuana (THC) Screen Negative (NEGATIVE) 09/07/20 09/07/20 09/07/20 Range/Units 10:55 10:55 10:55 WBC (3.2-10.1) x10-3/uL RBC (3.90-5.90) x10(6)uL Hgb (12.9-17.7) g/dL Hct (38.3-50.1) % MCV (80.8-98.7) fL MCH (27.0-33.3) pg MCHC (28.7-35.3) g/dL RDW (12.4-15.0) % Plt Count (117-477) x10(3)uL MPV (6.7-11.0) fL Neut % (Auto) (40.3-71.8) % Lymph % (Auto) (15.8-45.3) % Wise % (Auto) (5.5-15.2) % Eos % (Auto) (0.1-6.8) % Baso % (Auto) (0.3-3.8) % Neut # (Auto) (1.7-6.9) x10-3/uL Lymph # (Auto) (0.5-4.5) x10-3/uL Wise # (Auto) (0.0-1.2) x10-3/uL Eos # (Auto) (0.0-0.6) x10-3/uL Baso # (Auto) (0.0-0.3) x10-3/uL Sodium 133 L (135-145) mmol/L Potassium 2.9 L (3.5-5.3) mmol/L Chloride 94 L (100-110) mmol/L Carbon Dioxide 27 (21-32) mmol/L BUN 22 H (7-18) mg/dL Creatinine 1.2 (0.70-1.30) mg/dL Est Cr Clr Drug Dosing 76.89 mL/min Estimated GFR (MDRD) > 60 (>60) BUN/Creatinine Ratio 18.3 (9-20) Glucose 276 H D (80-116) mg/dL Lactic Acid 0.4 (0.4-2.0) mmol/L Calcium 7.7 L (8.6-10.2) mg/dL Total Bilirubin 0.4 (0.1-1.3) mg/dL AST 73 H D (5-25) IU/L ALT 54 H D (12-36) U/L Alkaline Phosphatase 92 (56-112) IU/L Troponin I (4.0-60.3) pg/mL C-Reactive Protein 38.4 H* (0.5-0.9) mg/dL Total Protein 7.5 (6.0-8.0) g/dL Albumin 2.1 L (3.5-5.2) g/dL Globulin 5.4 g/dL Albumin/Globulin Ratio 0.4 Urine Color (YELLOW) Urine Appearance (CLEAR) Urine pH (5.0-6.5) Ur Specific [place] (1.010-1.025) Urine Protein (NEGATIVE) mg/dL Urine Glucose (UA) (NORMAL) mg/dL Urine Ketones (NEGATIVE) mg/dL Urine Occult Blood (NEGATIVE) Urine Nitrite (NEGATIVE) Urine Bilirubin (NEGATIVE) Urine Urobilinogen (NEGATIVE) mg/dL Ur Leukocyte Esterase (NEGATIVE) Urine RBC (0-5) Urine WBC (0-5) Ur Squamous Epith Cells (NS,R,O) Urine Bacteria (NS) Urine Opiates Screen (NEGATIVE) Ur Oxycodone Screen (NEGATIVE) Ur Propoxyphene Screen (NEGATIVE) Ur Barbituates Screen (NEGATIVE) Ur Tricyclics Screen (NEGATIVE) Ur Phencyclidine Scrn (NEGATIVE) Ur Amphetamine Screen (NEGATIVE) Urine MDMA Screen (NEGATIVE) U Benzodiazepines Scrn (NEGATIVE) U Cocaine Metab Screen (NEGATIVE) U Marijuana (THC) Screen (NEGATIVE) 09/07/20 Range/Units 10:55 WBC (3.2-10.1) x10-3/uL RBC (3.90-5.90) x10(6)uL Hgb (12.9-17.7) g/dL Hct (38.3-50.1) % MCV (80.8-98.7) fL MCH (27.0-33.3) pg MCHC (28.7-35.3) g/dL RDW (12.4-15.0) % Plt Count (117-477) x10(3)uL MPV (6.7-11.0) fL Neut % (Auto) (40.3-71.8) % Lymph % (Auto) (15.8-45.3) % Wise % (Auto) (5.5-15.2) % Eos % (Auto) (0.1-6.8) % Baso % (Auto) (0.3-3.8) % Neut # (Auto) (1.7-6.9) x10-3/uL Lymph # (Auto) (0.5-4.5) x10-3/uL Wise # (Auto) (0.0-1.2) x10-3/uL Eos # (Auto) (0.0-0.6) x10-3/uL Baso # (Auto) (0.0-0.3) x10-3/uL Sodium (135-145) mmol/L Potassium (3.5-5.3) mmol/L Chloride (100-110) mmol/L Carbon Dioxide (21-32) mmol/L BUN (7-18) mg/dL Creatinine (0.70-1.30) mg/dL Est Cr Clr Drug Dosing mL/min Estimated GFR (MDRD) (>60) BUN/Creatinine Ratio (9-20) Glucose (80-116) mg/dL Lactic Acid (0.4-2.0) mmol/L Calcium (8.6-10.2) mg/dL Total Bilirubin (0.1-1.3) mg/dL AST (5-25) IU/L ALT (12-36) U/L Alkaline Phosphatase (56-112) IU/L Troponin I 5.8 (4.0-60.3) pg/mL C-Reactive Protein (0.5-0.9) mg/dL Total Protein (6.0-8.0) g/dL Albumin (3.5-5.2) g/dL Globulin g/dL Albumin/Globulin Ratio Urine Color (YELLOW) Urine Appearance (CLEAR) Urine pH (5.0-6.5) Ur Specific [place] (1.010-1.025) Urine Protein (NEGATIVE) mg/dL Urine Glucose (UA) (NORMAL) mg/dL Urine Ketones (NEGATIVE) mg/dL Urine Occult Blood (NEGATIVE) Urine Nitrite (NEGATIVE) Urine Bilirubin (NEGATIVE) Urine Urobilinogen (NEGATIVE) mg/dL Ur Leukocyte Esterase (NEGATIVE) Urine RBC (0-5) Urine WBC (0-5) Ur Squamous Epith Cells (NS,R,O) Urine Bacteria (NS) Urine Opiates Screen (NEGATIVE) Ur Oxycodone Screen (NEGATIVE) Ur Propoxyphene Screen (NEGATIVE) Ur Barbituates Screen (NEGATIVE) Ur Tricyclics Screen (NEGATIVE) Ur Phencyclidine Scrn (NEGATIVE) Ur Amphetamine Screen (NEGATIVE) Urine MDMA Screen (NEGATIVE) U Benzodiazepines Scrn (NEGATIVE) U Cocaine Metab Screen (NEGATIVE) U Marijuana (THC) Screen (NEGATIVE) Result Diagrams: 09/07/20 10:55 09/07/20 10:55 Sepsis Event Note - Evaluation Sepsis Screening Result: No Definite Risk - Focused Exam Vital Signs: Vital Signs Temp Pulse Resp BP Pulse Ox 09/07/20 12:16 97 20 139/87 100 09/07/20 12:01 87 20 119/91 H 98 09/07/20 11:49 91 20 133/87 100 09/07/20 11:14 89 20 117/77 98 09/07/20 11:02 95 20 128/82 97 09/07/20 10:47 95 20 141/89 H 98 09/07/20 10:30 100 20 125/90 98 09/07/20 10:15 97 20 126/82 97 09/07/20 10:00 99 20 132/85 99 09/07/20 09:59 101 H 20 139/84 09/07/20 09:57 36.5 C 99 20 125/104 H 97 - Problem List (1) Bacteremia due to Streptococcus pneumoniae SNOMED Code(s): 200879883759 ICD Code: R78.81 - BACTEREMIA; B95.3 - STREPTOCOCCUS PNEUMONIAE CAUSING DISEASES CLASSD ELSWHR Status: Acute Current Visit: Yes (2) Hypokalemia SNOMED Code(s): 00974096 ICD Code: E87.6 - HYPOKALEMIA Status: Acute Current Visit: Yes (3) Pneumonia of right middle lobe due to Streptococcus pneumoniae SNOMED Code(s): 550485180, 152392023 ICD Code: J13 - PNEUMONIA DUE TO STREPTOCOCCUS PNEUMONIAE Status: Acute Current Visit: Yes (4) Abdominal pain SNOMED Code(s): 01830989 ICD Code: R10.9 - UNSPECIFIED ABDOMINAL PAIN Status: Chronic Current Visit: No Problem Details: Abdominal pain with features for ureterolithiasis. Hematuria was present. He was sent home on Tramadol 50 mg q 4-6 hrs prn for pain, advised to strain urine, and follow up with PCP tomorrow. (5) Diabetes mellitus type 2, uncontrolled SNOMED Code(s): 727189022, 022016344 ICD Code: E11.65 - TYPE 2 DIABETES MELLITUS WITH HYPERGLYCEMIA Status: Chronic Current Visit: No Qualifiers: Glycemic state: with hyperglycemia Qualified Code(s): E11.65 - Type 2 diabetes mellitus with hyperglycemia (6) HTN (hypertension) SNOMED Code(s): 35483120 ICD Code: I10 - ESSENTIAL (PRIMARY) HYPERTENSION Status: Chronic Current Visit: No Qualifiers: Hypertension type: essential hypertension Qualified Code(s): I10 - Essent ial (primary) hypertension (7) Morbid obesity SNOMED Code(s): 332500179 ICD Code: E66.01 - MORBID (SEVERE) OBESITY DUE TO EXCESS CALORIES Status: Chronic Current Visit: No (8) SOB (shortness of breath) SNOMED Code(s): 711546749 ICD Code: R06.02 - SHORTNESS OF BREATH Status: Acute Current Visit: No (9) Tobacco abuse SNOMED Code(s): 159263697 ICD Code: Z72.0 - TOBACCO USE Status: Chronic Current Visit: No Problem List Initiated/Reviewed/Updated: Yes Orders Last 24hrs: Active Orders 24 hr Category Date Time Status Admission Status [Patient Status] [ADT] Routine ADT 09/07/20 12:05 Active Patient Status [ADT] Routine ADT 09/07/20 12:29 Ordered Antiembolic Devices [RC] .Routine Care 09/07/20 12:30 Ordered Blood Glucose Check, Bedside [RC] QIDACANDBED Care 09/07/20 12:51 Ordered Cardiac Monitoring [RC] .As Directed Care 09/07/20 12:05 Active EKG Documentation Completion [RC] ASDIRECTED Care 09/07/20 10:58 Active Pulse Oximetry [RC] PRN Care 09/07/20 12:29 Ordered RT Aerosol Therapy [RC] ASDIRECTED Care 09/07/20 12:39 Ordered RT Aerosol Therapy [RC] ASDIRECTED Care 09/07/20 12:40 Ordered Up ad Ligia [RC] ASDIRECTED Care 09/07/20 12:29 Ordered VTE/DVT Education [RC] Click to Edit Care 09/07/20 12:30 Ordered Vital Signs [RC] Q4H Care 09/07/20 12:29 Ordered Heart Healthy Diet [DIET] Diet 09/07/20 Lunch Ordered Chest 2V [CR] Stat Exams 09/07/20 10:35 Taken BASIC METABOLIC PANEL,BMP [CHEM] Routine Lab 09/08/20 Ordered CBC WITH AUTO DIFF [HEME] Routine Lab 09/08/20 Ordered CULTURE BLOOD [BC] Urgent Lab 09/07/20 10:55 Received CULTURE BLOOD [BC] Urgent Lab 09/07/20 11:02 Received Albuterol/Ipratropium [DuoNeb 3.0-0.5 MG/3 ML] Med 09/07/20 12:38 Ordered 3 ml NEB Q4H PRN Azithromycin [Zithromax] Med 09/08/20 09:00 Ordered 500 mg PO DAILY Dextrose 50% in Water Med 09/07/20 12:51 Ordered 50 ml IVPUSH ASDIRECTED PRN Folic Acid/Vitamin B Comp W-C [Renal Caps Softgel] Med 09/07/20 12:45 Ordered 1 cap PO DAILY Glucagon,Human Recombinant [GlucaGen] Med 09/07/20 12:51 Ordered 1 mg IM ASDIRECTED PRN Insulin Lispro [HumaLOG] Med 09/07/20 18:00 Ordered See Protocol SUBCUT TIDMEALS Nicotine [Habitrol] Med 09/07/20 12:45 Ordered 21 mg TRDERM DAILY Potassium Chloride [Klor-Con] Med 09/07/20 12:15 Active 40 meq PO ASDIRECTED Sodium Chloride 0.9% [Normal Saline] 1,000 ml Med 09/07/20 11:00 Active IV ASDIRECTED Sodium Chloride 0.9% [Saline Flush] Med 09/07/20 10:35 Active 10 ml FLUSH ASDIRECTED PRN cefTRIAXone [Rocephin] Med 09/08/20 07:00 Ordered 1 gm IVPUSH Q24H Blood Culture x2 Reflex Set [OM.PC] Urgent Oth 09/07/20 10:35 Ordered DVT/VTE Prophylaxis Reflex [OM.PC] Per Unit Routine Oth 09/07/20 12:29 Ordered Peripheral IV Insertion Adult [OM.PC] Routine Oth 09/07/20 10:35 Ordered Resuscitation Status Routine Resus Stat 09/07/20 12:29 Ordered EKG 12 Lead [EK] Routine Ther 09/07/20 10:57 Ordered Medication Orders Albuterol/Ipratropium (Albuterol/Ipratropium 3.0-0.5 Mg/3 Ml Neb Soln) 3 ml NEB Q4H PRN PRN Reason: Wheezing Azithromycin (Azithromycin 250 Mg Tab) 500 mg PO DAILY EMILY Ceftriaxone Sodium (Ceftriaxone 1 Gm Vial) 1 gm IVPUSH Q24H EMILY Dextrose/Water (50% Dextrose In Water 50 Ml Syringe) 50 ml IVPUSH ASDIRECTED PRN PRN Reason: Hypoglycemia Glucagon (Glucagon,Human Recombinant 1 Mg Vial) 1 mg IM ASDIRECTED PRN PRN Reason: Hypoglycemia Sodium Chloride (Normal Saline) 1,000 mls @ 150 mls/hr IV ASDIRECTED EMILY Insulin Human Lispro (Insulin Lispro 100 Unit/Ml 3 Ml Kwikpen) 0 unit SUBCUT TIDMEALS EMILY; Protocol Multivit/Ca Carb/B Cmplx/FA/Prenat (Folic Acid/Vitamin B Complex With C Cap) 1 cap PO DAILY [facility] Nicotine (Nicotine 21 Mg/24 Hr Patch) 21 mg TRDERM DAILY [facility] Potassium Chloride (Potassium Chloride 20 Meq Packet) 40 meq PO ASDIRECTED EMILY Sodium Chloride (Sodium Chloride 0.9% 10 Ml Syringe) 10 ml FLUSH ASDIRECTED PRN PRN Reason: Keep Vein Open Assessment/Plan Comment:: 1. Admit to observation. Patient will be given 1 g ceftriaxone IV tomorrow morning and will receive 500 mg azithromycin, p.o. Patient will be started on cefdinir in the afternoon. 2. Azithromycin, duo nebs for what is likely acute exacerbation of COPD 3. Potassium on admission was 2.9. Patient was given 40 mg p.o. potassium in the emergency department, magnesium is 2.1, continue to replete potassium and recheck potassium in the morning. Note that the patient has pseudohyponatremia. 4. Sliding scale insulin for blood glucose control 5. Patient's urine drug screen was positive for opioids. Patient was prescrib ed codeineguaifenesin cough syrup on 08/27/2020 6. DVT prophylaxis: Enoxaparin, 40 mg subcu daily 7. Heart healthy diet, patient will be given thiamine, folate/B12 vitamins p.o. 8. Continue home medications as above for chronic conditions 9. Disposition: We will recheck labs in the morning and if the patient continues to feel well and labs are within normal limits patient will likely be discharged home tomorrow with 1 more day of azithromycin, albuterol inhaler, cefdinir for 8 days, and recommend follow-up with primary care physician within the week
[2020-09-07] MEDS ORDERED: Nitroglycerin 0.4 MG Tab.SL SL PRN (13:43)
[2020-09-07] MEDS ORDERED: Gabapentin 400 MG Cap PO PRN (13:43)
[2020-09-07] MEDS ORDERED: traZODone 100 MG Tab PO PRN (13:43)
[2020-09-07] MEDS ORDERED: Ibuprofen 800 MG Tab PO PRN (13:43)
[2020-09-07] MEDS ORDERED: Acetaminophen 325 MG Tab PO PRN (13:50)
[2020-09-07] MEDS ORDERED: Potassium Chloride 20 MEQ Tab.ER ONE (14:04)
[2020-09-07] MEDS: Potassium Chloride 20 MEQ Tab.ER PO SCH ×2 (14:06→20:17)
[2020-09-07] MEDS: Sodium Chloride 0.9% 1,000 ML IV SCH ×2 (16:30→23:56)
[2020-09-07] MEDS ORDERED: traMADol 50 MG Tab PO PRN (17:30)
[2020-09-07] MEDS ORDERED: Insulin Lispro 100 Unit/ML 3 ML KwikPen SUBCUT ONE (17:48)
[2020-09-07] MEDS ORDERED: Insulin Lispro 100 Unit/ML 3 ML KwikPen SUBCUT SCH (18:00)
[2020-09-07] MEDS ORDERED: Acetaminophen/HYDROcodone 325-5 MG Tab PO PRN (19:35)
[2020-09-07] MEDS: Methocarbamol 750 MG Tab PO SCH ×2 (20:10→21:26)
[2020-09-07] MEDS ORDERED: Tamsulosin 0.4 MG Cap.ER PO SCH (21:00)
[2020-09-08] MEDS: Sodium Chloride 0.9% 1,000 ML IV SCH (06:19)
[2020-09-08] MEDS ORDERED: cefTRIAXone 1 GM Vial IVPUSH SCH (07:00)
[2020-09-08] MEDS ORDERED: cefTRIAXone 1 GM in Sodium Chloride 0.9% 50 ML IV ONE (07:29)
[2020-09-08] MEDS: Potassium Chloride 20 MEQ Tab.ER PO SCH (07:34)
[2020-09-08] MEDS ORDERED: cefTRIAXone 1 GM Vial IVPUSH ONE (07:45)
[2020-09-08] MEDS ORDERED: Levofloxacin 250 MG Tab PO ONE (07:55)
--- NOTE | 2020-09-08 08:06 | PCM.DCSUM1 ---
Discharge Summary - Hospital Course Free Text/Narrative:: 50-year-old gentleman with a long and complicated past medical history including noncompliance came to the emergency department on approximately 09/04/2020 and was diagnosed with pneumonia. He left the hospital AMA. Blood cultures resulted in the a.m. hours of 09/07/2020 and showed Streptococcus pneumoniae resistant to azithromycin and erythromycin. 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 The patient did not olive picker the Levaquin. Patient was contacted in the morning of 09/07/2020 and did return to the hospital. He received 2 g ceftriaxone IV on 09/07 and 2 g ceftriaxone IV on 09/08. He also received treatment for COPD exacerbation including azithromycin, 500 mg daily for 2 days. I advised him that the appropriate treatment for streptococcal bacteremia was hospital with IV antibiotics and that failure to treat this infection properly could result in adverse effects up to and including . The patient expressed understanding and stated that he is going to leave the hospital today whether we discharge him or not. I consulted infectious disease regarding this case. The patient will be started on Levaquin, 750 mg daily starting today. He will continue with 9 additional days of Levaquin, 750 mg daily upon discharge. He is encouraged to follow-up with his primary care physician. He states that he has an appointment with his primary care physician tomorrow. Diagnosis: Stroke: No - Discharge Data Discharge Date: 09/08/20 Discharge Disposition: Home, Self-Care 01 Condition: Fair - Referral to Home Health Primary Care Physician: Omar Gao MD - Discharge Diagnosis/Problem(s) (1) Bacteremia due to Streptococcus pneumoniae SNOMED Code(s): 766097351057 ICD Code: R78.81 - BACTEREMIA; B95.3 - STREPTOCOCCUS PNEUMONIAE CAUSING DISEASES CLASSD [id number] Status: Acute Current Visit: Yes (2) Hypokalemia SNOMED Code(s): 89854478 ICD Code: E87.6 - HYPOKALEMIA Status: Resolved Current Visit: Yes (3) Pneumonia of right middle lobe due to Streptococcus pneumoniae SNOMED Code(s): 736055185, 366490393 ICD Code: J13 - PNEUMONIA DUE TO STREPTOCOCCUS PNEUMONIAE Status: Acute Current Visit: Yes (4) Abdominal pain SNOMED Code(s): 06664790 ICD Code: R10.9 - UNSPECIFIED ABDOMINAL PAIN Status: Chronic Current Visit: No Problem Details: Abdominal pain with features for ureterolithiasis. Hematuria was present. He was sent home on Tramadol 50 mg q 4-6 hrs prn for pain, advised to strain urine, and follow up with PCP tomorrow. (5) Diabetes mellitus type 2, uncontrolled SNOMED Code(s): 006638450, 397222410 ICD Code: E11.65 - TYPE 2 DIABETES MELLITUS WITH HYPERGLYCEMIA Status: Chronic Current Visit: No Qualifiers: Glycemic state: with hyperglycemia Qualified Code(s): E11.65 - Type 2 di abetes mellitus with hyperglycemia (6) HTN (hypertension) SNOMED Code(s): 01860642 ICD Code: I10 - ESSENTIAL (PRIMARY) HYPERTENSION Status: Chronic Current Visit: No Qualifiers: Hypertension type: essential hypertension Qualified Code(s): I10 - Essential (primary) hypertension (7) Morbid obesity SNOMED Code(s): 298585729 ICD Code: E66.01 - MORBID (SEVERE) OBESITY DUE TO EXCESS CALORIES Status: Chronic Current Visit: No (8) SOB (shortness of breath) SNOMED Code(s): 502150470 ICD Code: R06.02 - SHORTNESS OF BREATH Status: Acute Current Visit: No (9) Tobacco abuse SNOMED Code(s): 057742577 ICD Code: Z72.0 - TOBACCO USE Status: Chronic Current Visit: No (10) Leukocytosis SNOMED Code(s): 385283301, 194407242 ICD Code: D72.829 - ELEVATED WHITE BLOOD CELL COUNT, UNSPECIFIED Status: Acute Current Visit: Yes - Patient Instructions Diet: Heart Healthy Diet Showering/Bathing: May Shower - Discharge Plan *PRESCRIPTION DRUG MONITORING PROGRAM REVIEWED*: Not Applicable *COPY OF PRESCRIPTION DRUG MONITORING REPORT IN PATIENT HERSON: Not Applicable Prescriptions/Med Rec: Albuterol Sulfate [Albuterol Sulfate Hfa] 18 gm IH Q4HR PRN #1 hfa.aer.ad PRN Reason: Wheezing levoFLOXacin [Levaquin] 750 mg PO DAILY #9 tab Home Medications: Home Meds Aspirin [Lo-Dose Aspirin EC] 81 mg PO DAILY 01/02/18 [History] amLODIPine Besylate [Amlodipine Besylate] 10 mg PO DAILY 09/01/18 [History] Gabapentin [Neurontin] 800 mg PO TID PRN 09/09/18 [History] Liraglutide [Victoza] 1.2 mg SQ BID 09/09/18 [History] QUEtiapine Fumarate [Quetiapine Fumarate] 50 mg PO BEDTIME 03/02/19 [History] traZODone 50 mg PO BEDTIME PRN 03/02/19 [History] methocarbamoL [Robaxin] 750 mg PO TID 05/14/19 [History] Nitroglycerin 0.4 mg SL ASDIRECTED PRN 06/22/19 [History] Tamsulosin HCl 0.4 mg PO BEDTIME 06/22/19 [History] Ibuprofen 800 mg PO TID PRN #30 tablet 04/14/20 [Rx] Losartan [Cozaar] 100 mg PO DAILY 09/04/20 [History] Metoprolol Succinate [Toprol XL 100mg] 200 mg PO DAILY 09/04/20 [History] Albuterol Sulfate [Albuterol Sulfate Hfa] 18 gm IH Q4HR PRN #1 hfa.aer.ad 09/08/20 [Rx] levoFLOXacin [Levaquin] 750 mg PO DAILY #9 tab 09/08/20 [Rx] Forms: ED Department Discharge Referrals: Omar Gao MD [Primary Care Provider] - - Discharge Summary/Plan Comment DC Time >30 min.: Yes - General Info Date of Service: 09/08/20 Admission Dx/Problem (Free Text: Admission Diagnosis/Problem Admission Diagnosis/Problem Right middle lobe pneumonia Functional Status: Reports: Pain Controlled, Tolerating Diet, Ambulating, Urinating - Review of Systems General: Reports: No Symptoms HEENT: Reports: No Symptoms Pulmonary: Reports: No Symptoms Cardiovascular: Reports: No Symptoms Gastrointestinal: Reports: Abdominal Pain Genitourinary: Reports: No Symptoms Musculoskeletal: Reports: Leg Pain Skin: Reports: No Symptoms Neurological: Reports: No Symptoms Psychiatric: Reports: No Symptoms - Patient Data Vitals - Most Recent: Last Vital Signs Temp 36.3 C 09/08/20 04:00 Pulse 92 09/08/20 04:00 Resp 18 09/08/20 04:00 BP 132/87 09/08/20 04:00 Pulse Ox 97 09/08/20 04:00 Weight - Most Recent: 121.744 kg I&O - Last 24 hours: Intake & Output 09/07/20 09/08/20 09/08/20 22:59 06:59 14:59 Intake Total 1945 986 Balance 1945 986 Lab Results - Last 24 hrs: Laboratory Results - last 24 hr 09/07/20 09/07/20 09/07/20 Range/Units 10:30 10:30 10:55 WBC 7.7 (3.2-10.1) x10-3/uL RBC 3.92 (3.90-5.90) x10(6)uL Hgb 11.2 L (12.9-17.7) g/dL Hct 33.2 L (38.3-50.1) % MCV 84.6 (80.8-98.7) fL MCH 28.5 (27.0-33.3) pg MCHC 33.7 (28.7-35.3) g/dL RDW 14.6 (12.4-15.0) % Plt Count 157 (117-477) x10(3)uL MPV 9.8 (6.7-11.0) fL Neut % (Auto) 78.1 H (40.3-71.8) % Lymph % (Auto) 11.8 L (15.8-45.3) % [place] % (Auto) 7.9 (5.5-15.2) % Eos % (Auto) 1.6 (0.1-6.8) % Baso % (Auto) 0.6 (0.3-3.8) % Neut # (Auto) 6.0 (1.7-6.9) x10-3/uL Lymph # (Auto) 0.9 (0.5-4.5) x10-3/uL [place] # (Auto) 0.6 (0.0-1.2) x10-3/uL Eos # (Auto) 0.1 (0.0-0.6) x10-3/uL Baso # (Auto) 0.0 (0.0-0.3) x10-3/uL Add Manual Diff Neutrophils % (Manual) (46-82) % Lymphocytes % (Manual) (13-37) % Monocytes % (Manual) (4-12) % Eosinophils % (Manual) (0-5) % Sodium (135-145) mmol/L Potassium (3.5-5.3) mmol/L Chloride (100-110) mmol/L Carbon Dioxide (21-32) mmol/L BUN (7-18) mg/dL Creatinine (0.70-1.30) mg/dL Est Cr Clr Drug Dosing mL/min Estimated GFR (MDRD) (>60) BUN/Creatinine Ratio (9-20) Glucose (80-116) mg/dL POC Glucose (80-116) mg/dL Lactic Acid (0.4-2.0) mmol/L Calcium (8.6-10.2) mg/dL Magnesium (1.8-2.5) mg/dL Total Bilirubin (0.1-1.3) mg/dL AST (5-25) IU/L ALT (12-36) U/L Alkaline Phosphatase (56-112) IU/L Troponin I (4.0-60.3) pg/mL C-Reactive Protein (0.5-0.9) mg/dL Total Protein (6.0-8.0) g/dL Albumin (3.5-5.2) g/dL Globulin g/dL Albumin/Globulin Ratio Urine Color Yellow (YELLOW) Urine Appearance Clear (CLEAR) Urine pH 5.0 (5.0-6.5) Ur Specific [place] 1.015 (1.010-1.025) Urine Protein Trace (NEGATIVE) mg/dL Urine Glucose (UA) >1000 H (NORMAL) mg/dL Urine Ketones 15 H (NEGATIVE) mg/dL Urine Occult Blood Large H (NEGATIVE) Urine Nitrite Negative (NEGATIVE) Urine Bilirubin Negative (NEGATIVE) Urine Urobilinogen Normal (NEGATIVE) mg/dL Ur Leukocyte Esterase Negative (NEGATIVE) Urine RBC 5-10 H (0-5) Urine WBC 0-5 (0-5) Ur Squamous Epith Cells Rare (NS,R,O) Urine Bacteria Rare H (NS) Urine Opiates Screen Positive H (NEGATIVE) Ur Oxycodone Screen Negative (NEGATIVE) Ur Propoxyphene Screen Negative (NEGATIVE) Ur Barbituates Screen Negative (NEGATIVE) Ur Tricyclics Screen Positive H (NEGATIVE) Ur Phencyclidine Scrn Negative (NEGATIVE) Ur Amphetamine Screen Negative (NEGATIVE) Urine MDMA Screen Negative (NEGATIVE) U Benzodiazepines Scrn Negative (NEGATIVE) U Cocaine Metab Screen Negative (NEGATIVE) U Marijuana (THC) Screen Negative (NEGATIVE) 09/07/20 09/07/20 09/07/20 Range/Units 10:55 10:55 10:55 WBC (3.2-10.1) x10-3/uL RBC (3.90-5.90) x10(6)uL Hgb (12.9-17.7) g/dL Hct (38.3-50.1) % MCV (80.8-98.7) fL MCH (27.0-33.3) pg MCHC (28.7-35.3) g/dL RDW (12.4-15.0) % Plt Count (117-477) x10(3)uL MPV (6.7-11.0) fL Neut % (Auto) (40.3-71.8) % Lymph % (Auto) (15.8-45.3) % [place] % (Auto) (5.5-15.2) % Eos % (Auto) (0.1-6.8) % Baso % (Auto) (0.3-3.8) % Neut # (Auto) (1.7-6.9) x10-3/uL Lymph # (Auto) (0.5-4.5) x10-3/uL [place] # (Auto) (0.0-1.2) x10-3/uL Eos # (Auto) (0.0-0.6) x10-3/uL Baso # (Auto) (0.0-0.3) x10-3/uL Add Manual Diff Neutrophils % (Manual) (46-82) % Lymphocytes % (Manual) (13-37) % Monocytes % (Manual) (4-12) % Eosinophils % (Manual) (0-5) % Sodium 133 L (135-145) mmol/L Potassium 2.9 L (3.5-5.3) mmol/L Chloride 94 L (100-110) mmol/L Carbon Dioxide 27 (21-32) mmol/L BUN 22 H (7-18) mg/dL Creatinine 1.2 (0.70-1.30) mg/dL Est Cr Clr Drug Dosing 76.89 mL/min Estimated GFR (MDRD) > 60 (>60) BUN/Creatinine Ratio 18.3 (9-20) Glucose 276 H D (80-116) mg/dL POC Glucose (80-116) mg/dL Lactic Acid 0.4 (0.4-2.0) mmol/L Calcium 7.7 L (8.6-10.2) mg/dL Magnesium (1.8-2.5) mg/dL Total Bilirubin 0.4 (0.1-1.3) mg/dL AST 73 H D (5-25) IU/L ALT 54 H D (12-36) U/L Alkaline Phosphatase 92 (56-112) IU/L Troponin I (4.0-60.3) pg/mL C-Reactive Protein 38.4 H* (0.5-0.9) mg/dL Total Protein 7.5 (6.0-8.0) g/dL Albumin 2.1 L (3.5-5.2) g/dL Globulin 5.4 g/dL Albumin/Globulin Ratio 0.4 Urine Color (YELLOW) Urine Appearance (CLEAR) Urine pH (5.0-6.5) Ur Specific [place] (1.010-1.025) Urine Protein (NEGATIVE) mg/dL Urine Glucose (UA) (NORMAL) mg/dL Urine Ketones (NEGATIVE) mg/dL Urine Occult Blood (NEGATIVE) Urine Nitrite (NEGATIVE) Urine Bilirubin (NEGATIVE) Urine Urobilinogen (NEGATIVE) mg/dL Ur Leukocyte Esterase (NEGATIVE) Urine RBC (0-5) Urine WBC (0-5) Ur Squamous Epith Cells (NS,R,O) Urine Bacteria (NS) Urine Opiates Screen (NEGATIVE) Ur Oxycodone Screen (NEGATIVE) Ur Propoxyphene Screen (NEGATIVE) Ur Barbituates Screen (NEGATIVE) Ur Tricyclics Screen (NEGATIVE) Ur Phencyclidine Scrn (NEGATIVE) Ur Amphetamine Screen (NEGATIVE) Urine MDMA Screen (NEGATIVE) U Benzodiazepines Scrn (NEGATIVE) U Cocaine Metab Screen (NEGATIVE) U Marijuana (THC) Screen (NEGATIVE) 09/07/20 09/07/20 09/07/20 Range/Units 10:55 10:55 17:43 WBC (3.2-10.1) x10-3/uL RBC (3.90-5.90) x10(6)uL Hgb (12.9-17.7) g/dL Hct (38.3-50.1) % MCV (80.8-98.7) fL MCH (27.0-33.3) pg MCHC (28.7-35.3) g/dL RDW (12.4-15.0) % Plt Count (117-477) x10(3)uL MPV (6.7-11.0) fL Neut % (Auto) (40.3-71.8) % Lymph % (Auto) (15.8-45.3) % [place] % (Auto) (5.5-15.2) % Eos % (Auto) (0.1-6.8) % Baso % (Auto) (0.3-3.8) % Neut # (Auto) (1.7-6.9) x10-3/uL Lymph # (Auto) (0.5-4.5) x10-3/uL [place] # (Auto) (0.0-1.2) x10-3/uL Eos # (Auto) (0.0-0.6) x10-3/uL Baso # (Auto) (0.0-0.3) x10-3/uL Add Manual Diff Neutrophils % (Manual) (46-82) % Lymphocytes % (Manual) (13-37) % Monocytes % (Manual) (4-12) % Eosinophils % (Manual) (0-5) % Sodium (135-145) mmol/L Potassium (3.5-5.3) mmol/L Chloride (100-110) mmol/L Carbon Dioxide (21-32) mmol/L BUN (7-18) mg/dL Creatinine (0.70-1.30) mg/dL Est Cr Clr Drug Dosing mL/min Estimated GFR (MDRD) (>60) BUN/Creatinine Ratio (9-20) Glucose (80-116) mg/dL POC Glucose 224 H (80-116) mg/dL Lactic Acid (0.4-2.0) mmol/L Calcium (8.6-10.2) mg/dL Magnesium 2.1 (1.8-2.5) mg/dL Total Bilirubin (0.1-1.3) mg/dL AST (5-25) IU/L ALT (12-36) U/L Alkaline Phosphatase (56-112) IU/L Troponin I 5.8 (4.0-60.3) pg/mL C-Reactive Protein (0.5-0.9) mg/dL Total Protein (6.0-8.0) g/dL Albumin (3.5-5.2) g/dL Globulin g/dL Albumin/Globulin Ratio Urine Color (YELLOW) Urine Appearance (CLEAR) Urine pH (5.0-6.5) Ur Specific [place] (1.010-1.025) Urine Protein (NEGATIVE) mg/dL Urine Glucose (UA) (NORMAL) mg/dL Urine Ketones (NEGATIVE) mg/dL Urine Occult Blood (NEGATIVE) Urine Nitrite (NEGATIVE) Urine Bilirubin (NEGATIVE) Urine Urobilinogen (NEGATIVE) mg/dL Ur Leukocyte Esterase (NEGATIVE) Urine RBC (0-5) Urine WBC (0-5) Ur Squamous Epith Cells (NS,R,O) Urine Bacteria (NS) Urine Opiates Screen (NEGATIVE) Ur Oxycodone Screen (NEGATIVE) Ur Propoxyphene Screen (NEGATIVE) Ur Barbituates Screen (NEGATIVE) Ur Tricyclics Screen (NEGATIVE) Ur Phencyclidine Scrn (NEGATIVE) Ur Amphetamine Screen (NEGATIVE) Urine MDMA Screen (NEGATIVE) U Benzodiazepines Scrn (NEGATIVE) U Cocaine Metab Screen (NEGATIVE) U Marijuana (THC) Screen (NEGATIVE) 09/07/20 09/08/20 09/08/20 Range/Units 20:38 06:25 06:25 WBC 10.2 H (3.2-10.1) x10-3/uL RBC 4.09 (3.90-5.90) x10(6)uL Hgb 11.5 L (12.9-17.7) g/dL Hct 35.2 L (38.3-50.1) % MCV 86.1 (80.8-98.7) fL MCH 28.2 (27.0-33.3) pg MCHC 32.7 (28.7-35.3) g/dL RDW 15.0 (12.4-15.0) % Plt Count 133 (117-477) x10(3)uL MPV 10.5 (6.7-11.0) fL Neut % (Auto) (40.3-71.8) % Lymph % (Auto) (15.8-45.3) % [place] % (Auto) (5.5-15.2) % Eos % (Auto) (0.1-6.8) % Baso % (Auto) (0.3-3.8) % Neut # (Auto) (1.7-6.9) x10-3/uL Lymph # (Auto) (0.5-4.5) x10-3/uL [place] # (Auto) (0.0-1.2) x10-3/uL Eos # (Auto) (0.0-0.6) x10-3/uL Baso # (Auto) (0.0-0.3) x10-3/uL Add Manual Diff Yes Neutrophils % (Manual) 64 (46-82) % Lymphocytes % (Manual) 30 (13-37) % Monocytes % (Manual) 5 (4-12) % Eosinophils % (Manual) 1 (0-5) % Sodium 135 (135-145) mmol/L Potassium 3.6 (3.5-5.3) mmol/L Chloride 99 L D (100-110) mmol/L Carbon Dioxide 27 (21-32) mmol/L BUN 12 D (7-18) mg/dL Creatinine 1.0 (0.70-1.30) mg/dL Est Cr Clr Drug Dosing 92.26 mL/min Estimated GFR (MDRD) > 60 (>60) BUN/Creatinine Ratio 12.0 (9-20) Glucose 190 H D (80-116) mg/dL POC Glucose 224 H (80-116) mg/dL Lactic Acid (0.4-2.0) mmol/L Calcium 7.1 L (8.6-10.2) mg/dL Magnesium (1.8-2.5) mg/dL Total Bilirubin (0.1-1.3) mg/dL AST (5-25) IU/L ALT (12-36) U/L Alkaline Phosphatase (56-112) IU/L Troponin I (4.0-60.3) pg/mL C-Reactive Protein (0.5-0.9) mg/dL Total Protein (6.0-8.0) g/dL Albumin (3.5-5.2) g/dL Globulin g/dL Albumin/Globulin Ratio Urine Color (YELLOW) Urine Appearance (CLEAR) Urine pH (5.0-6.5) Ur Specific [place] (1.010-1.025) Urine Protein (NEGATIVE) mg/dL Urine Glucose (UA) (NORMAL) mg/dL Urine Ketones (NEGATIVE) mg/dL Urine Occult Blood (NEGATIVE) Urine Nitrite (NEGATIVE) Urine Bilirubin (NEGATIVE) Urine Urobilinogen (NEGATIVE) mg/dL Ur Leukocyte Esterase (NEGATIVE) Urine RBC (0-5) Urine WBC (0-5) Ur Squamous Epith Cells (NS,R,O) Urine Bacteria (NS) Urine Opiates Screen (NEGATIVE) Ur Oxycodone Screen (NEGATIVE) Ur Propoxyphene Screen (NEGATIVE) Ur Barbituates Screen (NEGATIVE) Ur Tricyclics Screen (NEGATIVE) Ur Phencyclidine Scrn (NEGATIVE) Ur Amphetamine Screen (NEGATIVE) Urine MDMA Screen (NEGATIVE) U Benzodiazepines Scrn (NEGATIVE) U Cocaine Metab Screen (NEGATIVE) U Marijuana (THC) Screen (NEGATIVE) Med Orders - Current: Current Medications Acetaminophen (Acetaminophen 325 Mg Tab) 650 mg PO Q6H PRN PRN Reason: Pain Last Admin: 09/07/20 14:06 Dose: 650 mg Documented by: Hydrocodone Bitart/Acetaminophen (Acetaminophen/Hydrocodone 325-5 Mg Tab) 1 tab PO Q6H PRN PRN Reason: Pain Last Admin: 09/07/20 20:08 Dose: 1 tab Documented by: Albuterol/Ipratropium (Albuterol/Ipratropium 3.0-0.5 Mg/3 Ml Neb Soln) 3 ml NEB Q4H PRN PRN Reason: Wheezing Amlodipine Besylate (Amlodipine 10 Mg Tab) 10 mg PO DAILY [facility] Aspirin (Aspirin 81 Mg Tab.Ec) 81 mg PO DAILY [facility] Azithromycin (Azithromycin 250 Mg Tab) 500 mg PO DAILY [facility] Last Admin: 09/08/20 07:34 Dose: 500 mg Documented by: Ceftriaxone Sodium (Ceftriaxone 1 Gm Vial) 1 gm IVPUSH Q24H [facility] Last Admin: 09/08/20 06:17 Dose: 1 gm Documented by: Dextrose/Water (50% Dextrose In Water 50 Ml Syringe) 50 ml IVPUSH ASDIRECTED PRN PRN Reason: Hypoglycemia Gabapentin (Gabapentin 400 Mg Cap) 800 mg PO TID PRN PRN Reason: Pain Glucagon (Glucagon,Human Recombinant 1 Mg Vial) 1 mg IM ASDIRECTED PRN PRN Reason: Hypoglycemia Sodium Chloride (Normal Saline) 1,000 mls @ 150 mls/hr IV ASDIRECTED [facility] Last Admin: 09/08/20 06:19 Dose: 150 mls/hr Documented by: Ibuprofen (Ibuprofen 800 Mg Tab) 800 mg PO TID PRN PRN Reason: Pain Insulin Human Lispro (Insulin Lispro 100 Unit/Ml 3 Ml Kwikpen) 0 unit SUBCUT TIDMEALS [facility]; Protocol Last Admin: 09/07/20 17:49 Dose: 4 unit Documented by: Levofloxacin (Levofloxacin 250 Mg Tab) 750 mg PO ONETIME ONE Stop: 09/08/20 07:56 Losartan Potassium (Losartan 100 Mg Tab) 100 mg PO DAILY [facility] Methocarbamol (Methocarbamol 750 Mg Tab) 750 mg PO TID [facility] Last Admin: 09/07/20 21:26 Dose: 750 mg Documented by: Metoprolol Succinate (Metoprolol Succinate 100 Mg Tab.Er) 200 mg PO DAILY [facility] Multivit/Ca Carb/B Cmplx/FA/Prenat (Folic Acid/Vitamin B Complex With C Cap) 1 cap PO DAILY [facility] Last Admin: 09/07/20 14:01 Dose: Not Given Documented by: Nitroglycerin (Nitroglycerin 0.4 Mg Tab.Sl) 0.4 mg SL ASDIRECTED PRN PRN Reason: Chest Pain Potassium Chloride (Potassium Chloride 20 Meq Tab.Er) 40 meq PO BID [facility] Last Admin: 09/08/20 07:34 Dose: 40 meq Documented by: Quetiapine Fumarate (Quetiapine 50 Mg Tab) 50 mg PO BEDTIME [facility] Last Admin: 09/07/20 21:27 Dose: 50 mg Documented by: Sodium Chloride (Sodium Chloride 0.9% 10 Ml Syringe) 10 ml FLUSH ASDIRECTED PRN PRN Reason: Keep Vein Open Tamsulosin HCl (Tamsulosin 0.4 Mg Cap.Er) 0.4 mg PO BEDTIME [facility] Last Admin: 09/07/20 20:17 Dose: 0.4 mg Documented by: Tramadol HCl (Tramadol 50 Mg Tab) 50 mg PO Q6H PRN PRN Reason: Pain Last Admin: 09/07/20 17:46 Dose: 50 mg Documented by: Trazodone HCl (Trazodone 100 Mg Tab) 50 mg PO BEDTIME PRN PRN Reason: Sleep Discontinued Medications Albuterol/Ipratropium (Albuterol/Ipratropium 3.0-0.5 Mg/3 Ml Neb Soln) 3 ml NEB NOW STA Stop: 09/07/20 12:40 Last Admin: 09/07/20 14:06 Dose: 3 ml Documented by: Ceftriaxone Sodium (Ceftriaxone 2 Gm Vial) 2 gm IVPUSH ONETIME ONE Stop: 09/07/20 10:49 Last Admin: 09/07/20 11:57 Dose: 2 gm Documented by: Ceftriaxone Sodium (Ceftriaxone 1 Gm Vial) 1 gm IVPUSH ONETIME ONE Stop: 09/08/20 07:46 Last Admin: 09/08/20 07:37 Dose: 1 gm Documented by: Enoxaparin Sodium (Enoxaparin 40 Mg/0.4 Ml Syringe) 40 mg SUBCUT ONETIME ONE Stop: 09/07/20 12:41 Last Admin: 09/07/20 14:06 Dose: 40 mg Documented by: Sodium Chloride (Normal Saline) 1,000 mls @ 999 mls/hr IV .BOLUS ONE Stop: 09/07/20 11:47 Last Admin: 09/07/20 11:57 Dose: 999 mls/hr Documented by: Azithromycin 500 mg/ Sodium (Chloride) 250 mls @ 250 mls/hr IV ONETIME ONE Stop: 09/07/20 11:47 Last Admin: 09/07/20 12:04 Dose: 250 mls/hr Documented by: Ceftriaxone Sodium 1 gm/ (Sodium Chloride) 50 mls @ 200 mls/hr IV ONETIME ONE Stop: 09/08/20 07:43 Last Admin: 09/08/20 07:47 Dose: Not Given Documented by: Nicotine (Nicotine 21 Mg/24 Hr Patch) 21 mg TRDERM DAILY [facility] Last Admin: 09/07/20 13:54 Dose: Not Given Documented by: Potassium Chloride (Potassium Chloride 20 Meq Packet) 40 meq PO ASDIRECTED [facility] Potassium Chloride (Potassium Chloride 20 Meq Tab.Er) Confirm Administered Dose 40 meq .ROUTE .STK-MED ONE Stop: 09/07/20 14:05 Last Admin: 09/07/20 14:07 Dose: Not Given Documented by: Thiamine HCl (Thiamine 100 Mg Tab) 100 mg PO ONETIME ONE Stop: 09/07/20 12:35 Last Admin: 09/07/20 14:06 Dose: 100 mg Documented by: Comments:: Patient was sitting on the couch next to the bed, awake, alert, interactive, pleasant - Exam Quality Assessment: Reports: Supplemental Oxygen, DVT Prophylaxis, Skin Breakdown General: Reports: Alert, Oriented, Cooperative, No Acute Distress HEENT: Reports: EOMI Lungs: Reports: Decreased Breath Sounds, Wheezing, Other (Breath sounds are improved with only mild end expiratory wheezes, prolonged E/I) GI/Abdominal Exam: Normal Bowel Sounds, Tender Back Exam: Reports: Normal Inspection Extremities: Pedal Edema, Other (Trace bilateral lower extremity edema) Skin: Reports: Warm, Dry Neurological: Reports: No New Focal Deficit Psy/Mental Status: Reports: Alert, Normal Affect, Labile Mood
[2020-09-08 08:47] VITALS: BP 132/82; PULSE 88
[2020-09-08] MEDS ORDERED: amLODIPine 10 MG Tab PO SCH (09:00)
[2020-09-08] MEDS ORDERED: Losartan 100 MG Tab PO SCH (09:00)
[2020-09-08] MEDS ORDERED: Metoprolol Succinate 100 MG Tab.ER PO SCH (09:00)
[2020-09-08] MEDS ORDERED: Azithromycin 250 MG Tab PO SCH (09:00)
[2020-09-08] MEDS ORDERED: Aspirin 81 MG Tab.EC PO SCH (09:00)
--- NOTE | 2020-09-09 11:20 | PCM.SN.2 ---
- Free Text/Narrative Note: 09/09/2020 11:05 AM: I received a call from the radiologist, Dr. Olvera who over read Mr. Wyman chest x-ray and in addition to the densely consolidated right middle lobe infiltrate, he felt that there was a nodular pattern in the patient's lung that was concerning for possible TB. Patient was seen by myself only through the emergency department and was admitted to the hospital here at [facility] and and according been discharged yesterday morning. I did call Dr. Gao's nurse and conveyed this information to her as Dr. Gao is the patient's primary physician and will be following the patient up in clinic.
--- NOTE | 2020-09-09 11:28 | CR ---
INDICATION: Cough, fever, positive blood culture. CHEST TWO VIEWS: PA and lateral views of the chest were obtained 09/07/20 and compared with 02/03/19 and 01/02/18. There is now what appears to be a very dense infiltration - consolidating pneumonia in what appears to be the right middle lobe area. Pleuritis is likely, but no significant pleural effusion was seen. Somewhat heavy markings are noted at the lower lung field on the left which may represent some very minimal patchy pneumonia and/or interval fibrosis in that areas. The heart did not appear enlarged. Bridging hyperostotic changes are noted in the spine with a flowing hyperostotic appearance suggesting DISH in some areas. A dextroconvex scoliosis of [id number] degree is noted mid to lower thoracic spine. Flattened diaphragm leaves, prominent AP diameter, and hyperaeration suggest COPD additionally. IMPRESSION: 1. Densely consolidating pneumonia right lung base - lower lung field. 2. Interval fibrosis versus areas of patchy pneumonia at the lower lung field on the left. A somewhat micronodular appearance in this areas could represent previous TB or event active TB and should be correlated clinically in that regard. 3. COPD. 4. Possible DISH with scoliosis. Report was called to Dr. Watson at 1101 hours 09/09/20. [facility]
== END 2020-09-08 08:30 | disposition home or self-care (01) ==
LOC: FB.ED 09:57 → UNDOADMOB 12:05 → FB.MS 12:05
PROVIDERS: ADMIT Student in an Organized Health Care Education/Training Program; ATTEND Student in an Organized Health Care Education/Training Program
DX: J13 Pneumonia due to Streptococcus pneumoniae (principal); R78.81 Bacteremia; E78.00 Pure hypercholesterolemia, unspecified; I10 Essential (primary) hypertension; J44.9 Chronic obstructive pulmonary disease, unspecified; F17.210 Nicotine dependence, cigarettes, uncomplicated; E11.65 Type 2 diabetes mellitus with hyperglycemia; E66.01 Morbid (severe) obesity due to excess calories; D72.829 Elevated white blood cell count, unspecified; Z88.0 Allergy status to penicillin; Z88.8 Allergy status to other drugs, medicaments and biological substances; Z91.040 Latex allergy status; Z79.82 Long term (current) use of aspirin; Z79.899 Other long term (current) drug therapy
CPT/HCPCS: 36415; 71046; 80048; 80053; 80305-QW; 81001; 82947; 83605; 83735; 84484; 85025; 86140; 87040; 93005; 94640; 96365; 96372; 96375; 96376; 99285-25; A9270-GY; J0456; J0696; J1650; J1815; J7030; J7050; J7620-GY

== ENCOUNTER 2020-12-04 13:30 | Emergency (ER) | payer MEDICAID ==
[2020-12-04 14:08] VITALS: BP 186/129; PULSE 111
[2020-12-04] MEDS ORDERED: Sodium Chloride 0.9% 1,000 ML IV ONE (14:10)
--- NOTE | 2020-12-04 14:16 | EDM.PDOC ---
ED HPI GENERAL MEDICAL PROBLEM - General Chief Complaint: Respiratory Problem Stated Complaint: COVID SYMPTOMS Time Seen by Provider: 12/04/20 13:40 Source of Information: Reports: Patient History Limitations: Reports: No Limitations - History of Present Illness INITIAL COMMENTS - FREE TEXT/NARRATIVE: c/o cough and fever x 3d pt works at [employer], worked 72h last week, had malaise and ST and myalgias x 3d, temp 101.9 at home 2d ago working in a closed space today, fatigued, boss told him to go see a physician no rhinorrhea, cough minimal, nonproductive smoked 2 cigs today, says a pack cigs last one month no alcohol since a beer on ' no THC, no street drugs he had a RML pneumonia 3m ago, had BC x 2 3m ago positive for Strep pyogenes, tx with ceftriaxone and then levofloxacin, hospitalized overnight here has not had COVID, neg COVID test 3m ago 3-4m ago his and 2 children all had COVID, 2 were hospitalized no h/o CV/pul disease, no h/o asthma or prior pneumonia, gets a skin test every year at [employer], last done this past Nov, says his skin "has never popped up" - Related Data Allergies Allergy/AdvReac Type Severity Reaction Status Date / Time ketorolac [From Toradol] Allergy Hives Verified 12/04/20 13:56 latex Allergy Hives Verified 12/04/20 13:56 Penicillins Allergy Hives Verified 12/04/20 13:56 Home Meds: Home Meds Aspirin [Lo-Dose Aspirin EC] 81 mg PO DAILY 01/02/18 [History] amLODIPine Besylate [Amlodipine Besylate] 10 mg PO DAILY 09/01/18 [History] Gabapentin [Neurontin] 800 mg PO TID PRN 09/09/18 [History] Liraglutide [Victoza] 1.2 mg SQ BID 09/09/18 [History] QUEtiapine Fumarate [Quetiapine Fumarate] 50 mg PO BEDTIME 03/02/19 [History] traZODone 50 mg PO BEDTIME PRN 03/02/19 [History] methocarbamoL [Robaxin] 750 mg PO TID 05/14/19 [History] Nitroglycerin 0.4 mg SL ASDIRECTED PRN 06/22/19 [History] Tamsulosin HCl 0.4 mg PO BEDTIME 06/22/19 [History] Ibuprofen 800 mg PO TID PRN #30 tablet 04/14/20 [Rx] Losartan [Cozaar] 100 mg PO DAILY 09/04/20 [History] Metoprolol Succinate [Toprol XL 100mg] 200 mg PO DAILY 09/04/20 [History] Albuterol Sulfate [Albuterol Sulfate Hfa] 18 gm IH Q4HR PRN #1 hfa.aer.ad 09/08/20 [Rx] levoFLOXacin [Levaquin] 750 mg PO DAILY #9 tab 09/08/20 [Rx] Doxycycline [Vibra-Tabs] 100 mg PO BID #14 tab 12/04/20 [Rx] predniSONE 20 mg PO ASDIRECTED #9 tab 12/04/20 [Rx] Past Medical History HEENT History: Reports: None Cardiovascular History: Reports: Aneurysm, High Cholesterol, Hypertension Respiratory History: Reports: Asthma, COPD, Sleep Apnea Gastrointestinal History: Reports: Other (See Below) Other Gastrointestinal History: hernia surg x 7 Genitourinary History: Reports: Renal Calculus Musculoskeletal History: Reports: Arthritis, Back Pain, Chronic, Fibromyalgia, Neck Pain, Chronic, Osteoarthritis Other Musculoskeletal History: chronic R knee pain Neurological History: Reports: Other (See Below) Other Neuro History: Insomnia Psychiatric History: Reports: Anxiety, Depression, Panic Attack Endocrine/Metabolic History: Reports: Diabetes, Type II, Obesity/BMI 30+ Hematologic History: Reports: Anticoagulation Therapy Immunologic History: Reports: None Oncologic (Cancer) History: Reports: Non-Hodgkin's Lymphoma Dermatologic History: Reports: None - Infectious Disease History Infectious Disease History: Reports: Chicken Pox - Past Surgical History Other GI Surgeries/Procedures: hernia repair x 7, mesh repair Social & Family History - Family History Family Medical History: No Pertinent Family History - Caffeine Use Caffeine Use: Reports: Tea - Living Situation & Occupation Living situation: Reports: Occupation: Employed (Tells me that he works at the [employer]) [facility] - Review of Systems Review Of Systems: See Below Constitutional: Reports: Fever, Malaise, Fatigue, Other (no pain c/o) HEENT: Reports: No Symptoms Respiratory: Reports: Cough. Denies: Shortness of Breath, Wheezing, Pleuritic Chest Pain, Sputum Cardiovascular: Reports: No Symptoms. Denies: Chest Pain, Palpitations Endocrine: Reports: No Symptoms GI/Abdominal: Reports: Diarrhea, Other (loose stools yesterday). Denies: Abdominal Pain, Nausea, Vomiting : Reports: No Symptoms Musculoskeletal: Reports: Muscle Pain Skin: Reports: No Symptoms Neurological: Reports: No Symptoms Psychiatric: Reports: No Symptoms Hematologic/Lymphatic: Reports: No Symptoms Immunologic: Reports: No Symptoms ED EXAM, GENERAL - Physical Exam Exam: See Below Exam Limited By: No Limitations General Appearance: Alert, WD/WN, No Apparent Distress, Other (alert, sit edge of bed, NAD, moves easily, noill, normal speech) Eye Exam: Bilateral Eye: PERRL, Other (conj not red) Ears: Hearing Grossly Normal Nose: Normal Inspection Throat/Mouth: Normal Inspection, Normal Lips, Normal Teeth, Normal Gums, Normal Oropharynx, Normal Voice, No Airway Compromise, Other (o-p not pink, no submandibular LNs) Head: Atraumatic, Normocephalic Neck: Normal Inspection, Supple, Non-Tender, Full Range of Motion. No: Lymphadenopathy (R), Lymphadenopathy (L) Respiratory/Chest: No Respiratory Distress, Lungs Clear, Normal Breath Sounds, Chest Non-Tender, Other (a few coarse BS heard an end of cough, otherwise clear) Cardiovascular: Regular Rate, Rhythm, No Edema, No Gallop, No Murmur GI/Abdominal: Soft, Non-Tender, No Distention Back Exam: Normal Inspection, Full Range of Motion Extremities: Normal Inspection, Normal Range of Motion, Non-Tender, No Pedal Edema Neurological: Alert, Oriented, CN II-XII Intact, Normal Cognition, No Motor/Sensory Deficits Psychiatric: Normal Affect, Normal Mood Skin Exam: Warm, Dry, Intact, Normal Color, No Rash Lymphatic: No Adenopathy Course - Vital Signs Last Recorded V/S: Last Vital Signs Temp 36.1 C 12/04/20 13:36 Pulse 111 H 12/04/20 13:36 Resp 18 12/04/20 13:36 BP 186/129 H 12/04/20 13:36 Pulse Ox 98 12/04/20 13:36 - Orders/Labs/Meds Orders: Active Orders 24 hr Category Date Time Status Chest wo Cont [CT] Stat Exams 12/04/20 14:07 Taken CULTURE BLOOD [BC] Urgent Lab 12/04/20 14:04 Ordered CULTURE BLOOD [BC] Urgent Lab 12/04/20 14:04 Ordered URINALYSIS W/MICROSCOPIC [UA W/MICROSCOPIC] [URIN] Stat Lab 12/04/20 14:10 Ordered Blood Culture x2 Reflex Set [OM.PC] Urgent Oth 12/04/20 14:04 Ordered Isolation [COMM] Routine Oth 12/04/20 13:42 Ordered Labs: Laboratory Tests 12/04/20 12/04/20 12/04/20 Range/Units 13:45 14:20 14:20 WBC 7.6 (3.2-10.1) x10-3/uL RBC 5.09 (3.90-5.90) x10(6)uL Hgb 14.8 D (12.9-17.7) g/dL Hct 44.0 (38.3-50.1) % MCV 86.4 (80.8-98.7) fL MCH 29.0 (27.0-33.3) pg MCHC 33.5 (28.7-35.3) g/dL RDW 13.9 (12.4-15.0) % Plt Count 246 (117-477) x10(3)uL MPV 7.3 (6.7-11.0) fL Neut % (Auto) 49.3 (40.3-71.8) % Lymph % (Auto) 41.0 (15.8-45.3) % Yates % (Auto) 7.0 (5.5-15.2) % Eos % (Auto) 1.6 (0.1-6.8) % Baso % (Auto) 1.1 (0.3-3.8) % Neut # (Auto) 3.8 (1.7-6.9) x10-3/uL Lymph # (Auto) 3.1 (0.5-4.5) x10-3/uL Yates # (Auto) 0.5 (0.0-1.2) x10-3/uL Eos # (Auto) 0.1 (0.0-0.6) x10-3/uL Baso # (Auto) 0.1 (0.0-0.3) x10-3/uL Sodium 142 (135-145) mmol/L Potassium 4.0 (3.5-5.3) mmol/L Chloride 105 D (100-110) mmol/L Carbon Dioxide 26 (21-32) mmol/L BUN 14 (7-18) mg/dL Creatinine 1.4 H (0.70-1.30) mg/dL Est Cr Clr Drug Dosing 65.90 mL/min Estimated GFR (MDRD) 54 L (>60) BUN/Creatinine Ratio 10.0 (9-20) Glucose 195 H (80-116) mg/dL Calcium 8.6 (8.6-10.2) mg/dL Total Bilirubin 0.3 (0.1-1.3) mg/dL AST 8 D (5-25) IU/L ALT 15 D (12-36) U/L Alkaline Phosphatase 69 (56-112) IU/L C-Reactive Protein (0.5-0.9) mg/dL Total Protein 7.6 (6.0-8.0) g/dL Albumin 3.6 (3.5-5.2) g/dL Globulin 4.0 g/dL Albumin/Globulin Ratio 0.9 SARS-CoV-2 RNA (JASWANT) Negative (NEGATIVE) 12/04/20 Range/Units 14:20 WBC (3.2-10.1) x10-3/uL RBC (3.90-5.90) x10(6)uL Hgb (12.9-17.7) g/dL Hct (38.3-50.1) % MCV (80.8-98.7) fL MCH (27.0-33.3) pg MCHC (28.7-35.3) g/dL RDW (12.4-15.0) % Plt Count (117-477) x10(3)uL MPV (6.7-11.0) fL Neut % (Auto) (40.3-71.8) % Lymph % (Auto) (15.8-45.3) % Yates % (Auto) (5.5-15.2) % Eos % (Auto) (0.1-6.8) % Baso % (Auto) (0.3-3.8) % Neut # (Auto) (1.7-6.9) x10-3/uL Lymph # (Auto) (0.5-4.5) x10-3/uL Yates # (Auto) (0.0-1.2) x10-3/uL Eos # (Auto) (0.0-0.6) x10-3/uL Baso # (Auto) (0.0-0.3) x10-3/uL Sodium (135-145) mmol/L Potassium (3.5-5.3) mmol/L Chloride (100-110) mmol/L Carbon Dioxide (21-32) mmol/L BUN (7-18) mg/dL Creatinine (0.70-1.30) mg/dL Est Cr Clr Drug Dosing mL/min Estimated GFR (MDRD) (>60) BUN/Creatinine Ratio (9-20) Glucose (80-116) mg/dL Calcium (8.6-10.2) mg/dL Total Bilirubin (0.1-1.3) mg/dL AST (5-25) IU/L ALT (12-36) U/L Alkaline Phosphatase (56-112) IU/L C-Reactive Protein 0.5 (0.5-0.9) mg/dL Total Protein (6.0-8.0) g/dL Albumin (3.5-5.2) g/dL Globulin g/dL Albumin/Globulin Ratio SARS-CoV-2 RNA (JASWANT) (NEGATIVE) Meds: Medications Discontinued Medications Generic Name Dose Route Start Last Admin Trade Name Freq PRN Reason Stop Dose Admin Sodium Chloride 1,000 mls @ 999 mls/hr 12/04/20 14:10 12/04/20 15:04 Normal Saline IV 12/04/20 15:10 Not Given .BOLUS ONE Iopamidol 100 ml 12/04/20 14:42 12/04/20 15:26 Iopamidol 755 Mg/Ml 100 Ml Bottle IV 12/04/20 14:43 Not Given . DIRECTED ONE - Re-Assessments/Exams Free Text/Narrative Re-Assessment/Exam: 12/04/20 16:06 labs unremarkable, CPR 0.5 and now normal CxR 3m ago with solid infiltrate in RML that is now resolved pt refused IV, CT chest without contrast showed no lung mass or infiltrate or LNs, there was a possible septum of the right mainstem bronchus per Dr Olvera that may cause retention of secretions CT chest 3m ago with a few scattered infiltrates at L base that now have cleared as pt may have a bronchitis d/t retained secretions, will tx with prednisone and doxy pt has used azithro in past, altho there was a question of resistance to azithro and levafloxacin used in August for the RML pneumonia, however prefer not to use a quinolone for a bronchitis may be viral as pt has same constellation of sxs as other people in community who have the "summer flu" with fever and myalgias and ST for 5-6 days Departure - Departure Time of Disposition: 16:01 Disposition: Home, Self-Care 01 Condition: Good Clinical Impression: Acute bronchitis, Fever, Myalgia - Discharge Information *PRESCRIPTION DRUG MONITORING PROGRAM REVIEWED*: Not Applicable *COPY OF PRESCRIPTION DRUG MONITORING REPORT IN PATIENT HERSON: Not Applicable Prescriptions: predniSONE 20 mg PO ASDIRECTED #9 tab Doxycycline [Vibra-Tabs] 100 mg PO BID #14 tab Instructions: Acute Bronchitis, Adult Referrals: PCP,None [Primary Care Provider] - Forms: ED Department Discharge, ED Return to Work/School Form Additional Instructions: For infection, take doxycyline 100 mg 1 tab 2 times a day for 7 days. To keep airways open, take prednisone 20 mg 2 tabs daily for 2 days, then 1 tab daily for 5 days. For fever and muscle aches, take ibuprofen 200 mg 4 tabs 3 times a day for 4 days, longer if needed. See Dr Gao in 2 days as scheduled. May return to work in 5 days. Return to ED if you are feeling worse. Sepsis Event Note (ED) - Evaluation Sepsis Screening Result: Possible Sepsis Risk - Focused Exam Vital Signs: Vital Signs Temp Pulse Resp BP Pulse Ox 12/04/20 13:36 36.1 C 111 H 18 186/129 H 98 - My Orders Last 24 Hours: My Active Orders 12/04/20 13:42 Isolation [COMM] Routine 12/04/20 14:04 CULTURE BLOOD [BC] Urgent CULTURE BLOOD [BC] Urgent Blood Culture x2 Reflex Set [OM.PC] Urgent 12/04/20 14:07 Chest wo Cont [CT] Stat 12/04/20 14:10 URINALYSIS W/MICROSCOPIC [UA W/MICROSCOPIC] [URIN] Stat - Assessment/Plan Last 24 Hours: My Active Orders 12/04/20 13:42 Isolation [COMM] Routine 12/04/20 14:04 CULTURE BLOOD [BC] Urgent CULTURE BLOOD [BC] Urgent Blood Culture x2 Reflex Set [OM.PC] Urgent 12/04/20 14:07 Chest wo Cont [CT] Stat 12/04/20 14:10 URINALYSIS W/MICROSCOPIC [UA W/MICROSCOPIC] [URIN] Stat
[2020-12-04] MEDS ORDERED: Iopamidol 755 Mg/ML 100 ML Bottle IV ONE (14:42)
--- NOTE | 2020-12-04 16:20 | CT ---
INDICATION: Recurrent fever and cough, question postobstructive. Smoker 1/7-opnq-mxe-day, 35-plus years. CT CHEST WITHOUT CONTRAST [address]47: Spiral 3.75 mm axial sections were obtained through the chest without contrast with sagittal, axial and coronal reconstructions, 12/04/20 and compared with 01/02/18. TOTAL EXAM DLP: 1143.07 mGy/cm. Previously noted left lower lobe ground-glass opacities of mild degree on the previous study have resolved with a few areas of probable subsegmental atelectasis and/or fibrosis in the lingula again noted. No definite active infiltrate or effusion was identified. No nodule or masses were seen. The airway appears to be fairly patent, although there is again noted in the proximal right mainstem bronchus, what appear to be septae. These could be on the basis of fibrotic changes from a previous infection, or possibly developmental, and should be correlated clinically. A similar finding was noted on the previous examination of 2018, but was in slightly more cranial location in the right mainstem bronchus. The airway was otherwise patent. Mediastinal lymphadenopathy remains minimal and nonspecific. No mediastinal mass was seen. Coronary artery calcifications are noted. The heart did not appear enlarged. There is some mild pericardial thickening, which was present previously of questionable significance, possibly related to previous pericarditis or minimal chronic pericarditis - correlate clinically. There is minimal calcification in the arch of aorta and abdominal aorta, very minimally. IMPRESSION: 1. Septum or web-like density noted in the proximal right mainstem bronchus, This does not appear to be obstructive at this time. 2. Probable minimal fibrotic or subsegmental atelectatic changes at the lingula. 3. ASD/ASHD. 4. Slight thickening of the pericardium anteriorly, similar to previous examination, may be scarring process from previous pericarditis. Report was given in person to Dr. Cruz at approximately 1600 hours, 12/04/20. [facility]
== END 2020-12-04 16:15 | disposition home or self-care (01) ==
LOC: FB.ED 13:30
DX: J20.9 Acute bronchitis, unspecified (principal); M79.10 Myalgia, unspecified site; E78.00 Pure hypercholesterolemia, unspecified; I10 Essential (primary) hypertension; E66.9 Obesity, unspecified; F17.210 Nicotine dependence, cigarettes, uncomplicated; Z68.37 Body mass index [BMI] 37.0-37.9, adult; Z88.6 Allergy status to analgesic agent; Z91.040 Latex allergy status; Z88.0 Allergy status to penicillin; Z79.82 Long term (current) use of aspirin; Z79.899 Other long term (current) drug therapy; Z20.822 Contact with and (suspected) exposure to COVID-19
CPT/HCPCS: 36415; 71250; 80053; 85025; 86140; 87040; 87804; 87804-59; 99284-25; U0002

== ENCOUNTER 2020-12-25 20:06 | Emergency (ER) | payer MEDICAID ==
[2020-12-25] MEDS ORDERED: Acetaminophen/HYDROcodone 325-5 MG Tab PO STA (20:16)
--- NOTE | 2020-12-25 20:22 | EDM.PDOC ---
ED HPI GENERAL MEDICAL PROBLEM - General Stated Complaint: RIGHT HIP PAIN Time Seen by Provider: 12/25/20 20:15 Source of Information: Reports: Patient History Limitations: Reports: No Limitations - History of Present Illness INITIAL COMMENTS - FREE TEXT/NARRATIVE: Patient presented to the ED because of Right hip pain which started 2 months ago and is getting worse. He is taking aleve 2 tablets with mild relief.He rate his pain 10/10. there is no recent trauma/injury or fall. He has an xray done ago which showed OA. - Related Data Allergies Allergy/AdvReac Type Severity Reaction Status Date / Time ketorolac [From Toradol] Allergy Hives Verified 12/04/20 13:56 latex Allergy Hives Verified 12/04/20 13:56 Penicillins Allergy Hives Verified 12/04/20 13:56 Home Meds: Home Meds Aspirin [Lo-Dose Aspirin EC] 81 mg PO DAILY 01/02/18 [History] amLODIPine Besylate [Amlodipine Besylate] 10 mg PO DAILY 09/01/18 [History] Gabapentin [Neurontin] 800 mg PO TID PRN 09/09/18 [History] Liraglutide [Victoza] 1.2 mg SQ BID 09/09/18 [History] QUEtiapine Fumarate [Quetiapine Fumarate] 50 mg PO BEDTIME 03/02/19 [History] traZODone 50 mg PO BEDTIME PRN 03/02/19 [History] methocarbamoL [Robaxin] 750 mg PO TID 05/14/19 [History] Nitroglycerin 0.4 mg SL ASDIRECTED PRN 06/22/19 [History] Tamsulosin HCl 0.4 mg PO BEDTIME 06/22/19 [History] Ibuprofen 800 mg PO TID PRN #30 tablet 04/14/20 [Rx] Losartan [Cozaar] 100 mg PO DAILY 09/04/20 [History] Metoprolol Succinate [Toprol XL 100mg] 200 mg PO DAILY 09/04/20 [History] Albuterol Sulfate [Albuterol Sulfate Hfa] 18 gm IH Q4HR PRN #1 hfa.aer.ad 09/08/20 [Rx] levoFLOXacin [Levaquin] 750 mg PO DAILY #9 tab 09/08/20 [Rx] Doxycycline [Vibra-Tabs] 100 mg PO BID #14 tab 12/04/20 [Rx] predniSONE 20 mg PO ASDIRECTED #9 tab 12/04/20 [Rx] Acetaminophen/HYDROcodone [HYDROcodone-Acetaminophen 5-325 MG *] 1 tab PO Q4H PRN #10 each 12/25/20 [Rx] Past Medical History HEENT History: Reports: None Cardiovascular History: Reports: Aneurysm, High Cholesterol, Hypertension Respiratory History: Reports: Asthma, COPD, Sleep Apnea Gastrointestinal History: Reports: Other (See Below) Other Gastrointestinal History: hernia surg x 7 Genitourinary History: Reports: Renal Calculus Musculoskeletal History: Reports: Arthritis, Back Pain, Chronic, Fibromyalgia, Neck Pain, Chronic, Osteoarthritis Other Musculoskeletal History: chronic R knee pain Neurological History: Reports: Other (See Below) Other Neuro History: Insomnia Psychiatric History: Reports: Anxiety, Depression, Panic Attack Endocrine/Metabolic History: Reports: Diabetes, Type II, Obesity/BMI 30+ Hematologic History: Reports: Anticoagulation Therapy Immunologic History: Reports: None Oncologic (Cancer) History: Reports: Non-Hodgkin's Lymphoma Dermatologic History: Reports: None - Infectious Disease History Infectious Disease History: Reports: Chicken Pox - Past Surgical History Head Surgeries/Procedures: Reports: None HEENT Surgical History: Reports: Other (See Below) Other HEENT Surgeries/Procedures: Lump removed from throat approx 2013 Cardiovascular Surgical History: Reports: None Respiratory Surgical History: Reports: None GI Surgical History: Reports: Hernia Repair/Other Other GI Surgeries/Procedures: hernia repair x 7, mesh repair Male Surgical History: Reports: Ureteral Stent Neurological Surgical History: Reports: Other (See Below) Other Neurological Surgeries/Procedures: BACK SURGERY Musculoskeletal Surgical History: Reports: None Other Oncologic Surgeries/Procedures: skin CA Social & Family History - Family History Family Medical History: No Pertinent Family History - Caffeine Use Caffeine Use: Reports: Soda - Living Situation & Occupation Living situation: Reports: Occupation: Employed (Tells me that he works at the [employer]) ED ROS GENERAL - Review of Systems Review Of Systems: See Below Constitutional: Reports: No Symptoms HEENT: Reports: No Symptoms Respiratory: Reports: No Symptoms Cardiovascular: Reports: No Symptoms Endocrine: Reports: No Symptoms GI/Abdominal: Reports: No Symptoms : Reports: No Symptoms Musculoskeletal: Reports: No Symptoms (hip pain), Other Neurological: Reports: No Symptoms Psychiatric: Reports: No Symptoms ED EXAM, GENERAL - Physical Exam Exam: See Below Exam Limited By: No Limitations General Appearance: Alert, No Apparent Distress Eye Exam: Bilateral Eye: PERRL Ears: Normal External Exam, Normal Canal, Hearing Grossly Normal Nose: Normal Inspection, Normal Mucosa, No Blood Throat/Mouth: Normal Inspection, Normal Lips, Normal Teeth Head: Atraumatic, Normocephalic Neck: Normal Inspection, Supple, Non-Tender, Full Range of Motion Respiratory/Chest: No Respiratory Distress, Lungs Clear, Normal Breath Sounds, No Accessory Muscle Use, Chest Non-Tender Cardiovascular: Normal Peripheral Pulses, Regular Rate, Rhythm, No Edema, No Gallop, No JVD, No Murmur GI/Abdominal: Normal Bowel Sounds, Soft, Non-Tender, No Organomegaly Back Exam: Normal Inspection, Full Range of Motion Extremities: Normal Inspection, Normal Range of Motion, Non-Tender, No Pedal Edema, Normal Capillary Refill, Other (tenderness rt hip) Psychiatric: Normal Affect Course - Vital Signs Text/Narrative:: norco 5 mg , 2 PO x1 Last Recorded V/S: Last Vital Signs Temp 37.4 C 12/25/20 20:15 Pulse 105 H 12/25/20 20:15 Resp 16 12/25/20 20:15 BP 198/124 H 12/25/20 20:15 Pulse Ox 97 12/25/20 20:15 - Orders/Labs/Meds Meds: Medications Discontinued Medications Generic Name Dose Route Start Last Admin Trade Name Leni PRN Reason Stop Dose Admin Hydrocodone Bitart/Acetaminophen 2 tab 12/25/20 20:16 12/25/20 20:36 Acetaminophen/Hydrocodone 325-5 Mg Tab PO 12/25/20 20:17 2 tab NOW STA Administration Departure - Departure Time of Disposition: 20:30 Disposition: Home, Self-Care 01 Condition: Good Clinical Impression: Osteoarthritis, Hip pain, right - Discharge Information Prescriptions: Acetaminophen/HYDROcodone [HYDROcodone-Acetaminophen 5-325 MG *] 1 tab PO Q4H PRN #10 each PRN Reason: Pain Instructions: Hip Pain, Osteoarthritis Referrals: Omar Gao MD [Primary Care Provider] - Forms: ED Department Discharge Additional Instructions: Please read discharge instructions on osteooarthritis Take Harris 1-2 tablets every 4-6 hours as needed for pain Aleve 2 tablets twice daily Keep your appointment to see Dr Gao this Wednesday
[2020-12-25 20:54] VITALS: BP 198/124; PULSE 105
== END 2020-12-25 20:44 | disposition home or self-care (01) ==
LOC: FB.ED 20:06
DX: M16.11 Unilateral primary osteoarthritis, right hip (principal); I10 Essential (primary) hypertension; J44.9 Chronic obstructive pulmonary disease, unspecified; M19.90 Unspecified osteoarthritis, unspecified site; E11.9 Type 2 diabetes mellitus without complications; E66.9 Obesity, unspecified; Z68.37 Body mass index [BMI] 37.0-37.9, adult; Z88.5 Allergy status to narcotic agent; Z91.040 Latex allergy status; Z88.0 Allergy status to penicillin; Z79.82 Long term (current) use of aspirin; Z79.01 Long term (current) use of anticoagulants; Z79.899 Other long term (current) drug therapy
CPT/HCPCS: 99283; A9270

== ENCOUNTER 2020-12-26 17:15 | Emergency (ER) | payer MEDICAID ==
[2020-12-26] MEDS ORDERED: Acetaminophen/HYDROcodone 325-5 MG Tab PO ONE (17:16)
[2020-12-26 17:35] VITALS: BP 233/154; PULSE 96
[2020-12-26] MEDS: Acetaminophen/HYDROcodone 325-5 MG Tab PO ONE (17:47)
--- NOTE | 2020-12-26 18:03 | EDM.PDOC ---
ED HPI GENERAL MEDICAL PROBLEM - General Chief Complaint: Lower Extremity Injury/Pain Stated Complaint: R HIP PAIN Time Seen by Provider: 12/26/20 17:20 Source of Information: Reports: Patient History Limitations: Reports: No Limitations - History of Present Illness INITIAL COMMENTS - FREE TEXT/NARRATIVE: Rt hip pain for 2 months. was seen in the ED yesterday was prescribed [place] which was not filled because he has a pain contract with Dr Gao Right Hip Pain Score (Numeric/FACES): 10 - Related Data Allergies Allergy/AdvReac Type Severity Reaction Status Date / Time ketorolac [From Toradol] Allergy Hives Verified 12/04/20 13:56 latex Allergy Hives Verified 12/04/20 13:56 Penicillins Allergy Hives Verified 12/04/20 13:56 Home Meds: Home Meds Aspirin [Lo-Dose Aspirin EC] 81 mg PO DAILY 01/02/18 [History] amLODIPine Besylate [Amlodipine Besylate] 10 mg PO DAILY 09/01/18 [History] Gabapentin [Neurontin] 800 mg PO TID PRN 09/09/18 [History] Liraglutide [Victoza] 1.2 mg SQ BID 09/09/18 [History] QUEtiapine Fumarate [Quetiapine Fumarate] 50 mg PO BEDTIME 03/02/19 [History] traZODone 50 mg PO BEDTIME PRN 03/02/19 [History] methocarbamoL [Robaxin] 750 mg PO TID 05/14/19 [History] Nitroglycerin 0.4 mg SL ASDIRECTED PRN 06/22/19 [History] Tamsulosin HCl 0.4 mg PO BEDTIME 06/22/19 [History] Ibuprofen 800 mg PO TID PRN #30 tablet 04/14/20 [Rx] Losartan [Cozaar] 100 mg PO DAILY 09/04/20 [History] Metoprolol Succinate [Toprol XL 100mg] 200 mg PO DAILY 09/04/20 [History] Albuterol Sulfate [Albuterol Sulfate Hfa] 18 gm IH Q4HR PRN #1 hfa.aer.ad 09/08/20 [Rx] levoFLOXacin [Levaquin] 750 mg PO DAILY #9 tab 09/08/20 [Rx] Doxycycline [Vibra-Tabs] 100 mg PO BID #14 tab 12/04/20 [Rx] predniSONE 20 mg PO ASDIRECTED #9 tab 12/04/20 [Rx] Acetaminophen/HYDROcodone [HYDROcodone-Acetaminophen 5-325 MG *] 1 tab PO Q4H PRN #10 each 12/25/20 [Rx] Past Medical History HEENT History: Reports: None Cardiovascular History: Reports: Aneurysm, High Cholesterol, Hypertension Respiratory History: Reports: Asthma, COPD, Sleep Apnea Gastrointestinal History: Reports: Other (See Below) Other Gastrointestinal History: hernia surg x 7 Genitourinary History: Reports: Renal Calculus Musculoskeletal History: Reports: Arthritis, Back Pain, Chronic, Fibromyalgia, Neck Pain, Chronic, Osteoarthritis Other Musculoskeletal History: chronic R knee pain Neurological History: Reports: Other (See Below) Other Neuro History: Insomnia Psychiatric History: Reports: Anxiety, Depression, Panic Attack Endocrine/Metabolic History: Reports: Diabetes, Type II, Obesity/BMI 30+ Hematologic History: Reports: Anticoagulation Therapy Immunologic History: Reports: None Oncologic (Cancer) History: Reports: Non-Hodgkin's Lymphoma Dermatologic History: Reports: None - Infectious Disease History Infectious Disease History: Reports: Chicken Pox - Past Surgical History Head Surgeries/Procedures: Reports: None HEENT Surgical History: Reports: Other (See Below) Other HEENT Surgeries/Procedures: Lump removed from throat approx 2013 Cardiovascular Surgical History: Reports: None Respiratory Surgical History: Reports: None GI Surgical History: Reports: Hernia Repair/Other Other GI Surgeries/Procedures: hernia repair x 7, mesh repair Male Surgical History: Reports: Ureteral Stent Neurological Surgical History: Reports: Other (See Below) Other Neurological Surgeries/Procedures: BACK SURGERY Musculoskeletal Surgical History: Reports: None Other Oncologic Surgeries/Procedures: skin CA Social & Family History - Family History Family Medical History: No Pertinent Family History - Tobacco Use Tobacco Use Status *Q: Current Some Day Tobacco User Years of Tobacco use: 20 Packs/Tins Daily: 1 - Caffeine Use Caffeine Use: Reports: Tea Other Caffeine Use: occasionally - Recreational Drug Use Recreational Drug Use: No - Living Situation & Occupation Living situation: Reports: Occupation: Employed (Tells me that he works at the [employer]) Review of Systems - Review of Systems Review Of Systems: See Below Constitutional: Reports: No Symptoms Eyes: Reports: No Symptoms Ears: Reports: No Symptoms Nose: Reports: No Symptoms Mouth/Throat: Reports: No Symptoms Respiratory: Reports: No Symptoms Cardiovascular: Reports: No Symptoms GI/Abdominal: Reports: No Symptoms Genitourinary: Reports: No Symptoms Musculoskeletal: Reports: Other (Rt hip pain) Skin: Reports: No Symptoms Neurological: Reports: No Symptoms Psychiatric: Reports: No Symptoms ED EXAM, GENERAL - Physical Exam Exam: See Below Exam Limited By: No Limitations General Appearance: Alert, No Apparent Distress Ears: Normal External Exam, Normal Canal Nose: Normal Inspection, Normal Mucosa, No Blood Throat/Mouth: Normal Inspection, Normal Lips, Normal Teeth Head: Atraumatic, Normocephalic Neck: Normal Inspection, Supple, Non-Tender, Full Range of Motion Respiratory/Chest: No Respiratory Distress, Lungs Clear, Normal Breath Sounds Cardiovascular: Normal Peripheral Pulses, Regular Rate, Rhythm, No Edema, No Gallop, No JVD, No Murmur, No Rub GI/Abdominal: Normal Bowel Sounds, Soft, Non-Tender, No Organomegaly Back Exam: Normal Inspection, Full Range of Motion Extremities: Normal Inspection, Normal Range of Motion, Non-Tender, Other (Tenderness Rt Hip) Neurological: Alert, Oriented, CN II-XII Intact Psychiatric: Normal Affect, Normal Mood Skin Exam: Warm Course - Vital Signs Text/Narrative:: [place] 5 mg PO x2 Last Recorded V/S: Last Vital Signs Temp 36.7 C 12/26/20 17:15 Pulse 96 12/26/20 17:15 Resp 20 12/26/20 17:15 BP 233/154 H 12/26/20 17:15 Pulse Ox 99 12/26/20 17:15 - Orders/Labs/Meds Meds: Medications Discontinued Medications Generic Name Dose Route Start Last Admin Trade Name Leni PRN Reason Stop Dose Admin Hydrocodone Bitart/Acetaminophen 2 tab 12/26/20 17:41 12/26/20 17:47 Acetaminophen/Hydrocodone 325-5 Mg Tab PO 12/26/20 17:42 2 tab ONETIME ONE Administration Departure - Departure Time of Disposition: 18:10 Disposition: Home, Self-Care 01 Condition: Good Clinical Impression: Hip pain, Osteoarthritis - Discharge Information Referrals: Omar Gao MD [Primary Care Provider] - Forms: ED Department Discharge Additional Instructions: Please read discharge instructions on osteoarthritis Take [place] 1-2 tablets every 4-6 hours as needed for pain Aleve 2 tablets twice daily Keep your appointment to see Dr Gao as scheduled Sepsis Event Note (ED) - Evaluation Sepsis Screening Result: No Definite Risk - Focused Exam Vital Signs: Vital Signs Temp Pulse Resp BP Pulse Ox 12/26/20 17:15 36.7 C 96 20 233/154 H 99
== END 2020-12-26 18:35 | disposition home or self-care (01) ==
LOC: FB.ED 17:15
DX: M16.11 Unilateral primary osteoarthritis, right hip (principal); I10 Essential (primary) hypertension; J44.9 Chronic obstructive pulmonary disease, unspecified; E11.9 Type 2 diabetes mellitus without complications; E66.9 Obesity, unspecified; Z68.37 Body mass index [BMI] 37.0-37.9, adult; Z72.0 Tobacco use; Z79.01 Long term (current) use of anticoagulants; Z88.5 Allergy status to narcotic agent; Z91.040 Latex allergy status; Z88.0 Allergy status to penicillin; Z79.82 Long term (current) use of aspirin; Z79.899 Other long term (current) drug therapy
CPT/HCPCS: 99283; A9270

== ENCOUNTER 2021-01-14 19:56 | Emergency (ER) | payer MEDICAID ==
[2021-01-14 20:18] VITALS: BP 148/101; PULSE 118
[2021-01-14] MEDS ORDERED: Morphine 4 MG/ML VIAL IM ONE (20:58)
--- NOTE | 2021-01-14 20:58 | EDM.PDOC ---
ED HPI GENERAL MEDICAL PROBLEM - General Chief Complaint: Lower Extremity Injury/Pain Stated Complaint: HIP PAIN Time Seen by Provider: 01/14/21 20:30 Source of Information: Reports: Patient History Limitations: Reports: No Limitations - History of Present Illness INITIAL COMMENTS - FREE TEXT/NARRATIVE: Patient presented to the Ed because of Rt hip pain. The pain is sharp,8/10 and worse with movements. He to [place] without any relief. He is undergoing PT but unable to because of the pain. Right Hip Pain Score (Numeric/FACES): 10 - Related Data Allergies Allergy/AdvReac Type Severity Reaction Status Date / Time ketorolac [From Toradol] Allergy Hives Verified 12/04/20 13:56 latex Allergy Hives Verified 12/04/20 13:56 Penicillins Allergy Hives Verified 12/04/20 13:56 Home Meds: Home Meds Aspirin [Lo-Dose Aspirin EC] 81 mg PO DAILY 01/02/18 [History] amLODIPine Besylate [Amlodipine Besylate] 10 mg PO DAILY 09/01/18 [History] Gabapentin [Neurontin] 800 mg PO TID PRN 09/09/18 [History] Liraglutide [Victoza] 1.2 mg SQ BID 09/09/18 [History] QUEtiapine Fumarate [Quetiapine Fumarate] 50 mg PO BEDTIME 03/02/19 [History] traZODone 50 mg PO BEDTIME PRN 03/02/19 [History] methocarbamoL [Robaxin] 750 mg PO TID 05/14/19 [History] Nitroglycerin 0.4 mg SL ASDIRECTED PRN 06/22/19 [History] Tamsulosin HCl 0.4 mg PO BEDTIME 06/22/19 [History] Ibuprofen 800 mg PO TID PRN #30 tablet 04/14/20 [Rx] Losartan [Cozaar] 100 mg PO DAILY 09/04/20 [History] Metoprolol Succinate [Toprol XL 100mg] 200 mg PO DAILY 09/04/20 [History] Albuterol Sulfate [Albuterol Sulfate Hfa] 18 gm IH Q4HR PRN #1 hfa.aer.ad 09/08/20 [Rx] levoFLOXacin [Levaquin] 750 mg PO DAILY #9 tab 09/08/20 [Rx] Doxycycline [Vibra-Tabs] 100 mg PO BID #14 tab 12/04/20 [Rx] predniSONE 20 mg PO ASDIRECTED #9 tab 12/04/20 [Rx] Acetaminophen/HYDROcodone [HYDROcodone-Acetaminophen 5-325 MG *] 1 tab PO Q4H PRN #10 each 12/25/20 [Rx] predniSONE [Prednisone] 20 mg PO DAILY #10 tablet 01/14/21 [Rx] traMADol [Ultram] 100 mg PO Q8H PRN #15 tab 01/14/21 [Rx] Past Medical History HEENT History: Reports: None Cardiovascular History: Reports: Aneurysm, High Cholesterol, Hypertension Respiratory History: Reports: Asthma, COPD, Sleep Apnea Gastrointestinal History: Reports: Other (See Below) Other Gastrointestinal History: hernia surg x 7 Genitourinary History: Reports: Renal Calculus Musculoskeletal History: Reports: Arthritis, Back Pain, Chronic, Fibromyalgia, Neck Pain, Chronic, Osteoarthritis Other Musculoskeletal History: chronic R knee pain Neurological History: Reports: Other (See Below) Other Neuro History: Insomnia Psychiatric History: Reports: Anxiety, Depression, Panic Attack Endocrine/Metabolic History: Reports: Diabetes, Type II, Obesity/BMI 30+ Hematologic History: Reports: Anticoagulation Therapy Immunologic History: Reports: None Oncologic (Cancer) History: Reports: Non-Hodgkin's Lymphoma Dermatologic History: Reports: None - Infectious Disease History Infectious Disease History: Reports: Chicken Pox - Past Surgical History Head Surgeries/Procedures: Reports: None HEENT Surgical History: Reports: Other (See Below) Other HEENT Surgeries/Procedures: Lump removed from throat approx 2013 Cardiovascular Surgical History: Reports: None Respiratory Surgical History: Reports: None GI Surgical History: Reports: Hernia Repair/Other Other GI Surgeries/Procedures: hernia repair x 7, mesh repair Male Surgical History: Reports: Ureteral Stent Neurological Surgical History: Reports: Other (See Below) Other Neurological Surgeries/Procedures: BACK SURGERY Musculoskeletal Surgical History: Reports: None Other Oncologic Surgeries/Procedures: skin CA Social & Family History - Family History Family Medical History: No Pertinent Family History - Caffeine Use Caffeine Use: Reports: Tea Other Caffeine Use: occasionally - Living Situation & Occupation Living situation: Reports: Occupation: Employed (Tells me that he works at the [employer]) Review of Systems - Review of Systems Review Of Systems: See Below Constitutional: Reports: No Symptoms Eyes: Reports: No Symptoms Ears: Reports: No Symptoms Nose: Reports: No Symptoms Mouth/Throat: Reports: No Symptoms Respiratory: Reports: No Symptoms Cardiovascular: Reports: No Symptoms GI/Abdominal: Reports: No Symptoms Genitourinary: Reports: No Symptoms Musculoskeletal: Reports: Other (Rt hip pain) Skin: Reports: No Symptoms Neurological: Reports: No Symptoms ED EXAM, GENERAL - Physical Exam Exam: See Below Exam Limited By: No Limitations General Appearance: Alert, No Apparent Distress Eye Exam: Bilateral Eye: PERRL Ears: Normal External Exam, Normal Canal Nose: Normal Inspection, Normal Mucosa, No Blood Throat/Mouth: Normal Inspection, Normal Lips, Normal Teeth, Normal Gums, Normal Oropharynx, Normal Voice Head: Atraumatic, Normocephalic Neck: Normal Inspection, Supple, Non-Tender, Full Range of Motion Respiratory/Chest: No Respiratory Distress, Lungs Clear, Normal Breath Sounds, No Accessory Muscle Use, Chest Non-Tender Cardiovascular: Normal Peripheral Pulses, Regular Rate, Rhythm, No Edema, No Gallop, No JVD, No Murmur GI/Abdominal: Normal Bowel Sounds, Soft, Non-Tender, No Organomegaly, No Distention, No Abnormal Bruit, No Mass Back Exam: Normal Inspection, Full Range of Motion Extremities: Normal Inspection, Limited Range of Motion (Rt hip tenderness), Other Neurological: Alert, Oriented, CN II-XII Intact, Normal Cognition, Normal Gait, Normal Reflexes, No Motor/Sensory Deficits Psychiatric: Normal Affect Skin Exam: Warm Course - Vital Signs Text/Narrative:: Morphine 4 mg IM x1 Last Recorded V/S: Last Vital Signs Temp 35.8 C L 01/14/21 20:17 Pulse 118 H 01/14/21 20:17 Resp 18 01/14/21 20:17 BP 148/101 H 01/14/21 20:17 Pulse Ox 97 01/14/21 20:17 - Orders/Labs/Meds Meds: Medications Discontinued Medications Generic Name Dose Route Start Last Admin Trade Name Freq PRN Reason Stop Dose Admin Morphine Sulfate 4 mg 01/14/21 20:58 01/14/21 21:35 Morphine 4 Mg/Ml Vial IM 01/14/21 20:59 4 mg ONETIME ONE Administration Prednisone 20 mg 01/15/21 09:00 Prednisone 20 Mg Tab PO DAILY EMILY Prednisone 20 mg 01/14/21 21:33 01/14/21 21:38 Prednisone 20 Mg Tab PO 01/14/21 21:34 20 mg ONETIME ONE Administration Departure - Departure Time of Disposition: 21:00 Disposition: Home, Self-Care 01 Condition: Good Clinical Impression: Sacroiliitis - Discharge Information Prescriptions: predniSONE [Prednisone] 20 mg PO DAILY #10 tablet traMADol [Ultram] 100 mg PO Q8H PRN #15 tab PRN Reason: Pain Instructions: Hip Pain Referrals: Anna Sylvester SWITCHBOARD OPERATOR RECEPTIONIST [Primary Care Provider] - Forms: ED Department Discharge Additional Instructions: Please read discharge on hip pain/sacroilitis Tramadol 100 mg with tylenol 1000 mg every 8 hours as needed for pain Prednisone 20 mg daily for 10 days Follow up as needed Sepsis Event Note (ED) - Evaluation Sepsis Screening Result: No Definite Risk
[2021-01-14] MEDS ORDERED: predniSONE 20 MG Tab PO ONE (21:33)
[2021-01-15] MEDS ORDERED: predniSONE 20 MG Tab PO SCH (09:00)
== END 2021-01-14 21:43 | disposition home or self-care (01) ==
LOC: FB.ED 19:56
DX: M46.1 Sacroiliitis, not elsewhere classified (principal); E78.00 Pure hypercholesterolemia, unspecified; I10 Essential (primary) hypertension; J44.9 Chronic obstructive pulmonary disease, unspecified; E11.9 Type 2 diabetes mellitus without complications; E66.9 Obesity, unspecified; Z68.37 Body mass index [BMI] 37.0-37.9, adult; Z88.6 Allergy status to analgesic agent; Z91.040 Latex allergy status; Z79.82 Long term (current) use of aspirin; Z88.0 Allergy status to penicillin
CPT/HCPCS: 96372; 99283; J2270; J7512

== ENCOUNTER 2021-01-24 17:27 | Emergency (ER) | payer MEDICAID ==
--- NOTE | 2021-01-24 18:02 | EDM.PDOC ---
ED HPI GENERAL MEDICAL PROBLEM - General Stated Complaint: HIP PAIN Time Seen by Provider: 01/24/21 17:35 Source of Information: Reports: Patient History Limitations: Reports: No Limitations - History of Present Illness INITIAL COMMENTS - FREE TEXT/NARRATIVE: patient presented to the ED because of chronic rt hip pain. He ran out of his tramadol and won't see his PCP until January 27. He is scheduled to have steroid injection on the right hip on February 05. Right Hip Pain Score (Numeric/FACES): 10 - Related Data Allergies Allergy/AdvReac Type Severity Reaction Status Date / Time ketorolac [From Toradol] Allergy Hives Verified 12/04/20 13:56 latex Allergy Hives Verified 12/04/20 13:56 Penicillins Allergy Hives Verified 12/04/20 13:56 Home Meds: Home Meds Aspirin [Lo-Dose Aspirin EC] 81 mg PO DAILY 01/02/18 [History] amLODIPine Besylate [Amlodipine Besylate] 10 mg PO DAILY 09/01/18 [History] Gabapentin [Neurontin] 800 mg PO TID PRN 09/09/18 [History] Liraglutide [Victoza] 1.2 mg SQ BID 09/09/18 [History] QUEtiapine Fumarate [Quetiapine Fumarate] 50 mg PO BEDTIME 03/02/19 [History] traZODone 50 mg PO BEDTIME PRN 03/02/19 [History] methocarbamoL [Robaxin] 750 mg PO TID 05/14/19 [History] Nitroglycerin 0.4 mg SL ASDIRECTED PRN 06/22/19 [History] Tamsulosin HCl 0.4 mg PO BEDTIME 06/22/19 [History] Ibuprofen 800 mg PO TID PRN #30 tablet 04/14/20 [Rx] Losartan [Cozaar] 100 mg PO DAILY 09/04/20 [History] Metoprolol Succinate [Toprol XL 100mg] 200 mg PO DAILY 09/04/20 [History] Albuterol Sulfate [Albuterol Sulfate Hfa] 18 gm IH Q4HR PRN #1 hfa.aer.ad 09/08/20 [Rx] levoFLOXacin [Levaquin] 750 mg PO DAILY #9 tab 09/08/20 [Rx] Doxycycline [Vibra-Tabs] 100 mg PO BID #14 tab 12/04/20 [Rx] predniSONE 20 mg PO ASDIRECTED #9 tab 12/04/20 [Rx] Acetaminophen/HYDROcodone [HYDROcodone-Acetaminophen 5-325 MG *] 1 tab PO Q4H PRN #10 each 12/25/20 [Rx] predniSONE [Prednisone] 20 mg PO DAILY #10 tablet 01/14/21 [Rx] traMADol [Ultram] 100 mg PO Q8H PRN #15 tab 01/14/21 [Rx] traMADol [Ultram] 100 mg PO Q8H PRN #15 tab 01/24/21 [Rx] Past Medical History HEENT History: Reports: None Cardiovascular History: Reports: Aneurysm, High Cholesterol, Hypertension Respiratory History: Reports: Asthma, COPD, Sleep Apnea Gastrointestinal History: Reports: Other (See Below) Other Gastrointestinal History: hernia surg x 7 Genitourinary History: Reports: Renal Calculus Musculoskeletal History: Reports: Arthritis, Back Pain, Chronic, Fibromyalgia, Neck Pain, Chronic, Osteoarthritis Other Musculoskeletal History: chronic R knee pain Neurological History: Reports: Other (See Below) Other Neuro History: Insomnia Psychiatric History: Reports: Anxiety, Depression, Panic Attack Endocrine/Metabolic History: Reports: Diabetes, Type II, Obesity/BMI 30+ Hematologic History: Reports: Anticoagulation Therapy Immunologic History: Reports: None Oncologic (Cancer) History: Reports: Non-Hodgkin's Lymphoma Dermatologic History: Reports: None - Infectious Disease History Infectious Disease History: Reports: Chicken Pox - Past Surgical History Head Surgeries/Procedures: Reports: None HEENT Surgical History: Reports: Other (See Below) Other HEENT Surgeries/Procedures: Lump removed from throat approx 2013 Cardiovascular Surgical History: Reports: None Respiratory Surgical History: Reports: None GI Surgical History: Reports: Hernia Repair/Other Other GI Surgeries/Procedures: hernia repair x 7, mesh repair Male Surgical History: Reports: Ureteral Stent Neurological Surgical History: Reports: Other (See Below) Other Neurological Surgeries/Procedures: BACK SURGERY Musculoskeletal Surgical History: Reports: None Other Oncologic Surgeries/Procedures: skin CA Social & Family History - Family History Family Medical History: No Pertinent Family History - Caffeine Use Caffeine Use: Reports: Soda Other Caffeine Use: occasionally - Living Situation & Occupation Living situation: Reports: Occupation: Employed (Tells me that he works at the [employer]) ED ROS GENERAL - Review of Systems Review Of Systems: See Below Constitutional: Reports: No Symptoms HEENT: Reports: No Symptoms Respiratory: Reports: No Symptoms Cardiovascular: Reports: No Symptoms Endocrine: Reports: No Symptoms GI/Abdominal: Reports: No Symptoms : Reports: No Symptoms Musculoskeletal: Reports: Other (Rt hip pain) Skin: Reports: No Symptoms Neurological: Reports: No Symptoms Psychiatric: Reports: No Symptoms ED EXAM,LOWER BACK PAIN/INJURY - Physical Exam Exam: See Below Exam Limited By: Altered Mental Status General Appearance: Alert, No Apparent Distress Ears: Normal External Exam, Normal Canal, Hearing Grossly Normal Nose: Normal Inspection, Normal Mucosa, No Blood Throat/Mouth: Normal Inspection, Normal Lips, Normal Oropharynx Head: Atraumatic, Normocephalic Neck: Normal Inspection, Supple, Non-Tender, Full Range of Motion Respiratory/Chest: No Respiratory Distress, Lungs Clear, Normal Breath Sounds, No Accessory Muscle Use, Chest Non-Tender Cardiovascular: Normal Peripheral Pulses, Regular Rate, Rhythm, No Edema, No Gallop, No JVD, No Murmur, No Rub GI/Abdominal: Normal Bowel Sounds, Soft, Non-Tender, No Organomegaly, No Distention, No Abnormal Bruit, No Mass Back Exam: Normal Inspection, Full Range of Motion Extremities: Normal Inspection, Normal Range of Motion, Non-Tender, No Pedal Edema, Normal Capillary Refill, Other (Rt SI joit tenderness) Neurological: Alert, Normal Mood/Affect, Normal Dorsiflexion, CN II-XII Intact Course - Vital Signs Text/Narrative:: [place] 5 mg, 2 PO x1 Last Recorded V/S: Last Vital Signs Temp 36.6 C 01/24/21 17:27 Pulse 100 01/24/21 17:27 Resp 20 01/24/21 17:27 BP 191/121 H 01/24/21 17:27 Pulse Ox 99 01/24/21 17:27 - Orders/Labs/Meds Meds: Medications Discontinued Medications Generic Name Dose Route Start Last Admin Trade Name Freq PRN Reason Stop Dose Admin Hydrocodone Bitart/Acetaminophen 2 tab 01/24/21 18:15 01/24/21 18:25 Acetaminophen/Hydrocodone 325-5 Mg Tab PO 01/24/21 18:16 2 tab NOW STA Administration Departure - Departure Time of Disposition: 18:15 Disposition: Home, Self-Care 01 Condition: Good Clinical Impression: Chronic hip pain - Discharge Information Prescriptions: traMADol [Ultram] 100 mg PO Q8H PRN #15 tab PRN Reason: Pain Instructions: Hip Pain Referrals: Anna Sylvester MOTION PICTURE PRINTER [Primary Care Provider] - Forms: ED Department Discharge Additional Instructions: Please read discharge instructions on chronic hip pain You need to follow up with a pain specialist who can help you with your chronic hip pain Tramadol 100 mg with tylenol 1000 mg every 8 hours as needed for pain Follow up with your doctor for referral to see PT and pain specialist Sepsis Event Note (ED) - Focused Exam Vital Signs: Vital Signs Temp Pulse Resp BP Pulse Ox 01/24/21 17:27 36.6 C 100 20 191/121 H 99
[2021-01-24 18:14] VITALS: BP 191/121; PULSE 100
[2021-01-24] MEDS ORDERED: Acetaminophen/HYDROcodone 325-5 MG Tab PO STA (18:15)
== END 2021-01-24 18:30 | disposition home or self-care (01) ==
LOC: FB.ED 17:27
DX: G89.29 Other chronic pain (principal); M25.551 Pain in right hip; J44.9 Chronic obstructive pulmonary disease, unspecified; E78.00 Pure hypercholesterolemia, unspecified; I10 Essential (primary) hypertension; E11.9 Type 2 diabetes mellitus without complications; E66.9 Obesity, unspecified; Z68.36 Body mass index [BMI] 36.0-36.9, adult; Z91.040 Latex allergy status; Z88.0 Allergy status to penicillin; Z88.6 Allergy status to analgesic agent; Z79.82 Long term (current) use of aspirin; Z79.899 Other long term (current) drug therapy
CPT/HCPCS: 99283; A9270

== ENCOUNTER 2021-07-13 17:29 | Emergency (ER) | payer MEDICAID ==
[2021-07-13] MEDS ORDERED: Ondansetron 4 MG Tab.DIS PO ONE (18:20)
[2021-07-13] MEDS ORDERED: Morphine 4 MG/ML VIAL IM ONE (18:20)
[2021-07-13 19:26] VITALS: BP 175/98; PULSE 68
== END 2021-07-13 18:50 | disposition home or self-care (01) ==
LOC: FB.ED 17:29
DX: S39.012A Strain of muscle, fascia and tendon of lower back, initial encounter (principal); E78.00 Pure hypercholesterolemia, unspecified; I10 Essential (primary) hypertension; J44.9 Chronic obstructive pulmonary disease, unspecified; E11.9 Type 2 diabetes mellitus without complications; E66.9 Obesity, unspecified; Z88.0 Allergy status to penicillin; Z88.6 Allergy status to analgesic agent; Z91.040 Latex allergy status; Z79.82 Long term (current) use of aspirin; Z68.38 Body mass index [BMI] 38.0-38.9, adult; Z79.84 Long term (current) use of oral hypoglycemic drugs; W18.41XA Slipping, tripping and stumbling without falling due to stepping on object, initial encounter
CPT/HCPCS: 96372; 99283; J2270; Q0162

== ENCOUNTER 2021-07-31 14:14 | Emergency (ER) | payer MEDICAID ==
[2021-07-31 14:41] VITALS: BP 170/95; PULSE 71
[2021-07-31] MEDS ORDERED: traMADol 50 MG Tab PO ONE (14:56)
== END 2021-07-31 16:15 | disposition home or self-care (01) ==
LOC: FB.ED 14:14
DX: S76.011A Strain of muscle, fascia and tendon of right hip, initial encounter (principal); E78.00 Pure hypercholesterolemia, unspecified; I10 Essential (primary) hypertension; J44.9 Chronic obstructive pulmonary disease, unspecified; E11.9 Type 2 diabetes mellitus without complications; E66.9 Obesity, unspecified; Z88.0 Allergy status to penicillin; Z91.040 Latex allergy status; Z88.6 Allergy status to analgesic agent; Z68.38 Body mass index [BMI] 38.0-38.9, adult; Z79.82 Long term (current) use of aspirin; Z79.84 Long term (current) use of oral hypoglycemic drugs; Z72.0 Tobacco use; W18.40XA Slipping, tripping and stumbling without falling, unspecified, initial encounter
CPT/HCPCS: 99283; A9270-GY

== ENCOUNTER 2022-04-10 19:14 | Emergency (ER) | payer MEDICAID ==
[2022-04-10] MEDS ORDERED: Acetaminophen/HYDROcodone 325-10 MG Tab PO ONE (20:03)
[2022-04-10 20:23] VITALS: BP 159/102; PULSE 79
== END 2022-04-10 20:23 | disposition home or self-care (01) ==
LOC: FB.ED 19:14
DX: S82.445A Nondisplaced spiral fracture of shaft of left fibula, initial encounter for closed fracture (principal); F11.90 Opioid use, unspecified, uncomplicated; E78.00 Pure hypercholesterolemia, unspecified; I10 Essential (primary) hypertension; J44.9 Chronic obstructive pulmonary disease, unspecified; E11.9 Type 2 diabetes mellitus without complications; F17.210 Nicotine dependence, cigarettes, uncomplicated; E66.9 Obesity, unspecified; Z68.38 Body mass index [BMI] 38.0-38.9, adult; Z91.040 Latex allergy status; Z88.8 Allergy status to other drugs, medicaments and biological substances; Z88.0 Allergy status to penicillin; Z79.82 Long term (current) use of aspirin; Z79.84 Long term (current) use of oral hypoglycemic drugs; W10.8XXA Fall (on) (from) other stairs and steps, initial encounter
CPT/HCPCS: 73610-LT; 99283; A9270-GY

== ENCOUNTER 2022-10-28 07:53 | Day surgery (SDC) | payer MEDICAID ==
[~2022-10-28 07:53] MED LIST: Lactated Ringers 1,000 ML IV SCH; Sodium Chloride 0.9% 10 ML Syringe FLUSH PRN
[2022-10-28] MEDS ORDERED: Midazolam 1 MG/ML 2 ML SDV IV ONE (07:54)
[2022-10-28] MEDS ORDERED: Lidocaine 2% 5 ML SDV IV ONE (07:54)
[2022-10-28] MEDS ORDERED: Propofol 200 MG/20 ML SDV IV ONE (07:54)
[2022-10-28 10:56] VITALS: BP 116/76; PULSE 61
== END 2022-10-28 11:03 | disposition home or self-care (01) ==
LOC: FB.SDS 07:53
PROVIDERS: ATTEND Surgery
DX: K29.50 Unspecified chronic gastritis without bleeding (principal); B96.81 Helicobacter pylori [H. pylori] as the cause of diseases classified elsewhere; F41.9 Anxiety disorder, unspecified; M19.90 Unspecified osteoarthritis, unspecified site; E11.9 Type 2 diabetes mellitus without complications; I10 Essential (primary) hypertension; F32.A Depression, unspecified; E78.00 Pure hypercholesterolemia, unspecified; F17.210 Nicotine dependence, cigarettes, uncomplicated; Z79.899 Other long term (current) drug therapy; Z79.84 Long term (current) use of oral hypoglycemic drugs; Z79.4 Long term (current) use of insulin; Z88.0 Allergy status to penicillin; Z91.040 Latex allergy status; Z98.890 Other specified postprocedural states; Z88.6 Allergy status to analgesic agent
CPT/HCPCS: 00731; 43239; 82947; 88305; 88342; J2250; J2704; J7120

== ENCOUNTER 2023-05-15 18:58 | Inpatient (IN) | payer MEDICAID ==
[2023-05-15] MEDS ORDERED: Ketorolac 30 MG/ML SDV IVPUSH ONE (19:07)
[2023-05-15] MEDS ORDERED: Acetaminophen 500 MG Tab PO ONE ×2 (19:08→19:15)
[2023-05-15] MEDS ORDERED: Sodium Chloride 0.9% 1,000 ML IV SCH (19:15)
[2023-05-15 19:47] LABS: HEMATOCRIT 41.3 % (38.3-50.1); HEMOGLOBIN 13.7 g/dL (12.9-17.7); MEAN CORPUSCULAR HEMOGLOBIN 29.7 pg (27.0-33.3); MEAN CORPUSCULAR HGB CONC 33.1 g/dL (28.7-35.3); MEAN CORPUSCULAR VOLUME 89.7 fL (80.8-98.7); MEAN PLATELET VOLUME 8.6 fL (6.7-11.0); PLATELET COUNT,PLT 205 x10(3)uL (117-477)
[2023-05-15 19:50] LABS: BLOOD UREA NITROGEN,BUN 16 mg/dL (7-18); BUN/CREATININE RATIO 13.3 (9-20); CALCIUM 8.8 mg/dL (8.6-10.2); CARBON DIOXIDE,CO2 25 mmol/L (21-32); CHLORIDE,CL 100 mmol/L (100-110); CREATININE 1.2 mg/dL (0.70-1.30); ESTIMATED GFR 73 mL/min (>60); GLUCOSE RANDOM 181 mg/dL (80-116); SODIUM,NA 137 mmol/L (135-145)
[2023-05-15 19:56] LABS: ALANINE AMINOTRANSFERASE,ALT 18 U/L (12-36); ALBUMIN 3.9 g/dL (3.5-5.2); ALKALINE PHOSPHATASE 70 IU/L (56-112); ASPARTATE AMNIOTRANSFERASE,AST 8 IU/L (5-25); BILIRUBIN TOTAL 0.6 mg/dL (0.1-1.3); PROTEIN TOTAL,TP 7.9 g/dL (6.0-8.0)
[2023-05-15] MEDS ORDERED: Levofloxacin/Dextrose 5%-Water 750 MG in Premix Bag 1 BAG IV ONE (20:18)
[2023-05-15 20:23] LABS: INFLUENZA A NAA NEGATIVE (NEGATIVE); INFLUENZA B NAA NEGATIVE (NEGATIVE); RESPIRATORY SYNCYTIAL VIR NAA NEGATIVE (NEGATIVE)
[2023-05-15] MEDS ORDERED: Sodium Chloride 0.9% 1,000 ML IV ONE (20:38)
[2023-05-15 20:40] LABS: CORONAVIRUS COVID-19 NAA NEGATIVE (NEGATIVE)
[2023-05-15 20:47] LABS: LYMPHOCYTES PERCENT MAN 4 % (13-37); MONOCYTES PERCENT MAN 1 % (4-12); SEG NEUTROPHILS PERCENT MAN 95 % (46-82)
[2023-05-15] MEDS ORDERED: Acetaminophen 325 MG Tab PO PRN (22:18)
[2023-05-15] MEDS ORDERED: Ketorolac 30 MG/ML SDV IVPUSH PRN (22:18)
[2023-05-15] MEDS ORDERED: Glucagon,Human Recombinant 1 MG Vial IM PRN (22:21)
[2023-05-15] MEDS ORDERED: 50% Dextrose in Water 50 ML Syringe IVPUSH PRN (22:21)
[2023-05-15] MEDS ORDERED: Enoxaparin 40 MG/0.4 ML Syringe SUBCUT SCH (22:30)
[2023-05-15 23:05] LABS: APPEARANCE,URINE CLEAR (CLEAR); BACTERIA,URINE RARE (NS); BILIRUBIN,URINE NEGATIVE (NEGATIVE); COLOR,URINE YELLOW (YELLOW); GLUCOSE,URINE NORMAL (NORMAL); KETONES,URINE NEGATIVE (NEGATIVE); LEUKOCYTE ESTERASE,URINE NEGATIVE (NEGATIVE); NITRITE,URINE NEGATIVE (NEGATIVE); OCCULT BLOOD,URINE NEGATIVE (NEGATIVE); PROTEIN,URINE 30 mg/dL (NEGATIVE); RBC,URINE 0-5 (0-5); SQUAMOUS EPITHELIAL CELLS,UR OCCASIONAL (NS,R,O); UROBILINOGEN,URINE NORMAL (NEGATIVE); WBC,URINE 0-5 (0-5)
[2023-05-16] MEDS: Sodium Chloride 0.9% 1,000 ML IV SCH ×3 (00:11→08:36)
[2023-05-16] MEDS ORDERED: Acetaminophen/HYDROcodone 325-10 MG Tab PO ONE ×2 (00:24→10:23)
[2023-05-16] MEDS ORDERED: Gabapentin 600 MG Tab PO ONE (00:24)
[2023-05-16] MEDS ORDERED: Methocarbamol 750 MG Tab PO ONE (00:31)
[2023-05-16] MEDS ORDERED: QUEtiapine 100 MG Tab PO ONE (00:32)
[2023-05-16] MEDS ORDERED: DULoxetine 20 MG Cap PO ONE (00:32)
[2023-05-16 07:02] LABS: A/G RATIO 0.8; ALANINE AMINOTRANSFERASE,ALT 13 U/L (12-36); ALBUMIN 2.7 g/dL (3.5-5.2); ALKALINE PHOSPHATASE 61 IU/L (56-112); ASPARTATE AMNIOTRANSFERASE,AST 17 IU/L (5-25); BILIRUBIN TOTAL 0.4 mg/dL (0.1-1.3); BLOOD UREA NITROGEN,BUN 21 mg/dL (7-18); CALCIUM 7.5 mg/dL (8.6-10.2); CARBON DIOXIDE,CO2 23 mmol/L (21-32); CHLORIDE,CL 106 mmol/L (100-110); EST CRCL DRUG DOSING (CG) 89.22 mL/min; ESTIMATED GFR 91 mL/min (>60); GLUCOSE RANDOM 124 mg/dL (80-116); POTASSIUM,K 4.3 mmol/L (3.5-5.3); SODIUM,NA 138 mmol/L (135-145)
[2023-05-16 07:29] LABS: HEMATOCRIT 33.8 % (38.3-50.1); HEMOGLOBIN 11.2 g/dL (12.9-17.7); MEAN CORPUSCULAR HEMOGLOBIN 29.6 pg (27.0-33.3); MEAN CORPUSCULAR HGB CONC 33.1 g/dL (28.7-35.3); MEAN CORPUSCULAR VOLUME 89.5 fL (80.8-98.7); MEAN PLATELET VOLUME 8.2 fL (6.7-11.0); PLATELET COUNT,PLT 150 x10(3)uL (117-477); RED BLOOD CELL COUNT 3.77 x10(6)uL (3.90-5.90); RED CELL DISTRIBUTION WIDTH 14.2 % (12.4-15.0); WHITE BLOOD CELL COUNT,WBC 17.9 x10-3/uL (3.2-10.1)
[2023-05-16 07:48] LABS: BAND PERCENT MAN 1 % (0-6); EOSINOPHILS PERCENT MAN 2 % (0-5); LYMPHOCYTES PERCENT MAN 15 % (13-37); MONOCYTES PERCENT MAN 4 % (4-12); SEG NEUTROPHILS PERCENT MAN 78 % (46-82)
[2023-05-16] MEDS: Insulin Lispro 100 Unit/ML 3 ML KwikPen SUBCUT SCH ×2 (09:00→12:08)
[2023-05-16] MEDS ORDERED: Levofloxacin/Dextrose 5%-Water 750 MG in Premix Bag 1 BAG IV ONE (10:16)
[2023-05-16 12:33] VITALS: BP 101/52; PULSE 84
== END 2023-05-16 12:40 | disposition home or self-care (01) | DRG 194 ==
LOC: FB.ED 18:58 → FB.MS 22:18
PROVIDERS: ADMIT Family Medicine; ATTEND Family Medicine
DX: J18.9 Pneumonia, unspecified organism (principal); J44.0 Chronic obstructive pulmonary disease with (acute) lower respiratory infection; E11.42 Type 2 diabetes mellitus with diabetic polyneuropathy; M54.50 Low back pain, unspecified; E78.00 Pure hypercholesterolemia, unspecified; F41.9 Anxiety disorder, unspecified; F32.A Depression, unspecified; E66.9 Obesity, unspecified; G89.4 Chronic pain syndrome; I95.0 Idiopathic hypotension; E11.65 Type 2 diabetes mellitus with hyperglycemia; F17.210 Nicotine dependence, cigarettes, uncomplicated; Z88.0 Allergy status to penicillin; Z11.52 Encounter for screening for COVID-19; Z91.040 Latex allergy status; Z86.73 Personal history of transient ischemic attack (TIA), and cerebral infarction without residual deficits; Z79.82 Long term (current) use of aspirin; Z79.4 Long term (current) use of insulin; Z79.84 Long term (current) use of oral hypoglycemic drugs; Z79.899 Other long term (current) drug therapy; Z98.890 Other specified postprocedural states; Z68.35 Body mass index [BMI] 35.0-35.9, adult
CPT/HCPCS: 0241U; 36415; 71045; 71250; 80053; 81001; 82947; 83605; 85025; 86140; 87040; 99222; 99238; A9270-GY; J1650; J1885; J1956; J7030

== ENCOUNTER 2024-05-18 11:20 | Emergency (ER) | payer MEDICARE, MEDICAID ==
[2024-05-18 13:13] VITALS: BP 112/70; PULSE 68
[2024-05-18] MEDS: Ketorolac 30 MG/ML SDV IM ONE (13:14)
== END 2024-05-18 12:55 | disposition home or self-care (01) ==
LOC: FB.ED 11:20
DX: S93.402A Sprain of unspecified ligament of left ankle, initial encounter (principal); I10 Essential (primary) hypertension; J44.89 Other specified chronic obstructive pulmonary disease; E78.00 Pure hypercholesterolemia, unspecified; M19.90 Unspecified osteoarthritis, unspecified site; E11.9 Type 2 diabetes mellitus without complications; E66.9 Obesity, unspecified; F17.210 Nicotine dependence, cigarettes, uncomplicated; Z68.34 Body mass index [BMI] 34.0-34.9, adult; Z86.73 Personal history of transient ischemic attack (TIA), and cerebral infarction without residual deficits; Z88.0 Allergy status to penicillin; Z88.5 Allergy status to narcotic agent; Z91.040 Latex allergy status; Z79.82 Long term (current) use of aspirin; Z79.84 Long term (current) use of oral hypoglycemic drugs; Z79.51 Long term (current) use of inhaled steroids; Z79.4 Long term (current) use of insulin; Z79.899 Other long term (current) drug therapy; X50.1XXA Overexertion from prolonged static or awkward postures, initial encounter
CPT/HCPCS: 73610-LT; 99283